=== PATIENT | female | born 1955 | race Caucasian/White ===

== ENCOUNTER 2021-06-21 19:21 | Inpatient (IN) | payer MEDICARE, OTHER ==
[~2021-06-21] VITALS: Ht 160 cm; Wt 75.5 kg
[2021-06-21] MEDS ORDERED: METHYL SALICYLATE/MENTHOL TOPICAL OINTMENT 57GM TUBE. TP PRN (23:30)
[2021-06-21] MEDS ORDERED: MAG HYDROX/AL HYDROX/SIMETH 30 ML ORAL.SUSP PO PRN (23:30)
[2021-06-21] MEDS ORDERED: ACETAMINOPHEN 325 MG TABLET PO PRN (23:30)
[2021-06-21 23:44] VITALS: BP 151/92
[2021-06-22 00:56] LABS: BACTERIA,URINE FEW /HPF (0-FEW); BILIRUBIN,URINE NEG (NEG); CLARITY,URINE CLEAR; COLOR,URINE YELLOW; GLUCOSE,URINE NEG (NEG); NITRITE,URINE NEG (NEG); RBC,URINE 0 /HPF (0-2); SQUAMOUS EPITHELIAL CELL,UR OCC /LPF
--- NOTE | 2021-06-22 01:06 | RAD ---
CT HEAD/BRAIN WO History: Fall. Comparison: None. Technique: Noncontrast CT imaging was performed of the head. Findings: No intracranial hemorrhage. No mass effect. No hydrocephalus. No evidence of acute territorial infar ction. Imaged orbits are unremarkable. Left maxillary sinus mucosal thickening with chronic changes of the b ones consistent chronic sinusitis. The scalp and calvarium are unremarkable. Impression: 1. No acute intracranial abnormality. 2. Chronic left maxillary sinusitis. ----- Exposure: One or more of the following individualized dose reduction techniques were utilized for thi s examination: 1. Automated exposure control 2. Adjustment of the mA and/or kV according to patient size 3. Use of iterative reconstruction technique. Electronically signed by: Fredy Tee MD (06/22/2021 1:03 AM) [facility]
[2021-06-22] MEDS ORDERED: LORA-254 PO (01:11)
[2021-06-22] MEDS ORDERED: WARF-31 PO (01:11)
[2021-06-22] MEDS ORDERED: OLAN5TAB67 PO (01:11)
[2021-06-22] MEDS ORDERED: BISA5TAB4 PO (01:11)
[2021-06-22] MEDS ORDERED: NITR0.4T22 SL (01:11)
[2021-06-22] MEDS ORDERED: POTA-112 PO (01:11)
[2021-06-22] MEDS ORDERED: BUDE180A IH (01:11)
[2021-06-22] MEDS ORDERED: ACET-1874 PO (01:11)
[2021-06-22] MEDS ORDERED: ROSUVASTATIN CA20 MG PO (01:11)
[2021-06-22] MEDS ORDERED: VENL150C6 PO (01:11)
[2021-06-22] MEDS ORDERED: FAMO-63 PO (01:11)
[2021-06-22] MEDS ORDERED: VENL75CA6 PO (01:11)
[2021-06-22] MEDS ORDERED: FLUT9.9S NS (01:11)
[2021-06-22] MEDS ORDERED: TRAZ-120 PO (01:11)
[2021-06-22] MEDS ORDERED: DIAZ5TAB PO (01:11)
[2021-06-22] MEDS ORDERED: METO-239 PO (01:11)
[2021-06-22] MEDS ORDERED: OXYB5TAB33 PO (01:11)
[2021-06-22] MEDS ORDERED: ALBU2.5V8 IH (01:11)
[2021-06-22] MEDS ORDERED: BISACODYL TAB 5 MG TABLET.DR. PO PRN (01:15)
[2021-06-22] MEDS ORDERED: traZODone 50 MG TABLET. PO PRN (01:15)
[2021-06-22] MEDS ORDERED: NITROGLYCERIN SUBLINGUAL 0.4 MG BOTTLE OF 25. SL PRN (01:15)
[2021-06-22] MEDS ORDERED: NON FORMULARY ITEM (Acetaminophen Er 650 MG) PO PRN (01:15)
[2021-06-22] MEDS ORDERED: ALBUTEROL SULFATE 2.5 MG/3 ML NEBU. NEB PRN (01:30)
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
[2021-06-22 04:13] LABS: BASO % 1 % (0-3); CALCIUM 8.7 mg/dL (8.5-10.1); CREATININE 0.8 mg/dL (0.6-1.0); EOS # 0.2 x10^3/uL (0.0-0.7); EOS % 5 % (0-3); GFR 71.8; HEMATOCRIT 35.1 % (36.0-47.0); HEMOGLOBIN 11.2 g/dL (12.0-15.5); LYMPH # 1.5 x10^3/uL (1.0-4.8); LYMPH % 39 % (24-48); MEAN CORPUSCULAR HEMOGLOBIN 31 pg (25-35); MEAN CORPUSCULAR HGB CONC 32 g/dL (31-37); MEAN CORPUSCULAR VOLUME 96 fL (79-100); MONO # 0.5 x10^3/uL (0.0-1.1); MONO % 13 % (0-9); NEUT # 1.6 x10^3uL (1.8-7.7); NEUT % 43 % (31-73); PLATELET COUNT 148 x10^3/uL (140-400); POTASSIUM 3.1 mmol/L (3.5-5.1); RED BLOOD COUNT 3.68 x10^6/uL (3.50-5.40); RED CELL DISTRIBUTION WIDTH 14.4 % (11.5-14.5); WHITE BLOOD COUNT 3.9 x10^3/uL (4.0-11.0)
[2021-06-22 04:19] LABS: ALBUMIN 3.1 g/dL (3.4-5.0); ALBUMIN/GLOBULIN RATIO 0.9 (1.0-1.7); MAGNESIUM 2.2 mg/dL (1.8-2.4); TOTAL BILIRUBIN 0.5 mg/dL (0.2-1.0); TOTAL PROTEIN 6.6 g/dL (6.4-8.2)
[2021-06-22 05:50] VITALS: BP 154/76
[2021-06-22] MEDS: BUDESONIDE 0.5 MG/2 ML NEBU NEB SCH ×2 (08:00→20:00)
[2021-06-22] MEDS: FAMOTIDINE 20 MG TABLET PO SCH ×2 (08:59→21:40)
[2021-06-22] MEDS: OXYBUTYNIN CHLORIDE 5 MG TABLET PO SCH (08:59)
[2021-06-22] MEDS: VENLAFAXINE 75 MG TABLET. PO SCH ×3 (08:59→21:40)
[2021-06-22] MEDS ORDERED: FLUTICASONE 50MCG/NASAL SPRAY 16GM BOTTLE. NS SCH (09:00)
[2021-06-22] MEDS ORDERED: FLU VACC QUAD 21-22 (6MOS+) PF 0.5 ML SYRINGE. VAX IM ONE (09:00)
[2021-06-22] MEDS ORDERED: NON FORMULARY ITEM (Venlafaxine Hcl (Venlafaxine Hcl Er) 75 MG) PO SCH (09:00)
[2021-06-22] MEDS ORDERED: METOPROLOL SUCC 24HR ER 25 MG TAB.ER.24H. PO SCH (09:00)
[2021-06-22] MEDS: POTASSIUM CHLORIDE 10 MEQ TABLET.ER. PO SCH ×3 (09:00→17:20)
[2021-06-22 10:10] LABS: THYROID STIM HORMONE (TSH) 0.409 uIU/mL (0.358-3.740)
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
[2021-06-22] MEDS ORDERED: FLUTICASONE 50MCG/NASAL SPRAY 16GM BOTTLE. NS PRN (11:45)
[2021-06-22] MEDS ORDERED: ALBUTEROL SULFATE 8GM INHALER. INH PRN (11:45)
[2021-06-22] MEDS ORDERED: NITR12SP TL (11:54)
[2021-06-22] MEDS ORDERED: BUDE0.25 IH (11:54)
--- NOTE | 2021-06-22 12:30 | NUR ---
Glenda has been increasingly agitated and restless. 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 She is making comments about having to olive picker her young sons from her uncle's house or having to get home to get dinner started for her family. PRN medication provided per eMAR, will continue to monitor and report to MD during rounds.
[2021-06-22] MEDS ORDERED: MAGNESIUM SULFATE 1GM 100 ML IV ONE (13:00)
[2021-06-22 15:40] VITALS: BP 138/84
[2021-06-22] MEDS: WARFARIN 5 MG TABLET. PO SCH (17:19)
--- NOTE | 2021-06-22 18:30 | NUR ---
Patient has been SpO2 spot checked throughout this shift and has maintained SpO2=96% on room air. Will continue to monitor and report to oncoming shift.
[2021-06-22] MEDS ORDERED: NON FORMULARY ITEM (Venlafaxine Hcl (Venlafaxine Hcl Er) 150 MG) PO SCH (21:00)
[2021-06-22] MEDS ORDERED: diazePAM 5 MG TABLET. PO PRN (21:00)
[2021-06-22] MEDS ORDERED: OLANZapine 5 MG TABLET PO SCH (21:00)
[2021-06-22] MEDS ORDERED: LORazepam 1 MG TABLET PO SCH (21:00)
[2021-06-22] MEDS ORDERED: diazePAM 5 MG TABLET. PO SCH (21:00)
[2021-06-22] MEDS ORDERED: traZODone 50 MG TABLET. PO SCH (21:15)
[2021-06-22] MEDS: ATORVASTATIN CALCIUM 20 MG TABLET PO SCH (21:45)
[2021-06-22] MEDS: NYSTATIN TOPICAL POWDER 15GM BOTTLE. TP SCH (21:45)
[2021-06-22] MEDS: risperiDONE 0.25 MG TABLET. PO SCH (21:48)
[2021-06-22] MEDS: diazePAM 5 MG TABLET. PO SCH (21:49)
[2021-06-22] MEDS: METOPROLOL SUCC 24HR ER 25 MG TAB.ER.24H. PO SCH (21:52)
--- NOTE | 2021-06-23 00:16 | NUR ---
Nursing Note The patient was located in the hallway and her room for her assessment and medication pass. The patient was alert to name only. The patient was very disorganized during interactions and her room had many magazines and blanket scattered around on the floor. The patient was compliant with her medications and took them whole. Currently sleeping in her room.
[2021-06-23 02:06] LABS: THYROXINE 7.7 ug/dL (4.5-12.0)
[2021-06-23 05:06] LABS: HEMOGLOBIN A1C 4.5 % (4.8-5.6)
[2021-06-23 06:16] VITALS: BP 119/75
[2021-06-23] MEDS: POTASSIUM CHLORIDE 10 MEQ TABLET.ER. PO SCH ×3 (08:36→17:10)
[2021-06-23] MEDS: OXYBUTYNIN CHLORIDE 5 MG TABLET PO SCH (08:36)
[2021-06-23] MEDS: VENLAFAXINE 75 MG TABLET. PO SCH ×2 (08:36→14:18)
[2021-06-23] MEDS: FAMOTIDINE 20 MG TABLET PO SCH ×2 (08:36→20:50)
[2021-06-23] MEDS: METOPROLOL SUCC 24HR ER 25 MG TAB.ER.24H. PO SCH ×2 (08:37→20:50)
[2021-06-23] MEDS: BUDESONIDE 0.5 MG/2 ML NEBU NEB SCH (08:42)
[2021-06-23] MEDS: NYSTATIN TOPICAL POWDER 15GM BOTTLE. TP SCH ×2 (09:00→20:51)
--- NOTE | 2021-06-23 11:05 | NUR ---
ACTIVITY THERAPY ASSESSMENT Completed based on observation, notes and interview. Pt was sitting in a chair in the hallway, calmly and quietly but was agreeable to speak with MACHINE SCALLOP CUTTER. She was soft spoken, confused and referred to herself as if she were a child, talking about her parents and siblings and enjoying baseball and basketball and how her mother wanted the kids to stay busy and not watch much TV. She was able to correctly recall her date of , but unable to give me her age. She was unaware where we were, thought she came here for a school dinner with her family. She had clean clothes/ face, reported being sleepy but declined going to her room to lay down, afraid there was no room and if she laid down she might fall asleep. When asked if she had any questions for MACHINE SCALLOP CUTTER, with a smile, she asked what MACHINE SCALLOP CUTTER did for a living. She was kind and actively listened. Reports indicate Pt. had a previous hospital admission for two weeks. Initial goal aimed to increase engagement: Pt. will participate in at least three Activity Therapy sessions per week.
[2021-06-23 15:39] VITALS: BP 148/75
[2021-06-23] MEDS: WARFARIN 5 MG TABLET. PO SCH (16:12)
--- NOTE | 2021-06-23 16:15 | NUR ---
Nursing note: Patient in [place] for morning medication and assessment. She is compliant with medications taken whole. She is delusional, restless, & intrusive with peers. She is A/O to self only. Patient denies pain/discomfort at this time. She ambulates with a walker that she frequently walks away from. She interacts with peers and staff. She is currently ambulating in the [place]. Will continue to monitor.
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
--- NOTE | 2021-06-23 20:31 | PDOC ---
Exam Note: Mode Note: Please also refer to the separate dictated note~for this date of service dictated separately.~Patient seen individually. Discussed the patient with Nursing staff reviewed the chart.~Reviewed interim history and current functioning. Reviewed vital signs,~Labs/ Radiology~and current medications noted below. Continue current treatment with the changes noted in the dictated addendum note Assessment: Vital Signs/I&O: Vital Signs Date Time Temp Pulse Resp B/P (MAP) Pulse Ox O2 Delivery O2 Flow Rate FiO2 06/23/21 15:39 98.5 73 18 148/75 (99) 95 06/21/21 23:44 Room Air I & O 06/22/21 06/22/21 06/23/21 15:00 23:00 07:00 Intake Total 384 ml 480 ml Balance 384 ml 480 ml Labs: Laboratory Tests Test 06/23/21 05:57 Prothrombin Time 22.3 SEC (9.4-11.4) H Prothrombin Time INR 2.2 (0.9-1.1) H Current Medications: Meds: Laboratory Tests Test 06/23/21 05:57 Prothrombin Time 22.3 SEC Prothromb Time International Ratio 2.2 Current Medications Medications (Trade) Dose Ordered Sig/Lucinda Route PRN Reason Start Time Stop Time Status Last Admin Dose Admin Acetaminophen (Tylenol) 650 mg PRN Q6HRS PRN PO MILD PAIN / TEMP > 100.3'F 06/21/21 23:30 Multi-Ingredient Ointment (Analgesic Albright) 1 christiano PRN QID PRN TP MUSCLE PAIN 06/21/21 23:30 Al Hydroxide/Mg Hydroxide (Mylanta Plus Xs) 15 ml PRN AFTMEALHC PRN PO DYSPEPSIA 06/21/21 23:30 Magnesium Hydroxide (Milk Of Magnesia) 2,400 mg PRN QHS PRN PO 1ST CHOICE CONSTIPATION 06/21/21 23:30 Influenza Virus Vaccine Quadrival (Flulaval Quad [id number] Syringe) 0.5 ml ONCE ONCE VAX IM 06/22/21 09:00 06/22/21 09:02 DC 06/22/21 09:07 Albuterol Sulfate (Ventolin) 2.5 mg PRN Q4HRS PRN NEB SHORTNESS OF BREATH 06/22/21 01:30 06/22/21 12:19 DC Bisacodyl (Dulcolax Tab) 5 mg PRN DAILY PRN PO 2ND CHOICE CONSTIPATION 06/22/21 01:15 Diazepam (Valium) 5 mg PRN QHS PRN PO ANXIETY 06/22/21 21:00 06/22/21 12:19 DC Famotidine (Pepcid) 20 mg BID PO 06/22/21 09:00 06/23/21 08:36 Lorazepam (Ativan) 1 mg HS PO 06/22/21 21:00 06/22/21 12:19 DC Metoprolol Succinate (Toprol Xl) 25 mg DAILY PO 06/22/21 09:00 06/22/21 12:19 DC 06/22/21 09:00 Nitroglycerin (Nitrostat) 0.4 mg PRN Q5MIN PRN SL CHEST PAIN 06/22/21 01:15 Olanzapine (ZyPREXA) 2.5 mg HS PO 06/22/21 21:00 06/22/21 12:19 DC Potassium Chloride (Klor-Con) 20 meq TIDWMEALS PO 06/22/21 08:00 06/23/21 17:10 Trazodone HCl (Desyrel) 25 mg PRN QHS PRN PO INSOMNIA 06/22/21 01:15 06/22/21 21:28 DC Warfarin Sodium (Coumadin) 5 mg DAILY@1600 PO 06/22/21 16:00 06/23/21 16:12 Non-Formulary Medication (Acetaminophen Er ) 650 mg PRN Q8HRS PRN PO FEVER/PAIN 06/22/21 01:15 UNV Budesonide (Pulmicort) 0.5 mg RTBID NEB 06/22/21 08:00 06/23/21 12:30 DC 06/23/21 08:42 Fluticasone Propionate (Flonase) 2 spray DAILY NS 06/22/21 09:00 06/22/21 12:19 DC Oxybutynin Chloride (Ditropan) 5 mg DAILY PO 06/22/21 09:00 06/23/21 08:36 Atorvastatin Calcium (Lipitor) 80 mg QHS PO 06/22/21 21:00 06/22/21 21:45 Non-Formulary Medication (Venlafaxine Hcl (Venlafaxine Hcl Er)) 75 mg DAILY PO 06/22/21 09:00 UNV Non-Formulary Medication (Venlafaxine Hcl (Venlafaxine Hcl Er)) 150 mg HS PO 06/22/21 21:00 UNV Warfarin Sodium (Coumadin Per Pharmacy) 1 each PRN DAILY PRN MC SEE COMMENTS 06/22/21 01:45 Venlafaxine HCl (Effexor) 75 mg TID PO 06/22/21 09:00 06/23/21 19:45 DC 06/23/21 14:18 Nystatin (Nystop) 1 christiano BID TP 06/22/21 21:00 06/23/21 09:00 Magnesium Sulfate 100 ml @ 100 mls/hr 1X ONCE IV 06/22/21 13:00 06/22/21 13:59 DC 06/22/21 13:49 Olanzapine (ZyPREXA ZYDIS) 2.5 mg PRN Q2HR PRN PO ANXIETY / AGITATION 06/22/21 11:45 06/23/21 15:11 Diazepam (Valium) 5 mg QHS PO 06/22/21 21:00 06/22/21 21:22 DC Fluticasone Propionate (Flonase) 2 spray PRN BID PRN NS allergies 06/22/21 11:45 Metoprolol Succinate (Toprol Xl) 25 mg BID PO 06/22/21 21:00 06/23/21 08:37 Albuterol Sulfate (Ventolin Hfa Inhaler) 2 puff PRN Q4HRS PRN INH SHORTNESS OF BREATH 06/22/21 11:45 Diazepam (Valium) 2.5 mg QHS PO 06/22/21 21:15 06/25/21 08:00 06/22/21 21:49 Risperidone (RisperDAL) 0.25 mg QHS PO 06/23/21 21:00 06/22/21 21:25 DC Trazodone HCl (Desyrel) 50 mg PRN QHS PO 06/22/21 21:15 Risperidone (RisperDAL) 0.25 mg QHS PO 06/22/21 21:30 06/22/21 21:48 Fluticasone Furoate (ARNUITY 100mcg ELLIPTA) 1 puff BID INH 06/23/21 21:00 Venlafaxine HCl (Effexor) 75 mg BID@0900,1700 PO 06/24/21 09:00 Current Medications Medications (Trade) Dose Ordered Sig/Lucinda Route PRN Reason Start Time Stop Time Status Last Admin Dose Admin Atorvastatin Calcium (Lipitor) 80 mg QHS PO 06/22/21 21:00 06/22/21 21:45 Nystatin (Nystop) 1 christiano BID TP 06/22/21 21:00 06/23/21 09:00 Metoprolol Succinate (Toprol Xl) 25 mg BID PO 06/22/21 21:00 06/23/21 08:37 Diazepam (Valium) 2.5 mg QHS PO 06/22/21 21:15 06/25/21 08:00 06/22/21 21:49 Risperidone (RisperDAL) 0.25 mg QHS PO 06/22/21 21:30 06/22/21 21:48 I have reviewed the current psychotropics carefully including drug interactions. Risk benefit ratio favors no change other than as noted in my dictated progress note. Diagnosis: Problems: (1) Dementia in Alzheimer's disease with delusions (2) Dementia in Alzheimer's disease with depression (3) Dementia, vascular, with delusions (4) Dementia, vascular, with depression (5) Anxiety disorder, unspecified (6) Impulse control disorder, unspecified (7) Major neurocognitive disorder due to Alzheimer's disease, without behavioral disturbance MYNOR JAMA MD Jun 23, 2021 20:31
--- NOTE | 2021-06-23 20:32 | PDOC ---
Exam Note: Mode Note: Late entry for 06/22/2021. Please also refer to the separate dictated note~for this date of service dictated separately.~Patient seen individually. Discussed the patient with Nursing staff reviewed the chart.~Reviewed interim history and current functioning. Reviewed vital signs,~Labs/ Radiology~and current medic ations noted below. Continue current treatment with the changes noted in the dictated addendum note Assessment: Vital Signs/I&O: Vital Signs Date Time Temp Pulse Resp B/P (MAP) Pulse Ox O2 Delivery O2 Flow Rate FiO2 06/23/21 15:39 98.5 73 18 148/75 (99) 95 06/21/21 23:44 Room Air I & O 06/22/21 06/22/21 06/23/21 15:00 23:00 07:00 Intake Total 384 ml 480 ml Balance 384 ml 480 ml Labs: Laboratory Tests Test 06/23/21 05:57 Prothrombin Time 22.3 SEC (9.4-11.4) H Prothrombin Time INR 2.2 (0.9-1.1) H Current Medications: Meds: Current Medications Medications (Trade) Dose Ordered Sig/Lucinda Route PRN Reason Start Time Stop Time Status Last Admin Dose Admin Atorvastatin Calcium (Lipitor) 80 mg QHS PO 06/22/21 21:00 06/22/21 21:45 Nystatin (Nystop) 1 christiano BID TP 06/22/21 21:00 06/23/21 09:00 Metoprolol Succinate (Toprol Xl) 25 mg BID PO 06/22/21 21:00 06/23/21 08:37 Diazepam (Valium) 2.5 mg QHS PO 06/22/21 21:15 06/25/21 08:00 06/22/21 21:49 Risperidone (RisperDAL) 0.25 mg QHS PO 06/22/21 21:30 06/22/21 21:48 I have reviewed the current psychotropics carefully including drug interactions. Risk benefit ratio favors no change other than as noted in my dictated progress note. Diagnosis: Problems: (1) Impulse control disorder, unspecified (2) Anxiety disorder, unspecified (3) Dementia, vascular, with depression (4) Dementia, vascular, with delusions (5) Dementia in Alzheimer's disease with depression (6) Dementia in Alzheimer's disease with delusions (7) Major neurocognitive disorder due to Alzheimer's disease, without behavioral disturbance MYNOR JAMA MD Jun 23, 2021 20:32
[2021-06-23] MEDS: risperiDONE 0.25 MG TABLET. PO SCH (20:50)
[2021-06-23] MEDS: ATORVASTATIN CALCIUM 20 MG TABLET PO SCH (20:51)
[2021-06-23] MEDS: diazePAM 5 MG TABLET. PO SCH (20:54)
[2021-06-23] MEDS ORDERED: risperiDONE 0.25 MG TABLET. PO SCH (21:00)
[2021-06-23] MEDS: FLUTICASONE FUROATE 100mcg/INH ELLIPTA INHALER. INH SCH (21:00)
--- NOTE | 2021-06-23 23:53 | NUR ---
Nursing Note The patient was located in her room for her assessment and medication pass. The patient was calm and appropriate while in the hallway prior to HS. The patient became more disorganized and restless after going to bed. The patient was compliant with her medications and took them whole. The patient became increasingly disorganized and restless later in the shift and was given PRN Zyprexa per PRN order. The PRN was effective and the patient is currently sleeping in her room. Alert to self only during assessment.
[2021-06-24 05:50] VITALS: BP 117/64
[2021-06-24] MEDS: METOPROLOL SUCC 24HR ER 25 MG TAB.ER.24H. PO SCH ×2 (08:37→20:01)
[2021-06-24] MEDS: OXYBUTYNIN CHLORIDE 5 MG TABLET PO SCH (08:38)
[2021-06-24] MEDS: POTASSIUM CHLORIDE 10 MEQ TABLET.ER. PO SCH ×3 (08:38→15:47)
[2021-06-24] MEDS: FAMOTIDINE 20 MG TABLET PO SCH ×2 (08:38→20:00)
[2021-06-24] MEDS: FLUTICASONE FUROATE 100mcg/INH ELLIPTA INHALER. INH SCH ×3 (08:40→19:58)
[2021-06-24] MEDS: NYSTATIN TOPICAL POWDER 15GM BOTTLE. TP SCH ×2 (08:41→19:59)
[2021-06-24] MEDS: VENLAFAXINE 75 MG TABLET. PO SCH ×2 (08:46→15:45)
[2021-06-24 11:01] LABS: CALCIUM 8.6 mg/dL (8.5-10.1); CREATININE 0.9 mg/dL (0.6-1.0); GFR 62.6; POTASSIUM 4.3 mmol/L (3.5-5.1)
--- NOTE | 2021-06-24 12:44 | NUR ---
NURSE NOTE Pt. was mainly in her room today resting. Pt. did come out to eat meals in the secured hallway. Pt. was calm and quiet today.
--- NOTE | 2021-06-24 13:30 | NUR ---
Pharmacy Warfarin Dosing Note S:Pharmacy consulted to assist with anticoagulation therapy started with target INR: 2 -3 O:SHONA MARAVILLA is a 66 year old F with Atrial Fibrillation LABS: Last INR: 2.6 Last HGB: 11.2 Last HCT: 35.1 Last PLT: 148 Last dose of 5 mg given on 06/23/21 at 1600 Previous Regimen: 5MG Vitamin K given: Drug Interaction Changes: Same Interacting Drug Ongoing Drug Interactions: A:INR Within desired Range. Target Range for this patient is: 2 -3 P: Warfarin dose: 4 mg Today at 1600 Bridge Therapy: Next INR due 06/25/21 @ 0600 Pharmacy anticoagulation service will continue to follow. JESSICA WRIGHT [facility], 06/24/21 [id number]
[2021-06-24 15:42] VITALS: BP 145/74
[2021-06-24] MEDS: WARFARIN 4 MG TABLET. PO SCH (15:53)
[2021-06-24] MEDS: ATORVASTATIN CALCIUM 20 MG TABLET PO SCH (19:58)
[2021-06-24] MEDS: risperiDONE 0.25 MG TABLET. PO SCH (19:58)
[2021-06-24] MEDS: diazePAM 5 MG TABLET. PO SCH (20:01)
--- NOTE | 2021-06-24 20:49 | PDOC ---
Exam Note: Mode Note: Please also refer to the separate dictated note~for this date of service dictated separately.~Patient seen individually. Discussed the patient with Nursing staff reviewed the chart.~Reviewed interim history and current functioning. Reviewed vital signs,~Labs/ Radiology~and current medications noted below. Continue current treatment with the changes noted in the dictated addendum note Assessment: Vital Signs/I&O: Vital Signs Date Time Temp Pulse Resp B/P (MAP) Pulse Ox O2 Delivery O2 Flow Rate FiO2 06/24/21 20:01 76 145/74 06/24/21 15:42 98.2 18 96 06/24/21 05:50 Nasal Cannula 3.0 I & O 0 06/23/21 06/23/21 06/24/21 15:00 23:00 07:00 Intake Total 600 ml 360 ml Balance 600 ml 360 ml Labs: Laboratory Tests Test 06/24/21 10:38 Prothrombin Time 26.5 SEC (9.4-11.4) H Prothrombin Time INR 2.6 (0.9-1.1) H Sodium Level 145 mmol/L (136-145) Potassium Level 4.3 mmol/L (3.5-5.1) Chloride Level 111 mmol/L (98-107) H Carbon Dioxide Level 28 mmol/L (21-32) Anion Gap 6 (6-14) Blood Urea Nitrogen 18 mg/dL (7-20) Creatinine 0.9 mg/dL (0.6-1.0) Estimated GFR (Cockcroft-Gault) 62.6 Glucose Level 98 mg/dL (70-99) Calcium Level 8.6 mg/dL (8.5-10.1) Current Medications: Meds: Laboratory Tests Test 06/24/21 10:38 Prothrombin Time 26.5 SEC Prothromb Time International Ratio 2.6 Sodium Level 145 mmol/L Potassium Level 4.3 mmol/L Chloride Level 111 mmol/L Carbon Dioxide Level 28 mmol/L Anion Gap 6 Blood Urea Nitrogen 18 mg/dL Creatinine 0.9 mg/dL Estimated GFR (Cockcroft-Gault) 62.6 Glucose Level 98 mg/dL Calcium Level 8.6 mg/dL Current Medications Medications (Trade) Dose Ordered Sig/Lucinda Route PRN Reason Start Time Stop Time Status Last Admin Dose Admin Acetaminophen (Tylenol) 650 mg PRN Q6HRS PRN PO MILD PAIN / TEMP > 100.3'F 06/21/21 23:30 Multi-Ingredient Ointment (Analgesic [place]) 1 christiano PRN QID PRN TP MUSCLE PAIN 06/21/21 23:30 Al Hydroxide/Mg Hydroxide (Mylanta Plus Xs) 15 ml PRN AFTMEALHC PRN PO DYSPEPSIA 06/21/21 23:30 Magnesium Hydroxide (Milk Of Magnesia) 2,400 mg PRN QHS PRN PO 1ST CHOICE CONSTIPATION 06/21/21 23:30 Influenza Virus Vaccine Quadrival (Flulaval Quad [id number] Syringe) 0.5 ml ONCE ONCE VAX IM 06/22/21 09:00 06/22/21 09:02 DC 06/22/21 09:07 Albuterol Sulfate (Ventolin) 2.5 mg PRN Q4HRS PRN NEB SHORTNESS OF BREATH 06/22/21 01:30 06/22/21 12:19 DC Bisacodyl (Dulcolax Tab) 5 mg PRN DAILY PRN PO 2ND CHOICE CONSTIPATION 06/22/21 01:15 Diazepam (Valium) 5 mg PRN QHS PRN PO ANXIETY 06/22/21 21:00 06/22/21 12:19 DC Famotidine (Pepcid) 20 mg BID PO 06/22/21 09:00 06/24/21 20:00 Lorazepam (Ativan) 1 mg HS PO 06/22/21 21:00 06/22/21 12:19 DC Metoprolol Succinate (Toprol Xl) 25 mg DAILY PO 06/22/21 09:00 06/22/21 12:19 DC 06/22/21 09:00 Nitroglycerin (Nitrostat) 0.4 mg PRN Q5MIN PRN SL CHEST PAIN 06/22/21 01:15 Olanzapine (ZyPREXA) 2.5 mg HS PO 06/22/21 21:00 06/22/21 12:19 DC Potassium Chloride (Klor-Con) 20 meq TIDWMEALS PO 06/22/21 08:00 06/24/21 15:47 Trazodone HCl (Desyrel) 25 mg PRN QHS PRN PO INSOMNIA 06/22/21 01:15 06/22/21 21:28 DC Warfarin Sodium (Coumadin) 5 mg DAILY@1600 PO 06/22/21 16:00 06/24/21 13:18 DC 06/23/21 16:12 Non-Formulary Medication (Acetaminophen Er ) 650 mg PRN Q8HRS PRN PO FEVER/PAIN 06/22/21 01:15 UNV Budesonide (Pulmicort) 0.5 mg RTBID NEB 06/22/21 08:00 06/23/21 12:30 DC 06/23/21 08:42 Fluticasone Propionate (Flonase) 2 spray DAILY NS 06/22/21 09:00 06/22/21 12:19 DC Oxybutynin Chloride (Ditropan) 5 mg DAILY PO 06/22/21 09:00 06/24/21 08:38 Atorvastatin Calcium (Lipitor) 80 mg QHS PO 06/22/21 21:00 06/24/21 19:58 Non-Formulary Medication (Venlafaxine Hcl (Venlafaxine Hcl Er)) 75 mg DAILY PO 06/22/21 09:00 UNV Non-Formulary Medication (Venlafaxine Hcl (Venlafaxine Hcl Er)) 150 mg HS PO 06/22/21 21:00 UNV Warfarin Sodium (Coumadin Per Pharmacy) 1 each PRN DAILY PRN MC SEE COMMENTS 06/22/21 01:45 06/24/21 13:29 Venlafaxine HCl (Effexor) 75 mg TID PO 06/22/21 09:00 06/23/21 19:45 DC 06/23/21 14:18 Nystatin (Nystop) 1 christiano BID TP 06/22/21 21:00 06/24/21 19:59 Magnesium Sulfate 100 ml @ 100 mls/hr 1X ONCE IV 06/22/21 13:00 06/22/21 13:59 DC 06/22/21 13:49 Olanzapine (ZyPREXA ZYDIS) 2.5 mg PRN Q2HR PRN PO ANXIETY / AGITATION 06/22/21 11:45 06/24/21 13:39 Diazepam (Valium) 5 mg QHS PO 06/22/21 21:00 06/22/21 21:22 DC Fluticasone Propionate (Flonase) 2 spray PRN BID PRN NS allergies 06/22/21 11:45 Metoprolol Succinate (Toprol Xl) 25 mg BID PO 06/22/21 21:00 06/24/21 20:01 Albuterol Sulfate (Ventolin Hfa Inhaler) 2 puff PRN Q4HRS PRN INH SHORTNESS OF BREATH 06/22/21 11:45 Diazepam (Valium) 2.5 mg QHS PO 06/22/21 21:15 06/25/21 08:00 06/24/21 20:01 Risperidone (RisperDAL) 0.25 mg QHS PO 06/23/21 21:00 06/22/21 21:25 DC Trazodone HCl (Desyrel) 50 mg PRN QHS PO 06/22/21 21:15 Risperidone (RisperDAL) 0.25 mg QHS PO 06/22/21 21:30 06/24/21 19:58 Fluticasone Furoate (ARNUITY 100mcg ELLIPTA) 1 puff BID INH 06/23/21 21:00 06/24/21 19:58 Venlafaxine HCl (Effexor) 75 mg BID@0900,1700 PO 06/24/21 09:00 06/24/21 15:45 Warfarin Sodium (Coumadin) 4 mg DAILY16 PO 06/24/21 16:00 06/24/21 15:53 Current Medications Medications (Trade) Dose Ordered Sig/Lucinda Route PRN Reason Start Time Stop Time Status Last Admin Dose Admin Fluticasone Furoate (ARNUITY 100mcg ELLIPTA) 1 puff BID INH 06/23/21 21:00 06/24/21 19:58 Venlafaxine HCl (Effexor) 75 mg BID@0900,1700 PO 06/24/21 09:00 06/24/21 15:45 Warfarin Sodium (Coumadin) 4 mg DAILY16 PO 06/24/21 16:00 06/24/21 15:53 I have reviewed the current psychotropics carefully including drug interactions. Risk benefit ratio favors no change other than as noted in my dictated progress note. Diagnosis: Problems: (1) Impulse control disorder, unspecified (2) Anxiety disorder, unspecified (3) Dementia, vascular, with depression (4) Dementia, vascular, with delusions (5) Dementia in Alzheimer's disease with depression (6) Dementia in Alzheimer's disease with delusions (7) Major neurocognitive disorder due to Alzheimer's disease, without behavioral disturbance EVITA,MAN M MD Jun 24, 2021 20:49
--- NOTE | 2021-06-24 22:43 | NUR ---
Pt located in hallway this evening interacting with male peer. Pt pleasantly confused. A/O to name and . Pt stated that she was in [place] and that it was 1974. Compliant with whole medications. No agitation or aggression. Pt currently sleeping.
[2021-06-25] MEDS: traZODone 50 MG TABLET. PO PRN ×3 (01:12→22:57)
--- NOTE | 2021-06-25 01:15 | NUR ---
Pt awake, anxious and delusional. Pt argumentative and refusing to put her oxygen back on. O2 saturation mid 80s. Pt refused PRN medication. PRN Trazodone and Zydis crushed and administered sublingually with staff x3. Pt resistive and combative, attempting to hit staff with her shoes. Pt making statements such as we "are all going to hell." Pt eventually calmed down and is currently sleeping with her oxygen on.
[2021-06-25 05:51] VITALS: BP 131/78
--- NOTE | 2021-06-25 07:44 | PDOC ---
Exam Note: Mode Note: This note is a late entry for 06/23/2021 covers elements not covered in my initial note. Subjective: The patient was seen individually in the evening of 06/23/2021 with Axel DE SANTIAGO, discussed and reviewed the chart. The patient slept 6-3/4 previous night. She remains confused, not aggressive. Reviewed information from the family. 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 She has been delusional, repeatedly pressing the button on the phone talking to someone who is not there. Patient has been more confused since she had Covid and seems to have encephalopathy consequent to that worsening her early onset of dementia. Review of Systems: No CV, , pulmonary, eye, ENT system symptoms on review. Gait unsteady with walker. She was walking up and down the hallway with walker. Reliability poor. Mental Status Exam: The patient is oriented to herself. Insight and judgment, recent and remote memory, attention and concentration, fund of knowledge is poor consistent with her diagnosis. Laboratory Data: Reviewed. Impression: Major neurocognitive disorder, Alzheimer, vascular with delusion, depression behavioral disturbance. Anxiety disorder unspecified. Impulse control disorder unspecified. Plan: Patient is currently on Effexor 75 mg t.i.d. We will reduce to 75 mg 9 a.m. and 5 p.m. maintain rest of the psychotropics unchanged including Risperdal 0.25 mg h.s. Adjust further as clinically indicated. Assessment: Vital Signs/I&O: Vital Signs Date Time Temp Pulse Resp B/P (MAP) Pulse Ox O2 Delivery O2 Flow Rate FiO2 06/25/21 05:51 96.8 63 18 131/78 (95) 100 Nasal Cannula 3.0 I & O 06/24/21 06/24/21 06/25/21 15:00 23:00 07:00 Intake Total 720 ml 480 ml Balance 720 ml 480 ml Labs: Laboratory Tests Test 06/24/21 10:38 06/25/21 06:55 Prothrombin Time 26.5 SEC (9.4-11.4) H 27.0 SEC (9.4-11.4) H Prothrombin Time INR 2.6 (0.9-1.1) H 2.6 (0.9-1.1) H Sodium Level 145 mmol/L (136-145) Potassium Level 4.3 mmol/L (3.5-5.1) Chloride Level 111 mmol/L (98-107) H Carbon Dioxide Level 28 mmol/L (21-32) Anion Gap 6 (6-14) Blood Urea Nitrogen 18 mg/dL (7-20) Creatinine 0.9 mg/dL (0.6-1.0) Estimated GFR (Cockcroft-Gault) 62.6 Glucose Level 98 mg/dL (70-99) Calcium Level 8.6 mg/dL (8.5-10.1) Current Medications: Meds: Laboratory Tests Test 06/24/21 10:38 06/25/21 06:55 Prothrombin Time 26.5 SEC 27.0 SEC Prothromb Time International Ratio 2.6 2.6 Sodium Level 145 mmol/L Potassium Level 4.3 mmol/L Chloride Level 111 mmol/L Carbon Dioxide Level 28 mmol/L Anion Gap 6 Blood Urea Nitrogen 18 mg/dL Creatinine 0.9 mg/dL Estimated GFR (Cockcroft-Gault) 62.6 Glucose Level 98 mg/dL Calcium Level 8.6 mg/dL Current Medications Medications (Trade) Dose Ordered Sig/Lucinda Route PRN Reason Start Time Stop Time Status Last Admin Dose Admin Acetaminophen (Tylenol) 650 mg PRN Q6HRS PRN PO MILD PAIN / TEMP > 100.3'F 06/21/21 23:30 Multi-Ingredient Ointment (Analgesic [place]) 1 christiano PRN QID PRN TP MUSCLE PAIN 06/21/21 23:30 Al Hydroxide/Mg Hydroxide (Mylanta Plus Xs) 15 ml PRN AFTMEALHC PRN PO DYSPEPSIA 06/21/21 23:30 Magnesium Hydroxide (Milk Of Magnesia) 2,400 mg PRN QHS PRN PO 1ST CHOICE CONSTIPATION 06/21/21 23:30 Influenza Virus Vaccine Quadrival (Flulaval Quad [id number] Syringe) 0.5 ml ONCE ONCE VAX IM 06/22/21 09:00 06/22/21 09:02 DC 06/22/21 09:07 Albuterol Sulfate (Ventolin) 2.5 mg PRN Q4HRS PRN NEB SHORTNESS OF BREATH 06/22/21 01:30 06/22/21 12:19 DC Bisacodyl (Dulcolax Tab) 5 mg PRN DAILY PRN PO 2ND CHOICE CONSTIPATION 06/22/21 01:15 Diazepam (Valium) 5 mg PRN QHS PRN PO ANXIETY 06/22/21 21:00 06/22/21 12:19 DC Famotidine (Pepcid) 20 mg BID PO 06/22/21 09:00 06/24/21 20:00 Lorazepam (Ativan) 1 mg HS PO 06/22/21 21:00 06/22/21 12:19 DC Metoprolol Succinate (Toprol Xl) 25 mg DAILY PO 06/22/21 09:00 06/22/21 12:19 DC 06/22/21 09:00 Nitroglycerin (Nitrostat) 0.4 mg PRN Q5MIN PRN SL CHEST PAIN 06/22/21 01:15 Olanzapine (ZyPREXA) 2.5 mg HS PO 06/22/21 21:00 06/22/21 12:19 DC Potassium Chloride (Klor-Con) 20 meq TIDWMEALS PO 06/22/21 08:00 06/24/21 15:47 Trazodone HCl (Desyrel) 25 mg PRN QHS PRN PO INSOMNIA 06/22/21 01:15 06/22/21 21:28 DC Warfarin Sodium (Coumadin) 5 mg DAILY@1600 PO 06/22/21 16:00 06/24/21 13:18 DC 06/23/21 16:12 Non-Formulary Medication (Acetaminophen Er ) 650 mg PRN Q8HRS PRN PO FEVER/PAIN 06/22/21 01:15 UNV Budesonide (Pulmicort) 0.5 mg RTBID NEB 06/22/21 08:00 06/23/21 12:30 DC 06/23/21 08:42 Fluticasone Propionate (Flonase) 2 spray DAILY NS 06/22/21 09:00 06/22/21 12:19 DC Oxybutynin Chloride (Ditropan) 5 mg DAILY PO 06/22/21 09:00 06/24/21 08:38 Atorvastatin Calcium (Lipitor) 80 mg QHS PO 06/22/21 21:00 06/24/21 19:58 Non-Formulary Medication (Venlafaxine Hcl (Venlafaxine Hcl Er)) 75 mg DAILY PO 06/22/21 09:00 UNV Non-Formulary Medication (Venlafaxine Hcl (Venlafaxine Hcl Er)) 150 mg HS PO 06/22/21 21:00 UNV Warfarin Sodium (Coumadin Per Pharmacy) 1 each PRN DAILY PRN MC SEE COMMENTS 06/22/21 01:45 06/24/21 13:29 Venlafaxine HCl (Effexor) 75 mg TID PO 06/22/21 09:00 06/23/21 19:45 DC 06/23/21 14:18 Nystatin (Nystop) 1 christiano BID TP 06/22/21 21:00 06/24/21 19:59 Magnesium Sulfate 100 ml @ 100 mls/hr 1X ONCE IV 06/22/21 13:00 06/22/21 13:59 DC 06/22/21 13:49 Olanzapine (ZyPREXA ZYDIS) 2.5 mg PRN Q2HR PRN PO ANXIETY / AGITATION 06/22/21 11:45 06/25/21 00:13 Diazepam (Valium) 5 mg QHS PO 06/22/21 21:00 06/22/21 21:22 DC Fluticasone Propionate (Flonase) 2 spray PRN BID PRN NS allergies 06/22/21 11:45 Metoprolol Succinate (Toprol Xl) 25 mg BID PO 06/22/21 21:00 06/24/21 20:01 Albuterol Sulfate (Ventolin Hfa Inhaler) 2 puff PRN Q4HRS PRN INH SHORTNESS OF BREATH 06/22/21 11:45 Diazepam (Valium) 2.5 mg QHS PO 06/22/21 21:15 06/25/21 08:00 06/24/21 20:01 Risperidone (RisperDAL) 0.25 mg QHS PO 06/23/21 21:00 06/22/21 21:25 DC Trazodone HCl (Desyrel) 50 mg PRN QHS PO 06/22/21 21:15 06/25/21 01:10 DC Risperidone (RisperDAL) 0.25 mg QHS PO 06/22/21 21:30 06/24/21 19:58 Fluticasone Furoate (ARNUITY 100mcg ELLIPTA) 1 puff BID INH 06/23/21 21:00 06/24/21 19:58 Venlafaxine HCl (Effexor) 75 mg BID@0900,1700 PO 06/24/21 09:00 06/24/21 15:45 Warfarin Sodium (Coumadin) 4 mg DAILY16 PO 06/24/21 16:00 06/24/21 15:53 Trazodone HCl (Desyrel) 50 mg PRN QHS PRN PO insomnia 06/25/21 01:15 06/25/21 01:12 Current Medications Medications (Trade) Dose Ordered Sig/Lucinda Route PRN Reason Start Time Stop Time Status Last Admin Dose Admin Venlafaxine HCl (Effexor) 75 mg BID@0900,1700 PO 06/24/21 09:00 06/24/21 15:45 Warfarin Sodium (Coumadin) 4 mg DAILY16 PO 06/24/21 16:00 06/24/21 15:53 Trazodone HCl (Desyrel) 50 mg PRN QHS PRN PO insomnia 06/25/21 01:15 06/25/21 01:12 I have reviewed the current psychotropics carefully including drug interactions. Risk benefit ratio favors no change other than as noted in my dictated progress note. Diagnosis: Problems: (1) Impulse control disorder, unspecified (2) Anxiety disorder, unspecified (3) Dementia, vascular, with depression (4) Dementia, vascular, with delusions (5) Dementia in Alzheimer's disease with depression (6) Dementia in Alzheimer's disease with delusions (7) Major neurocognitive disorder due to Alzheimer's disease, without behavioral disturbance MYNOR JAMA MD Jun 25, 2021 07:44
--- NOTE | 2021-06-25 08:09 | PDOC ---
Exam Note: Mode Note: This note is a late entry for 06/24/2021 covers elements not covered in my initial note. Subjective: The patient was seen individually in the evening of 06/24/2021 with Venkat DE SANTIAGO, discussed and reviewed the chart. The patient slept 6 previous night. She had a difficult day. She has been banging on the window outside the nursing station, trying to help another demented patient exit the unit. She is confused, disorganized, seems to have some expressive language delays as I met with her at length in the hallway outside her room. She was ambulating today without the walker. Review of Systems: No CV, , pulmonary, eye, ENT system symptoms on review. Mental Status Exam: The patient is oriented to herself. Insight and judgment, recent and remote memory, attention and concentration, fund of knowledge is poor consistent with her diagnosis. Laboratory Data: Reviewed. Impression: Major neurocognitive disorder, Alzheimer, vascular with delusion, depression behavioral disturbance. Anxiety disorder unspecified. Impulse control disorder unspecified. Plan: Continue psychotropics from initial note. We have reduced the Effexor down to 75 mg twice a day. Maintain Risperdal 0.25 mg h.s. but we may increase this depending on psychotic symptoms persistence. Adjust further as clinically indicated. Rest unchanged for now. Assessment: Vital Signs/I&O: Vital Signs Date Time Temp Pulse Resp B/P (MAP) Pulse Ox O2 Delivery O2 Flow Rate FiO2 06/25/21 05:51 96.8 63 18 131/78 (95) 100 Nasal Cannula 3.0 I & O 06/24/21 06/24/21 06/25/21 15:00 23:00 07:00 Intake Total 720 ml 480 ml Balance 720 ml 480 ml Labs: Laboratory Tests Test 06/24/21 10:38 06/25/21 06:55 Prothrombin Time 26.5 SEC (9.4-11.4) H 27.0 SEC (9.4-11.4) H Prothrombin Time INR 2.6 (0.9-1.1) H 2.6 (0.9-1.1) H Sodium Level 145 mmol/L (136-145) Potassium Level 4.3 mmol/L (3.5-5.1) Chloride Level 111 mmol/L (98-107) H Carbon Dioxide Level 28 mmol/L (21-32) Anion Gap 6 (6-14) Blood Urea Nitrogen 18 mg/dL (7-20) Creatinine 0.9 mg/dL (0.6-1.0) Estimated GFR (Cockcroft-Gault) 62.6 Glucose Level 98 mg/dL (70-99) Calcium Level 8.6 mg/dL (8.5-10.1) Current Medications: Meds: Laboratory Tests Test 06/24/21 10:38 06/25/21 06:55 Prothrombin Time 26.5 SEC 27.0 SEC Prothromb Time International Ratio 2.6 2.6 Sodium Level 145 mmol/L Potassium Level 4.3 mmol/L Chloride Level 111 mmol/L Carbon Dioxide Level 28 mmol/L Anion Gap 6 Blood Urea Nitrogen 18 mg/dL Creatinine 0.9 mg/dL Estimated GFR (Cockcroft-Gault) 62.6 Glucose Level 98 mg/dL Calcium Level 8.6 mg/dL Current Medications Medications (Trade) Dose Ordered Sig/Lucinda Route PRN Reason Start Time Stop Time Status Last Admin Dose Admin Acetaminophen (Tylenol) 650 mg PRN Q6HRS PRN PO MILD PAIN / TEMP > 100.3'F 06/21/21 23:30 Multi-Ingredient Ointment (Analgesic [place]) 1 christiano PRN QID PRN TP MUSCLE PAIN 06/21/21 23:30 Al Hydroxide/Mg Hydroxide (Mylanta Plus Xs) 15 ml PRN AFTMEALHC PRN PO DYSPEPSIA 06/21/21 23:30 Magnesium Hydroxide (Milk Of Magnesia) 2,400 mg PRN QHS PRN PO 1ST CHOICE CONSTIPATION 06/21/21 23:30 Influenza Virus Vaccine Quadrival (Flulaval Quad [id number] Syringe) 0.5 ml ONCE ONCE VAX IM 06/22/21 09:00 06/22/21 09:02 DC 06/22/21 09:07 Albuterol Sulfate (Ventolin) 2.5 mg PRN Q4HRS PRN NEB SHORTNESS OF BREATH 06/22/21 01:30 06/22/21 12:19 DC Bisacodyl (Dulcolax Tab) 5 mg PRN DAILY PRN PO 2ND CHOICE CONSTIPATION 06/22/21 01:15 Diazepam (Valium) 5 mg PRN QHS PRN PO ANXIETY 06/22/21 21:00 06/22/21 12:19 DC Famotidine (Pepcid) 20 mg BID PO 06/22/21 09:00 06/24/21 20:00 Lorazepam (Ativan) 1 mg HS PO 06/22/21 21:00 06/22/21 12:19 DC Metoprolol Succinate (Toprol Xl) 25 mg DAILY PO 06/22/21 09:00 06/22/21 12:19 DC 06/22/21 09:00 Nitroglycerin (Nitrostat) 0.4 mg PRN Q5MIN PRN SL CHEST PAIN 06/22/21 01:15 Olanzapine (ZyPREXA) 2.5 mg HS PO 06/22/21 21:00 06/22/21 12:19 DC Potassium Chloride (Klor-Con) 20 meq TIDWMEALS PO 06/22/21 08:00 06/24/21 15:47 Trazodone HCl (Desyrel) 25 mg PRN QHS PRN PO INSOMNIA 06/22/21 01:15 06/22/21 21:28 DC Warfarin Sodium (Coumadin) 5 mg DAILY@1600 PO 06/22/21 16:00 06/24/21 13:18 DC 06/23/21 16:12 Non-Formulary Medication (Acetaminophen Er ) 650 mg PRN Q8HRS PRN PO FEVER/PAIN 06/22/21 01:15 UNV Budesonide (Pulmicort) 0.5 mg RTBID NEB 06/22/21 08:00 06/23/21 12:30 DC 06/23/21 08:42 Fluticasone Propionate (Flonase) 2 spray DAILY NS 06/22/21 09:00 06/22/21 12:19 DC Oxybutynin Chloride (Ditropan) 5 mg DAILY PO 06/22/21 09:00 06/24/21 08:38 Atorvastatin Calcium (Lipitor) 80 mg QHS PO 06/22/21 21:00 06/24/21 19:58 Non-Formulary Medication (Venlafaxine Hcl (Venlafaxine Hcl Er)) 75 mg DAILY PO 06/22/21 09:00 UNV Non-Formulary Medication (Venlafaxine Hcl (Venlafaxine Hcl Er)) 150 mg HS PO 06/22/21 21:00 UNV Warfarin Sodium (Coumadin Per Pharmacy) 1 each PRN DAILY PRN MC SEE COMMENTS 06/22/21 01:45 06/24/21 13:29 Venlafaxine HCl (Effexor) 75 mg TID PO 06/22/21 09:00 06/23/21 19:45 DC 06/23/21 14:18 Nystatin (Nystop) 1 christiano BID TP 06/22/21 21:00 06/24/21 19:59 Magnesium Sulfate 100 ml @ 100 mls/hr 1X ONCE IV 06/22/21 13:00 06/22/21 13:59 DC 06/22/21 13:49 Olanzapine (ZyPREXA ZYDIS) 2.5 mg PRN Q2HR PRN PO ANXIETY / AGITATION 06/22/21 11:45 06/25/21 00:13 Diazepam (Valium) 5 mg QHS PO 06/22/21 21:00 06/22/21 21:22 DC Fluticasone Propionate (Flonase) 2 spray PRN BID PRN NS allergies 06/22/21 11:45 Metoprolol Succinate (Toprol Xl) 25 mg BID PO 06/22/21 21:00 06/24/21 20:01 Albuterol Sulfate (Ventolin Hfa Inhaler) 2 puff PRN Q4HRS PRN INH SHORTNESS OF BREATH 06/22/21 11:45 Diazepam (Valium) 2.5 mg QHS PO 06/22/21 21:15 06/25/21 08:00 DC 06/24/21 20:01 Risperidone (RisperDAL) 0.25 mg QHS PO 06/23/21 21:00 06/22/21 21:25 DC Trazodone HCl (Desyrel) 50 mg PRN QHS PO 06/22/21 21:15 06/25/21 01:10 DC Risperidone (RisperDAL) 0.25 mg QHS PO 06/22/21 21:30 06/24/21 19:58 Fluticasone Furoate (ARNUITY 100mcg ELLIPTA) 1 puff BID INH 06/23/21 21:00 06/24/21 19:58 Venlafaxine HCl (Effexor) 75 mg BID@0900,1700 PO 06/24/21 09:00 06/24/21 15:45 Warfarin Sodium (Coumadin) 4 mg DAILY16 PO 06/24/21 16:00 06/24/21 15:53 Trazodone HCl (Desyrel) 50 mg PRN QHS PRN PO insomnia 06/25/21 01:15 06/25/21 01:12 Current Medications Medications (Trade) Dose Ordered Sig/Lucinda Route PRN Reason Start Time Stop Time Status Last Admin Dose Admin Venlafaxine HCl (Effexor) 75 mg BID@0900,1700 PO 06/24/21 09:00 06/24/21 15:45 Warfarin Sodium (Coumadin) 4 mg DAILY16 PO 06/24/21 16:00 06/24/21 15:53 Trazodone HCl (Desyrel) 50 mg PRN QHS PRN PO insomnia 06/25/21 01:15 06/25/21 01:12 I have reviewed the current psychotropics carefully including drug interactions. Risk benefit ratio favors no change other than as noted in my dictated progress note. Diagnosis: Problems: (1) Impulse control disorder, unspecified (2) Anxiety disorder, unspecified (3) Dementia, vascular, with depression (4) Dementia, vascular, with delusions (5) Dementia in Alzheimer's disease with depression (6) Dementia in Alzheimer's disease with delusions (7) Major neurocognitive disorder due to Alzheimer's disease, without behavioral disturbance MYNOR JAMA MD Jun 25, 2021 08:09
[2021-06-25] MEDS: FAMOTIDINE 20 MG TABLET PO SCH ×2 (08:13→19:57)
[2021-06-25] MEDS: OXYBUTYNIN CHLORIDE 5 MG TABLET PO SCH (08:13)
[2021-06-25] MEDS: POTASSIUM CHLORIDE 10 MEQ TABLET.ER. PO SCH ×3 (08:14→17:21)
[2021-06-25] MEDS: VENLAFAXINE 75 MG TABLET. PO SCH ×2 (08:14→17:21)
[2021-06-25] MEDS: METOPROLOL SUCC 24HR ER 25 MG TAB.ER.24H. PO SCH ×2 (08:14→19:57)
[2021-06-25] MEDS: MAGNESIUM HYDROXIDE 2,400 MG/30 ML ORAL.SUSP. PO PRN (08:15)
[2021-06-25] MEDS: FLUTICASONE FUROATE 100mcg/INH ELLIPTA INHALER. INH SCH ×2 (08:16→19:58)
[2021-06-25] MEDS: NYSTATIN TOPICAL POWDER 15GM BOTTLE. TP SCH ×2 (10:02→19:58)
--- NOTE | 2021-06-25 10:30 | NUR ---
Patient agitated, restless, and delusional. SHe is repeatedly stating that she needs to get off this ship and is door checking and exit seeking. Patient also tried to push through the plastic barriers. PRN medication provided per eMAR, will continue to monitor and report to MD during rounds.
[2021-06-25 15:37] VITALS: BP 130/80
[2021-06-25] MEDS: WARFARIN 4 MG TABLET. PO SCH (17:21)
[2021-06-25] MEDS: ATORVASTATIN CALCIUM 20 MG TABLET PO SCH (19:58)
[2021-06-25] MEDS: risperiDONE 0.5 MG TABLET. PO SCH (20:00)
--- NOTE | 2021-06-25 20:26 | PDOC ---
Exam Note: Mode Note: Please also refer to the separate dictated note~for this date of service dictated separately.~Patient seen individually. Discussed the patient with Nursing staff reviewed the chart.~Reviewed interim history and current functioning. Reviewed vital signs,~Labs/ Radiology~and current medications noted below. Continue current treatment with the changes noted in the dictated addendum note Assessment: Vital Signs/I&O: Vital Signs Date Time Temp Pulse Resp B/P (MAP) Pulse Ox O2 Delivery O2 Flow Rate FiO2 06/25/21 19:57 81 130/80 06/25/21 15:37 98.4 16 96 06/25/21 05:51 Nasal Cannula 3.0 I & O 0 06/24/21 06/24/21 06/25/21 15:00 23:00 07:00 Intake Total 720 ml 480 ml Balance 720 ml 480 ml Labs: Laboratory Tests Test 06/25/21 06:55 Prothrombin Time 27.0 SEC (9.4-11.4) H Prothrombin Time INR 2.6 (0.9-1.1) H Current Medications: Meds: Laboratory Tests Test 06/25/21 06:55 Prothrombin Time 27.0 SEC Prothromb Time International Ratio 2.6 Current Medications Medications (Trade) Dose Ordered Sig/Lucinda Route PRN Reason Start Time Stop Time Status Last Admin Dose Admin Acetaminophen (Tylenol) 650 mg PRN Q6HRS PRN PO MILD PAIN / TEMP > 100.3'F 06/21/21 23:30 Multi-Ingredient Ointment (Analgesic [place]) 1 christiano PRN QID PRN TP MUSCLE PAIN 06/21/21 23:30 Al Hydroxide/Mg Hydroxide (Mylanta Plus Xs) 15 ml PRN AFTMEALHC PRN PO DYSPEPSIA 06/21/21 23:30 Magnesium Hydroxide (Milk Of Magnesia) 2,400 mg PRN QHS PRN PO 1ST CHOICE CONSTIPATION 06/21/21 23:30 06/25/21 08:15 Influenza Virus Vaccine Quadrival (Flulaval Quad [id number] Syringe) 0.5 ml ONCE ONCE VAX IM 06/22/21 09:00 06/22/21 09:02 DC 06/22/21 09:07 Albuterol Sulfate (Ventolin) 2.5 mg PRN Q4HRS PRN NEB SHORTNESS OF BREATH 06/22/21 01:30 06/22/21 12:19 DC Bisacodyl (Dulcolax Tab) 5 mg PRN DAILY PRN PO 2ND CHOICE CONSTIPATION 06/22/21 01:15 Diazepam (Valium) 5 mg PRN QHS PRN PO ANXIETY 06/22/21 21:00 06/22/21 12:19 DC Famotidine (Pepcid) 20 mg BID PO 06/22/21 09:00 06/25/21 19:57 Lorazepam (Ativan) 1 mg HS PO 06/22/21 21:00 06/22/21 12:19 DC Metoprolol Succinate (Toprol Xl) 25 mg DAILY PO 06/22/21 09:00 06/22/21 12:19 DC 06/22/21 09:00 Nitroglycerin (Nitrostat) 0.4 mg PRN Q5MIN PRN SL CHEST PAIN 06/22/21 01:15 Olanzapine (ZyPREXA) 2.5 mg HS PO 06/22/21 21:00 06/22/21 12:19 DC Potassium Chloride (Klor-Con) 20 meq TIDWMEALS PO 06/22/21 08:00 06/25/21 17:21 Trazodone HCl (Desyrel) 25 mg PRN QHS PRN PO INSOMNIA 06/22/21 01:15 06/22/21 21:28 DC Warfarin Sodium (Coumadin) 5 mg DAILY@1600 PO 06/22/21 16:00 06/24/21 13:18 DC 06/23/21 16:12 Non-Formulary Medication (Acetaminophen Er ) 650 mg PRN Q8HRS PRN PO FEVER/PAIN 06/22/21 01:15 UNV Budesonide (Pulmicort) 0.5 mg RTBID NEB 06/22/21 08:00 06/23/21 12:30 DC 06/23/21 08:42 Fluticasone Propionate (Flonase) 2 spray DAILY NS 06/22/21 09:00 06/22/21 12:19 DC Oxybutynin Chloride (Ditropan) 5 mg DAILY PO 06/22/21 09:00 06/25/21 08:13 Atorvastatin Calcium (Lipitor) 80 mg QHS PO 06/22/21 21:00 06/25/21 19:58 Non-Formulary Medication (Venlafaxine Hcl (Venlafaxine Hcl Er)) 75 mg DAILY PO 06/22/21 09:00 UNV Non-Formulary Medication (Venlafaxine Hcl (Venlafaxine Hcl Er)) 150 mg HS PO 06/22/21 21:00 UNV Warfarin Sodium (Coumadin Per Pharmacy) 1 each PRN DAILY PRN MC SEE COMMENTS 06/22/21 01:45 06/24/21 13:29 Venlafaxine HCl (Effexor) 75 mg TID PO 06/22/21 09:00 06/23/21 19:45 DC 06/23/21 14:18 Nystatin (Nystop) 1 christiano BID TP 06/22/21 21:00 06/25/21 19:58 Magnesium Sulfate 100 ml @ 100 mls/hr 1X ONCE IV 06/22/21 13:00 06/22/21 13:59 DC 06/22/21 13:49 Olanzapine (ZyPREXA ZYDIS) 2.5 mg PRN Q2HR PRN PO ANXIETY / AGITATION 06/22/21 11:45 06/25/21 14:50 Diazepam (Valium) 5 mg QHS PO 06/22/21 21:00 06/22/21 21:22 DC Fluticasone Propionate (Flonase) 2 spray PRN BID PRN NS allergies 06/22/21 11:45 Metoprolol Succinate (Toprol Xl) 25 mg BID PO 06/22/21 21:00 06/25/21 19:57 Albuterol Sulfate (Ventolin Hfa Inhaler) 2 puff PRN Q4HRS PRN INH SHORTNESS OF BREATH 06/22/21 11:45 Diazepam (Valium) 2.5 mg QHS PO 06/22/21 21:15 06/25/21 08:00 DC 06/24/21 20:01 Risperidone (RisperDAL) 0.25 mg QHS PO 06/23/21 21:00 06/22/21 21:25 DC Trazodone HCl (Desyrel) 50 mg PRN QHS PO 06/22/21 21:15 06/25/21 01:10 DC Risperidone (RisperDAL) 0.25 mg QHS PO 06/22/21 21:30 06/25/21 18:31 DC 06/24/21 19:58 Fluticasone Furoate (ARNUITY 100mcg ELLIPTA) 1 puff BID INH 06/23/21 21:00 06/25/21 19:58 Venlafaxine HCl (Effexor) 75 mg BID@0900,1700 PO 06/24/21 09:00 06/25/21 17:21 Warfarin Sodium (Coumadin) 4 mg DAILY16 PO 06/24/21 16:00 06/25/21 17:21 Trazodone HCl (Desyrel) 50 mg PRN QHS PRN PO insomnia 06/25/21 01:15 06/25/21 20:00 Risperidone (RisperDAL) 0.5 mg QHS PO 06/25/21 21:00 06/25/21 20:00 Current Medications Medications (Trade) Dose Ordered Sig/Lucinda Route PRN Reason Start Time Stop Time Status Last Admin Dose Admin Trazodone HCl (Desyrel) 50 mg PRN QHS PRN PO insomnia 06/25/21 01:15 06/25/21 20:00 Risperidone (RisperDAL) 0.5 mg QHS PO 06/25/21 21:00 06/25/21 20:00 I have reviewed the current psychotropics carefully including drug interactions. Risk benefit ratio favors no change other than as noted in my dictated progress note. Diagnosis: Problems: (1) Impulse control disorder, unspecified (2) Anxiety disorder, unspecified (3) Dementia, vascular, with depression (4) Dementia, vascular, with delusions (5) Dementia in Alzheimer's disease with depression (6) Dementia in Alzheimer's disease with delusions (7) Major neurocognitive disorder due to Alzheimer's disease, without behavioral disturbance MYNOR JAMA MD Jun 25, 2021 20:26
--- NOTE | 2021-06-25 22:45 | NUR ---
Pt disorganized and delusional this evening. Pt intrusive and found in another pt's room attempting to help pt stand up. 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 A/O to self only. Compliant with whole medications. Pt currently awake in bed.
[2021-06-26 06:12] VITALS: BP 154/80
--- NOTE | 2021-06-26 07:03 | PDOC ---
Exam Note: Mode Note: This note is a late entry for 06/25/2021 covers elements not covered in my initial note. Subjective: The patient was seen individually in the evening of 06/25/2021 with Teo DE SANTIAGO, discussed and reviewed the chart. The patient slept 6-1/2 previous night. She has been delusional, anxious, labile. Previous night she was focussed on christian, would not keep her oxygen on. Received trazodone and Zyprexa post midnight and was delusional all day per nursing report. This morning she was quite restless. Received Zyprexa at 10 am and then at 1450 hours. She believes one of the other patient is her family member. As I met with her she was trying to give me some newspaper advertisements, oblivious of what there were. Review of Systems: No CV, , pulmonary, eye, ENT system symptoms on review. Gait unsteady. Mental Status Exam: The patient is oriented to herself. Speech coherent, rapid at times. Insight and judgment, recent and remote memory, attention and concentration, fund of knowledge is poor consistent with her diagnosis. Laboratory Data: Reviewed. Impression: Major neurocognitive disorder, Alzheimer, vascular with delusion, depression behavioral disturbance. Anxiety disorder unspecified. Impulse control disorder unspecified. Plan: Continue psychotropics from initial note. Assessment: Vital Signs/I&O: Vital Signs Date Time Temp Pulse Resp B/P (MAP) Pulse Ox O2 Delivery O2 Flow Rate FiO2 06/26/21 06:12 97.3 82 18 154/80 (104) 94 06/25/21 05:51 Nasal Cannula 3.0 I & O 06/25/21 06/25/21 06/26/21 15:00 23:00 07:00 Intake Total 840 ml 480 ml Balance 840 ml 480 ml Current Medications: Meds: Current Medications Medications (Trade) Dose Ordered Sig/Lucinda Route PRN Reason Start Time Stop Time Status Last Admin Dose Admin Acetaminophen (Tylenol) 650 mg PRN Q6HRS PRN PO MILD PAIN / TEMP > 100.3'F 06/21/21 23:30 Multi-Ingredient Ointment (Analgesic [place]) 1 christiano PRN QID PRN TP MUSCLE PAIN 06/21/21 23:30 Al Hydroxide/Mg Hydroxide (Mylanta Plus Xs) 15 ml PRN AFTMEALHC PRN PO DYSPEPSIA 06/21/21 23:30 Magnesium Hydroxide (Milk Of Magnesia) 2,400 mg PRN QHS PRN PO 1ST CHOICE CONSTIPATION 06/21/21 23:30 06/25/21 08:15 Influenza Virus Vaccine Quadrival (Flulaval Quad 3030-1517 Syringe) 0.5 ml ONCE ONCE VAX IM 06/22/21 09:00 06/22/21 09:02 DC 06/22/21 09:07 Albuterol Sulfate (Ventolin) 2.5 mg PRN Q4HRS PRN NEB SHORTNESS OF BREATH 06/22/21 01:30 06/22/21 12:19 DC Bisacodyl (Dulcolax Tab) 5 mg PRN DAILY PRN PO 2ND CHOICE CONSTIPATION 06/22/21 01:15 Diazepam (Valium) 5 mg PRN QHS PRN PO ANXIETY 06/22/21 21:00 06/22/21 12:19 DC Famotidine (Pepcid) 20 mg BID PO 06/22/21 09:00 06/25/21 19:57 Lorazepam (Ativan) 1 mg HS PO 06/22/21 21:00 06/22/21 12:19 DC Metoprolol Succinate (Toprol Xl) 25 mg DAILY PO 06/22/21 09:00 06/22/21 12:19 DC 06/22/21 09:00 Nitroglycerin (Nitrostat) 0.4 mg PRN Q5MIN PRN SL CHEST PAIN 06/22/21 01:15 Olanzapine (ZyPREXA) 2.5 mg HS PO 06/22/21 21:00 06/22/21 12:19 DC Potassium Chloride (Klor-Con) 20 meq TIDWMEALS PO 06/22/21 08:00 06/25/21 17:21 Trazodone HCl (Desyrel) 25 mg PRN QHS PRN PO INSOMNIA 06/22/21 01:15 06/22/21 21:28 DC Warfarin Sodium (Coumadin) 5 mg DAILY@1600 PO 06/22/21 16:00 06/24/21 13:18 DC 06/23/21 16:12 Non-Formulary Medication (Acetaminophen Er ) 650 mg PRN Q8HRS PRN PO FEVER/PAIN 06/22/21 01:15 UNV Budesonide (Pulmicort) 0.5 mg RTBID NEB 06/22/21 08:00 06/23/21 12:30 DC 06/23/21 08:42 Fluticasone Propionate (Flonase) 2 spray DAILY NS 06/22/21 09:00 06/22/21 12:19 DC Oxybutynin Chloride (Ditropan) 5 mg DAILY PO 06/22/21 09:00 06/25/21 08:13 Atorvastatin Calcium (Lipitor) 80 mg QHS PO 06/22/21 21:00 06/25/21 19:58 Non-Formulary Medication (Venlafaxine Hcl (Venlafaxine Hcl Er)) 75 mg DAILY PO 06/22/21 09:00 UNV Non-Formulary Medication (Venlafaxine Hcl (Venlafaxine Hcl Er)) 150 mg HS PO 06/22/21 21:00 UNV Warfarin Sodium (Coumadin Per Pharmacy) 1 each PRN DAILY PRN MC SEE COMMENTS 06/22/21 01:45 06/24/21 13:29 Venlafaxine HCl (Effexor) 75 mg TID PO 06/22/21 09:00 06/23/21 19:45 DC 06/23/21 14:18 Nystatin (Nystop) 1 christiano BID TP 06/22/21 21:00 06/25/21 19:58 Magnesium Sulfate 100 ml @ 100 mls/hr 1X ONCE IV 06/22/21 13:00 06/22/21 13:59 DC 06/22/21 13:49 Olanzapine (ZyPREXA ZYDIS) 2.5 mg PRN Q2HR PRN PO ANXIETY / AGITATION 06/22/21 11:45 06/25/21 22:57 Diazepam (Valium) 5 mg QHS PO 06/22/21 21:00 06/22/21 21:22 DC Fluticasone Propionate (Flonase) 2 spray PRN BID PRN NS allergies 06/22/21 11:45 Metoprolol Succinate (Toprol Xl) 25 mg BID PO 06/22/21 21:00 06/25/21 19:57 Albuterol Sulfate (Ventolin Hfa Inhaler) 2 puff PRN Q4HRS PRN INH SHORTNESS OF BREATH 06/22/21 11:45 Diazepam (Valium) 2.5 mg QHS PO 06/22/21 21:15 06/25/21 08:00 DC 06/24/21 20:01 Risperidone (RisperDAL) 0.25 mg QHS PO 06/23/21 21:00 06/22/21 21:25 DC Trazodone HCl (Desyrel) 50 mg PRN QHS PO 06/22/21 21:15 06/25/21 01:10 DC Risperidone (RisperDAL) 0.25 mg QHS PO 06/22/21 21:30 06/25/21 18:31 DC 06/24/21 19:58 Fluticasone Furoate (ARNUITY 100mcg ELLIPTA) 1 puff BID INH 06/23/21 21:00 06/25/21 19:58 Venlafaxine HCl (Effexor) 75 mg BID@0900,1700 PO 06/24/21 09:00 06/25/21 17:21 Warfarin Sodium (Coumadin) 4 mg DAILY16 PO 06/24/21 16:00 06/25/21 17:21 Trazodone HCl (Desyrel) 50 mg PRN QHS PRN PO insomnia 06/25/21 01:15 06/25/21 22:57 Risperidone (RisperDAL) 0.5 mg QHS PO 06/25/21 21:00 06/25/21 20:00 Current Medications Medications (Trade) Dose Ordered Sig/Lucinda Route PRN Reason Start Time Stop Time Status Last Admin Dose Admin Risperidone (RisperDAL) 0.5 mg QHS PO 06/25/21 21:00 06/25/21 20:00 I have reviewed the current psychotropics carefully including drug interactions. Risk benefit ratio favors no change other than as noted in my dictated progress note. Diagnosis: Problems: (1) Impulse control disorder, unspecified (2) Anxiety disorder, unspecified (3) Dementia, vascular, with depression (4) Dementia, vascular, with delusions (5) Dementia in Alzheimer's disease with depression (6) Dementia in Alzheimer's disease with delusions (7) Major neurocognitive disorder due to Alzheimer's disease, without behavioral disturbance MYNOR JAMA MD Jun 26, 2021 07:03
[2021-06-26] MEDS: METOPROLOL SUCC 24HR ER 25 MG TAB.ER.24H. PO SCH ×2 (08:54→20:01)
[2021-06-26] MEDS: FAMOTIDINE 20 MG TABLET PO SCH ×2 (08:54→20:01)
[2021-06-26] MEDS: VENLAFAXINE 75 MG TABLET. PO SCH ×2 (08:54→16:39)
[2021-06-26] MEDS: FLUTICASONE FUROATE 100mcg/INH ELLIPTA INHALER. INH SCH ×2 (08:55→20:01)
[2021-06-26] MEDS: POTASSIUM CHLORIDE 10 MEQ TABLET.ER. PO SCH ×3 (08:55→16:39)
[2021-06-26] MEDS: OXYBUTYNIN CHLORIDE 5 MG TABLET PO SCH (08:55)
[2021-06-26] MEDS: MAGNESIUM HYDROXIDE 2,400 MG/30 ML ORAL.SUSP. PO PRN (08:56)
[2021-06-26] MEDS: NYSTATIN TOPICAL POWDER 15GM BOTTLE. TP SCH ×2 (09:00→20:01)
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
--- NOTE | 2021-06-26 14:45 | NUR ---
Patient has been increasingly restless and exit seeking. She is delusional and believes she is at work, her shift has just ended, and she needs to get home to fix dinner for her family. She is not responding to verbal redirection or distraction with a Kaylie; prn medication provided per eMAR, will continue to monitor and report to MD during rounds.
[2021-06-26 15:34] VITALS: BP 120/76
[2021-06-26] MEDS: WARFARIN 4 MG TABLET. PO SCH (16:40)
--- NOTE | 2021-06-26 18:23 | NUR ---
Treatment team update: Pt is eating 75% of meals and sleeping on average 6.5 hours; last night pt slept roughly 6 but was noted to be up and down all night. Pt continues to be delusional in thinking that she is on a ship, needs to go home and feed her kids and then noted she had to get up or she was going to be late for high school. Pt does have to be redirected for being intrusive with her peers but overall pleasantly confused. Pt is medication compliant and does need cuing to swallow the pills in her hand and to take a drink of water. SW will complete PSA with her and will make sure to clarify when pt confusion was noted. ELOS for the end of next week.
[2021-06-26] MEDS: risperiDONE 0.5 MG TABLET. PO SCH (20:01)
[2021-06-26] MEDS: ATORVASTATIN CALCIUM 20 MG TABLET PO SCH (20:01)
[2021-06-26] MEDS: traZODone 50 MG TABLET. PO PRN (20:03)
--- NOTE | 2021-06-26 21:14 | PDOC ---
Exam Note: Mode Note: Please also refer to the separate dictated note~for this date of service dictated separately.~Patient seen individually. Discussed the patient with Nursing staff reviewed the chart.~Reviewed interim history and current functioning. Reviewed vital signs,~Labs/ Radiology~and current medications noted below. Continue current treatment with the changes noted in the dictated addendum note Assessment: Vital Signs/I&O: Vital Signs Date Time Temp Pulse Resp B/P (MAP) Pulse Ox O2 Delivery O2 Flow Rate FiO2 06/26/21 20:01 71 120/76 06/26/21 15:34 98.9 18 96 06/25/21 05:51 Nasal Cannula 3.0 I & O 0 06/25/21 06/25/21 06/26/21 15:00 23:00 07:00 Intake Total 840 ml 480 ml Balance 840 ml 480 ml Current Medications: Meds: Current Medications Medications (Trade) Dose Ordered Sig/Lucinda Route PRN Reason Start Time Stop Time Status Last Admin Dose Admin Acetaminophen (Tylenol) 650 mg PRN Q6HRS PRN PO MILD PAIN / TEMP > 100.3'F 06/21/21 23:30 Multi-Ingredient Ointment (Analgesic [place]) 1 christiano PRN QID PRN TP MUSCLE PAIN 06/21/21 23:30 Al Hydroxide/Mg Hydroxide (Mylanta Plus Xs) 15 ml PRN AFTMEALHC PRN PO DYSPEPSIA 06/21/21 23:30 Magnesium Hydroxide (Milk Of Magnesia) 2,400 mg PRN QHS PRN PO 1ST CHOICE CONSTIPATION 06/21/21 23:30 06/26/21 08:56 Influenza Virus Vaccine Quadrival (Flulaval Quad 3169-2500 Syringe) 0.5 ml ONCE ONCE VAX IM 06/22/21 09:00 06/22/21 09:02 DC 06/22/21 09:07 Albuterol Sulfate (Ventolin) 2.5 mg PRN Q4HRS PRN NEB SHORTNESS OF BREATH 06/22/21 01:30 06/22/21 12:19 DC Bisacodyl (Dulcolax Tab) 5 mg PRN DAILY PRN PO 2ND CHOICE CONSTIPATION 06/22/21 01:15 Diazepam (Valium) 5 mg PRN QHS PRN PO ANXIETY 06/22/21 21:00 06/22/21 12:19 DC Famotidine (Pepcid) 20 mg BID PO 06/22/21 09:00 06/26/21 20:01 Lorazepam (Ativan) 1 mg HS PO 06/22/21 21:00 06/22/21 12:19 DC Metoprolol Succinate (Toprol Xl) 25 mg DAILY PO 06/22/21 09:00 06/22/21 12:19 DC 06/22/21 09:00 Nitroglycerin (Nitrostat) 0.4 mg PRN Q5MIN PRN SL CHEST PAIN 06/22/21 01:15 Olanzapine (ZyPREXA) 2.5 mg HS PO 06/22/21 21:00 06/22/21 12:19 DC Potassium Chloride (Klor-Con) 20 meq TIDWMEALS PO 06/22/21 08:00 06/26/21 16:39 Trazodone HCl (Desyrel) 25 mg PRN QHS PRN PO INSOMNIA 06/22/21 01:15 06/22/21 21:28 DC Warfarin Sodium (Coumadin) 5 mg DAILY@1600 PO 06/22/21 16:00 06/24/21 13:18 DC 06/23/21 16:12 Non-Formulary Medication (Acetaminophen Er ) 650 mg PRN Q8HRS PRN PO FEVER/PAIN 06/22/21 01:15 UNV Budesonide (Pulmicort) 0.5 mg RTBID NEB 06/22/21 08:00 06/23/21 12:30 DC 06/23/21 08:42 Fluticasone Propionate (Flonase) 2 spray DAILY NS 06/22/21 09:00 06/22/21 12:19 DC Oxybutynin Chloride (Ditropan) 5 mg DAILY PO 06/22/21 09:00 06/26/21 08:55 Atorvastatin Calcium (Lipitor) 80 mg QHS PO 06/22/21 21:00 06/26/21 20:01 Non-Formulary Medication (Venlafaxine Hcl (Venlafaxine Hcl Er)) 75 mg DAILY PO 06/22/21 09:00 UNV Non-Formulary Medication (Venlafaxine Hcl (Venlafaxine Hcl Er)) 150 mg HS PO 06/22/21 21:00 UNV Warfarin Sodium (Coumadin Per Pharmacy) 1 each PRN DAILY PRN MC SEE COMMENTS 06/22/21 01:45 06/24/21 13:29 Venlafaxine HCl (Effexor) 75 mg TID PO 06/22/21 09:00 06/23/21 19:45 DC 06/23/21 14:18 Nystatin (Nystop) 1 christiano BID TP 06/22/21 21:00 06/26/21 20:01 Magnesium Sulfate 100 ml @ 100 mls/hr 1X ONCE IV 06/22/21 13:00 06/22/21 13:59 DC 06/22/21 13:49 Olanzapine (ZyPREXA ZYDIS) 2.5 mg PRN Q2HR PRN PO ANXIETY / AGITATION 06/22/21 11:45 06/26/21 20:03 Diazepam (Valium) 5 mg QHS PO 06/22/21 21:00 06/22/21 21:22 DC Fluticasone Propionate (Flonase) 2 spray PRN BID PRN NS allergies 06/22/21 11:45 Metoprolol Succinate (Toprol Xl) 25 mg BID PO 06/22/21 21:00 06/26/21 20:01 Albuterol Sulfate (Ventolin Hfa Inhaler) 2 puff PRN Q4HRS PRN INH SHORTNESS OF BREATH 06/22/21 11:45 Diazepam (Valium) 2.5 mg QHS PO 06/22/21 21:15 06/25/21 08:00 DC 06/24/21 20:01 Risperidone (RisperDAL) 0.25 mg QHS PO 06/23/21 21:00 06/22/21 21:25 DC Trazodone HCl (Desyrel) 50 mg PRN QHS PO 06/22/21 21:15 06/25/21 01:10 DC Risperidone (RisperDAL) 0.25 mg QHS PO 06/22/21 21:30 06/25/21 18:31 DC 06/24/21 19:58 Fluticasone Furoate (ARNUITY 100mcg ELLIPTA) 1 puff BID INH 06/23/21 21:00 06/26/21 20:01 Venlafaxine HCl (Effexor) 75 mg BID@0900,1700 PO 06/24/21 09:00 06/26/21 16:39 Warfarin Sodium (Coumadin) 4 mg DAILY16 PO 06/24/21 16:00 06/26/21 16:40 Trazodone HCl (Desyrel) 50 mg PRN QHS PRN PO insomnia 06/25/21 01:15 06/26/21 20:03 Risperidone (RisperDAL) 0.5 mg QHS PO 06/25/21 21:00 06/26/21 20:01 I have reviewed the current psychotropics carefully including drug interactions. Risk benefit ratio favors no change other than as noted in my dictated progress note. Diagnosis: Problems: (1) Impulse control disorder, unspecified (2) Anxiety disorder, unspecified (3) Dementia, vascular, with depression (4) Dementia, vascular, with delusions (5) Dementia in Alzheimer's disease with depression (6) Dementia in Alzheimer's disease with delusions (7) Major neurocognitive disorder due to Alzheimer's disease, without behavioral disturbance MYNOR JAMA MD Jun 26, 2021 21:14
--- NOTE | 2021-06-26 22:15 | NUR ---
Pt located in the [facility] this evening. Pt highly disorganized and delusional. Rambling and tangental. Pt states that she is in [place] and the year is 1968. Compliant with whole medications. Later in the evening, pt stated that she was at work and needs to leave. Pt currently sleeping in bed.
[2021-06-27 06:31] VITALS: BP 143/81
[2021-06-27 06:40] LABS: HEMATOCRIT 35.4 % (36.0-47.0); HEMOGLOBIN 11.6 g/dL (12.0-15.5)
[2021-06-27] MEDS: VENLAFAXINE 75 MG TABLET. PO SCH ×2 (10:52→16:33)
[2021-06-27] MEDS: OXYBUTYNIN CHLORIDE 5 MG TABLET PO SCH (10:52)
[2021-06-27] MEDS: POTASSIUM CHLORIDE 10 MEQ TABLET.ER. PO SCH ×3 (10:52→16:33)
[2021-06-27] MEDS: FAMOTIDINE 20 MG TABLET PO SCH ×2 (10:52→19:58)
[2021-06-27] MEDS: FLUTICASONE FUROATE 100mcg/INH ELLIPTA INHALER. INH SCH ×2 (10:53→19:59)
[2021-06-27] MEDS: NYSTATIN TOPICAL POWDER 15GM BOTTLE. TP SCH ×2 (10:53→19:59)
[2021-06-27] MEDS: METOPROLOL SUCC 24HR ER 25 MG TAB.ER.24H. PO SCH ×2 (10:53→19:58)
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
--- NOTE | 2021-06-27 13:44 | NUR ---
Pharmacy Warfarin Dosing Note S:Pharmacy consulted to assist with anticoagulation therapy started with target INR: 2 -3 O:SHONA MARAVILLA is a 66 year old F with Atrial Fibrillation LABS: Last INR: 1.9 Last HGB: 11.6 Last HCT: 35.4 Last PLT: 148 Last dose of 4 mg given on 06/26/21 at 1600 Previous Regimen: 5MG Vitamin K given: Drug Interaction Changes: Same Interacting Drug Ongoing Drug Interactions: A:INR slightly below desired range at 1.9, will return to home dose of 5mg daily. P: Warfarin dose: 5 mg Today at 1600 Bridge Therapy: Next INR due 06/28 Pharmacy anticoagulation service will continue to follow. NORBERTO KARIMI, 06/27/21 1548
--- NOTE | 2021-06-27 15:15 | NUR ---
Nursing note: Pt was allowed to sleep in this AM and was given her meds upon awakening. She is pleasant, compliant with meds whole and cooperative with assessment. She denies having any pain/concerns at time of assessment. Pt remains very confused, but was able to state her birthday. No hallucinations noted thus far. She is currently sitting in the hallway. Will continue to monitor.
[2021-06-27 16:03] VITALS: BP 131/62
[2021-06-27] MEDS: WARFARIN 5 MG TABLET. PO SCH (16:33)
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
[2021-06-27] MEDS: ATORVASTATIN CALCIUM 20 MG TABLET PO SCH (19:58)
[2021-06-27] MEDS: risperiDONE 0.5 MG TABLET. PO SCH (19:58)
[2021-06-27] MEDS: traZODone 50 MG TABLET. PO PRN (19:59)
--- NOTE | 2021-06-27 20:39 | PDOC ---
Exam Note: Mode Note: Please also refer to the separate dictated note~for this date of service dictated separately.~Patient seen individually. Discussed the patient with Nursing staff reviewed the chart.~Reviewed interim history and current functioning. Reviewed vital signs,~Labs/ Radiology~and current medications noted below. Continue current treatment with the changes noted in the dictated addendum note Assessment: Vital Signs/I&O: Vital Signs Date Time Temp Pulse Resp B/P (MAP) Pulse Ox O2 Delivery O2 Flow Rate FiO2 06/27/21 19:58 67 131/62 06/27/21 16:03 98.4 18 95 06/25/21 05:51 Nasal Cannula 3.0 I & O 0 06/26/21 06/26/21 06/27/21 15:00 23:00 07:00 Intake Total 720 ml 410 ml Balance 720 ml 410 ml Labs: Laboratory Tests Test 06/27/21 06:30 Hemoglobin 11.6 g/dL (12.0-15.5) L Hematocrit 35.4 % (36.0-47.0) L Prothrombin Time 19.9 SEC (9.4-11.4) H Prothrombin Time INR 1.9 (0.9-1.1) H Current Medications: Meds: Laboratory Tests Test 06/27/21 06:30 Hemoglobin 11.6 g/dL Hematocrit 35.4 % Prothrombin Time 19.9 SEC Prothromb Time International Ratio 1.9 Current Medications Medications (Trade) Dose Ordered Sig/Lucinda Route PRN Reason Start Time Stop Time Status Last Admin Dose Admin Acetaminophen (Tylenol) 650 mg PRN Q6HRS PRN PO MILD PAIN / TEMP > 100.3'F 06/21/21 23:30 Multi-Ingredient Ointment (Analgesic [place]) 1 christiano PRN QID PRN TP MUSCLE PAIN 06/21/21 23:30 Al Hydroxide/Mg Hydroxide (Mylanta Plus Xs) 15 ml PRN AFTMEALHC PRN PO DYSPEPSIA 06/21/21 23:30 Magnesium Hydroxide (Milk Of Magnesia) 2,400 mg PRN QHS PRN PO 1ST CHOICE CONSTIPATION 06/21/21 23:30 06/26/21 08:56 Influenza Virus Vaccine Quadrival (Flulaval Quad Syringe) 0.5 ml ONCE ONCE VAX IM 06/22/21 09:00 06/22/21 09:02 DC 06/22/21 09:07 Albuterol Sulfate (Ventolin) 2.5 mg PRN Q4HRS PRN NEB SHORTNESS OF BREATH 06/22/21 01:30 06/22/21 12:19 DC Bisacodyl (Dulcolax Tab) 5 mg PRN DAILY PRN PO 2ND CHOICE CONSTIPATION 06/22/21 01:15 Diazepam (Valium) 5 mg PRN QHS PRN PO ANXIETY 06/22/21 21:00 06/22/21 12:19 DC Famotidine (Pepcid) 20 mg BID PO 06/22/21 09:00 06/27/21 19:58 Lorazepam (Ativan) 1 mg HS PO 06/22/21 21:00 06/22/21 12:19 DC Metoprolol Succinate (Toprol Xl) 25 mg DAILY PO 06/22/21 09:00 06/22/21 12:19 DC 06/22/21 09:00 Nitroglycerin (Nitrostat) 0.4 mg PRN Q5MIN PRN SL CHEST PAIN 06/22/21 01:15 Olanzapine (ZyPREXA) 2.5 mg HS PO 06/22/21 21:00 06/22/21 12:19 DC Potassium Chloride (Klor-Con) 20 meq TIDWMEALS PO 06/22/21 08:00 06/27/21 16:33 Trazodone HCl (Desyrel) 25 mg PRN QHS PRN PO INSOMNIA 06/22/21 01:15 06/22/21 21:28 DC Warfarin Sodium (Coumadin) 5 mg DAILY@1600 PO 06/22/21 16:00 06/24/21 13:18 DC 06/23/21 16:12 Non-Formulary Medication (Acetaminophen Er ) 650 mg PRN Q8HRS PRN PO FEVER/PAIN 06/22/21 01:15 UNV Budesonide (Pulmicort) 0.5 mg RTBID NEB 06/22/21 08:00 06/23/21 12:30 DC 06/23/21 08:42 Fluticasone Propionate (Flonase) 2 spray DAILY NS 06/22/21 09:00 06/22/21 12:19 DC Oxybutynin Chloride (Ditropan) 5 mg DAILY PO 06/22/21 09:00 06/27/21 10:52 Atorvastatin Calcium (Lipitor) 80 mg QHS PO 06/22/21 21:00 06/27/21 19:58 Non-Formulary Medication (Venlafaxine Hcl (Venlafaxine Hcl Er)) 75 mg DAILY PO 06/22/21 09:00 UNV Non-Formulary Medication (Venlafaxine Hcl (Venlafaxine Hcl Er)) 150 mg HS PO 06/22/21 21:00 UNV Warfarin Sodium (Coumadin Per Pharmacy) 1 each PRN DAILY PRN MC SEE COMMENTS 06/22/21 01:45 06/27/21 13:43 Venlafaxine HCl (Effexor) 75 mg TID PO 06/22/21 09:00 06/23/21 19:45 DC 06/23/21 14:18 Nystatin (Nystop) 1 christiano BID TP 06/22/21 21:00 06/27/21 19:59 Magnesium Sulfate 100 ml @ 100 mls/hr 1X ONCE IV 06/22/21 13:00 06/22/21 13:59 DC 06/22/21 13:49 Olanzapine (ZyPREXA ZYDIS) 2.5 mg PRN Q2HR PRN PO ANXIETY / AGITATION 06/22/21 11:45 06/27/21 20:00 Diazepam (Valium) 5 mg QHS PO 06/22/21 21:00 06/22/21 21:22 DC Fluticasone Propionate (Flonase) 2 spray PRN BID PRN NS allergies 06/22/21 11:45 Metoprolol Succinate (Toprol Xl) 25 mg BID PO 06/22/21 21:00 06/27/21 19:58 Albuterol Sulfate (Ventolin Hfa Inhaler) 2 puff PRN Q4HRS PRN INH SHORTNESS OF BREATH 06/22/21 11:45 Diazepam (Valium) 2.5 mg QHS PO 06/22/21 21:15 06/25/21 08:00 DC 06/24/21 20:01 Risperidone (RisperDAL) 0.25 mg QHS PO 06/23/21 21:00 06/22/21 21:25 DC Trazodone HCl (Desyrel) 50 mg PRN QHS PO 06/22/21 21:15 06/25/21 01:10 DC Risperidone (RisperDAL) 0.25 mg QHS PO 06/22/21 21:30 06/25/21 18:31 DC 06/24/21 19:58 Fluticasone Furoate (ARNUITY 100mcg ELLIPTA) 1 puff BID INH 06/23/21 21:00 06/27/21 19:59 Venlafaxine HCl (Effexor) 75 mg BID@0900,1700 PO 06/24/21 09:00 06/27/21 16:33 Warfarin Sodium (Coumadin) 4 mg DAILY16 PO 06/24/21 16:00 06/27/21 08:24 DC 06/26/21 16:40 Trazodone HCl (Desyrel) 50 mg PRN QHS PRN PO insomnia 06/25/21 01:15 06/27/21 19:59 Risperidone (RisperDAL) 0.5 mg QHS PO 06/25/21 21:00 06/27/21 19:58 Warfarin Sodium (Coumadin) 5 mg 1600 PO 06/27/21 16:00 06/27/21 16:33 Current Medications Medications (Trade) Dose Ordered Sig/Lucinda Route PRN Reason Start Time Stop Time Status Last Admin Dose Admin Warfarin Sodium (Coumadin) 5 mg 1600 PO 06/27/21 16:00 06/27/21 16:33 I have reviewed the current psychotropics carefully including drug interactions. Risk benefit ratio favors no change other than as noted in my dictated progress note. Diagnosis: Problems: (1) Impulse control disorder, unspecified (2) Anxiety disorder, unspecified (3) Dementia, vascular, with depression (4) Dementia, vascular, with delusions (5) Dementia in Alzheimer's disease with depression (6) Dementia in Alzheimer's disease with delusions (7) Major neurocognitive disorder due to Alzheimer's disease, without behavioral disturbance MYNOR JAMA MD Jun 27, 2021 20:39
--- NOTE | 2021-06-27 23:37 | NUR ---
Pt restless and wandering in the hallway this evening. Pt disorganized and delusional, stating that she is at work. Compliant with whole medications. A/O to self. Pt currently sleeping.
[2021-06-28 05:49] VITALS: BP 137/73
--- NOTE | 2021-06-28 06:30 | PDOC ---
Exam Note: Mode Note: This note is a late entry for 06/26/2021 covers elements not covered in my initial note. Subjective: The patient was reviewed at treatment team meeting individually in the morning on 06/26/2021 with Karlene Cornejo, Blanca Bedoya, and Joan Shannon (social welfare administrator), Aiyana, activity therapy, Simi Berger, Binder Layer, and Teo DE SANTIAGO, discussed and reviewed the chart. The patient slept 6 previous night. Average sleep 6-1/2 hours. [id number] She received trazodone at 8 p.m., trazodone and Zyprexa at 2300 hours. She is wandering and trying to exit the doors. Reviewed information and she has significant worsening of her cognition since her Covid in April 2021. Prior to that she had some mild short-term memory deficits. Review of Systems: No CV, , pulmonary, eye, ENT system symptoms on review. Reliability poor. Mental Status Exam: The patient is oriented to herself. Insight and judgment, recent and remote memory, attention and concentration, fund of knowledge is poor consistent with her diagnosis. Laboratory Data: Reviewed. Impression: Major neurocognitive disorder, Alzheimer, vascular with delusion, depression behavioral disturbance. Anxiety disorder unspecified. Impulse control disorder unspecified. Plan: Continue psychotropics from initial note. We will make further adjustments in her psychotropics as clinically indicated. Assessment: Vital Signs/I&O: Vital Signs Date Time Temp Pulse Resp B/P (MAP) Pulse Ox O2 Delivery O2 Flow Rate FiO2 06/28/21 05:49 97.8 63 18 137/73 (94) 93 06/25/21 05:51 Nasal Cannula 3.0 I & O 06/27/21 06/27/21 06/28/21 14:59 22:59 06:59 Intake Total 240 ml 360 ml Balance 240 ml 360 ml Labs: Laboratory Tests Test 06/27/21 06:30 Hemoglobin 11.6 g/dL (12.0-15.5) L Hematocrit 35.4 % (36.0-47.0) L Prothrombin Time 19.9 SEC (9.4-11.4) H Prothrombin Time INR 1.9 (0.9-1.1) H Current Medications: Meds: Current Medications Medications (Trade) Dose Ordered Sig/Lucinda Route PRN Reason Start Time Stop Time Status Last Admin Dose Admin Acetaminophen (Tylenol) 650 mg PRN Q6HRS PRN PO MILD PAIN / TEMP > 100.3'F 06/21/21 23:30 Multi-Ingredient Ointment (Analgesic [place]) 1 christiano PRN QID PRN TP MUSCLE PAIN 06/21/21 23:30 Al Hydroxide/Mg Hydroxide (Mylanta Plus Xs) 15 ml PRN AFTMEALHC PRN PO DYSPEPSIA 06/21/21 23:30 Magnesium Hydroxide (Milk Of Magnesia) 2,400 mg PRN QHS PRN PO 1ST CHOICE CONSTIPATION 06/21/21 23:30 06/26/21 08:56 Influenza Virus Vaccine Quadrival (Flulaval Quad [id number] Syringe) 0.5 ml ONCE ONCE VAX IM 06/22/21 09:00 06/22/21 09:02 DC 06/22/21 09:07 Albuterol Sulfate (Ventolin) 2.5 mg PRN Q4HRS PRN NEB SHORTNESS OF BREATH 06/22/21 01:30 06/22/21 12:19 DC Bisacodyl (Dulcolax Tab) 5 mg PRN DAILY PRN PO 2ND CHOICE CONSTIPATION 06/22/21 01:15 Diazepam (Valium) 5 mg PRN QHS PRN PO ANXIETY 06/22/21 21:00 06/22/21 12:19 DC Famotidine (Pepcid) 20 mg BID PO 06/22/21 09:00 06/27/21 19:58 Lorazepam (Ativan) 1 mg HS PO 06/22/21 21:00 06/22/21 12:19 DC Metoprolol Succinate (Toprol Xl) 25 mg DAILY PO 06/22/21 09:00 06/22/21 12:19 DC 06/22/21 09:00 Nitroglycerin (Nitrostat) 0.4 mg PRN Q5MIN PRN SL CHEST PAIN 06/22/21 01:15 Olanzapine (ZyPREXA) 2.5 mg HS PO 06/22/21 21:00 06/22/21 12:19 DC Potassium Chloride (Klor-Con) 20 meq TIDWMEALS PO 06/22/21 08:00 06/27/21 16:33 Trazodone HCl (Desyrel) 25 mg PRN QHS PRN PO INSOMNIA 06/22/21 01:15 06/22/21 21:28 DC Warfarin Sodium (Coumadin) 5 mg DAILY@1600 PO 06/22/21 16:00 06/24/21 13:18 DC 06/23/21 16:12 Non-Formulary Medication (Acetaminophen Er ) 650 mg PRN Q8HRS PRN PO FEVER/PAIN 06/22/21 01:15 UNV Budesonide (Pulmicort) 0.5 mg RTBID NEB 06/22/21 08:00 06/23/21 12:30 DC 06/23/21 08:42 Fluticasone Propionate (Flonase) 2 spray DAILY NS 06/22/21 09:00 06/22/21 12:19 DC Oxybutynin Chloride (Ditropan) 5 mg DAILY PO 06/22/21 09:00 06/27/21 10:52 Atorvastatin Calcium (Lipitor) 80 mg QHS PO 06/22/21 21:00 06/27/21 19:58 Non-Formulary Medication (Venlafaxine Hcl (Venlafaxine Hcl Er)) 75 mg DAILY PO 06/22/21 09:00 UNV Non-Formulary Medication (Venlafaxine Hcl (Venlafaxine Hcl Er)) 150 mg HS PO 06/22/21 21:00 UNV Warfarin Sodium (Coumadin Per Pharmacy) 1 each PRN DAILY PRN MC SEE COMMENTS 06/22/21 01:45 06/27/21 13:43 Venlafaxine HCl (Effexor) 75 mg TID PO 06/22/21 09:00 06/23/21 19:45 DC 06/23/21 14:18 Nystatin (Nystop) 1 christiano BID TP 06/22/21 21:00 06/27/21 19:59 Magnesium Sulfate 100 ml @ 100 mls/hr 1X ONCE IV 06/22/21 13:00 06/22/21 13:59 DC 06/22/21 13:49 Olanzapine (ZyPREXA ZYDIS) 2.5 mg PRN Q2HR PRN PO ANXIETY / AGITATION 06/22/21 11:45 06/27/21 20:00 Diazepam (Valium) 5 mg QHS PO 06/22/21 21:00 06/22/21 21:22 DC Fluticasone Propionate (Flonase) 2 spray PRN BID PRN NS allergies 06/22/21 11:45 Metoprolol Succinate (Toprol Xl) 25 mg BID PO 06/22/21 21:00 06/27/21 19:58 Albuterol Sulfate (Ventolin Hfa Inhaler) 2 puff PRN Q4HRS PRN INH SHORTNESS OF BREATH 06/22/21 11:45 Diazepam (Valium) 2.5 mg QHS PO 06/22/21 21:15 06/25/21 08:00 DC 06/24/21 20:01 Risperidone (RisperDAL) 0.25 mg QHS PO 06/23/21 21:00 06/22/21 21:25 DC Trazodone HCl (Desyrel) 50 mg PRN QHS PO 06/22/21 21:15 06/25/21 01:10 DC Risperidone (RisperDAL) 0.25 mg QHS PO 06/22/21 21:30 06/25/21 18:31 DC 06/24/21 19:58 Fluticasone Furoate (ARNUITY 100mcg ELLIPTA) 1 puff BID INH 06/23/21 21:00 06/27/21 19:59 Venlafaxine HCl (Effexor) 75 mg BID@0900,1700 PO 06/24/21 09:00 06/27/21 16:33 Warfarin Sodium (Coumadin) 4 mg DAILY16 PO 06/24/21 16:00 06/27/21 08:24 DC 06/26/21 16:40 Trazodone HCl (Desyrel) 50 mg PRN QHS PRN PO insomnia 06/25/21 01:15 06/27/21 19:59 Risperidone (RisperDAL) 0.5 mg QHS PO 06/25/21 21:00 06/27/21 19:58 Warfarin Sodium (Coumadin) 5 mg 1600 PO 06/27/21 16:00 06/27/21 16:33 Current Medications Medications (Trade) Dose Ordered Sig/Lucinda Route PRN Reason Start Time Stop Time Status Last Admin Dose Admin Warfarin Sodium (Coumadin) 5 mg 1600 PO 06/27/21 16:00 06/27/21 16:33 I have reviewed the current psychotropics carefully including drug interactions. Risk benefit ratio favors no change other than as noted in my dictated progress note. Diagnosis: Problems: (1) Impulse control disorder, unspecified (2) Anxiety disorder, unspecified (3) Dementia, vascular, with depression (4) Dementia, vascular, with delusions (5) Dementia in Alzheimer's disease with depression (6) Dementia in Alzheimer's disease with delusions (7) Major neurocognitive disorder due to Alzheimer's disease, without behavioral disturbance MYNOR JAMA MD Jun 28, 2021 06:30
--- NOTE | 2021-06-28 06:42 | PDOC ---
Exam Note: Mode Note: This note is a late entry for 06/27/2021 covers elements not covered in my initial note. Subjective: The patient was seen individually in the evening of 06/27/2021 with Beth DE SANTIAGO, discussed and reviewed the chart. The patient slept 6-1/2 previous night. She remains disorganized, took her a.m. medications, resistive to the noon medication. She refused meds in the evening. She threw water cup at the nursing staff. I received a message from Karlene that family feels she only had some mild short-term memory deficits since she had Covid couple of months back and since then she has been extremely confused, disorganized, psychotic as above. Family was concerned about the diagnosis of dementia. We had discussed with nursing staff that the patient has significant cognitive deficits and certainly if the timeline indicates Covid worsen these then perhaps her dementia is contributed by the Covid infection with resultant in encephalopathy. Review of Systems: No CV, , pulmonary, eye, ENT system symptoms on review. Reliability poor. Mental Status Exam: The patient is oriented to herself. Insight and judgment, recent and remote memory, attention and concentration, fund of knowledge is poor consistent with her diagnosis. Laboratory Data: Reviewed. Impression: Major neurocognitive disorder, Alzheimer, vascular with delusion, depression behavioral disturbance. Anxiety disorder unspecified. Impulse control disorder unspecified. Plan: Continue psychotropics from initial note. Adjust as clinically indicated. Assessment: Vital Signs/I&O: Vital Signs Date Time Temp Pulse Resp B/P (MAP) Pulse Ox O2 Delivery O2 Flow Rate FiO2 06/28/21 05:49 97.8 63 18 137/73 (94) 93 06/25/21 05:51 Nasal Cannula 3.0 I & O 06/27/21 06/27/21 06/28/21 15:00 23:00 07:00 Intake Total 240 ml 360 ml Balance 240 ml 360 ml Current Medications: Meds: Current Medications Medications (Trade) Dose Ordered Sig/Lucinda Route PRN Reason Start Time Stop Time Status Last Admin Dose Admin Acetaminophen (Tylenol) 650 mg PRN Q6HRS PRN PO MILD PAIN / TEMP > 100.3'F 06/21/21 23:30 Multi-Ingredient Ointment (Analgesic [place]) 1 christiano PRN QID PRN TP MUSCLE PAIN 06/21/21 23:30 Al Hydroxide/Mg Hydroxide (Mylanta Plus Xs) 15 ml PRN AFTMEALHC PRN PO DYSPEPSIA 06/21/21 23:30 Magnesium Hydroxide (Milk Of Magnesia) 2,400 mg PRN QHS PRN PO 1ST CHOICE CONSTIPATION 06/21/21 23:30 06/26/21 08:56 Influenza Virus Vaccine Quadrival (Flulaval Quad [id number] Syringe) 0.5 ml ONCE ONCE VAX IM 06/22/21 09:00 06/22/21 09:02 DC 06/22/21 09:07 Albuterol Sulfate (Ventolin) 2.5 mg PRN Q4HRS PRN NEB SHORTNESS OF BREATH 06/22/21 01:30 06/22/21 12:19 DC Bisacodyl (Dulcolax Tab) 5 mg PRN DAILY PRN PO 2ND CHOICE CONSTIPATION 06/22/21 01:15 Diazepam (Valium) 5 mg PRN QHS PRN PO ANXIETY 06/22/21 21:00 06/22/21 12:19 DC Famotidine (Pepcid) 20 mg BID PO 06/22/21 09:00 06/27/21 19:58 Lorazepam (Ativan) 1 mg HS PO 06/22/21 21:00 06/22/21 12:19 DC Metoprolol Succinate (Toprol Xl) 25 mg DAILY PO 06/22/21 09:00 06/22/21 12:19 DC 06/22/21 09:00 Nitroglycerin (Nitrostat) 0.4 mg PRN Q5MIN PRN SL CHEST PAIN 06/22/21 01:15 Olanzapine (ZyPREXA) 2.5 mg HS PO 06/22/21 21:00 06/22/21 12:19 DC Potassium Chloride (Klor-Con) 20 meq TIDWMEALS PO 06/22/21 08:00 06/27/21 16:33 Trazodone HCl (Desyrel) 25 mg PRN QHS PRN PO INSOMNIA 06/22/21 01:15 06/22/21 21:28 DC Warfarin Sodium (Coumadin) 5 mg DAILY@1600 PO 06/22/21 16:00 06/24/21 13:18 DC 06/23/21 16:12 Non-Formulary Medication (Acetaminophen Er ) 650 mg PRN Q8HRS PRN PO FEVER/PAIN 06/22/21 01:15 UNV Budesonide (Pulmicort) 0.5 mg RTBID NEB 06/22/21 08:00 06/23/21 12:30 DC 06/23/21 08:42 Fluticasone Propionate (Flonase) 2 spray DAILY NS 06/22/21 09:00 06/22/21 12:19 DC Oxybutynin Chloride (Ditropan) 5 mg DAILY PO 06/22/21 09:00 06/27/21 10:52 Atorvastatin Calcium (Lipitor) 80 mg QHS PO 06/22/21 21:00 06/27/21 19:58 Non-Formulary Medication (Venlafaxine Hcl (Venlafaxine Hcl Er)) 75 mg DAILY PO 06/22/21 09:00 UNV Non-Formulary Medication (Venlafaxine Hcl (Venlafaxine Hcl Er)) 150 mg HS PO 06/22/21 21:00 UNV Warfarin Sodium (Coumadin Per Pharmacy) 1 each PRN DAILY PRN MC SEE COMMENTS 06/22/21 01:45 06/27/21 13:43 Venlafaxine HCl (Effexor) 75 mg TID PO 06/22/21 09:00 06/23/21 19:45 DC 06/23/21 14:18 Nystatin (Nystop) 1 christiano BID TP 06/22/21 21:00 06/27/21 19:59 Magnesium Sulfate 100 ml @ 100 mls/hr 1X ONCE IV 06/22/21 13:00 06/22/21 13:59 DC 06/22/21 13:49 Olanzapine (ZyPREXA ZYDIS) 2.5 mg PRN Q2HR PRN PO ANXIETY / AGITATION 06/22/21 11:45 06/27/21 20:00 Diazepam (Valium) 5 mg QHS PO 06/22/21 21:00 06/22/21 21:22 DC Fluticasone Propionate (Flonase) 2 spray PRN BID PRN NS allergies 06/22/21 11:45 Metoprolol Succinate (Toprol Xl) 25 mg BID PO 06/22/21 21:00 06/27/21 19:58 Albuterol Sulfate (Ventolin Hfa Inhaler) 2 puff PRN Q4HRS PRN INH SHORTNESS OF BREATH 11/25/21 11:45 Diazepam (Valium) 2.5 mg QHS PO 06/22/21 21:15 06/25/21 08:00 DC 06/24/21 20:01 Risperidone (RisperDAL) 0.25 mg QHS PO 06/23/21 21:00 06/22/21 21:25 DC Trazodone HCl (Desyrel) 50 mg PRN QHS PO 06/22/21 21:15 06/25/21 01:10 DC Risperidone (RisperDAL) 0.25 mg QHS PO 06/22/21 21:30 06/25/21 18:31 DC 06/24/21 19:58 Fluticasone Furoate (ARNUITY 100mcg ELLIPTA) 1 puff BID INH 06/23/21 21:00 06/27/21 19:59 Venlafaxine HCl (Effexor) 75 mg BID@0900,1700 PO 06/24/21 09:00 06/27/21 16:33 Warfarin Sodium (Coumadin) 4 mg DAILY16 PO 06/24/21 16:00 06/27/21 08:24 DC 06/26/21 16:40 Trazodone HCl (Desyrel) 50 mg PRN QHS PRN PO insomnia 06/25/21 01:15 06/27/21 19:59 Risperidone (RisperDAL) 0.5 mg QHS PO 06/25/21 21:00 06/27/21 19:58 Warfarin Sodium (Coumadin) 5 mg 1600 PO 06/27/21 16:00 06/27/21 16:33 Current Medications Medications (Trade) Dose Ordered Sig/Lucinda Route PRN Reason Start Time Stop Time Status Last Admin Dose Admin Warfarin Sodium (Coumadin) 5 mg 1600 PO 06/27/21 16:00 06/27/21 16:33 I have reviewed the current psychotropics carefully including drug interactions. Risk benefit ratio favors no change other than as noted in my dictated progress note. Diagnosis: Problems: (1) Impulse control disorder, unspecified (2) Anxiety disorder, unspecified (3) Dementia, vascular, with depression (4) Dementia, vascular, with delusions (5) Dementia in Alzheimer's disease with depression (6) Dementia in Alzheimer's disease with delusions (7) Major neurocognitive disorder due to Alzheimer's disease, without behavioral disturbance MYNOR JAMA MD Jun 28, 2021 06:42
[2021-06-28] MEDS: POTASSIUM CHLORIDE 10 MEQ TABLET.ER. PO SCH ×4 (08:00→17:10)
[2021-06-28] MEDS: FAMOTIDINE 20 MG TABLET PO SCH ×3 (09:00→20:14)
[2021-06-28] MEDS: METOPROLOL SUCC 24HR ER 25 MG TAB.ER.24H. PO SCH ×2 (09:25→20:15)
[2021-06-28] MEDS: OXYBUTYNIN CHLORIDE 5 MG TABLET PO SCH ×2 (09:25→12:05)
[2021-06-28] MEDS: VENLAFAXINE 75 MG TABLET. PO SCH ×2 (09:25→17:10)
[2021-06-28] MEDS: FLUTICASONE FUROATE 100mcg/INH ELLIPTA INHALER. INH SCH ×2 (09:26→20:16)
[2021-06-28] MEDS: NYSTATIN TOPICAL POWDER 15GM BOTTLE. TP SCH ×2 (09:26→20:15)
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
[2021-06-28 15:34] VITALS: BP 105/68
[2021-06-28] MEDS: WARFARIN 5 MG TABLET. PO SCH (17:10)
--- NOTE | 2021-06-28 17:42 | NUR ---
Patient has been disorganized, restless, pleasantly confused, and delusional throughout this shift. She has been wandering and exit seeking at times. Patient was resistive to morning medications, stating 'I've already taken these ones' and putting four pills back in the pill cup. Approached patient with those pills at lunch and she was cooperative with all medications. Will continue to monitor and report to oncoming shift.
[2021-06-28] MEDS: risperiDONE 0.5 MG TABLET. PO SCH (20:14)
[2021-06-28] MEDS: ATORVASTATIN CALCIUM 20 MG TABLET PO SCH (20:15)
--- NOTE | 2021-06-28 20:46 | PDOC ---
Exam Note: Mode Note: Please also refer to the separate dictated note~for this date of service dictated separately.~Patient seen individually. Discussed the patient with Nursing staff reviewed the chart.~Reviewed interim history and current functioning. Reviewed vital signs,~Labs/ Radiology~and current medications noted below. Continue current treatment with the changes noted in the dictated addendum note Assessment: Vital Signs/I&O: Vital Signs Date Time Temp Pulse Resp B/P (MAP) Pulse Ox O2 Delivery O2 Flow Rate FiO2 06/28/21 20:15 65 105/68 06/28/21 15:34 98.1 18 94 Room Air 06/25/21 05:51 3.0 I & O 06/27/21 06/27/21 06/28/21 15:00 23:00 07:00 Intake Total 240 ml 360 ml Balance 240 ml 360 ml Current Medications: Meds: Current Medications Medications (Trade) Dose Ordered Sig/Lucinda Route PRN Reason Start Time Stop Time Status Last Admin Dose Admin Acetaminophen (Tylenol) 650 mg PRN Q6HRS PRN PO MILD PAIN / TEMP > 100.3'F 06/21/21 23:30 Multi-Ingredient Ointment (Analgesic [place]) 1 christiano PRN QID PRN TP MUSCLE PAIN 06/21/21 23:30 Al Hydroxide/Mg Hydroxide (Mylanta Plus Xs) 15 ml PRN AFTMEALHC PRN PO DYSPEPSIA 06/21/21 23:30 Magnesium Hydroxide (Milk Of Magnesia) 2,400 mg PRN QHS PRN PO 1ST CHOICE CONSTIPATION 06/21/21 23:30 06/26/21 08:56 Influenza Virus Vaccine Quadrival (Flulaval Quad [id number] Syringe) 0.5 ml ONCE ONCE VAX IM 06/22/21 09:00 06/22/21 09:02 DC 06/22/21 09:07 Albuterol Sulfate (Ventolin) 2.5 mg PRN Q4HRS PRN NEB SHORTNESS OF BREATH 06/22/21 01:30 06/22/21 12:19 DC Bisacodyl (Dulcolax Tab) 5 mg PRN DAILY PRN PO 2ND CHOICE CONSTIPATION 06/22/21 01:15 Diazepam (Valium) 5 mg PRN QHS PRN PO ANXIETY 06/22/21 21:00 06/22/21 12:19 DC Famotidine (Pepcid) 20 mg BID PO 06/22/21 09:00 06/28/21 20:14 Lorazepam (Ativan) 1 mg HS PO 06/22/21 21:00 06/22/21 12:19 DC Metoprolol Succinate (Toprol Xl) 25 mg DAILY PO 06/22/21 09:00 06/22/21 12:19 DC 06/22/21 09:00 Nitroglycerin (Nitrostat) 0.4 mg PRN Q5MIN PRN SL CHEST PAIN 06/22/21 01:15 Olanzapine (ZyPREXA) 2.5 mg HS PO 06/22/21 21:00 06/22/21 12:19 DC Potassium Chloride (Klor-Con) 20 meq TIDWMEALS PO 06/22/21 08:00 06/28/21 17:10 Trazodone HCl (Desyrel) 25 mg PRN QHS PRN PO INSOMNIA 06/22/21 01:15 06/22/21 21:28 DC Warfarin Sodium (Coumadin) 5 mg DAILY@1600 PO 06/22/21 16:00 06/24/21 13:18 DC 06/23/21 16:12 Non-Formulary Medication (Acetaminophen Er ) 650 mg PRN Q8HRS PRN PO FEVER/PAIN 06/22/21 01:15 UNV Budesonide (Pulmicort) 0.5 mg RTBID NEB 06/22/21 08:00 06/23/21 12:30 DC 06/23/21 08:42 Fluticasone Propionate (Flonase) 2 spray DAILY NS 06/22/21 09:00 06/22/21 12:19 DC Oxybutynin Chloride (Ditropan) 5 mg DAILY PO 06/22/21 09:00 06/28/21 12:05 Atorvastatin Calcium (Lipitor) 80 mg QHS PO 06/22/21 21:00 06/28/21 20:15 Non-Formulary Medication (Venlafaxine Hcl (Venlafaxine Hcl Er)) 75 mg DAILY PO 06/22/21 09:00 UNV Non-Formulary Medication (Venlafaxine Hcl (Venlafaxine Hcl Er)) 150 mg HS PO 06/22/21 21:00 UNV Warfarin Sodium (Coumadin Per Pharmacy) 1 each PRN DAILY PRN MC SEE COMMENTS 06/22/21 01:45 06/27/21 13:43 Venlafaxine HCl (Effexor) 75 mg TID PO 06/22/21 09:00 06/23/21 19:45 DC 06/23/21 14:18 Nystatin (Nystop) 1 christiano BID TP 06/22/21 21:00 06/28/21 20:15 Magnesium Sulfate 100 ml @ 100 mls/hr 1X ONCE IV 06/22/21 13:00 06/22/21 13:59 DC 06/22/21 13:49 Olanzapine (ZyPREXA ZYDIS) 2.5 mg PRN Q2HR PRN PO ANXIETY / AGITATION 06/22/21 11:45 06/27/21 20:00 Diazepam (Valium) 5 mg QHS PO 06/22/21 21:00 06/22/21 21:22 DC Fluticasone Propionate (Flonase) 2 spray PRN BID PRN NS allergies 06/22/21 11:45 Metoprolol Succinate (Toprol Xl) 25 mg BID PO 06/22/21 21:00 06/28/21 09:25 Albuterol Sulfate (Ventolin Hfa Inhaler) 2 puff PRN Q4HRS PRN INH SHORTNESS OF BREATH 06/22/21 11:45 Diazepam (Valium) 2.5 mg QHS PO 06/22/21 21:15 06/25/21 08:00 DC 06/24/21 20:01 Risperidone (RisperDAL) 0.25 mg QHS PO 06/23/21 21:00 06/22/21 21:25 DC Trazodone HCl (Desyrel) 50 mg PRN QHS PO 06/22/21 21:15 06/25/21 01:10 DC Risperidone (RisperDAL) 0.25 mg QHS PO 06/22/21 21:30 06/25/21 18:31 DC 06/24/21 19:58 Fluticasone Furoate (ARNUITY 100mcg ELLIPTA) 1 puff BID INH 06/23/21 21:00 06/28/21 20:16 Venlafaxine HCl (Effexor) 75 mg BID@0900,1700 PO 06/24/21 09:00 06/28/21 17:10 Warfarin Sodium (Coumadin) 4 mg DAILY16 PO 06/24/21 16:00 06/27/21 08:24 DC 06/26/21 16:40 Trazodone HCl (Desyrel) 50 mg PRN QHS PRN PO insomnia 06/25/21 01:15 06/27/21 19:59 Risperidone (RisperDAL) 0.5 mg QHS PO 06/25/21 21:00 06/28/21 20:14 Warfarin Sodium (Coumadin) 5 mg 1600 PO 06/27/21 16:00 06/28/21 17:10 I have reviewed the current psychotropics carefully including drug interactions. Risk benefit ratio favors no change other than as noted in my dictated progress note. Diagnosis: Problems: (1) Impulse control disorder, unspecified (2) Anxiety disorder, unspecified (3) Dementia, vascular, with depression (4) Dementia, vascular, with delusions (5) Dementia in Alzheimer's disease with depression (6) Dementia in Alzheimer's disease with delusions (7) Major neurocognitive disorder due to Alzheimer's disease, without behavioral disturbance MYNOR JAMA MD Jun 28, 2021 20:46
--- NOTE | 2021-06-28 22:36 | NUR ---
Nursing Note Pt in [facility] delusional thinks she is at work, wants me to help her clock out and call her to get her because she is tired and has worked overtime. She states "Sorry Im such a wuss, but I cannot work this hard all day." Pt rambles and makes very little sense after that. Med compliant and cooperative.
[2021-06-29 06:07] VITALS: BP 119/73
--- NOTE | 2021-06-29 07:10 | PDOC ---
Exam Note: Mode Note: This note is a late entry for 06/28/2021 covers elements not covered in my initial note. Subjective: The patient was seen individually in the evening of 06/28/2021 with Carisa DE SANTIAGO, discussed and reviewed the chart. The patient slept 7 previous night. She remains confused, not agitated or aggressive. Review of Systems: No CV, , pulmonary, eye, ENT system symptoms on review. Reliability poor. Mental Status Exam: The patient is oriented to herself. Insight and judgment, recent and remote memory, attention and concentration, fund of knowledge is poor consistent with her diagnosis. Thought processes are loose. Speech is coherent. Laboratory Data: Reviewed. Impression: Major neurocognitive disorder, Alzheimer, vascular with delusion, depression behavioral disturbance. Anxiety disorder unspecified. Impulse control disorder unspecified. Plan: Continue psychotropics from initial note. Adjust as clinically indicated. Assessment: Vital Signs/I&O: Vital Signs Date Time Temp Pulse Resp B/P (MAP) Pulse Ox O2 Delivery O2 Flow Rate FiO2 06/29/21 06:07 97.5 61 18 119/73 (88) 91 06/28/21 15:34 Room Air 06/25/21 05:51 3.0 I & O 06/28/21 06/28/21 06/29/21 15:00 23:00 07:00 Intake Total 600 ml 480 ml Balance 600 ml 480 ml Current Medications: Meds: Current Medications Medications (Trade) Dose Ordered Sig/Lucinda Route PRN Reason Start Time Stop Time Status Last Admin Dose Admin Acetaminophen (Tylenol) 650 mg PRN Q6HRS PRN PO MILD PAIN / TEMP > 100.3'F 06/21/21 23:30 Multi-Ingredient Ointment (Analgesic [place]) 1 christiano PRN QID PRN TP MUSCLE PAIN 06/21/21 23:30 Al Hydroxide/Mg Hydroxide (Mylanta Plus Xs) 15 ml PRN AFTMEALHC PRN PO DYSPEPSIA 06/21/21 23:30 Magnesium Hydroxide (Milk Of Magnesia) 2,400 mg PRN QHS PRN PO 1ST CHOICE CONSTIPATION 06/21/21 23:30 06/26/21 08:56 Influenza Virus Vaccine Quadrival (Flulaval Quad Syringe) 0.5 ml ONCE ONCE VAX IM 06/22/21 09:00 06/22/21 09:02 DC 06/22/21 09:07 Albuterol Sulfate (Ventolin) 2.5 mg PRN Q4HRS PRN NEB SHORTNESS OF BREATH 06/22/21 01:30 06/22/21 12:19 DC Bisacodyl (Dulcolax Tab) 5 mg PRN DAILY PRN PO 2ND CHOICE CONSTIPATION 06/22/21 01:15 Diazepam (Valium) 5 mg PRN QHS PRN PO ANXIETY 06/22/21 21:00 06/22/21 12:19 DC Famotidine (Pepcid) 20 mg BID PO 06/22/21 09:00 06/28/21 20:14 Lorazepam (Ativan) 1 mg HS PO 06/22/21 21:00 06/22/21 12:19 DC Metoprolol Succinate (Toprol Xl) 25 mg DAILY PO 06/22/21 09:00 06/22/21 12:19 DC 06/22/21 09:00 Nitroglycerin (Nitrostat) 0.4 mg PRN Q5MIN PRN SL CHEST PAIN 06/22/21 01:15 Olanzapine (ZyPREXA) 2.5 mg HS PO 06/22/21 21:00 06/22/21 12:19 DC Potassium Chloride (Klor-Con) 20 meq TIDWMEALS PO 06/22/21 08:00 06/28/21 17:10 Trazodone HCl (Desyrel) 25 mg PRN QHS PRN PO INSOMNIA 06/22/21 01:15 06/22/21 21:28 DC Warfarin Sodium (Coumadin) 5 mg DAILY@1600 PO 06/22/21 16:00 06/24/21 13:18 DC 06/23/21 16:12 Non-Formulary Medication (Acetaminophen Er ) 650 mg PRN Q8HRS PRN PO FEVER/PAIN 06/22/21 01:15 UNV Budesonide (Pulmicort) 0.5 mg RTBID NEB 06/22/21 08:00 06/23/21 12:30 DC 06/23/21 08:42 Fluticasone Propionate (Flonase) 2 spray DAILY NS 06/22/21 09:00 06/22/21 12:19 DC Oxybutynin Chloride (Ditropan) 5 mg DAILY PO 06/22/21 09:00 06/28/21 12:05 Atorvastatin Calcium (Lipitor) 80 mg QHS PO 06/22/21 21:00 06/28/21 20:15 Non-Formulary Medication (Venlafaxine Hcl (Venlafaxine Hcl Er)) 75 mg DAILY PO 06/22/21 09:00 UNV Non-Formulary Medication (Venlafaxine Hcl (Venlafaxine Hcl Er)) 150 mg HS PO 06/22/21 21:00 UNV Warfarin Sodium (Coumadin Per Pharmacy) 1 each PRN DAILY PRN MC SEE COMMENTS 06/22/21 01:45 06/27/21 13:43 Venlafaxine HCl (Effexor) 75 mg TID PO 06/22/21 09:00 06/23/21 19:45 DC 06/23/21 14:18 Nystatin (Nystop) 1 christiano BID TP 06/22/21 21:00 06/28/21 20:15 Magnesium Sulfate 100 ml @ 100 mls/hr 1X ONCE IV 06/22/21 13:00 06/22/21 13:59 DC 06/22/21 13:49 Olanzapine (ZyPREXA ZYDIS) 2.5 mg PRN Q2HR PRN PO ANXIETY / AGITATION 06/22/21 11:45 06/27/21 20:00 Diazepam (Valium) 5 mg QHS PO 06/22/21 21:00 06/22/21 21:22 DC Fluticasone Propionate (Flonase) 2 spray PRN BID PRN NS allergies 06/22/21 11:45 Metoprolol Succinate (Toprol Xl) 25 mg BID PO 06/22/21 21:00 06/28/21 09:25 Albuterol Sulfate (Ventolin Hfa Inhaler) 2 puff PRN Q4HRS PRN INH SHORTNESS OF BREATH 06/22/21 11:45 Diazepam (Valium) 2.5 mg QHS PO 06/22/21 21:15 06/25/21 08:00 DC 06/24/21 20:01 Risperidone (RisperDAL) 0.25 mg QHS PO 06/23/21 21:00 06/22/21 21:25 DC Trazodone HCl (Desyrel) 50 mg PRN QHS PO 06/22/21 21:15 06/25/21 01:10 DC Risperidone (RisperDAL) 0.25 mg QHS PO 06/22/21 21:30 06/25/21 18:31 DC 06/24/21 19:58 Fluticasone Furoate (ARNUITY 100mcg ELLIPTA) 1 puff BID INH 06/23/21 21:00 06/28/21 20:16 Venlafaxine HCl (Effexor) 75 mg BID@0900,1700 PO 06/24/21 09:00 06/28/21 17:10 Warfarin Sodium (Coumadin) 4 mg DAILY16 PO 06/24/21 16:00 06/27/21 08:24 DC 06/26/21 16:40 Trazodone HCl (Desyrel) 50 mg PRN QHS PRN PO insomnia 06/25/21 01:15 06/27/21 19:59 Risperidone (RisperDAL) 0.5 mg QHS PO 06/25/21 21:00 06/28/21 20:14 Warfarin Sodium (Coumadin) 5 mg 1600 PO 06/27/21 16:00 06/28/21 17:10 I have reviewed the current psychotropics carefully including drug interactions. Risk benefit ratio favors no change other than as noted in my dictated progress note. Diagnosis: Problems: (1) Impulse control disorder, unspecified (2) Anxiety disorder, unspecified (3) Dementia, vascular, with depression (4) Dementia, vascular, with delusions (5) Dementia in Alzheimer's disease with depression (6) Dementia in Alzheimer's disease with delusions (7) Major neurocognitive disorder due to Alzheimer's disease, without behavioral disturbance MYNOR JAMA MD Jun 29, 2021 07:10
[2021-06-29] MEDS: NYSTATIN TOPICAL POWDER 15GM BOTTLE. TP SCH ×2 (09:00→19:44)
[2021-06-29 09:35] LABS: BASO # 0.1 x10^3/uL (0.0-0.2); BASO % 1 % (0-3); EOS # 0.1 x10^3/uL (0.0-0.7); EOS % 2 % (0-3); HEMATOCRIT 36.1 % (36.0-47.0); HEMOGLOBIN 11.8 g/dL (12.0-15.5); LYMPH # 1.2 x10^3/uL (1.0-4.8); LYMPH % 23 % (24-48); MEAN CORPUSCULAR HEMOGLOBIN 31 pg (25-35); MEAN CORPUSCULAR HGB CONC 33 g/dL (31-37); MEAN CORPUSCULAR VOLUME 94 fL (79-100); MONO # 0.7 x10^3/uL (0.0-1.1); MONO % 13 % (0-9); NEUT # 3.2 x10^3uL (1.8-7.7); NEUT % 61 % (31-73); PLATELET COUNT 200 x10^3/uL (140-400); RED BLOOD COUNT 3.84 x10^6/uL (3.50-5.40); RED CELL DISTRIBUTION WIDTH 13.9 % (11.5-14.5); WHITE BLOOD COUNT 5.2 x10^3/uL (4.0-11.0)
[2021-06-29 09:44] LABS: ALBUMIN 3.5 g/dL (3.4-5.0); ALBUMIN/GLOBULIN RATIO 0.9 (1.0-1.7); CALCIUM 8.6 mg/dL (8.5-10.1); GFR 55.5; POTASSIUM 4.1 mmol/L (3.5-5.1); TOTAL BILIRUBIN 0.5 mg/dL (0.2-1.0); TOTAL PROTEIN 7.3 g/dL (6.4-8.2)
[2021-06-29] MEDS: OXYBUTYNIN CHLORIDE 5 MG TABLET PO SCH (09:48)
[2021-06-29] MEDS: METOPROLOL SUCC 24HR ER 25 MG TAB.ER.24H. PO SCH ×2 (09:48→19:44)
[2021-06-29] MEDS: POTASSIUM CHLORIDE 10 MEQ TABLET.ER. PO SCH ×3 (09:48→17:25)
[2021-06-29] MEDS: FAMOTIDINE 20 MG TABLET PO SCH ×2 (09:48→19:42)
[2021-06-29] MEDS: VENLAFAXINE 75 MG TABLET. PO SCH ×2 (09:48→17:25)
[2021-06-29] MEDS: FLUTICASONE FUROATE 100mcg/INH ELLIPTA INHALER. INH SCH ×2 (09:49→19:42)
--- NOTE | 2021-06-29 13:31 | NUR ---
Nursing note: Pt in day room at time of AM med pass and assessment. She is pleasant, med compliant and cooperative. Pt denies having any pain/concerns. She continues to believe that she is at work, but does not appear to be bothered by this delusion. She is currently in the day room for group. Will continue to monitor.
[2021-06-29 15:27] VITALS: BP 112/75
--- NOTE | 2021-06-29 15:36 | NUR ---
Pharmacy Warfarin Dosing Note S:Pharmacy consulted to assist with anticoagulation therapy started with target INR: 2 -3 O:SHONA MARAVILLA is a 66 year old F with Atrial Fibrillation LABS: Last INR: 2.3 Last HGB: 11.8 Last HCT: 36.1 Last PLT: 200 Last dose of 5 mg given on 06/28/21 at 1600 Previous Regimen: 5MG Vitamin K given: Drug Interaction Changes: Same Interacting Drug Ongoing Drug Interactions: A:INR Within desired Range. Target Range for this patient is: 2 -3 P: Warfarin dose: 4.5MG Today at 1600 Bridge Therapy: None Next INR due 06/30/21 @ 0600 Pharmacy anticoagulation service will continue to follow. [facility], 06/29/21 2112
[2021-06-29] MEDS: WARFARIN 2 MG TABLET. PO SCH (16:00)
[2021-06-29] MEDS: WARFARIN 2.5 MG TABLET. PO SCH (17:24)
[2021-06-29] MEDS: traZODone 50 MG TABLET. PO PRN (19:42)
[2021-06-29] MEDS: ATORVASTATIN CALCIUM 20 MG TABLET PO SCH (19:43)
[2021-06-29] MEDS: risperiDONE 0.5 MG TABLET. PO SCH (19:43)
--- NOTE | 2021-06-29 20:44 | PDOC ---
Exam Note: Mode Note: Please also refer to the separate dictated note~for this date of service dictated separately.~Patient seen individually. Discussed the patient with Nursing staff reviewed the chart.~Reviewed interim history and current functioning. Reviewed vital signs,~Labs/ Radiology~and current medications noted below. Continue current treatment with the changes noted in the dictated addendum note Assessment: Vital Signs/I&O: Vital Signs Date Time Temp Pulse Resp B/P (MAP) Pulse Ox O2 Delivery O2 Flow Rate FiO2 06/29/21 19:44 70 112/75 06/29/21 15:27 98.1 16 96 Room Air 06/25/21 05:51 3.0 I & O 06/28/21 06/28/21 06/29/21 15:00 23:00 07:00 Intake Total 600 ml 480 ml Balance 600 ml 480 ml Labs: Laboratory Tests Test 06/29/21 08:57 White Blood Count 5.2 x10^3/uL (4.0-11.0) Red Blood Count 3.84 x10^6/uL (3.50-5.40) Hemoglobin 11.8 g/dL (12.0-15.5) L Hematocrit 36.1 % (36.0-47.0) Mean Corpuscular Volume 94 fL (79-100) Mean Corpuscular Hemoglobin 31 pg (25-35) Mean Corpuscular Hemoglobin Concent 33 g/dL (31-37) Red Cell Distribution Width 13.9 % (11.5-14.5) Platelet Count 200 x10^3/uL (140-400) Neutrophils (%) (Auto) 61 % (31-73) Lymphocytes (%) (Auto) 23 % (24-48) L Monocytes (%) (Auto) 13 % (0-9) H Eosinophils (%) (Auto) 2 % (0-3) Basophils (%) (Auto) 1 % (0-3) Neutrophils # (Auto) 3.2 x10^3uL (1.8-7.7) Lymphocytes # (Auto) 1.2 x10^3/uL (1.0-4.8) Monocytes # (Auto) 0.7 x10^3/uL (0.0-1.1) Eosinophils # (Auto) 0.1 x10^3/uL (0.0-0.7) Basophils # (Auto) 0.1 x10^3/uL (0.0-0.2) Prothrombin Time 23.6 SEC (9.4-11.4) H Prothrombin Time INR 2.3 (0.9-1.1) H Sodium Level 142 mmol/L (136-145) Potassium Level 4.1 mmol/L (3.5-5.1) Chloride Level 107 mmol/L (98-107) Carbon Dioxide Level 28 mmol/L (21-32) Anion Gap 7 (6-14) Blood Urea Nitrogen 18 mg/dL (7-20) Creatinine 1.0 mg/dL (0.6-1.0) Estimated GFR (Cockcroft-Gault) 55.5 BUN/Creatinine Ratio 18 (6-20) Glucose Level 83 mg/dL (70-99) Calcium Level 8.6 mg/dL (8.5-10.1) Total Bilirubin 0.5 mg/dL (0.2-1.0) Aspartate Amino Transferase (AST) 38 U/L (15-37) H Alanine Aminotransferase (ALT) 34 U/L (14-59) Alkaline Phosphatase 139 U/L (46-116) H Total Protein 7.3 g/dL (6.4-8.2) Albumin 3.5 g/dL (3.4-5.0) Albumin/Globulin Ratio 0.9 (1.0-1.7) L Current Medications: Meds: Laboratory Tests Test 06/29/21 08:57 White Blood Count 5.2 x10^3/uL Red Blood Count 3.84 x10^6/uL Hemoglobin 11.8 g/dL Hematocrit 36.1 % Mean Corpuscular Volume 94 fL Mean Corpuscular Hemoglobin 31 pg Mean Corpuscular Hemoglobin Concent 33 g/dL Red Cell Distribution Width 13.9 % Platelet Count 200 x10^3/uL Neutrophils (%) (Auto) 61 % Lymphocytes (%) (Auto) 23 % Monocytes (%) (Auto) 13 % Eosinophils (%) (Auto) 2 % Basophils (%) (Auto) 1 % Neutrophils # (Auto) 3.2 x10^3uL Lymphocytes # (Auto) 1.2 x10^3/uL Monocytes # (Auto) 0.7 x10^3/uL Eosinophils # (Auto) 0.1 x10^3/uL Basophils # (Auto) 0.1 x10^3/uL Prothrombin Time 23.6 SEC Prothromb Time International Ratio 2.3 Sodium Level 142 mmol/L Potassium Level 4.1 mmol/L Chloride Level 107 mmol/L Carbon Dioxide Level 28 mmol/L Anion Gap 7 Blood Urea Nitrogen 18 mg/dL Creatinine 1.0 mg/dL Estimated GFR (Cockcroft-Gault) 55.5 BUN/Creatinine Ratio 18 Glucose Level 83 mg/dL Calcium Level 8.6 mg/dL Total Bilirubin 0.5 mg/dL Aspartate Amino Transf (AST/SGOT) 38 U/L Alanine Aminotransferase (ALT/SGPT) 34 U/L Alkaline Phosphatase 139 U/L Total Protein 7.3 g/dL Albumin 3.5 g/dL Albumin/Globulin Ratio 0.9 Current Medications Medications (Trade) Dose Ordered Sig/Lucinda Route PRN Reason Start Time Stop Time Status Last Admin Dose Admin Acetaminophen (Tylenol) 650 mg PRN Q6HRS PRN PO MILD PAIN / TEMP > 100.3'F 06/21/21 23:30 Multi-Ingredient Ointment (Analgesic [place]) 1 christiano PRN QID PRN TP MUSCLE PAIN 06/21/21 23:30 Al Hydroxide/Mg Hydroxide (Mylanta Plus Xs) 15 ml PRN AFTMEALHC PRN PO DYSPEPSIA 06/21/21 23:30 Magnesium Hydroxide (Milk Of Magnesia) 2,400 mg PRN QHS PRN PO 1ST CHOICE CONSTIPATION 06/21/21 23:30 06/26/21 08:56 Influenza Virus Vaccine Quadrival (Flulaval Quad [id number] Syringe) 0.5 ml ONCE ONCE VAX IM 06/22/21 09:00 06/22/21 09:02 DC 06/22/21 09:07 Albuterol Sulfate (Ventolin) 2.5 mg PRN Q4HRS PRN NEB SHORTNESS OF BREATH 06/22/21 01:30 06/22/21 12:19 DC Bisacodyl (Dulcolax Tab) 5 mg PRN DAILY PRN PO 2ND CHOICE CONSTIPATION 06/22/21 01:15 Diazepam (Valium) 5 mg PRN QHS PRN PO ANXIETY 06/22/21 21:00 06/22/21 12:19 DC Famotidine (Pepcid) 20 mg BID PO 06/22/21 09:00 06/29/21 19:42 Lorazepam (Ativan) 1 mg HS PO 06/22/21 21:00 06/22/21 12:19 DC Metoprolol Succinate (Toprol Xl) 25 mg DAILY PO 06/22/21 09:00 06/22/21 12:19 DC 06/22/21 09:00 Nitroglycerin (Nitrostat) 0.4 mg PRN Q5MIN PRN SL CHEST PAIN 06/22/21 01:15 Olanzapine (ZyPREXA) 2.5 mg HS PO 06/22/21 21:00 06/22/21 12:19 DC Potassium Chloride (Klor-Con) 20 meq TIDWMEALS PO 06/22/21 08:00 06/29/21 17:25 Trazodone HCl (Desyrel) 25 mg PRN QHS PRN PO INSOMNIA 06/22/21 01:15 06/22/21 21:28 DC Warfarin Sodium (Coumadin) 5 mg DAILY@1600 PO 06/22/21 16:00 06/24/21 13:18 DC 06/23/21 16:12 Non-Formulary Medication (Acetaminophen Er ) 650 mg PRN Q8HRS PRN PO FEVER/PAIN 06/22/21 01:15 UNV Budesonide (Pulmicort) 0.5 mg RTBID NEB 06/22/21 08:00 06/23/21 12:30 DC 06/23/21 08:42 Fluticasone Propionate (Flonase) 2 spray DAILY NS 06/22/21 09:00 06/22/21 12:19 DC Oxybutynin Chloride (Ditropan) 5 mg DAILY PO 06/22/21 09:00 06/29/21 09:48 Atorvastatin Calcium (Lipitor) 80 mg QHS PO 06/22/21 21:00 06/29/21 19:43 Non-Formulary Medication (Venlafaxine Hcl (Venlafaxine Hcl Er)) 75 mg DAILY PO 06/22/21 09:00 UNV Non-Formulary Medication (Venlafaxine Hcl (Venlafaxine Hcl Er)) 150 mg HS PO 06/22/21 21:00 UNV Warfarin Sodium (Coumadin Per Pharmacy) 1 each PRN DAILY PRN MC SEE COMMENTS 06/22/21 01:45 06/29/21 15:34 Venlafaxine HCl (Effexor) 75 mg TID PO 06/22/21 09:00 06/23/21 19:45 DC 06/23/21 14:18 Nystatin (Nystop) 1 christiano BID TP 06/22/21 21:00 06/29/21 09:00 Magnesium Sulfate 100 ml @ 100 mls/hr 1X ONCE IV 06/22/21 13:00 06/22/21 13:59 DC 06/22/21 13:49 Olanzapine (ZyPREXA ZYDIS) 2.5 mg PRN Q2HR PRN PO ANXIETY / AGITATION 06/22/21 11:45 06/27/21 20:00 Diazepam (Valium) 5 mg QHS PO 06/22/21 21:00 06/22/21 21:22 DC Fluticasone Propionate (Flonase) 2 spray PRN BID PRN NS allergies 06/22/21 11:45 Metoprolol Succinate (Toprol Xl) 25 mg BID PO 06/22/21 21:00 06/29/21 09:48 Albuterol Sulfate (Ventolin Hfa Inhaler) 2 puff PRN Q4HRS PRN INH SHORTNESS OF BREATH 06/22/21 11:45 Diazepam (Valium) 2.5 mg QHS PO 06/22/21 21:15 06/25/21 08:00 DC 06/24/21 20:01 Risperidone (RisperDAL) 0.25 mg QHS PO 06/23/21 21:00 06/22/21 21:25 DC Trazodone HCl (Desyrel) 50 mg PRN QHS PO 06/22/21 21:15 06/25/21 01:10 DC Risperidone (RisperDAL) 0.25 mg QHS PO 06/22/21 21:30 06/25/21 18:31 DC 06/24/21 19:58 Fluticasone Furoate (ARNUITY 100mcg ELLIPTA) 1 puff BID INH 06/23/21 21:00 06/29/21 19:42 Venlafaxine HCl (Effexor) 75 mg BID@0900,1700 PO 06/24/21 09:00 06/29/21 17:25 Warfarin Sodium (Coumadin) 4 mg DAILY16 PO 06/24/21 16:00 06/27/21 08:24 DC 06/26/21 16:40 Trazodone HCl (Desyrel) 50 mg PRN QHS PRN PO insomnia 06/25/21 01:15 06/29/21 19:42 Risperidone (RisperDAL) 0.5 mg QHS PO 06/25/21 21:00 06/29/21 19:43 Warfarin Sodium (Coumadin) 5 mg 1600 PO 06/27/21 16:00 06/29/21 13:56 DC 06/28/21 17:10 Warfarin Sodium (Coumadin) 2.5 mg DAILY16 PO 06/29/21 16:00 06/29/21 17:24 Warfarin Sodium (Coumadin) 2 mg DAILY16 PO 06/29/21 16:00 06/29/21 16:00 Current Medications Medications (Trade) Dose Ordered Sig/Lucinda Route PRN Reason Start Time Stop Time Status Last Admin Dose Admin Warfarin Sodium (Coumadin) 2.5 mg DAILY16 PO 06/29/21 16:00 06/29/21 17:24 Warfarin Sodium (Coumadin) 2 mg DAILY16 PO 06/29/21 16:00 06/29/21 16:00 I have reviewed the current psychotropics carefully including drug interactions. Risk benefit ratio favors no change other than as noted in my dictated progress note. Diagnosis: Problems: (1) Impulse control disorder, unspecified (2) Anxiety disorder, unspecified (3) Dementia, vascular, with depression (4) Dementia, vascular, with delusions (5) Dementia in Alzheimer's disease with depression (6) Dementia in Alzheimer's disease with delusions (7) Major neurocognitive disorder due to Alzheimer's disease, without behavioral disturbance MYNOR JAMA MD Jun 29, 2021 20:44
[2021-06-30] MEDS: traZODone 50 MG TABLET. PO PRN (00:10)
--- NOTE | 2021-06-30 00:19 | NUR ---
Nursing Note Pt complains of pain later in the shift, tylenol and trazodone given. Pt confused rambling speech. No agitation. Was intrusive earlier in the shift going into peers rooms. Resting well now.
[2021-06-30 06:22] VITALS: BP 158/85
--- NOTE | 2021-06-30 06:45 | PDOC ---
Exam Note: Mode Note: This note is a late entry for 06/29/2021 covers elements not covered in my initial note. Subjective: The patient was seen individually in the evening of 06/29/2021 with Carisa DE SANTIAGO, discussed and reviewed the chart. The patient slept 5-1/2 previous night. Patient has done reasonably during the day but very confused. In the evening she felt she was at work and nursing staff distracted her and she was able to accept redirection. She had a telephone call with her , was verbally quite abrasive, abusive with him, wanting him to come here and get her. Per nursing report she stated get your ass here and pick me up. I met with her in her room. Review of Systems: No CV, , pulmonary, eye, ENT system symptoms on review. Reliability poor. Mental Status Exam: The patient is oriented to herself. Insight and judgment, recent and remote memory, attention and concentration, fund of knowledge is poor consistent with her diagnosis. Thought processes are loose. Speech is coherent. Laboratory Data: Reviewed. Impression: Major neurocognitive disorder, Alzheimer, vascular with delusion, depression behavioral disturbance. Anxiety disorder unspecified. Impulse control disorder unspecified. Plan: Continue psychotropics from initial note including Effexor, trazodone, Risperdal, the latter added for psychotic symptoms. Adjust further as clinically indicated. Assessment: Vital Signs/I&O: Vital Signs Date Time Temp Pulse Resp B/P (MAP) Pulse Ox O2 Delivery O2 Flow Rate FiO2 06/30/21 06:22 97.1 75 16 158/85 (109) 91 06/29/21 15:27 Room Air 06/25/21 05:51 3.0 I & O 06/29/21 06/29/21 06/30/21 15:00 23:00 07:00 Intake Total 240 ml 360 ml Balance 240 ml 360 ml Labs: Laboratory Tests Test 06/29/21 08:57 06/30/21 06:00 White Blood Count 5.2 x10^3/uL (4.0-11.0) Red Blood Count 3.84 x10^6/uL (3.50-5.40) Hemoglobin 11.8 g/dL (12.0-15.5) L Hematocrit 36.1 % (36.0-47.0) Mean Corpuscular Volume 94 fL (79-100) Mean Corpuscular Hemoglobin 31 pg (25-35) Mean Corpuscular Hemoglobin Concent 33 g/dL (31-37) Red Cell Distribution Width 13.9 % (11.5-14.5) Platelet Count 200 x10^3/uL (140-400) Neutrophils (%) (Auto) 61 % (31-73) Lymphocytes (%) (Auto) 23 % (24-48) L Monocytes (%) (Auto) 13 % (0-9) H Eosinophils (%) (Auto) 2 % (0-3) Basophils (%) (Auto) 1 % (0-3) Neutrophils # (Auto) 3.2 x10^3uL (1.8-7.7) Lymphocytes # (Auto) 1.2 x10^3/uL (1.0-4.8) Monocytes # (Auto) 0.7 x10^3/uL (0.0-1.1) Eosinophils # (Auto) 0.1 x10^3/uL (0.0-0.7) Basophils # (Auto) 0.1 x10^3/uL (0.0-0.2) Prothrombin Time 23.6 SEC (9.4-11.4) H 23.9 SEC (9.4-11.4) H Prothrombin Time INR 2.3 (0.9-1.1) H 2.3 (0.9-1.1) H Sodium Level 142 mmol/L (136-145) Potassium Level 4.1 mmol/L (3.5-5.1) Chloride Level 107 mmol/L (98-107) Carbon Dioxide Level 28 mmol/L (21-32) Anion Gap 7 (6-14) Blood Urea Nitrogen 18 mg/dL (7-20) Creatinine 1.0 mg/dL (0.6-1.0) Estimated GFR (Cockcroft-Gault) 55.5 BUN/Creatinine Ratio 18 (6-20) Glucose Level 83 mg/dL (70-99) Calcium Level 8.6 mg/dL (8.5-10.1) Total Bilirubin 0.5 mg/dL (0.2-1.0) Aspartate Amino Transferase (AST) 38 U/L (15-37) H Alanine Aminotransferase (ALT) 34 U/L (14-59) Alkaline Phosphatase 139 U/L (46-116) H Total Protein 7.3 g/dL (6.4-8.2) Albumin 3.5 g/dL (3.4-5.0) Albumin/Globulin Ratio 0.9 (1.0-1.7) L Current Medications: Meds: Laboratory Tests Test 06/29/21 08:57 06/30/21 06:00 White Blood Count 5.2 x10^3/uL Red Blood Count 3.84 x10^6/uL Hemoglobin 11.8 g/dL Hematocrit 36.1 % Mean Corpuscular Volume 94 fL Mean Corpuscular Hemoglobin 31 pg Mean Corpuscular Hemoglobin Concent 33 g/dL Red Cell Distribution Width 13.9 % Platelet Count 200 x10^3/uL Neutrophils (%) (Auto) 61 % Lymphocytes (%) (Auto) 23 % Monocytes (%) (Auto) 13 % Eosinophils (%) (Auto) 2 % Basophils (%) (Auto) 1 % Neutrophils # (Auto) 3.2 x10^3uL Lymphocytes # (Auto) 1.2 x10^3/uL Monocytes # (Auto) 0.7 x10^3/uL Eosinophils # (Auto) 0.1 x10^3/uL Basophils # (Auto) 0.1 x10^3/uL Prothrombin Time 23.6 SEC 23.9 SEC Prothromb Time International Ratio 2.3 2.3 Sodium Level 142 mmol/L Potassium Level 4.1 mmol/L Chloride Level 107 mmol/L Carbon Dioxide Level 28 mmol/L Anion Gap 7 Blood Urea Nitrogen 18 mg/dL Creatinine 1.0 mg/dL Estimated GFR (Cockcroft-Gault) 55.5 BUN/Creatinine Ratio 18 Glucose Level 83 mg/dL Calcium Level 8.6 mg/dL Total Bilirubin 0.5 mg/dL Aspartate Amino Transf (AST/SGOT) 38 U/L Alanine Aminotransferase (ALT/SGPT) 34 U/L Alkaline Phosphatase 139 U/L Total Protein 7.3 g/dL Albumin 3.5 g/dL Albumin/Globulin Ratio 0.9 Current Medications Medications (Trade) Dose Ordered Sig/Lucinda Route PRN Reason Start Time Stop Time Status Last Admin Dose Admin Acetaminophen (Tylenol) 650 mg PRN Q6HRS PRN PO MILD PAIN / TEMP > 100.3'F 06/21/21 23:30 06/30/21 00:10 Multi-Ingredient Ointment (Analgesic [place]) 1 christiano PRN QID PRN TP MUSCLE PAIN 06/21/21 23:30 Al Hydroxide/Mg Hydroxide (Mylanta Plus Xs) 15 ml PRN AFTMEALHC PRN PO DYSPEPSIA 06/21/21 23:30 Magnesium Hydroxide (Milk Of Magnesia) 2,400 mg PRN QHS PRN PO 1ST CHOICE CONSTIPATION 06/21/21 23:30 06/26/21 08:56 Influenza Virus Vaccine Quadrival (Flulaval Quad Syringe) 0.5 ml ONCE ONCE VAX IM 06/22/21 09:00 06/22/21 09:02 DC 06/22/21 09:07 Albuterol Sulfate (Ventolin) 2.5 mg PRN Q4HRS PRN NEB SHORTNESS OF BREATH 06/22/21 01:30 06/22/21 12:19 DC Bisacodyl (Dulcolax Tab) 5 mg PRN DAILY PRN PO 2ND CHOICE CONSTIPATION 06/22/21 01:15 Diazepam (Valium) 5 mg PRN QHS PRN PO ANXIETY 06/22/21 21:00 06/22/21 12:19 DC Famotidine (Pepcid) 20 mg BID PO 06/22/21 09:00 06/29/21 19:42 Lorazepam (Ativan) 1 mg HS PO 06/22/21 21:00 06/22/21 12:19 DC Metoprolol Succinate (Toprol Xl) 25 mg DAILY PO 06/22/21 09:00 06/22/21 12:19 DC 06/22/21 09:00 Nitroglycerin (Nitrostat) 0.4 mg PRN Q5MIN PRN SL CHEST PAIN 06/22/21 01:15 Olanzapine (ZyPREXA) 2.5 mg HS PO 06/22/21 21:00 06/22/21 12:19 DC Potassium Chloride (Klor-Con) 20 meq TIDWMEALS PO 06/22/21 08:00 06/29/21 17:25 Trazodone HCl (Desyrel) 25 mg PRN QHS PRN PO INSOMNIA 06/22/21 01:15 06/22/21 21:28 DC Warfarin Sodium (Coumadin) 5 mg DAILY@1600 PO 06/22/21 16:00 06/24/21 13:18 DC 06/23/21 16:12 Non-Formulary Medication (Acetaminophen Er ) 650 mg PRN Q8HRS PRN PO FEVER/PAIN 06/22/21 01:15 UNV Budesonide (Pulmicort) 0.5 mg RTBID NEB 06/22/21 08:00 06/23/21 12:30 DC 06/23/21 08:42 Fluticasone Propionate (Flonase) 2 spray DAILY NS 06/22/21 09:00 06/22/21 12:19 DC Oxybutynin Chloride (Ditropan) 5 mg DAILY PO 06/22/21 09:00 06/29/21 09:48 Atorvastatin Calcium (Lipitor) 80 mg QHS PO 06/22/21 21:00 06/29/21 19:43 Non-Formulary Medication (Venlafaxine Hcl (Venlafaxine Hcl Er)) 75 mg DAILY PO 06/22/21 09:00 UNV Non-Formulary Medication (Venlafaxine Hcl (Venlafaxine Hcl Er)) 150 mg HS PO 06/22/21 21:00 UNV Warfarin Sodium (Coumadin Per Pharmacy) 1 each PRN DAILY PRN MC SEE COMMENTS 06/22/21 01:45 06/29/21 15:34 Venlafaxine HCl (Effexor) 75 mg TID PO 06/22/21 09:00 06/23/21 19:45 DC 06/23/21 14:18 Nystatin (Nystop) 1 christiano BID TP 06/22/21 21:00 06/29/21 09:00 Magnesium Sulfate 100 ml @ 100 mls/hr 1X ONCE IV 06/22/21 13:00 06/22/21 13:59 DC 06/22/21 13:49 Olanzapine (ZyPREXA ZYDIS) 2.5 mg PRN Q2HR PRN PO ANXIETY / AGITATION 06/22/21 11:45 06/27/21 20:00 Diazepam (Valium) 5 mg QHS PO 06/22/21 21:00 06/22/21 21:22 DC Fluticasone Propionate (Flonase) 2 spray PRN BID PRN NS allergies 06/22/21 11:45 Metoprolol Succinate (Toprol Xl) 25 mg BID PO 06/22/21 21:00 06/29/21 09:48 Albuterol Sulfate (Ventolin Hfa Inhaler) 2 puff PRN Q4HRS PRN INH SHORTNESS OF BREATH 06/22/21 11:45 Diazepam (Valium) 2.5 mg QHS PO 06/22/21 21:15 06/25/21 08:00 DC 06/24/21 20:01 Risperidone (RisperDAL) 0.25 mg QHS PO 06/23/21 21:00 06/22/21 21:25 DC Trazodone HCl (Desyrel) 50 mg PRN QHS PO 06/22/21 21:15 06/25/21 01:10 DC Risperidone (RisperDAL) 0.25 mg QHS PO 06/22/21 21:30 06/25/21 18:31 DC 06/24/21 19:58 Fluticasone Furoate (ARNUITY 100mcg ELLIPTA) 1 puff BID INH 06/23/21 21:00 06/29/21 19:42 Venlafaxine HCl (Effexor) 75 mg BID@0900,1700 PO 06/24/21 09:00 06/29/21 17:25 Warfarin Sodium (Coumadin) 4 mg DAILY16 PO 06/24/21 16:00 06/27/21 08:24 DC 06/26/21 16:40 Trazodone HCl (Desyrel) 50 mg PRN QHS PRN PO insomnia 06/25/21 01:15 06/30/21 00:10 Risperidone (RisperDAL) 0.5 mg QHS PO 06/25/21 21:00 06/29/21 19:43 Warfarin Sodium (Coumadin) 5 mg 1600 PO 06/27/21 16:00 06/29/21 13:56 DC 06/28/21 17:10 Warfarin Sodium (Coumadin) 2.5 mg DAILY16 PO 06/29/21 16:00 06/29/21 17:24 Warfarin Sodium (Coumadin) 2 mg DAILY16 PO 06/29/21 16:00 06/29/21 16:00 Current Medications Medications (Trade) Dose Ordered Sig/Lucinda Route PRN Reason Start Time Stop Time Status Last Admin Dose Admin Warfarin Sodium (Coumadin) 2.5 mg DAILY16 PO 06/29/21 16:00 06/29/21 17:24 Warfarin Sodium (Coumadin) 2 mg DAILY16 PO 06/29/21 16:00 06/29/21 16:00 I have reviewed the current psychotropics carefully including drug interactions. Risk benefit ratio favors no change other than as noted in my dictated progress note. Diagnosis: Problems: (1) Impulse control disorder, unspecified (2) Anxiety disorder, unspecified (3) Dementia, vascular, with depression (4) Dementia, vascular, with delusions (5) Dementia in Alzheimer's disease with depression (6) Dementia in Alzheimer's disease with delusions (7) Major neurocognitive disorder due to Alzheimer's disease, without behavioral disturbance MYNOR JAMA MD Jun 30, 2021 06:45
--- NOTE | 2021-06-30 07:20 | EKG ---
[address] [address] Test Date: 2021-06-23 Test Time: 15:32:46 Pat Name: SHONA MARAVILLA Department: Room: [address] [place] [address] Gender: F [employer] Edger: : 1955 Requested By: MYNOR JAMA Order Number: [id number] Reading MD: Carson Godinez MD Measurements Intervals Guys Rate: P: CA: QRS: QRSD: T: QT: QTc: Interpretive Statements SR 1ST DEGREE AVB CONSIDER PRIOR INFERIOR INFARCT NON-SPECIFIC ST/T CHANGES Electronically Signed On 07-03-2021 12:01:17 NUTRITION THERAPIST by Carson Godinez MD
[2021-06-30] MEDS: FAMOTIDINE 20 MG TABLET PO SCH ×2 (10:49→20:13)
[2021-06-30] MEDS: VENLAFAXINE 75 MG TABLET. PO SCH ×2 (10:49→17:28)
[2021-06-30] MEDS: POTASSIUM CHLORIDE 10 MEQ TABLET.ER. PO SCH ×3 (10:49→17:28)
[2021-06-30] MEDS: METOPROLOL SUCC 24HR ER 25 MG TAB.ER.24H. PO SCH ×2 (10:49→20:13)
[2021-06-30] MEDS: FLUTICASONE FUROATE 100mcg/INH ELLIPTA INHALER. INH SCH ×2 (10:50→20:12)
[2021-06-30] MEDS: NYSTATIN TOPICAL POWDER 15GM BOTTLE. TP SCH ×2 (10:50→20:14)
[2021-06-30] MEDS: OXYBUTYNIN CHLORIDE 5 MG TABLET PO SCH (10:50)
--- NOTE | 2021-06-30 14:20 | NUR ---
Nursing note: Pt in her room at time of AM med pass and assessment. She is pleasant, med compliant and cooperative. Pt denies having any pain/concerns. She continues to believe that she is at work, but does not appear to be bothered by this delusion. She asks to see the pulse ox to check oxygen on staff and other pt's and wants to take care of her new roommate. She is currently in the day room socializing with peers. Will continue to monitor.
[2021-06-30 15:30] VITALS: BP 124/72
[2021-06-30] MEDS: WARFARIN 2 MG TABLET. PO SCH (16:00)
[2021-06-30] MEDS: WARFARIN 2.5 MG TABLET. PO SCH (17:28)
[2021-06-30] MEDS: risperiDONE 0.5 MG TABLET. PO SCH (20:13)
[2021-06-30] MEDS: ATORVASTATIN CALCIUM 20 MG TABLET PO SCH (20:14)
--- NOTE | 2021-06-30 21:07 | PDOC ---
Exam Note: Mode Note: Please also refer to the separate dictated note~for this date of service dictated separately.~Patient seen individually. Discussed the patient with Nursing staff reviewed the chart.~Reviewed interim history and current functioning. Reviewed vital signs,~Labs/ Radiology~and current medications noted below. Continue current treatment with the changes noted in the dictated addendum note Assessment: Vital Signs/I&O: Vital Signs Date Time Temp Pulse Resp B/P (MAP) Pulse Ox O2 Delivery O2 Flow Rate FiO2 06/30/21 20:13 64 124/72 06/30/21 15:30 97.0 17 97 06/29/21 15:27 Room Air 06/25/21 05:51 3.0 I & O 06/29/21 06/29/21 06/30/21 15:00 23:00 07:00 Intake Total 240 ml 360 ml Balance 240 ml 360 ml Labs: Laboratory Tests Test 06/30/21 06:00 Prothrombin Time 23.9 SEC (9.4-11.4) H Prothrombin Time INR 2.3 (0.9-1.1) H Current Medications: Meds: Laboratory Tests Test 06/30/21 06:00 Prothrombin Time 23.9 SEC Prothromb Time International Ratio 2.3 Current Medications Medications (Trade) Dose Ordered Sig/Lucinda Route PRN Reason Start Time Stop Time Status Last Admin Dose Admin Acetaminophen (Tylenol) 650 mg PRN Q6HRS PRN PO MILD PAIN / TEMP > 100.3'F 06/21/21 23:30 06/30/21 00:10 Multi-Ingredient Ointment (Analgesic [place]) 1 christiano PRN QID PRN TP MUSCLE PAIN 06/21/21 23:30 Al Hydroxide/Mg Hydroxide (Mylanta Plus Xs) 15 ml PRN AFTMEALHC PRN PO DYSPEPSIA 06/21/21 23:30 Magnesium Hydroxide (Milk Of Magnesia) 2,400 mg PRN QHS PRN PO 1ST CHOICE CONSTIPATION 06/21/21 23:30 06/26/21 08:56 Influenza Virus Vaccine Quadrival (Flulaval Quad [id number] Syringe) 0.5 ml ONCE ONCE VAX IM 06/22/21 09:00 06/22/21 09:02 DC 06/22/21 09:07 Albuterol Sulfate (Ventolin) 2.5 mg PRN Q4HRS PRN NEB SHORTNESS OF BREATH 06/22/21 01:30 06/22/21 12:19 DC Bisacodyl (Dulcolax Tab) 5 mg PRN DAILY PRN PO 2ND CHOICE CONSTIPATION 06/22/21 01:15 Diazepam (Valium) 5 mg PRN QHS PRN PO ANXIETY 06/22/21 21:00 06/22/21 12:19 DC Famotidine (Pepcid) 20 mg BID PO 06/22/21 09:00 06/30/21 20:13 Lorazepam (Ativan) 1 mg HS PO 06/22/21 21:00 06/22/21 12:19 DC Metoprolol Succinate (Toprol Xl) 25 mg DAILY PO 06/22/21 09:00 06/22/21 12:19 DC 06/22/21 09:00 Nitroglycerin (Nitrostat) 0.4 mg PRN Q5MIN PRN SL CHEST PAIN 06/22/21 01:15 Olanzapine (ZyPREXA) 2.5 mg HS PO 06/22/21 21:00 06/22/21 12:19 DC Potassium Chloride (Klor-Con) 20 meq TIDWMEALS PO 06/22/21 08:00 06/30/21 17:28 Trazodone HCl (Desyrel) 25 mg PRN QHS PRN PO INSOMNIA 06/22/21 01:15 06/22/21 21:28 DC Warfarin Sodium (Coumadin) 5 mg DAILY@1600 PO 06/22/21 16:00 06/24/21 13:18 DC 06/23/21 16:12 Non-Formulary Medication (Acetaminophen Er ) 650 mg PRN Q8HRS PRN PO FEVER/PAIN 06/22/21 01:15 UNV Budesonide (Pulmicort) 0.5 mg RTBID NEB 06/22/21 08:00 06/23/21 12:30 DC 06/23/21 08:42 Fluticasone Propionate (Flonase) 2 spray DAILY NS 06/22/21 09:00 06/22/21 12:19 DC Oxybutynin Chloride (Ditropan) 5 mg DAILY PO 06/22/21 09:00 06/30/21 10:50 Atorvastatin Calcium (Lipitor) 80 mg QHS PO 06/22/21 21:00 06/30/21 20:14 Non-Formulary Medication (Venlafaxine Hcl (Venlafaxine Hcl Er)) 75 mg DAILY PO 06/22/21 09:00 UNV Non-Formulary Medication (Venlafaxine Hcl (Venlafaxine Hcl Er)) 150 mg HS PO 06/22/21 21:00 UNV Warfarin Sodium (Coumadin Per Pharmacy) 1 each PRN DAILY PRN MC SEE COMMENTS 06/22/21 01:45 06/29/21 15:34 Venlafaxine HCl (Effexor) 75 mg TID PO 06/22/21 09:00 06/23/21 19:45 DC 06/23/21 14:18 Nystatin (Nystop) 1 christiano BID TP 06/22/21 21:00 06/30/21 20:14 Magnesium Sulfate 100 ml @ 100 mls/hr 1X ONCE IV 06/22/21 13:00 06/22/21 13:59 DC 06/22/21 13:49 Olanzapine (ZyPREXA ZYDIS) 2.5 mg PRN Q2HR PRN PO ANXIETY / AGITATION 06/22/21 11:45 06/27/21 20:00 Diazepam (Valium) 5 mg QHS PO 06/22/21 21:00 06/22/21 21:22 DC Fluticasone Propionate (Flonase) 2 spray PRN BID PRN NS allergies 06/22/21 11:45 Metoprolol Succinate (Toprol Xl) 25 mg BID PO 06/22/21 21:00 06/30/21 20:13 Albuterol Sulfate (Ventolin Hfa Inhaler) 2 puff PRN Q4HRS PRN INH SHORTNESS OF BREATH 06/22/21 11:45 Diazepam (Valium) 2.5 mg QHS PO 06/22/21 21:15 06/25/21 08:00 DC 06/24/21 20:01 Risperidone (RisperDAL) 0.25 mg QHS PO 06/23/21 21:00 06/22/21 21:25 DC Trazodone HCl (Desyrel) 50 mg PRN QHS PO 06/22/21 21:15 06/25/21 01:10 DC Risperidone (RisperDAL) 0.25 mg QHS PO 06/22/21 21:30 06/25/21 18:31 DC 06/24/21 19:58 Fluticasone Furoate (ARNUITY 100mcg ELLIPTA) 1 puff BID INH 06/23/21 21:00 06/30/21 20:12 Venlafaxine HCl (Effexor) 75 mg BID@0900,1700 PO 06/24/21 09:00 06/30/21 17:28 Warfarin Sodium (Coumadin) 4 mg DAILY16 PO 06/24/21 16:00 06/27/21 08:24 DC 06/26/21 16:40 Trazodone HCl (Desyrel) 50 mg PRN QHS PRN PO insomnia 06/25/21 01:15 06/30/21 00:10 Risperidone (RisperDAL) 0.5 mg QHS PO 06/25/21 21:00 06/30/21 20:13 Warfarin Sodium (Coumadin) 5 mg 1600 PO 06/27/21 16:00 06/29/21 13:56 DC 06/28/21 17:10 Warfarin Sodium (Coumadin) 2.5 mg DAILY16 PO 06/29/21 16:00 06/30/21 17:28 Warfarin Sodium (Coumadin) 2 mg DAILY16 PO 06/29/21 16:00 06/30/21 16:00 I have reviewed the current psychotropics carefully including drug interactions. Risk benefit ratio favors no change other than as noted in my dictated progress note. Diagnosis: Problems: (1) Impulse control disorder, unspecified (2) Anxiety disorder, unspecified (3) Dementia, vascular, with depression (4) Dementia, vascular, with delusions (5) Dementia in Alzheimer's disease with depression (6) Dementia in Alzheimer's disease with delusions (7) Major neurocognitive disorder due to Alzheimer's disease, without behavioral disturbance MYNOR JAMA MD Jun 30, 2021 21:07
--- NOTE | 2021-06-30 23:03 | NUR ---
Patient is in ambulating in the hallway on assumption of care, looking for her room. She keeps trying to enter the room of a peer who shares her first name, but is redirectable. She continues to believe she is at work, but doesn't seem bothered by this delusion. She is enjoying having a roommate and helping "take care of her." Compliant with assessments and medications whole. She denies any pain or discomfort. Patient appears to be sleeping comfortably at present time. Will continue to monitor.
[2021-07-01 05:51] VITALS: BP 125/73
--- NOTE | 2021-07-01 06:48 | PDOC ---
Exam Note: Mode Note: This note is a late entry for 06/30/2021 covers elements not covered in my initial note. Subjective: The patient was seen individually in the evening of 06/30/2021 with Najma DE SANTIAGO, discussed and reviewed the chart. The patient slept 5 previous night. Patient remains confused. She is redirectable, garbled. Speech with loose associations. I met with her in the dayroom. Review of Systems: No CV, , pulmonary, eye, ENT system symptoms on review. Reliability poor. Mental Status Exam: The patient is oriented to herself. Insight and judgment, recent and remote memory, attention and concentration, fund of knowledge is poor consistent with her diagnosis. Laboratory Data: Reviewed. Impression: Major neurocognitive disorder, Alzheimer, vascular with delusion, depression behavioral disturbance. Anxiety disorder unspecified. Impulse control disorder unspecified. Plan: Continue psychotropics from initial note. Assessment: Vital Signs/I&O: Vital Signs Date Time Temp Pulse Resp B/P (MAP) Pulse Ox O2 Delivery O2 Flow Rate FiO2 07/01/21 05:51 97.5 66 18 125/73 (90) 96 06/29/21 15:27 Room Air I & O0 06/30/21 06/30/21 07/01/21 15:00 23:00 07:00 Intake Total 240 ml 600 ml Balance 240 ml 600 ml Current Medications: Meds: Current Medications Medications (Trade) Dose Ordered Sig/Lucinda Route PRN Reason Start Time Stop Time Status Last Admin Dose Admin Acetaminophen (Tylenol) 650 mg PRN Q6HRS PRN PO MILD PAIN / TEMP > 100.3'F 06/21/21 23:30 06/30/21 00:10 Multi-Ingredient Ointment (Analgesic [place]) 1 christiano PRN QID PRN TP MUSCLE PAIN 06/21/21 23:30 Al Hydroxide/Mg Hydroxide (Mylanta Plus Xs) 15 ml PRN AFTMEALHC PRN PO DYSPEPSIA 06/21/21 23:30 Magnesium Hydroxide (Milk Of Magnesia) 2,400 mg PRN QHS PRN PO 1ST CHOICE CONSTIPATION 06/21/21 23:30 06/26/21 08:56 Influenza Virus Vaccine Quadrival (Flulaval Quad Syringe) 0.5 ml ONCE ONCE VAX IM 06/22/21 09:00 06/22/21 09:02 DC 06/22/21 09:07 Albuterol Sulfate (Ventolin) 2.5 mg PRN Q4HRS PRN NEB SHORTNESS OF BREATH 06/22/21 01:30 06/22/21 12:19 DC Bisacodyl (Dulcolax Tab) 5 mg PRN DAILY PRN PO 2ND CHOICE CONSTIPATION 06/22/21 01:15 Diazepam (Valium) 5 mg PRN QHS PRN PO ANXIETY 06/22/21 21:00 06/22/21 12:19 DC Famotidine (Pepcid) 20 mg BID PO 06/22/21 09:00 06/30/21 20:13 Lorazepam (Ativan) 1 mg HS PO 06/22/21 21:00 06/22/21 12:19 DC Metoprolol Succinate (Toprol Xl) 25 mg DAILY PO 06/22/21 09:00 06/22/21 12:19 DC 06/22/21 09:00 Nitroglycerin (Nitrostat) 0.4 mg PRN Q5MIN PRN SL CHEST PAIN 06/22/21 01:15 Olanzapine (ZyPREXA) 2.5 mg HS PO 06/22/21 21:00 06/22/21 12:19 DC Potassium Chloride (Klor-Con) 20 meq TIDWMEALS PO 06/22/21 08:00 06/30/21 17:28 Trazodone HCl (Desyrel) 25 mg PRN QHS PRN PO INSOMNIA 06/22/21 01:15 06/22/21 21:28 DC Warfarin Sodium (Coumadin) 5 mg DAILY@1600 PO 06/22/21 16:00 06/24/21 13:18 DC 06/23/21 16:12 Non-Formulary Medication (Acetaminophen Er ) 650 mg PRN Q8HRS PRN PO FEVER/PAIN 06/22/21 01:15 UNV Budesonide (Pulmicort) 0.5 mg RTBID NEB 06/22/21 08:00 06/23/21 12:30 DC 06/23/21 08:42 Fluticasone Propionate (Flonase) 2 spray DAILY NS 06/22/21 09:00 06/22/21 12:19 DC Oxybutynin Chloride (Ditropan) 5 mg DAILY PO 06/22/21 09:00 06/30/21 10:50 Atorvastatin Calcium (Lipitor) 80 mg QHS PO 06/22/21 21:00 06/30/21 20:14 Non-Formulary Medication (Venlafaxine Hcl (Venlafaxine Hcl Er)) 75 mg DAILY PO 06/22/21 09:00 UNV Non-Formulary Medication (Venlafaxine Hcl (Venlafaxine Hcl Er)) 150 mg HS PO 06/22/21 21:00 UNV Warfarin Sodium (Coumadin Per Pharmacy) 1 each PRN DAILY PRN MC SEE COMMENTS 06/22/21 01:45 06/29/21 15:34 Venlafaxine HCl (Effexor) 75 mg TID PO 06/22/21 09:00 06/23/21 19:45 DC 06/23/21 14:18 Nystatin (Nystop) 1 christiano BID TP 06/22/21 21:00 06/30/21 20:14 Magnesium Sulfate 100 ml @ 100 mls/hr 1X ONCE IV 06/22/21 13:00 06/22/21 13:59 DC 06/22/21 13:49 Olanzapine (ZyPREXA ZYDIS) 2.5 mg PRN Q2HR PRN PO ANXIETY / AGITATION 06/22/21 11:45 06/27/21 20:00 Diazepam (Valium) 5 mg QHS PO 06/22/21 21:00 06/22/21 21:22 DC Fluticasone Propionate (Flonase) 2 spray PRN BID PRN NS allergies 06/22/21 11:45 Metoprolol Succinate (Toprol Xl) 25 mg BID PO 06/22/21 21:00 06/30/21 20:13 Albuterol Sulfate (Ventolin Hfa Inhaler) 2 puff PRN Q4HRS PRN INH SHORTNESS OF BREATH 06/22/21 11:45 Diazepam (Valium) 2.5 mg QHS PO 06/22/21 21:15 06/25/21 08:00 DC 06/24/21 20:01 Risperidone (RisperDAL) 0.25 mg QHS PO 06/23/21 21:00 06/22/21 21:25 DC Trazodone HCl (Desyrel) 50 mg PRN QHS PO 06/22/21 21:15 06/25/21 01:10 DC Risperidone (RisperDAL) 0.25 mg QHS PO 06/22/21 21:30 06/25/21 18:31 DC 06/24/21 19:58 Fluticasone Furoate (ARNUITY 100mcg ELLIPTA) 1 puff BID INH 06/23/21 21:00 06/30/21 20:12 Venlafaxine HCl (Effexor) 75 mg BID@0900,1700 PO 06/24/21 09:00 06/30/21 17:28 Warfarin Sodium (Coumadin) 4 mg DAILY16 PO 06/24/21 16:00 06/27/21 08:24 DC 06/26/21 16:40 Trazodone HCl (Desyrel) 50 mg PRN QHS PRN PO insomnia 06/25/21 01:15 06/30/21 00:10 Risperidone (RisperDAL) 0.5 mg QHS PO 06/25/21 21:00 06/30/21 20:13 Warfarin Sodium (Coumadin) 5 mg 1600 PO 06/27/21 16:00 06/29/21 13:56 DC 06/28/21 17:10 Warfarin Sodium (Coumadin) 2.5 mg DAILY16 PO 06/29/21 16:00 06/30/21 17:28 Warfarin Sodium (Coumadin) 2 mg DAILY16 PO 06/29/21 16:00 06/30/21 16:00 I have reviewed the current psychotropics carefully including drug interactions. Risk benefit ratio favors no change other than as noted in my dictated progress note. Diagnosis: Problems: (1) Impulse control disorder, unspecified (2) Anxiety disorder, unspecified (3) Dementia, vascular, with depression (4) Dementia, vascular, with delusions (5) Dementia in Alzheimer's disease with depression (6) Dementia in Alzheimer's disease with delusions (7) Major neurocognitive disorder due to Alzheimer's disease, without behavioral disturbance MYNOR JAMA MD Jul 01, 2021 06:48
[2021-07-01] MEDS: FAMOTIDINE 20 MG TABLET PO SCH ×2 (08:17→19:33)
[2021-07-01] MEDS: VENLAFAXINE 75 MG TABLET. PO SCH ×2 (08:17→17:00)
[2021-07-01] MEDS: POTASSIUM CHLORIDE 10 MEQ TABLET.ER. PO SCH ×3 (08:18→17:00)
[2021-07-01] MEDS: OXYBUTYNIN CHLORIDE 5 MG TABLET PO SCH (08:18)
[2021-07-01] MEDS: METOPROLOL SUCC 24HR ER 25 MG TAB.ER.24H. PO SCH ×2 (08:18→19:33)
[2021-07-01] MEDS: NYSTATIN TOPICAL POWDER 15GM BOTTLE. TP SCH ×2 (08:19→19:33)
[2021-07-01] MEDS: FLUTICASONE FUROATE 100mcg/INH ELLIPTA INHALER. INH SCH ×2 (08:19→19:32)
[2021-07-01 15:06] VITALS: BP 151/90
[2021-07-01] MEDS: WARFARIN 2 MG TABLET. PO SCH (16:00)
[2021-07-01] MEDS: WARFARIN 2.5 MG TABLET. PO SCH (16:00)
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
[2021-07-01] MEDS: risperiDONE 0.5 MG TABLET. PO SCH (19:33)
[2021-07-01] MEDS: ATORVASTATIN CALCIUM 20 MG TABLET PO SCH (19:33)
--- NOTE | 2021-07-01 20:59 | PDOC ---
Exam Note: Mode Note: Please also refer to the separate dictated note~for this date of service dictated separately.~Patient seen individually. Discussed the patient with Nursing staff reviewed the chart.~Reviewed interim history and current functioning. Reviewed vital signs,~Labs/ Radiology~and current medications noted below. Continue current treatment with the changes noted in the dictated addendum note Assessment: Vital Signs/I&O: Vital Signs Date Time Temp Pulse Resp B/P (MAP) Pulse Ox O2 Delivery O2 Flow Rate FiO2 07/01/21 19:33 75 151/90 07/01/21 15:06 98.9 20 96 Room Air I & O 06/30/21 06/30/21 07/01/21 15:00 23:00 07:00 Intake Total 240 ml 600 ml Balance 240 ml 600 ml Current Medications: Meds: Current Medications Medications (Trade) Dose Ordered Sig/Lucinda Route PRN Reason Start Time Stop Time Status Last Admin Dose Admin Acetaminophen (Tylenol) 650 mg PRN Q6HRS PRN PO MILD PAIN / TEMP > 100.3'F 06/21/21 23:30 06/30/21 00:10 Multi-Ingredient Ointment (Analgesic [place]) 1 christiano PRN QID PRN TP MUSCLE PAIN 06/21/21 23:30 Al Hydroxide/Mg Hydroxide (Mylanta Plus Xs) 15 ml PRN AFTMEALHC PRN PO DYSPEPSIA 06/21/21 23:30 Magnesium Hydroxide (Milk Of Magnesia) 2,400 mg PRN QHS PRN PO 1ST CHOICE CONSTIPATION 06/21/21 23:30 06/26/21 08:56 Influenza Virus Vaccine Quadrival (Flulaval Quad [id number] Syringe) 0.5 ml ONCE ONCE VAX IM 06/22/21 09:00 06/22/21 09:02 DC 06/22/21 09:07 Albuterol Sulfate (Ventolin) 2.5 mg PRN Q4HRS PRN NEB SHORTNESS OF BREATH 06/22/21 01:30 06/22/21 12:19 DC Bisacodyl (Dulcolax Tab) 5 mg PRN DAILY PRN PO 2ND CHOICE CONSTIPATION 06/22/21 01:15 Diazepam (Valium) 5 mg PRN QHS PRN PO ANXIETY 06/22/21 21:00 06/22/21 12:19 DC Famotidine (Pepcid) 20 mg BID PO 06/22/21 09:00 07/01/21 19:33 Lorazepam (Ativan) 1 mg HS PO 06/22/21 21:00 06/22/21 12:19 DC Metoprolol Succinate (Toprol Xl) 25 mg DAILY PO 06/22/21 09:00 06/22/21 12:19 DC 06/22/21 09:00 Nitroglycerin (Nitrostat) 0.4 mg PRN Q5MIN PRN SL CHEST PAIN 06/22/21 01:15 Olanzapine (ZyPREXA) 2.5 mg HS PO 06/22/21 21:00 06/22/21 12:19 DC Potassium Chloride (Klor-Con) 20 meq TIDWMEALS PO 06/22/21 08:00 07/01/21 17:00 Trazodone HCl (Desyrel) 25 mg PRN QHS PRN PO INSOMNIA 06/22/21 01:15 06/22/21 21:28 DC Warfarin Sodium (Coumadin) 5 mg DAILY@1600 PO 06/22/21 16:00 06/24/21 13:18 DC 06/23/21 16:12 Non-Formulary Medication (Acetaminophen Er ) 650 mg PRN Q8HRS PRN PO FEVER/PAIN 06/22/21 01:15 UNV Budesonide (Pulmicort) 0.5 mg RTBID NEB 06/22/21 08:00 06/23/21 12:30 DC 06/23/21 08:42 Fluticasone Propionate (Flonase) 2 spray DAILY NS 06/22/21 09:00 06/22/21 12:19 DC Oxybutynin Chloride (Ditropan) 5 mg DAILY PO 06/22/21 09:00 07/01/21 08:18 Atorvastatin Calcium (Lipitor) 80 mg QHS PO 06/22/21 21:00 07/01/21 19:33 Non-Formulary Medication (Venlafaxine Hcl (Venlafaxine Hcl Er)) 75 mg DAILY PO 06/22/21 09:00 UNV Non-Formulary Medication (Venlafaxine Hcl (Venlafaxine Hcl Er)) 150 mg HS PO 06/22/21 21:00 UNV Warfarin Sodium (Coumadin Per Pharmacy) 1 each PRN DAILY PRN MC SEE COMMENTS 06/22/21 01:45 06/29/21 15:34 Venlafaxine HCl (Effexor) 75 mg TID PO 06/22/21 09:00 06/23/21 19:45 DC 06/23/21 14:18 Nystatin (Nystop) 1 christiano BID TP 06/22/21 21:00 07/01/21 19:33 Magnesium Sulfate 100 ml @ 100 mls/hr 1X ONCE IV 06/22/21 13:00 06/22/21 13:59 DC 06/22/21 13:49 Olanzapine (ZyPREXA ZYDIS) 2.5 mg PRN Q2HR PRN PO ANXIETY / AGITATION 06/22/21 11:45 06/27/21 20:00 Diazepam (Valium) 5 mg QHS PO 06/22/21 21:00 06/22/21 21:22 DC Fluticasone Propionate (Flonase) 2 spray PRN BID PRN NS allergies 06/22/21 11:45 Metoprolol Succinate (Toprol Xl) 25 mg BID PO 06/22/21 21:00 07/01/21 19:33 Albuterol Sulfate (Ventolin Hfa Inhaler) 2 puff PRN Q4HRS PRN INH SHORTNESS OF BREATH 06/22/21 11:45 Diazepam (Valium) 2.5 mg QHS PO 06/22/21 21:15 06/25/21 08:00 DC 06/24/21 20:01 Risperidone (RisperDAL) 0.25 mg QHS PO 06/23/21 21:00 06/22/21 21:25 DC Trazodone HCl (Desyrel) 50 mg PRN QHS PO 06/22/21 21:15 06/25/21 01:10 DC Risperidone (RisperDAL) 0.25 mg QHS PO 06/22/21 21:30 06/25/21 18:31 DC 06/24/21 19:58 Fluticasone Furoate (ARNUITY 100mcg ELLIPTA) 1 puff BID INH 06/23/21 21:00 07/01/21 19:32 Venlafaxine HCl (Effexor) 75 mg BID@0900,1700 PO 06/24/21 09:00 07/01/21 17:00 Warfarin Sodium (Coumadin) 4 mg DAILY16 PO 06/24/21 16:00 06/27/21 08:24 DC 06/26/21 16:40 Trazodone HCl (Desyrel) 50 mg PRN QHS PRN PO insomnia 06/25/21 01:15 06/30/21 00:10 Risperidone (RisperDAL) 0.5 mg QHS PO 06/25/21 21:00 07/01/21 19:33 Warfarin Sodium (Coumadin) 5 mg 1600 PO 06/27/21 16:00 06/29/21 13:56 DC 06/28/21 17:10 Warfarin Sodium (Coumadin) 2.5 mg DAILY16 PO 06/29/21 16:00 07/01/21 16:00 Warfarin Sodium (Coumadin) 2 mg DAILY16 PO 06/29/21 16:00 07/01/21 16:00 I have reviewed the current psychotropics carefully including drug interactions. Risk benefit ratio favors no change other than as noted in my dictated progress note. Diagnosis: Problems: (1) Impulse control disorder, unspecified (2) Anxiety disorder, unspecified (3) Dementia, vascular, with depression (4) Dementia, vascular, with delusions (5) Dementia in Alzheimer's disease with depression (6) Dementia in Alzheimer's disease with delusions (7) Major neurocognitive disorder (8) Dementia in Alzheimer's disease with early onset with behavioral disturbance MYNOR JAMA MD Jul 01, 2021 20:59
--- NOTE | 2021-07-01 23:47 | NUR ---
Patient is located in the day room on assumption of care. She continues to believe she is at work, but doesn't seem bothered by this delusion. 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 She had a brief episode of tearfulness, where she expressed sadness that her had not come to pick her up from her shift yet. 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 She asked to be shown to her room so she could get ready for bed. She denies any pain or discomfort. Patient appears to be sleeping comfortably at present time. Will continue to monitor.
[2021-07-02 05:42] VITALS: BP 138/84
[2021-07-02] MEDS: FAMOTIDINE 20 MG TABLET PO SCH ×2 (08:48→19:35)
[2021-07-02] MEDS: METOPROLOL SUCC 24HR ER 25 MG TAB.ER.24H. PO SCH ×2 (08:48→19:35)
[2021-07-02] MEDS: OXYBUTYNIN CHLORIDE 5 MG TABLET PO SCH (08:49)
[2021-07-02] MEDS: FLUTICASONE FUROATE 100mcg/INH ELLIPTA INHALER. INH SCH ×2 (08:49→19:39)
[2021-07-02] MEDS: VENLAFAXINE 75 MG TABLET. PO SCH ×2 (08:49→16:28)
[2021-07-02] MEDS: POTASSIUM CHLORIDE 10 MEQ TABLET.ER. PO SCH ×3 (08:49→17:00)
[2021-07-02] MEDS: NYSTATIN TOPICAL POWDER 15GM BOTTLE. TP SCH ×2 (08:50→19:39)
--- NOTE | 2021-07-02 11:17 | NUR ---
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 Pt is social and interactive with peers and staff. Pt is approachable. Pt is confused and disorganized with thoughts. Pt placed her hand on staff shoulder in a kind and caring manner and said, "Can I ask you a question? When is the best time to get ahold of your mom?" Pt is noted to spend time in the hallway, in her room and in the day room. Pt is medication compliant. Pt ate 100% of her breakfast this morning. Pt slept 7.75 hours last night. Pts Vitals are WNL. Will continue to monitor.
[2021-07-02 15:50] VITALS: BP 119/74
[2021-07-02] MEDS: WARFARIN 2 MG TABLET. PO SCH (16:00)
[2021-07-02] MEDS: WARFARIN 2.5 MG TABLET. PO SCH (16:29)
[2021-07-02] MEDS: risperiDONE 0.5 MG TABLET. PO SCH (19:35)
[2021-07-02] MEDS: ATORVASTATIN CALCIUM 20 MG TABLET PO SCH (19:35)
--- NOTE | 2021-07-02 20:57 | PDOC ---
Exam Note: Mode Note: Please also refer to the separate dictated note~for this date of service dictated separately.~Patient seen individually. Discussed the patient with Nursing staff reviewed the chart.~Reviewed interim history and current functioning. Reviewed vital signs,~Labs/ Radiology~and current medications noted below. Continue current treatment with the changes noted in the dictated addendum note Assessment: Vital Signs/I&O: Vital Signs Date Time Temp Pulse Resp B/P (MAP) Pulse Ox O2 Delivery O2 Flow Rate FiO2 07/02/21 19:35 63 119/74 07/02/21 15:50 97.5 16 97 07/02/21 05:42 2.0 07/01/21 15:06 Room Air I & O 07/01/21 07/01/21 07/02/21 15:00 23:00 07:00 Intake Total 240 ml 480 ml Balance 240 ml 480 ml Current Medications: Meds: Current Medications Medications (Trade) Dose Ordered Sig/Lucinda Route PRN Reason Start Time Stop Time Status Last Admin Dose Admin Acetaminophen (Tylenol) 650 mg PRN Q6HRS PRN PO MILD PAIN / TEMP > 100.3'F 06/21/21 23:30 06/30/21 00:10 Multi-Ingredient Ointment (Analgesic [place]) 1 christiano PRN QID PRN TP MUSCLE PAIN 06/21/21 23:30 Al Hydroxide/Mg Hydroxide (Mylanta Plus Xs) 15 ml PRN AFTMEALHC PRN PO DYSPEPSIA 06/21/21 23:30 Magnesium Hydroxide (Milk Of Magnesia) 2,400 mg PRN QHS PRN PO 1ST CHOICE CONSTIPATION 06/21/21 23:30 06/26/21 08:56 Influenza Virus Vaccine Quadrival (Flulaval Quad [id number] Syringe) 0.5 ml ONCE ONCE VAX IM 06/22/21 09:00 06/22/21 09:02 DC 06/22/21 09:07 Albuterol Sulfate (Ventolin) 2.5 mg PRN Q4HRS PRN NEB SHORTNESS OF BREATH 06/22/21 01:30 06/22/21 12:19 DC Bisacodyl (Dulcolax Tab) 5 mg PRN DAILY PRN PO 2ND CHOICE CONSTIPATION 06/22/21 01:15 Diazepam (Valium) 5 mg PRN QHS PRN PO ANXIETY 06/22/21 21:00 06/22/21 12:19 DC Famotidine (Pepcid) 20 mg BID PO 06/22/21 09:00 07/02/21 19:35 Lorazepam (Ativan) 1 mg HS PO 06/22/21 21:00 06/22/21 12:19 DC Metoprolol Succinate (Toprol Xl) 25 mg DAILY PO 06/22/21 09:00 06/22/21 12:19 DC 06/22/21 09:00 Nitroglycerin (Nitrostat) 0.4 mg PRN Q5MIN PRN SL CHEST PAIN 06/22/21 01:15 Olanzapine (ZyPREXA) 2.5 mg HS PO 06/22/21 21:00 06/22/21 12:19 DC Potassium Chloride (Klor-Con) 20 meq TIDWMEALS PO 06/22/21 08:00 07/02/21 17:00 Trazodone HCl (Desyrel) 25 mg PRN QHS PRN PO INSOMNIA 06/22/21 01:15 06/22/21 21:28 DC Warfarin Sodium (Coumadin) 5 mg DAILY@1600 PO 06/22/21 16:00 06/24/21 13:18 DC 06/23/21 16:12 Non-Formulary Medication (Acetaminophen Er ) 650 mg PRN Q8HRS PRN PO FEVER/PAIN 06/22/21 01:15 UNV Budesonide (Pulmicort) 0.5 mg RTBID NEB 06/22/21 08:00 06/23/21 12:30 DC 06/23/21 08:42 Fluticasone Propionate (Flonase) 2 spray DAILY NS 06/22/21 09:00 06/22/21 12:19 DC Oxybutynin Chloride (Ditropan) 5 mg DAILY PO 06/22/21 09:00 07/02/21 08:49 Atorvastatin Calcium (Lipitor) 80 mg QHS PO 06/22/21 21:00 07/02/21 19:35 Non-Formulary Medication (Venlafaxine Hcl (Venlafaxine Hcl Er)) 75 mg DAILY PO 06/22/21 09:00 UNV Non-Formulary Medication (Venlafaxine Hcl (Venlafaxine Hcl Er)) 150 mg HS PO 06/22/21 21:00 UNV Warfarin Sodium (Coumadin Per Pharmacy) 1 each PRN DAILY PRN MC SEE COMMENTS 06/22/21 01:45 06/29/21 15:34 Venlafaxine HCl (Effexor) 75 mg TID PO 06/22/21 09:00 06/23/21 19:45 DC 06/23/21 14:18 Nystatin (Nystop) 1 christiano BID TP 06/22/21 21:00 07/02/21 19:39 Magnesium Sulfate 100 ml @ 100 mls/hr 1X ONCE IV 06/22/21 13:00 06/22/21 13:59 DC 06/22/21 13:49 Olanzapine (ZyPREXA ZYDIS) 2.5 mg PRN Q2HR PRN PO ANXIETY / AGITATION 06/22/21 11:45 06/27/21 20:00 Diazepam (Valium) 5 mg QHS PO 06/22/21 21:00 06/22/21 21:22 DC Fluticasone Propionate (Flonase) 2 spray PRN BID PRN NS allergies 06/22/21 11:45 Metoprolol Succinate (Toprol Xl) 25 mg BID PO 06/22/21 21:00 07/02/21 19:35 Albuterol Sulfate (Ventolin Hfa Inhaler) 2 puff PRN Q4HRS PRN INH SHORTNESS OF BREATH 06/22/21 11:45 Diazepam (Valium) 2.5 mg QHS PO 06/22/21 21:15 06/25/21 08:00 DC 06/24/21 20:01 Risperidone (RisperDAL) 0.25 mg QHS PO 06/23/21 21:00 06/22/21 21:25 DC Trazodone HCl (Desyrel) 50 mg PRN QHS PO 06/22/21 21:15 06/25/21 01:10 DC Risperidone (RisperDAL) 0.25 mg QHS PO 06/22/21 21:30 06/25/21 18:31 DC 06/24/21 19:58 Fluticasone Furoate (ARNUITY 100mcg ELLIPTA) 1 puff BID INH 06/23/21 21:00 07/02/21 19:39 Venlafaxine HCl (Effexor) 75 mg BID@0900,1700 PO 06/24/21 09:00 07/02/21 16:28 Warfarin Sodium (Coumadin) 4 mg DAILY16 PO 06/24/21 16:00 06/27/21 08:24 DC 06/26/21 16:40 Trazodone HCl (Desyrel) 50 mg PRN QHS PRN PO insomnia 06/25/21 01:15 06/30/21 00:10 Risperidone (RisperDAL) 0.5 mg QHS PO 06/25/21 21:00 07/02/21 19:35 Warfarin Sodium (Coumadin) 5 mg 1600 PO 06/27/21 16:00 06/29/21 13:56 DC 06/28/21 17:10 Warfarin Sodium (Coumadin) 2.5 mg DAILY16 PO 06/29/21 16:00 07/02/21 16:29 Warfarin Sodium (Coumadin) 2 mg DAILY16 PO 06/29/21 16:00 07/02/21 16:00 I have reviewed the current psychotropics carefully including drug interactions. Risk benefit ratio favors no change other than as noted in my dictated progress note. Diagnosis: Problems: (1) Impulse control disorder, unspecified (2) Anxiety disorder, unspecified (3) Dementia, vascular, with depression (4) Dementia, vascular, with delusions (5) Dementia in Alzheimer's disease with depression (6) Dementia in Alzheimer's disease with delusions (7) Major neurocognitive disorder (8) Dementia in Alzheimer's disease with early onset with behavioral disturbance MYNOR JAMA MD Jul 02, 2021 20:57
--- NOTE | 2021-07-02 21:24 | NUR ---
Patient was calmly watching football on the TV in the day room with peers. She was wearing a purple hospital gown over her shoulders, like a cape. Patient resistive with medications and would only take 1 atorvastatin and tried to put the other three in her pocket stating "My doctor said I only take one of these white ones". Patient began to become irritable when nurse asked for the medication back, she eventually handed it back. 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
[2021-07-03] MEDS: ATORVASTATIN CALCIUM 20 MG TABLET PO SCH ×2 (01:37→20:00)
[2021-07-03 06:04] VITALS: BP 129/77
--- NOTE | 2021-07-03 07:19 | PDOC ---
Exam Note: Mode Note: This note is a late entry for 07/01/2021 covers elements not covered in my initial note. Subjective: The patient was seen individually in the evening of 07/01/2021 with Najma DE SANTIAGO, discussed and reviewed the chart. The patient slept 6-1/4 previous night. Patient was seen individually in the dayroom. Overall she remains confused, irritable at supper time but did redirect. She is constantly thinking that she is at work. Review of Systems: No CV, , pulmonary, eye, ENT system symptoms on review. Reliability poor. Mental Status Exam: The patient is oriented to herself. Insight and judgment, recent and remote memory, attention and concentration, fund of knowledge is poor consistent with her diagnosis. Laboratory Data: Reviewed. Impression: Major neurocognitive disorder, Alzheimer, vascular with delusion, depression behavioral disturbance. Anxiety disorder unspecified. Impulse control disorder unspecified. Plan: Continue psychotropics from initial note. Adjust further as clinically indicated. Assessment: Vital Signs/I&O: Vital Signs Date Time Temp Pulse Resp B/P (MAP) Pulse Ox O2 Delivery O2 Flow Rate FiO2 07/03/21 06:04 97.4 62 16 129/77 (94) 100 2.0 07/01/21 15:06 Room Air I & O 07/02/21 07/02/21 07/03/21 14:59 22:59 06:59 Intake Total 560 ml 600 ml Balance 560 ml 600 ml Current Medications: Meds: Current Medications Medications (Trade) Dose Ordered Sig/Lucinda Route PRN Reason Start Time Stop Time Status Last Admin Dose Admin Acetaminophen (Tylenol) 650 mg PRN Q6HRS PRN PO MILD PAIN / TEMP > 100.3'F 06/21/21 23:30 06/30/21 00:10 Multi-Ingredient Ointment (Analgesic [place]) 1 christiano PRN QID PRN TP MUSCLE PAIN 06/21/21 23:30 Al Hydroxide/Mg Hydroxide (Mylanta Plus Xs) 15 ml PRN AFTMEALHC PRN PO DYSPEPSIA 06/21/21 23:30 Magnesium Hydroxide (Milk Of Magnesia) 2,400 mg PRN QHS PRN PO 1ST CHOICE CONSTIPATION 06/21/21 23:30 06/26/21 08:56 Influenza Virus Vaccine Quadrival (Flulaval Quad Syringe) 0.5 ml ONCE ONCE VAX IM 06/22/21 09:00 06/22/21 09:02 DC 06/22/21 09:07 Albuterol Sulfate (Ventolin) 2.5 mg PRN Q4HRS PRN NEB SHORTNESS OF BREATH 06/22/21 01:30 06/22/21 12:19 DC Bisacodyl (Dulcolax Tab) 5 mg PRN DAILY PRN PO 2ND CHOICE CONSTIPATION 06/22/21 01:15 Diazepam (Valium) 5 mg PRN QHS PRN PO ANXIETY 06/22/21 21:00 06/22/21 12:19 DC Famotidine (Pepcid) 20 mg BID PO 06/22/21 09:00 07/02/21 19:35 Lorazepam (Ativan) 1 mg HS PO 06/22/21 21:00 06/22/21 12:19 DC Metoprolol Succinate (Toprol Xl) 25 mg DAILY PO 06/22/21 09:00 06/22/21 12:19 DC 06/22/21 09:00 Nitroglycerin (Nitrostat) 0.4 mg PRN Q5MIN PRN SL CHEST PAIN 06/22/21 01:15 Olanzapine (ZyPREXA) 2.5 mg HS PO 06/22/21 21:00 06/22/21 12:19 DC Potassium Chloride (Klor-Con) 20 meq TIDWMEALS PO 06/22/21 08:00 07/02/21 17:00 Trazodone HCl (Desyrel) 25 mg PRN QHS PRN PO INSOMNIA 06/22/21 01:15 06/22/21 21:28 DC Warfarin Sodium (Coumadin) 5 mg DAILY@1600 PO 06/22/21 16:00 06/24/21 13:18 DC 06/23/21 16:12 Non-Formulary Medication (Acetaminophen Er ) 650 mg PRN Q8HRS PRN PO FEVER/PAIN 06/22/21 01:15 UNV Budesonide (Pulmicort) 0.5 mg RTBID NEB 06/22/21 08:00 06/23/21 12:30 DC 06/23/21 08:42 Fluticasone Propionate (Flonase) 2 spray DAILY NS 06/22/21 09:00 06/22/21 12:19 DC Oxybutynin Chloride (Ditropan) 5 mg DAILY PO 06/22/21 09:00 07/02/21 08:49 Atorvastatin Calcium (Lipitor) 80 mg QHS PO 06/22/21 21:00 07/01/21 19:33 Non-Formulary Medication (Venlafaxine Hcl (Venlafaxine Hcl Er)) 75 mg DAILY PO 06/22/21 09:00 UNV Non-Formulary Medication (Venlafaxine Hcl (Venlafaxine Hcl Er)) 150 mg HS PO 06/22/21 21:00 UNV Warfarin Sodium (Coumadin Per Pharmacy) 1 each PRN DAILY PRN MC SEE COMMENTS 06/22/21 01:45 06/29/21 15:34 Venlafaxine HCl (Effexor) 75 mg TID PO 06/22/21 09:00 06/23/21 19:45 DC 06/23/21 14:18 Nystatin (Nystop) 1 christiano BID TP 06/22/21 21:00 07/02/21 19:39 Magnesium Sulfate 100 ml @ 100 mls/hr 1X ONCE IV 06/22/21 13:00 06/22/21 13:59 DC 06/22/21 13:49 Olanzapine (ZyPREXA ZYDIS) 2.5 mg PRN Q2HR PRN PO ANXIETY / AGITATION 06/22/21 11:45 06/27/21 20:00 Diazepam (Valium) 5 mg QHS PO 06/22/21 21:00 06/22/21 21:22 DC Fluticasone Propionate (Flonase) 2 spray PRN BID PRN NS allergies 06/22/21 11:45 Metoprolol Succinate (Toprol Xl) 25 mg BID PO 06/22/21 21:00 07/02/21 19:35 Albuterol Sulfate (Ventolin Hfa Inhaler) 2 puff PRN Q4HRS PRN INH SHORTNESS OF BREATH 06/22/21 11:45 Diazepam (Valium) 2.5 mg QHS PO 06/22/21 21:15 06/25/21 08:00 DC 06/24/21 20:01 Risperidone (RisperDAL) 0.25 mg QHS PO 06/23/21 21:00 06/22/21 21:25 DC Trazodone HCl (Desyrel) 50 mg PRN QHS PO 06/22/21 21:15 06/25/21 01:10 DC Risperidone (RisperDAL) 0.25 mg QHS PO 06/22/21 21:30 06/25/21 18:31 DC 06/24/21 19:58 Fluticasone Furoate (ARNUITY 100mcg ELLIPTA) 1 puff BID INH 06/23/21 21:00 07/02/21 19:39 Venlafaxine HCl (Effexor) 75 mg BID@0900,1700 PO 06/24/21 09:00 07/02/21 16:28 Warfarin Sodium (Coumadin) 4 mg DAILY16 PO 06/24/21 16:00 06/27/21 08:24 DC 06/26/21 16:40 Trazodone HCl (Desyrel) 50 mg PRN QHS PRN PO insomnia 06/25/21 01:15 06/30/21 00:10 Risperidone (RisperDAL) 0.5 mg QHS PO 06/25/21 21:00 07/02/21 19:35 Warfarin Sodium (Coumadin) 5 mg 1600 PO 06/27/21 16:00 06/29/21 13:56 DC 06/28/21 17:10 Warfarin Sodium (Coumadin) 2.5 mg DAILY16 PO 06/29/21 16:00 07/02/21 16:29 Warfarin Sodium (Coumadin) 2 mg DAILY16 PO 06/29/21 16:00 07/02/21 16:00 I have reviewed the current psychotropics carefully including drug interactions. Risk benefit ratio favors no change other than as noted in my dictated progress note. Diagnosis: Problems: (1) Impulse control disorder, unspecified (2) Anxiety disorder, unspecified (3) Dementia, vascular, with depression (4) Dementia, vascular, with delusions (5) Dementia in Alzheimer's disease with depression (6) Dementia in Alzheimer's disease with delusions (7) Major neurocognitive disorder (8) Dementia in Alzheimer's disease with early onset with behavioral disturbance MYNOR JAMA MD Jul 03, 2021 07:19
--- NOTE | 2021-07-03 07:32 | PDOC ---
Exam Note: Mode Note: This note is a late entry for 07/02/2021 covers elements not covered in my initial note. Subjective: The patient was seen individually in the evening of 07/02/2021 with Alison DE SANTIAGO, discussed and reviewed the chart. The patient slept 7-3/4 previous night. I met with her in the dayroom. She has been confused, somewhat intrusive, still fixated that she works here. She is compliant with medications. 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 Review of Systems: No CV, , pulmonary, eye, ENT system symptoms on review. Reliability poor. Mental Status Exam: The patient is oriented to herself. Insight and judgment, recent and remote memory, attention and concentration, fund of knowledge is poor consistent with her diagnosis. Laboratory Data: Reviewed. Impression: Major neurocognitive disorder, Alzheimer, vascular with delusion, depression behavioral disturbance. Anxiety disorder unspecified. Impulse control disorder unspecified. Plan: Continue psychotropics from initial note. Assessment: Vital Signs/I&O: Vital Signs Date Time Temp Pulse Resp B/P (MAP) Pulse Ox O2 Delivery O2 Flow Rate FiO2 07/03/21 06:04 97.4 62 16 129/77 (94) 100 2.0 07/01/21 15:06 Room Air I & O 07/02/21 07/02/21 07/03/21 15:00 23:00 07:00 Intake Total 560 ml 600 ml Balance 560 ml 600 ml Current Medications: Meds: Current Medications Medications (Trade) Dose Ordered Sig/Lucinda Route PRN Reason Start Time Stop Time Status Last Admin Dose Admin Acetaminophen (Tylenol) 650 mg PRN Q6HRS PRN PO MILD PAIN / TEMP > 100.3'F 06/21/21 23:30 06/30/21 00:10 Multi-Ingredient Ointment (Analgesic [place]) 1 christiano PRN QID PRN TP MUSCLE PAIN 06/21/21 23:30 Al Hydroxide/Mg Hydroxide (Mylanta Plus Xs) 15 ml PRN AFTMEALHC PRN PO DYSPEPSIA 06/21/21 23:30 Magnesium Hydroxide (Milk Of Magnesia) 2,400 mg PRN QHS PRN PO 1ST CHOICE CONSTIPATION 06/21/21 23:30 06/26/21 08:56 Influenza Virus Vaccine Quadrival (Flulaval Quad Syringe) 0.5 ml ONCE ONCE VAX IM 06/22/21 09:00 06/22/21 09:02 DC 06/22/21 09:07 Albuterol Sulfate (Ventolin) 2.5 mg PRN Q4HRS PRN NEB SHORTNESS OF BREATH 06/22/21 01:30 06/22/21 12:19 DC Bisacodyl (Dulcolax Tab) 5 mg PRN DAILY PRN PO 2ND CHOICE CONSTIPATION 06/22/21 01:15 Diazepam (Valium) 5 mg PRN QHS PRN PO ANXIETY 06/22/21 21:00 06/22/21 12:19 DC Famotidine (Pepcid) 20 mg BID PO 06/22/21 09:00 07/02/21 19:35 Lorazepam (Ativan) 1 mg HS PO 06/22/21 21:00 06/22/21 12:19 DC Metoprolol Succinate (Toprol Xl) 25 mg DAILY PO 06/22/21 09:00 06/22/21 12:19 DC 06/22/21 09:00 Nitroglycerin (Nitrostat) 0.4 mg PRN Q5MIN PRN SL CHEST PAIN 06/22/21 01:15 Olanzapine (ZyPREXA) 2.5 mg HS PO 06/22/21 21:00 06/22/21 12:19 DC Potassium Chloride (Klor-Con) 20 meq TIDWMEALS PO 06/22/21 08:00 07/02/21 17:00 Trazodone HCl (Desyrel) 25 mg PRN QHS PRN PO INSOMNIA 06/22/21 01:15 06/22/21 21:28 DC Warfarin Sodium (Coumadin) 5 mg DAILY@1600 PO 06/22/21 16:00 06/24/21 13:18 DC 06/23/21 16:12 Non-Formulary Medication (Acetaminophen Er ) 650 mg PRN Q8HRS PRN PO FEVER/PAIN 06/22/21 01:15 UNV Budesonide (Pulmicort) 0.5 mg RTBID NEB 06/22/21 08:00 06/23/21 12:30 DC 06/23/21 08:42 Fluticasone Propionate (Flonase) 2 spray DAILY NS 06/22/21 09:00 06/22/21 12:19 DC Oxybutynin Chloride (Ditropan) 5 mg DAILY PO 06/22/21 09:00 07/02/21 08:49 Atorvastatin Calcium (Lipitor) 80 mg QHS PO 06/22/21 21:00 07/01/21 19:33 Non-Formulary Medication (Venlafaxine Hcl (Venlafaxine Hcl Er)) 75 mg DAILY PO 06/22/21 09:00 UNV Non-Formulary Medication (Venlafaxine Hcl (Venlafaxine Hcl Er)) 150 mg HS PO 06/22/21 21:00 UNV Warfarin Sodium (Coumadin Per Pharmacy) 1 each PRN DAILY PRN MC SEE COMMENTS 06/22/21 01:45 06/29/21 15:34 Venlafaxine HCl (Effexor) 75 mg TID PO 06/22/21 09:00 06/23/21 19:45 DC 06/23/21 14:18 Nystatin (Nystop) 1 christiano BID TP 06/22/21 21:00 07/02/21 19:39 Magnesium Sulfate 100 ml @ 100 mls/hr 1X ONCE IV 06/22/21 13:00 06/22/21 13:59 DC 06/22/21 13:49 Olanzapine (ZyPREXA ZYDIS) 2.5 mg PRN Q2HR PRN PO ANXIETY / AGITATION 06/22/21 11:45 06/27/21 20:00 Diazepam (Valium) 5 mg QHS PO 06/22/21 21:00 06/22/21 21:22 DC Fluticasone Propionate (Flonase) 2 spray PRN BID PRN NS allergies 06/22/21 11:45 Metoprolol Succinate (Toprol Xl) 25 mg BID PO 06/22/21 21:00 07/02/21 19:35 Albuterol Sulfate (Ventolin Hfa Inhaler) 2 puff PRN Q4HRS PRN INH SHORTNESS OF BREATH 06/22/21 11:45 Diazepam (Valium) 2.5 mg QHS PO 06/22/21 21:15 06/25/21 08:00 DC 06/24/21 20:01 Risperidone (RisperDAL) 0.25 mg QHS PO 06/23/21 21:00 06/22/21 21:25 DC Trazodone HCl (Desyrel) 50 mg PRN QHS PO 06/22/21 21:15 06/25/21 01:10 DC Risperidone (RisperDAL) 0.25 mg QHS PO 06/22/21 21:30 06/25/21 18:31 DC 06/24/21 19:58 Fluticasone Furoate (ARNUITY 100mcg ELLIPTA) 1 puff BID INH 06/23/21 21:00 07/02/21 19:39 Venlafaxine HCl (Effexor) 75 mg BID@0900,1700 PO 06/24/21 09:00 07/02/21 16:28 Warfarin Sodium (Coumadin) 4 mg DAILY16 PO 06/24/21 16:00 06/27/21 08:24 DC 06/26/21 16:40 Trazodone HCl (Desyrel) 50 mg PRN QHS PRN PO insomnia 06/25/21 01:15 06/30/21 00:10 Risperidone (RisperDAL) 0.5 mg QHS PO 06/25/21 21:00 07/02/21 19:35 Warfarin Sodium (Coumadin) 5 mg 1600 PO 06/27/21 16:00 06/29/21 13:56 DC 06/28/21 17:10 Warfarin Sodium (Coumadin) 2.5 mg DAILY16 PO 06/29/21 16:00 07/02/21 16:29 Warfarin Sodium (Coumadin) 2 mg DAILY16 PO 06/29/21 16:00 07/02/21 16:00 I have reviewed the current psychotropics carefully including drug interactions. Risk benefit ratio favors no change other than as noted in my dictated progress note. Diagnosis: Problems: (1) Impulse control disorder, unspecified (2) Anxiety disorder, unspecified (3) Dementia, vascular, with depression (4) Dementia, vascular, with delusions (5) Dementia in Alzheimer's disease with depression (6) Dementia in Alzheimer's disease with delusions (7) Major neurocognitive disorder (8) Dementia in Alzheimer's disease with early onset with behavioral disturbance MYNOR JAMA MD Jul 03, 2021 07:32
[2021-07-03] MEDS: POTASSIUM CHLORIDE 10 MEQ TABLET.ER. PO SCH ×3 (08:04→16:10)
[2021-07-03] MEDS: FLUTICASONE FUROATE 100mcg/INH ELLIPTA INHALER. INH SCH ×2 (08:04→19:59)
[2021-07-03] MEDS: VENLAFAXINE 75 MG TABLET. PO SCH ×2 (08:04→16:12)
[2021-07-03] MEDS: OXYBUTYNIN CHLORIDE 5 MG TABLET PO SCH (08:04)
[2021-07-03] MEDS: FAMOTIDINE 20 MG TABLET PO SCH ×2 (08:04→20:00)
[2021-07-03] MEDS: METOPROLOL SUCC 24HR ER 25 MG TAB.ER.24H. PO SCH ×2 (08:04→20:00)
[2021-07-03] MEDS: NYSTATIN TOPICAL POWDER 15GM BOTTLE. TP SCH ×2 (08:05→20:00)
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
--- NOTE | 2021-07-03 15:00 | NUR ---
Nurse Day Shift Note: Pt presents with a pleasant mood/affect. Pt is pleasant and social with her peers. Pt is engageable when approached by staff. Pt is noted to spend her time tending to other pts in an appropriate manner. Pt is able to make needs known to staff. Pt follows routines/rules on the unit. Pt got teary eyed and felt sad today and was given a PRN around 1430. Staff sat with and talked to pt as well today. Pt was asked earlier in the day how she was doing and replied, "Well, I'm 55 and in a shelter, it sucks" Pt continued, "[place] wants to make sure I've exercised. 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 Pt slept 6 hours last night. Pts vitals are WNL. Pt continues to have a good appetite. Will continue to monitor.
--- NOTE | 2021-07-03 15:14 | NUR ---
Treatment team update: Pt continues to do well on days. She is pleasant, appropriate and cooperative; and tends to help others. Pt does get more disoriented to place at night. It is noted that she was resistive with Atorvastatin in which there are four and pt only wanted to take one. It is also noted that pt wears a gown over her clothes like it's a cape. Pt participated in four groups last week with minimal to moderate participation; it was noted that she believes that she is still working but very interactive. Pt would still like to have pt home and will look at [facility] tentatively for the beginning of next week.
[2021-07-03 15:16] VITALS: BP 175/97
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
--- NOTE | 2021-07-03 15:34 | NUR ---
DUARTE received call from pt , Jimy, re: an update on pt. Jimy reports that he just spoke with pt and she told him that she was in [place] and just finished watching the parade; but is upset because someone took her car and she cannot find it. Jimy assured pt that her car was safe and reoriented her to the fact that she is in the hospital getting her medications settled. DUARTE went over thing discussed in treatment team and noted that pt could look at discharge on Saturday of next week. DUARTE apologized for not having Jimy involved as SW was also not in treatment team today but would have him involved Saturday for discharge purposes.
[2021-07-03] MEDS: WARFARIN 2 MG TABLET. PO SCH (16:11)
[2021-07-03] MEDS: WARFARIN 2.5 MG TABLET. PO SCH (16:11)
[2021-07-03 18:13] VITALS: BP 129/79
[2021-07-03] MEDS: risperiDONE 0.5 MG TABLET. PO SCH (20:00)
--- NOTE | 2021-07-03 20:29 | PDOC ---
Exam Note: Mode Note: Please also refer to the separate dictated note~for this date of service dictated separately.~Patient seen individually. Discussed the patient with Nursing staff reviewed the chart.~Reviewed interim history and current functioning. Reviewed vital signs,~Labs/ Radiology~and current medications noted below. Continue current treatment with the changes noted in the dictated addendum note Assessment: Vital Signs/I&O: Vital Signs Date Time Temp Pulse Resp B/P (MAP) Pulse Ox O2 Delivery O2 Flow Rate FiO2 07/03/21 20:00 90 129/79 07/03/21 15:16 98.3 20 96 07/03/21 06:04 2.0 07/01/21 15:06 Room Air I & O 07/02/21 07/02/21 07/03/21 14:59 22:59 06:59 Intake Total 560 ml 600 ml Balance 560 ml 600 ml Current Medications: Meds: Current Medications Medications (Trade) Dose Ordered Sig/Lucinda Route PRN Reason Start Time Stop Time Status Last Admin Dose Admin Acetaminophen (Tylenol) 650 mg PRN Q6HRS PRN PO MILD PAIN / TEMP > 100.3'F 06/21/21 23:30 06/30/21 00:10 Multi-Ingredient Ointment (Analgesic [place]) 1 christiano PRN QID PRN TP MUSCLE PAIN 06/21/21 23:30 Al Hydroxide/Mg Hydroxide (Mylanta Plus Xs) 15 ml PRN AFTMEALHC PRN PO DYSPEPSIA 06/21/21 23:30 Magnesium Hydroxide (Milk Of Magnesia) 2,400 mg PRN QHS PRN PO 1ST CHOICE CONSTIPATION 06/21/21 23:30 06/26/21 08:56 Influenza Virus Vaccine Quadrival (Flulaval Quad [id number] Syringe) 0.5 ml ONCE ONCE VAX IM 06/22/21 09:00 06/22/21 09:02 DC 06/22/21 09:07 Albuterol Sulfate (Ventolin) 2.5 mg PRN Q4HRS PRN NEB SHORTNESS OF BREATH 06/22/21 01:30 06/22/21 12:19 DC Bisacodyl (Dulcolax Tab) 5 mg PRN DAILY PRN PO 2ND CHOICE CONSTIPATION 06/22/21 01:15 Diazepam (Valium) 5 mg PRN QHS PRN PO ANXIETY 06/22/21 21:00 06/22/21 12:19 DC Famotidine (Pepcid) 20 mg BID PO 06/22/21 09:00 07/03/21 20:00 Lorazepam (Ativan) 1 mg HS PO 06/22/21 21:00 06/22/21 12:19 DC Metoprolol Succinate (Toprol Xl) 25 mg DAILY PO 06/22/21 09:00 06/22/21 12:19 DC 06/22/21 09:00 Nitroglycerin (Nitrostat) 0.4 mg PRN Q5MIN PRN SL CHEST PAIN 06/22/21 01:15 Olanzapine (ZyPREXA) 2.5 mg HS PO 06/22/21 21:00 06/22/21 12:19 DC Potassium Chloride (Klor-Con) 20 meq TIDWMEALS PO 06/22/21 08:00 07/03/21 16:10 Trazodone HCl (Desyrel) 25 mg PRN QHS PRN PO INSOMNIA 06/22/21 01:15 06/22/21 21:28 DC Warfarin Sodium (Coumadin) 5 mg DAILY@1600 PO 06/22/21 16:00 06/24/21 13:18 DC 06/23/21 16:12 Non-Formulary Medication (Acetaminophen Er ) 650 mg PRN Q8HRS PRN PO FEVER/PAIN 06/22/21 01:15 UNV Budesonide (Pulmicort) 0.5 mg RTBID NEB 06/22/21 08:00 06/23/21 12:30 DC 06/23/21 08:42 Fluticasone Propionate (Flonase) 2 spray DAILY NS 06/22/21 09:00 06/22/21 12:19 DC Oxybutynin Chloride (Ditropan) 5 mg DAILY PO 06/22/21 09:00 07/03/21 08:04 Atorvastatin Calcium (Lipitor) 80 mg QHS PO 06/22/21 21:00 07/03/21 20:00 Non-Formulary Medication (Venlafaxine Hcl (Venlafaxine Hcl Er)) 75 mg DAILY PO 06/22/21 09:00 UNV Non-Formulary Medication (Venlafaxine Hcl (Venlafaxine Hcl Er)) 150 mg HS PO 06/22/21 21:00 UNV Warfarin Sodium (Coumadin Per Pharmacy) 1 each PRN DAILY PRN MC SEE COMMENTS 06/22/21 01:45 06/29/21 15:34 Venlafaxine HCl (Effexor) 75 mg TID PO 06/22/21 09:00 06/23/21 19:45 DC 06/23/21 14:18 Nystatin (Nystop) 1 christiano BID TP 06/22/21 21:00 07/03/21 20:00 Magnesium Sulfate 100 ml @ 100 mls/hr 1X ONCE IV 06/22/21 13:00 06/22/21 13:59 DC 06/22/21 13:49 Olanzapine (ZyPREXA ZYDIS) 2.5 mg PRN Q2HR PRN PO ANXIETY / AGITATION 06/22/21 11:45 07/03/21 16:49 Diazepam (Valium) 5 mg QHS PO 06/22/21 21:00 06/22/21 21:22 DC Fluticasone Propionate (Flonase) 2 spray PRN BID PRN NS allergies 06/22/21 11:45 Metoprolol Succinate (Toprol Xl) 25 mg BID PO 06/22/21 21:00 07/03/21 20:00 Albuterol Sulfate (Ventolin Hfa Inhaler) 2 puff PRN Q4HRS PRN INH SHORTNESS OF BREATH 06/22/21 11:45 Diazepam (Valium) 2.5 mg QHS PO 06/22/21 21:15 06/25/21 08:00 DC 06/24/21 20:01 Risperidone (RisperDAL) 0.25 mg QHS PO 06/23/21 21:00 06/22/21 21:25 DC Trazodone HCl (Desyrel) 50 mg PRN QHS PO 06/22/21 21:15 06/25/21 01:10 DC Risperidone (RisperDAL) 0.25 mg QHS PO 06/22/21 21:30 06/25/21 18:31 DC 06/24/21 19:58 Fluticasone Furoate (ARNUITY 100mcg ELLIPTA) 1 puff BID INH 06/23/21 21:00 07/03/21 19:59 Venlafaxine HCl (Effexor) 75 mg BID@0900,1700 PO 06/24/21 09:00 07/03/21 16:12 Warfarin Sodium (Coumadin) 4 mg DAILY16 PO 06/24/21 16:00 06/27/21 08:24 DC 06/26/21 16:40 Trazodone HCl (Desyrel) 50 mg PRN QHS PRN PO insomnia 06/25/21 01:15 06/30/21 00:10 Risperidone (RisperDAL) 0.5 mg QHS PO 06/25/21 21:00 07/03/21 20:00 Warfarin Sodium (Coumadin) 5 mg 1600 PO 06/27/21 16:00 06/29/21 13:56 DC 06/28/21 17:10 Warfarin Sodium (Coumadin) 2.5 mg DAILY16 PO 06/29/21 16:00 07/03/21 16:11 Warfarin Sodium (Coumadin) 2 mg DAILY16 PO 06/29/21 16:00 07/03/21 16:11 I have reviewed the current psychotropics carefully including drug interactions. Risk benefit ratio favors no change other than as noted in my dictated progress note. Diagnosis: Problems: (1) Impulse control disorder, unspecified (2) Anxiety disorder, unspecified (3) Dementia, vascular, with depression (4) Dementia, vascular, with delusions (5) Dementia in Alzheimer's disease with depression (6) Dementia in Alzheimer's disease with delusions (7) Major neurocognitive disorder (8) Dementia in Alzheimer's disease with early onset with behavioral disturbance MYNOR JAMA MD Jul 03, 2021 20:29
--- NOTE | 2021-07-03 22:12 | NUR ---
Patient was sitting near the [facility] nurses station with peers when this nurse came on duty. She was cooperative and compliant with medications. Patient talked about having grown up in [place], [place] and how she came to live in [place] (after her dad , they moved here to be near family). About 15 minutes after medications were given and nurse returned to nurses station, patient came to nurses station to tell this nurse that "the other nurse already gave me my meds". Patient has been calm and is not agitated or aggressive at this time. Patient cooperative in shower, calm and went to bed easily.
[2021-07-04 05:43] VITALS: BP 138/83
[2021-07-04] MEDS: OXYBUTYNIN CHLORIDE 5 MG TABLET PO SCH (08:00)
[2021-07-04] MEDS: VENLAFAXINE 75 MG TABLET. PO SCH ×2 (08:01→16:46)
[2021-07-04] MEDS: METOPROLOL SUCC 24HR ER 25 MG TAB.ER.24H. PO SCH ×2 (08:01→20:26)
[2021-07-04] MEDS: FAMOTIDINE 20 MG TABLET PO SCH ×2 (08:01→20:26)
[2021-07-04] MEDS: FLUTICASONE FUROATE 100mcg/INH ELLIPTA INHALER. INH SCH ×2 (08:02→20:27)
[2021-07-04] MEDS: NYSTATIN TOPICAL POWDER 15GM BOTTLE. TP SCH ×2 (08:02→20:26)
[2021-07-04] MEDS: POTASSIUM CHLORIDE 10 MEQ TABLET.ER. PO SCH ×3 (08:02→16:47)
[2021-07-04] MEDS: MAGNESIUM HYDROXIDE 2,400 MG/30 ML ORAL.SUSP. PO PRN (14:44)
[2021-07-04 15:18] VITALS: BP 136/83
[2021-07-04] MEDS: WARFARIN 2 MG TABLET. PO SCH (16:46)
[2021-07-04] MEDS: WARFARIN 2.5 MG TABLET. PO SCH (16:46)
--- NOTE | 2021-07-04 17:42 | NUR ---
Patient has been disorganized, restless, pleasantly confused, and delusional throughout this shift. Patient is very social with peers and staff. 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 She became very tearful after talking to her in the afternoon, stating she did not know if he would pick her up from work tonight. PRN medication provided per eMAR. Will continue to monitor and report to oncoming shift.
[2021-07-04] MEDS: risperiDONE 0.5 MG TABLET. PO SCH (20:26)
[2021-07-04] MEDS: ATORVASTATIN CALCIUM 20 MG TABLET PO SCH (20:26)
--- NOTE | 2021-07-04 20:50 | PDOC ---
Exam Note: Mode Note: Please also refer to the separate dictated note~for this date of service dictated separately.~Patient seen individually. Discussed the patient with Nursing staff reviewed the chart.~Reviewed interim history and current functioning. Reviewed vital signs,~Labs/ Radiology~and current medications noted below. Continue current treatment with the changes noted in the dictated addendum note Assessment: Vital Signs/I&O: Vital Signs Date Time Temp Pulse Resp B/P (MAP) Pulse Ox O2 Delivery O2 Flow Rate FiO2 07/04/21 20:26 64 136/83 07/04/21 15:18 99.0 18 97 07/03/21 06:04 2.0 07/01/21 15:06 Room Air I & O 07/03/21 07/03/21 07/04/21 15:00 23:00 07:00 Intake Total 600 ml 480 ml Balance 600 ml 480 ml Labs: Laboratory Tests Test 07/04/21 11:10 Prothrombin Time 27.1 SEC (9.4-11.4) H Prothrombin Time INR 2.6 (0.9-1.1) H Current Medications: Meds: Laboratory Tests Test 07/04/21 11:10 Prothrombin Time 27.1 SEC Prothromb Time International Ratio 2.6 Current Medications Medications (Trade) Dose Ordered Sig/Lucinda Route PRN Reason Start Time Stop Time Status Last Admin Dose Admin Acetaminophen (Tylenol) 650 mg PRN Q6HRS PRN PO MILD PAIN / TEMP > 100.3'F 06/21/21 23:30 06/30/21 00:10 Multi-Ingredient Ointment (Analgesic [place]) 1 christiano PRN QID PRN TP MUSCLE PAIN 06/21/21 23:30 Al Hydroxide/Mg Hydroxide (Mylanta Plus Xs) 15 ml PRN AFTMEALHC PRN PO DYSPEPSIA 06/21/21 23:30 Magnesium Hydroxide (Milk Of Magnesia) 2,400 mg PRN QHS PRN PO 1ST CHOICE CONSTIPATION 06/21/21 23:30 07/04/21 14:44 Influenza Virus Vaccine Quadrival (Flulaval Quad [id number] Syringe) 0.5 ml ONCE ONCE VAX IM 06/22/21 09:00 06/22/21 09:02 DC 06/22/21 09:07 Albuterol Sulfate (Ventolin) 2.5 mg PRN Q4HRS PRN NEB SHORTNESS OF BREATH 06/22/21 01:30 06/22/21 12:19 DC Bisacodyl (Dulcolax Tab) 5 mg PRN DAILY PRN PO 2ND CHOICE CONSTIPATION 06/22/21 01:15 Diazepam (Valium) 5 mg PRN QHS PRN PO ANXIETY 06/22/21 21:00 06/22/21 12:19 DC Famotidine (Pepcid) 20 mg BID PO 06/22/21 09:00 07/04/21 20:26 Lorazepam (Ativan) 1 mg HS PO 06/22/21 21:00 06/22/21 12:19 DC Metoprolol Succinate (Toprol Xl) 25 mg DAILY PO 06/22/21 09:00 06/22/21 12:19 DC 06/22/21 09:00 Nitroglycerin (Nitrostat) 0.4 mg PRN Q5MIN PRN SL CHEST PAIN 06/22/21 01:15 Olanzapine (ZyPREXA) 2.5 mg HS PO 06/22/21 21:00 06/22/21 12:19 DC Potassium Chloride (Klor-Con) 20 meq TIDWMEALS PO 06/22/21 08:00 07/04/21 16:47 Trazodone HCl (Desyrel) 25 mg PRN QHS PRN PO INSOMNIA 06/22/21 01:15 06/22/21 21:28 DC Warfarin Sodium (Coumadin) 5 mg DAILY@1600 PO 06/22/21 16:00 06/24/21 13:18 DC 06/23/21 16:12 Non-Formulary Medication (Acetaminophen Er ) 650 mg PRN Q8HRS PRN PO FEVER/PAIN 06/22/21 01:15 UNV Budesonide (Pulmicort) 0.5 mg RTBID NEB 06/22/21 08:00 06/23/21 12:30 DC 06/23/21 08:42 Fluticasone Propionate (Flonase) 2 spray DAILY NS 06/22/21 09:00 06/22/21 12:19 DC Oxybutynin Chloride (Ditropan) 5 mg DAILY PO 06/22/21 09:00 07/04/21 08:00 Atorvastatin Calcium (Lipitor) 80 mg QHS PO 06/22/21 21:00 07/04/21 20:26 Non-Formulary Medication (Venlafaxine Hcl (Venlafaxine Hcl Er)) 75 mg DAILY PO 06/22/21 09:00 UNV Non-Formulary Medication (Venlafaxine Hcl (Venlafaxine Hcl Er)) 150 mg HS PO 06/22/21 21:00 UNV Warfarin Sodium (Coumadin Per Pharmacy) 1 each PRN DAILY PRN MC SEE COMMENTS 06/22/21 01:45 06/29/21 15:34 Venlafaxine HCl (Effexor) 75 mg TID PO 06/22/21 09:00 06/23/21 19:45 DC 06/23/21 14:18 Nystatin (Nystop) 1 christiano BID TP 06/22/21 21:00 07/04/21 20:26 Magnesium Sulfate 100 ml @ 100 mls/hr 1X ONCE IV 06/22/21 13:00 06/22/21 13:59 DC 06/22/21 13:49 Olanzapine (ZyPREXA ZYDIS) 2.5 mg PRN Q2HR PRN PO ANXIETY / AGITATION 06/22/21 11:45 07/04/21 20:27 Diazepam (Valium) 5 mg QHS PO 06/22/21 21:00 06/22/21 21:22 DC Fluticasone Propionate (Flonase) 2 spray PRN BID PRN NS allergies 06/22/21 11:45 Metoprolol Succinate (Toprol Xl) 25 mg BID PO 06/22/21 21:00 07/04/21 20:26 Albuterol Sulfate (Ventolin Hfa Inhaler) 2 puff PRN Q4HRS PRN INH SHORTNESS OF BREATH 06/22/21 11:45 Diazepam (Valium) 2.5 mg QHS PO 06/22/21 21:15 06/25/21 08:00 DC 06/24/21 20:01 Risperidone (RisperDAL) 0.25 mg QHS PO 06/23/21 21:00 06/22/21 21:25 DC Trazodone HCl (Desyrel) 50 mg PRN QHS PO 06/22/21 21:15 06/25/21 01:10 DC Risperidone (RisperDAL) 0.25 mg QHS PO 06/22/21 21:30 06/25/21 18:31 DC 06/24/21 19:58 Fluticasone Furoate (ARNUITY 100mcg ELLIPTA) 1 puff BID INH 06/23/21 21:00 07/04/21 20:27 Venlafaxine HCl (Effexor) 75 mg BID@0900,1700 PO 06/24/21 09:00 07/04/21 16:46 Warfarin Sodium (Coumadin) 4 mg DAILY16 PO 06/24/21 16:00 06/27/21 08:24 DC 06/26/21 16:40 Trazodone HCl (Desyrel) 50 mg PRN QHS PRN PO insomnia 06/25/21 01:15 06/30/21 00:10 Risperidone (RisperDAL) 0.5 mg QHS PO 06/25/21 21:00 07/04/21 23:59 07/04/21 20:26 Warfarin Sodium (Coumadin) 5 mg 1600 PO 06/27/21 16:00 06/29/21 13:56 DC 06/28/21 17:10 Warfarin Sodium (Coumadin) 2.5 mg DAILY16 PO 06/29/21 16:00 07/04/21 16:46 Warfarin Sodium (Coumadin) 2 mg DAILY16 PO 06/29/21 16:00 07/04/21 16:46 Risperidone (RisperDAL) 0.25 mg 1300,1700 PO 07/05/21 13:00 I have reviewed the current psychotropics carefully including drug interactions. Risk benefit ratio favors no change other than as noted in my dictated progress note. Diagnosis: Problems: (1) Impulse control disorder, unspecified (2) Anxiety disorder, unspecified (3) Dementia, vascular, with depression (4) Dementia, vascular, with delusions (5) Dementia in Alzheimer's disease with depression (6) Dementia in Alzheimer's disease with delusions (7) Major neurocognitive disorder (8) Dementia in Alzheimer's disease with early onset with behavioral disturbance MYNOR JAMA MD Jul 04, 2021 20:50
--- NOTE | 2021-07-04 22:42 | NUR ---
Patient came to the nurses station tearful and asked if she could "speak in private" to nurse. During our conversation patient expressed concern that her cannot come get her, she wants to go home. Patient stated she realizes she is "not herself" and is unable to work due to her "confused periods". Nurse discussed "acute confusion" diagnosis, dementia and her recent covid19 infection that family believes contributed to the onset of increased confusion. Nurse provided education to patient that patients only job is to rest, take her medications, drink plenty of water and eat healthy to make the best recovery that she can. She was somewhat tearful, sad and anxious throughout the night. PRN zyprexa given with HS medications for tearfulness. Patient compliant with medications taken whole with water and cooperative with staff. Tonight on rounds Dr Rock changed patients HS risperdal from 0.50 mg HS to Risperdal 0.25 mg at 1300 and 1700 starting tomorrow to help with patients afternoon agitation/tearful episodes. Will continue to monitor.
[2021-07-05 06:04] VITALS: BP 159/81
[2021-07-05] MEDS: OXYBUTYNIN CHLORIDE 5 MG TABLET PO SCH (08:11)
[2021-07-05] MEDS: FAMOTIDINE 20 MG TABLET PO SCH ×2 (08:11→20:09)
[2021-07-05] MEDS: POTASSIUM CHLORIDE 10 MEQ TABLET.ER. PO SCH ×3 (08:11→16:30)
[2021-07-05] MEDS: VENLAFAXINE 75 MG TABLET. PO SCH ×2 (08:11→16:32)
[2021-07-05] MEDS: METOPROLOL SUCC 24HR ER 25 MG TAB.ER.24H. PO SCH ×2 (08:12→20:09)
[2021-07-05] MEDS: FLUTICASONE FUROATE 100mcg/INH ELLIPTA INHALER. INH SCH ×2 (08:12→20:08)
[2021-07-05] MEDS: NYSTATIN TOPICAL POWDER 15GM BOTTLE. TP SCH ×2 (09:00→20:09)
--- NOTE | 2021-07-05 09:46 | PDOC ---
Exam Note: Mode Note: This note is a late entry for 07/03/2021 covers elements not covered in my initial note. Subjective: The patient was reviewed at treatment team meeting individually in the morning on 07/03/2021 with Blanca Bedoya, and Joan Shannon (social media coordinator), Aiyana, activity therapy, and Jaylan DE SANTIAGO, discussed and reviewed the chart. Appetite is 75%. The patient slept 6 previous night. We discussed the patients progress, diagnoses, and psychotropic medications She has been somewhat emotional, gets very tearful around 2 p.m. to 5 p.m. Received Zyprexa x2. When she was upset and quite emotional, blood pressure appeared to be elevated. She attended 4 groups. She is pleasant. She has been interacting in activity therapy, able to appropriately answer prize is right questions. Review of Systems: Ambulation varies. No CV, , pulmonary, eye, ENT system symptoms on review. Reliability poor. Mental Status Exam: The patient is oriented to herself. Insight and judgment, recent and remote memory, attention and concentration, fund of knowledge is poor consistent with her diagnosis. Association is somewhat loose. Laboratory Data: Reviewed. Impression: Major neurocognitive disorder, Alzheimer, vascular with delusion, depression behavioral disturbance. Anxiety disorder unspecified. Impulse control disorder unspecified. Plan: Continue psychotropics from initial note. Assessment: Vital Signs/I&O: Vital Signs Date Time Temp Pulse Resp B/P (MAP) Pulse Ox O2 Delivery O2 Flow Rate FiO2 07/05/21 08:12 75 159/81 07/05/21 06:04 98.1 18 91 07/03/21 06:04 2.0 07/01/21 15:06 Room Air I & O 07/04/21 07/04/21 07/05/21 15:00 23:00 07:00 Intake Total 620 ml 600 ml Balance 620 ml 600 ml Labs: Laboratory Tests Test 07/04/21 11:10 Prothrombin Time 27.1 SEC (9.4-11.4) H Prothrombin Time INR 2.6 (0.9-1.1) H Current Medications: Meds: Laboratory Tests Test 07/04/21 11:10 Prothrombin Time 27.1 SEC Prothromb Time International Ratio 2.6 Current Medications Medications (Trade) Dose Ordered Sig/Lucinda Route PRN Reason Start Time Stop Time Status Last Admin Dose Admin Acetaminophen (Tylenol) 650 mg PRN Q6HRS PRN PO MILD PAIN / TEMP > 100.3'F 06/21/21 23:30 06/30/21 00:10 Multi-Ingredient Ointment (Analgesic [place]) 1 christiano PRN QID PRN TP MUSCLE PAIN 06/21/21 23:30 Al Hydroxide/Mg Hydroxide (Mylanta Plus Xs) 15 ml PRN AFTMEALHC PRN PO DYSPEPSIA 06/21/21 23:30 Magnesium Hydroxide (Milk Of Magnesia) 2,400 mg PRN QHS PRN PO 1ST CHOICE CONSTIPATION 06/21/21 23:30 07/04/21 14:44 Influenza Virus Vaccine Quadrival (Flulaval Quad [id number] Syringe) 0.5 ml ONCE ONCE VAX IM 06/22/21 09:00 06/22/21 09:02 DC 06/22/21 09:07 Albuterol Sulfate (Ventolin) 2.5 mg PRN Q4HRS PRN NEB SHORTNESS OF BREATH 06/22/21 01:30 06/22/21 12:19 DC Bisacodyl (Dulcolax Tab) 5 mg PRN DAILY PRN PO 2ND CHOICE CONSTIPATION 06/22/21 01:15 Diazepam (Valium) 5 mg PRN QHS PRN PO ANXIETY 06/22/21 21:00 06/22/21 12:19 DC Famotidine (Pepcid) 20 mg BID PO 06/22/21 09:00 07/05/21 08:11 Lorazepam (Ativan) 1 mg HS PO 06/22/21 21:00 06/22/21 12:19 DC Metoprolol Succinate (Toprol Xl) 25 mg DAILY PO 06/22/21 09:00 06/22/21 12:19 DC 06/22/21 09:00 Nitroglycerin (Nitrostat) 0.4 mg PRN Q5MIN PRN SL CHEST PAIN 06/22/21 01:15 Olanzapine (ZyPREXA) 2.5 mg HS PO 06/22/21 21:00 06/22/21 12:19 DC Potassium Chloride (Klor-Con) 20 meq TIDWMEALS PO 06/22/21 08:00 07/05/21 08:11 Trazodone HCl (Desyrel) 25 mg PRN QHS PRN PO INSOMNIA 06/22/21 01:15 06/22/21 21:28 DC Warfarin Sodium (Coumadin) 5 mg DAILY@1600 PO 06/22/21 16:00 06/24/21 13:18 DC 06/23/21 16:12 Non-Formulary Medication (Acetaminophen Er ) 650 mg PRN Q8HRS PRN PO FEVER/PAIN 06/22/21 01:15 UNV Budesonide (Pulmicort) 0.5 mg RTBID NEB 06/22/21 08:00 06/23/21 12:30 DC 06/23/21 08:42 Fluticasone Propionate (Flonase) 2 spray DAILY NS 06/22/21 09:00 06/22/21 12:19 DC Oxybutynin Chloride (Ditropan) 5 mg DAILY PO 06/22/21 09:00 07/05/21 08:11 Atorvastatin Calcium (Lipitor) 80 mg QHS PO 06/22/21 21:00 07/04/21 20:26 Non-Formulary Medication (Venlafaxine Hcl (Venlafaxine Hcl Er)) 75 mg DAILY PO 06/22/21 09:00 UNV Non-Formulary Medication (Venlafaxine Hcl (Venlafaxine Hcl Er)) 150 mg HS PO 06/22/21 21:00 UNV Warfarin Sodium (Coumadin Per Pharmacy) 1 each PRN DAILY PRN MC SEE COMMENTS 06/22/21 01:45 06/29/21 15:34 Venlafaxine HCl (Effexor) 75 mg TID PO 06/22/21 09:00 06/23/21 19:45 DC 06/23/21 14:18 Nystatin (Nystop) 1 christiano BID TP 06/22/21 21:00 07/05/21 09:00 Magnesium Sulfate 100 ml @ 100 mls/hr 1X ONCE IV 06/22/21 13:00 06/22/21 13:59 DC 06/22/21 13:49 Olanzapine (ZyPREXA ZYDIS) 2.5 mg PRN Q2HR PRN PO ANXIETY / AGITATION 06/22/21 11:45 07/04/21 20:27 Diazepam (Valium) 5 mg QHS PO 06/22/21 21:00 06/22/21 21:22 DC Fluticasone Propionate (Flonase) 2 spray PRN BID PRN NS allergies 06/22/21 11:45 Metoprolol Succinate (Toprol Xl) 25 mg BID PO 06/22/21 21:00 07/05/21 08:12 Albuterol Sulfate (Ventolin Hfa Inhaler) 2 puff PRN Q4HRS PRN INH SHORTNESS OF BREATH 06/22/21 11:45 Diazepam (Valium) 2.5 mg QHS PO 06/22/21 21:15 06/25/21 08:00 DC 06/24/21 20:01 Risperidone (RisperDAL) 0.25 mg QHS PO 06/23/21 21:00 06/22/21 21:25 DC Trazodone HCl (Desyrel) 50 mg PRN QHS PO 06/22/21 21:15 06/25/21 01:10 DC Risperidone (RisperDAL) 0.25 mg QHS PO 06/22/21 21:30 06/25/21 18:31 DC 06/24/21 19:58 Fluticasone Furoate (ARNUITY 100mcg ELLIPTA) 1 puff BID INH 06/23/21 21:00 07/05/21 08:12 Venlafaxine HCl (Effexor) 75 mg BID@0900,1700 PO 06/24/21 09:00 07/05/21 08:11 Warfarin Sodium (Coumadin) 4 mg DAILY16 PO 06/24/21 16:00 06/27/21 08:24 DC 06/26/21 16:40 Trazodone HCl (Desyrel) 50 mg PRN QHS PRN PO insomnia 06/25/21 01:15 06/30/21 00:10 Risperidone (RisperDAL) 0.5 mg QHS PO 06/25/21 21:00 07/04/21 23:59 DC 07/04/21 20:26 Warfarin Sodium (Coumadin) 5 mg 1600 PO 06/27/21 16:00 06/29/21 13:56 DC 06/28/21 17:10 Warfarin Sodium (Coumadin) 2.5 mg DAILY16 PO 06/29/21 16:00 07/04/21 16:46 Warfarin Sodium (Coumadin) 2 mg DAILY16 PO 06/29/21 16:00 07/04/21 16:46 Risperidone (RisperDAL) 0.25 mg 1300,1700 PO 07/05/21 13:00 I have reviewed the current psychotropics carefully including drug interactions. Risk benefit ratio favors no change other than as noted in my dictated progress note. Diagnosis: Problems: (1) Impulse control disorder, unspecified (2) Anxiety disorder, unspecified (3) Dementia, vascular, with depression (4) Dementia, vascular, with delusions (5) Dementia in Alzheimer's disease with depression (6) Dementia in Alzheimer's disease with delusions (7) Major neurocognitive disorder due to Alzheimer's disease, without behavioral disturbance (8) Major neurocognitive disorder (9) Dementia in Alzheimer's disease with early onset with behavioral disturbance MYNOR JAMA MD Jul 05, 2021 09:45
--- NOTE | 2021-07-05 10:02 | PDOC ---
Exam Note: Mode Note: This note is a late entry for 07/04/2021 covers elements not covered in my initial note. Subjective: The patient was seen individually in the evening of 07/04/2021 with Alison DE SANTIAGO, discussed and reviewed the chart. The patient slept 5 previous night. Today again around 2 p.m., the patient was tearful, crying, very emotional, constantly calling out and wanting help. She did receive Zyprexa p.r.n. which seemed to help. She gets even more confused in the evening. I met with her in the hallway. Review of Systems: No CV, , pulmonary, eye, ENT system symptoms on review. Reliability poor. Mental Status Exam: The patient is oriented to herself. Insight and judgment, recent and remote memory, attention and concentration, fund of knowledge is poor consistent with her diagnosis. The patient was trying to explain it to me that she felt some of the staff members had been abrasive to her but she seemed not to be able to express this clearly, little paranoid. Laboratory Data: Reviewed. Impression: Major neurocognitive disorder, Alzheimer, vascular with delusion, depression behavioral disturbance. Anxiety disorder unspecified. Impulse control disorder unspecified. Plan: Given the fact that she gets a little worse around 2 p.m., we will change the Risperdal from 0.5 mg at night to 0.25 mg 1 p.m. and 5 p.m. Maintain rest of the psychotropics unchanged. Reviewed drug interactions, risk-benefit ratio. Assessment: Vital Signs/I&O: Vital Signs Date Time Temp Pulse Resp B/P (MAP) Pulse Ox O2 Delivery O2 Flow Rate FiO2 07/05/21 08:12 75 159/81 07/05/21 06:04 98.1 18 91 07/03/21 06:04 2.0 07/01/21 15:06 Room Air I & O 07/04/21 07/04/21 07/05/21 15:00 23:00 07:00 Intake Total 620 ml 600 ml Balance 620 ml 600 ml Labs: Laboratory Tests Test 07/04/21 11:10 Prothrombin Time 27.1 SEC (9.4-11.4) H Prothrombin Time INR 2.6 (0.9-1.1) H Current Medications: Meds: Laboratory Tests Test 07/04/21 11:10 Prothrombin Time 27.1 SEC Prothromb Time International Ratio 2.6 Current Medications Medications (Trade) Dose Ordered Sig/Lucinda Route PRN Reason Start Time Stop Time Status Last Admin Dose Admin Acetaminophen (Tylenol) 650 mg PRN Q6HRS PRN PO MILD PAIN / TEMP > 100.3'F 06/21/21 23:30 06/30/21 00:10 Multi-Ingredient Ointment (Analgesic [place]) 1 christiano PRN QID PRN TP MUSCLE PAIN 06/21/21 23:30 Al Hydroxide/Mg Hydroxide (Mylanta Plus Xs) 15 ml PRN AFTMEALHC PRN PO DYSPEPSIA 06/21/21 23:30 Magnesium Hydroxide (Milk Of Magnesia) 2,400 mg PRN QHS PRN PO 1ST CHOICE CONSTIPATION 06/21/21 23:30 07/04/21 14:44 Influenza Virus Vaccine Quadrival (Flulaval Quad [id number] Syringe) 0.5 ml ONCE ONCE VAX IM 06/22/21 09:00 06/22/21 09:02 DC 06/22/21 09:07 Albuterol Sulfate (Ventolin) 2.5 mg PRN Q4HRS PRN NEB SHORTNESS OF BREATH 06/22/21 01:30 06/22/21 12:19 DC Bisacodyl (Dulcolax Tab) 5 mg PRN DAILY PRN PO 2ND CHOICE CONSTIPATION 06/22/21 01:15 Diazepam (Valium) 5 mg PRN QHS PRN PO ANXIETY 06/22/21 21:00 06/22/21 12:19 DC Famotidine (Pepcid) 20 mg BID PO 06/22/21 09:00 07/05/21 08:11 Lorazepam (Ativan) 1 mg HS PO 06/22/21 21:00 06/22/21 12:19 DC Metoprolol Succinate (Toprol Xl) 25 mg DAILY PO 06/22/21 09:00 06/22/21 12:19 DC 06/22/21 09:00 Nitroglycerin (Nitrostat) 0.4 mg PRN Q5MIN PRN SL CHEST PAIN 06/22/21 01:15 Olanzapine (ZyPREXA) 2.5 mg HS PO 06/22/21 21:00 06/22/21 12:19 DC Potassium Chloride (Klor-Con) 20 meq TIDWMEALS PO 06/22/21 08:00 07/05/21 08:11 Trazodone HCl (Desyrel) 25 mg PRN QHS PRN PO INSOMNIA 06/22/21 01:15 06/22/21 21:28 DC Warfarin Sodium (Coumadin) 5 mg DAILY@1600 PO 06/22/21 16:00 06/24/21 13:18 DC 06/23/21 16:12 Non-Formulary Medication (Acetaminophen Er ) 650 mg PRN Q8HRS PRN PO FEVER/PAIN 06/22/21 01:15 UNV Budesonide (Pulmicort) 0.5 mg RTBID NEB 06/22/21 08:00 06/23/21 12:30 DC 06/23/21 08:42 Fluticasone Propionate (Flonase) 2 spray DAILY NS 06/22/21 09:00 06/22/21 12:19 DC Oxybutynin Chloride (Ditropan) 5 mg DAILY PO 06/22/21 09:00 07/05/21 08:11 Atorvastatin Calcium (Lipitor) 80 mg QHS PO 06/22/21 21:00 07/04/21 20:26 Non-Formulary Medication (Venlafaxine Hcl (Venlafaxine Hcl Er)) 75 mg DAILY PO 06/22/21 09:00 UNV Non-Formulary Medication (Venlafaxine Hcl (Venlafaxine Hcl Er)) 150 mg HS PO 06/22/21 21:00 UNV Warfarin Sodium (Coumadin Per Pharmacy) 1 each PRN DAILY PRN MC SEE COMMENTS 06/22/21 01:45 06/29/21 15:34 Venlafaxine HCl (Effexor) 75 mg TID PO 06/22/21 09:00 06/23/21 19:45 DC 06/23/21 14:18 Nystatin (Nystop) 1 christiano BID TP 06/22/21 21:00 07/05/21 09:00 Magnesium Sulfate 100 ml @ 100 mls/hr 1X ONCE IV 06/22/21 13:00 06/22/21 13:59 DC 06/22/21 13:49 Olanzapine (ZyPREXA ZYDIS) 2.5 mg PRN Q2HR PRN PO ANXIETY / AGITATION 06/22/21 11:45 07/04/21 20:27 Diazepam (Valium) 5 mg QHS PO 06/22/21 21:00 06/22/21 21:22 DC Fluticasone Propionate (Flonase) 2 spray PRN BID PRN NS allergies 06/22/21 11:45 Metoprolol Succinate (Toprol Xl) 25 mg BID PO 06/22/21 21:00 07/05/21 08:12 Albuterol Sulfate (Ventolin Hfa Inhaler) 2 puff PRN Q4HRS PRN INH SHORTNESS OF BREATH 06/22/21 11:45 Diazepam (Valium) 2.5 mg QHS PO 06/22/21 21:15 06/25/21 08:00 DC 06/24/21 20:01 Risperidone (RisperDAL) 0.25 mg QHS PO 06/23/21 21:00 06/22/21 21:25 DC Trazodone HCl (Desyrel) 50 mg PRN QHS PO 06/22/21 21:15 06/25/21 01:10 DC Risperidone (RisperDAL) 0.25 mg QHS PO 06/22/21 21:30 06/25/21 18:31 DC 06/24/21 19:58 Fluticasone Furoate (ARNUITY 100mcg ELLIPTA) 1 puff BID INH 06/23/21 21:00 07/05/21 08:12 Venlafaxine HCl (Effexor) 75 mg BID@0900,1700 PO 06/24/21 09:00 07/05/21 08:11 Warfarin Sodium (Coumadin) 4 mg DAILY16 PO 06/24/21 16:00 06/27/21 08:24 DC 06/26/21 16:40 Trazodone HCl (Desyrel) 50 mg PRN QHS PRN PO insomnia 06/25/21 01:15 06/30/21 00:10 Risperidone (RisperDAL) 0.5 mg QHS PO 06/25/21 21:00 07/04/21 23:59 DC 07/04/21 20:26 Warfarin Sodium (Coumadin) 5 mg 1600 PO 06/27/21 16:00 06/29/21 13:56 DC 06/28/21 17:10 Warfarin Sodium (Coumadin) 2.5 mg DAILY16 PO 06/29/21 16:00 07/04/21 16:46 Warfarin Sodium (Coumadin) 2 mg DAILY16 PO 06/29/21 16:00 07/04/21 16:46 Risperidone (RisperDAL) 0.25 mg 1300,1700 PO 07/05/21 13:00 I have reviewed the current psychotropics carefully including drug interactions. Risk benefit ratio favors no change other than as noted in my dictated progress note. Diagnosis: Problems: (1) Impulse control disorder, unspecified (2) Anxiety disorder, unspecified (3) Dementia, vascular, with depression (4) Dementia, vascular, with delusions (5) Dementia in Alzheimer's disease with depression (6) Dementia in Alzheimer's disease with delusions (7) Major neurocognitive disorder (8) Dementia in Alzheimer's disease with early onset with behavioral disturbance MYNOR JAMA MD Jul 05, 2021 10:02
[2021-07-05] MEDS: risperiDONE 0.25 MG TABLET. PO SCH ×2 (11:48→16:30)
--- NOTE | 2021-07-05 13:45 | NUR ---
Patient is becoming increasingly agitated and tearful. She states she cannot stay here, her shift is over, and that she needs to get home to go meet her new grandchild. She states that if her is not going to pick her up, then she will walk home, that it's only 11 miles. Patient is not responding to verbal redirection and re-orientation. PRN medicine provided per eMAR, will continue to monitor.
[2021-07-05 15:10] VITALS: BP 106/70
[2021-07-05] MEDS: WARFARIN 2.5 MG TABLET. PO SCH (16:30)
[2021-07-05] MEDS: WARFARIN 2 MG TABLET. PO SCH (16:31)
[2021-07-05] MEDS: ATORVASTATIN CALCIUM 20 MG TABLET PO SCH (20:09)
--- NOTE | 2021-07-05 20:17 | PDOC ---
Exam Note: Mode Note: Please also refer to the separate dictated note~for this date of service dictated separately.~Patient seen individually. Discussed the patient with Nursing staff reviewed the chart.~Reviewed interim history and current functioning. Reviewed vital signs,~Labs/ Radiology~and current medications noted below. Continue current treatment with the changes noted in the dictated addendum note Assessment: Vital Signs/I&O: Vital Signs Date Time Temp Pulse Resp B/P (MAP) Pulse Ox O2 Delivery O2 Flow Rate FiO2 07/05/21 20:09 96 106/70 07/05/21 15:10 98.6 18 96 07/03/21 06:04 2.0 07/01/21 15:06 Room Air I & O 07/04/21 07/04/21 07/05/21 14:59 22:59 06:59 Intake Total 620 ml 600 ml Balance 620 ml 600 ml Current Medications: Meds: Current Medications Medications (Trade) Dose Ordered Sig/Lucinda Route PRN Reason Start Time Stop Time Status Last Admin Dose Admin Acetaminophen (Tylenol) 650 mg PRN Q6HRS PRN PO MILD PAIN / TEMP > 100.3'F 06/21/21 23:30 06/30/21 00:10 Multi-Ingredient Ointment (Analgesic [place]) 1 christiano PRN QID PRN TP MUSCLE PAIN 06/21/21 23:30 Al Hydroxide/Mg Hydroxide (Mylanta Plus Xs) 15 ml PRN AFTMEALHC PRN PO DYSPEPSIA 06/21/21 23:30 Magnesium Hydroxide (Milk Of Magnesia) 2,400 mg PRN QHS PRN PO 1ST CHOICE CONSTIPATION 06/21/21 23:30 07/04/21 14:44 Influenza Virus Vaccine Quadrival (Flulaval Quad [id number] Syringe) 0.5 ml ONCE ONCE VAX IM 06/22/21 09:00 06/22/21 09:02 DC 06/22/21 09:07 Albuterol Sulfate (Ventolin) 2.5 mg PRN Q4HRS PRN NEB SHORTNESS OF BREATH 06/22/21 01:30 06/22/21 12:19 DC Bisacodyl (Dulcolax Tab) 5 mg PRN DAILY PRN PO 2ND CHOICE CONSTIPATION 06/22/21 01:15 Diazepam (Valium) 5 mg PRN QHS PRN PO ANXIETY 06/22/21 21:00 06/22/21 12:19 DC Famotidine (Pepcid) 20 mg BID PO 06/22/21 09:00 07/05/21 20:09 Lorazepam (Ativan) 1 mg HS PO 06/22/21 21:00 06/22/21 12:19 DC Metoprolol Succinate (Toprol Xl) 25 mg DAILY PO 06/22/21 09:00 06/22/21 12:19 DC 06/22/21 09:00 Nitroglycerin (Nitrostat) 0.4 mg PRN Q5MIN PRN SL CHEST PAIN 06/22/21 01:15 Olanzapine (ZyPREXA) 2.5 mg HS PO 06/22/21 21:00 06/22/21 12:19 DC Potassium Chloride (Klor-Con) 20 meq TIDWMEALS PO 06/22/21 08:00 07/05/21 16:30 Trazodone HCl (Desyrel) 25 mg PRN QHS PRN PO INSOMNIA 06/22/21 01:15 06/22/21 21:28 DC Warfarin Sodium (Coumadin) 5 mg DAILY@1600 PO 06/22/21 16:00 06/24/21 13:18 DC 06/23/21 16:12 Non-Formulary Medication (Acetaminophen Er ) 650 mg PRN Q8HRS PRN PO FEVER/PAIN 06/22/21 01:15 UNV Budesonide (Pulmicort) 0.5 mg RTBID NEB 06/22/21 08:00 06/23/21 12:30 DC 06/23/21 08:42 Fluticasone Propionate (Flonase) 2 spray DAILY NS 06/22/21 09:00 06/22/21 12:19 DC Oxybutynin Chloride (Ditropan) 5 mg DAILY PO 06/22/21 09:00 07/05/21 08:11 Atorvastatin Calcium (Lipitor) 80 mg QHS PO 06/22/21 21:00 07/05/21 20:09 Non-Formulary Medication (Venlafaxine Hcl (Venlafaxine Hcl Er)) 75 mg DAILY PO 06/22/21 09:00 UNV Non-Formulary Medication (Venlafaxine Hcl (Venlafaxine Hcl Er)) 150 mg HS PO 06/22/21 21:00 UNV Warfarin Sodium (Coumadin Per Pharmacy) 1 each PRN DAILY PRN MC SEE COMMENTS 06/22/21 01:45 06/29/21 15:34 Venlafaxine HCl (Effexor) 75 mg TID PO 06/22/21 09:00 06/23/21 19:45 DC 06/23/21 14:18 Nystatin (Nystop) 1 christiano BID TP 06/22/21 21:00 07/05/21 20:09 Magnesium Sulfate 100 ml @ 100 mls/hr 1X ONCE IV 06/22/21 13:00 06/22/21 13:59 DC 06/22/21 13:49 Olanzapine (ZyPREXA ZYDIS) 2.5 mg PRN Q2HR PRN PO ANXIETY / AGITATION 06/22/21 11:45 07/05/21 13:46 Diazepam (Valium) 5 mg QHS PO 06/22/21 21:00 06/22/21 21:22 DC Fluticasone Propionate (Flonase) 2 spray PRN BID PRN NS allergies 06/22/21 11:45 Metoprolol Succinate (Toprol Xl) 25 mg BID PO 06/22/21 21:00 07/05/21 20:09 Albuterol Sulfate (Ventolin Hfa Inhaler) 2 puff PRN Q4HRS PRN INH SHORTNESS OF BREATH 06/22/21 11:45 Diazepam (Valium) 2.5 mg QHS PO 06/22/21 21:15 06/25/21 08:00 DC 06/24/21 20:01 Risperidone (RisperDAL) 0.25 mg QHS PO 06/23/21 21:00 06/22/21 21:25 DC Trazodone HCl (Desyrel) 50 mg PRN QHS PO 06/22/21 21:15 06/25/21 01:10 DC Risperidone (RisperDAL) 0.25 mg QHS PO 06/22/21 21:30 06/25/21 18:31 DC 06/24/21 19:58 Fluticasone Furoate (ARNUITY 100mcg ELLIPTA) 1 puff BID INH 06/23/21 21:00 07/05/21 20:08 Venlafaxine HCl (Effexor) 75 mg BID@0900,1700 PO 06/24/21 09:00 07/05/21 16:32 Warfarin Sodium (Coumadin) 4 mg DAILY16 PO 06/24/21 16:00 06/27/21 08:24 DC 06/26/21 16:40 Trazodone HCl (Desyrel) 50 mg PRN QHS PRN PO insomnia 06/25/21 01:15 06/30/21 00:10 Risperidone (RisperDAL) 0.5 mg QHS PO 06/25/21 21:00 07/04/21 23:59 DC 07/04/21 20:26 Warfarin Sodium (Coumadin) 5 mg 1600 PO 06/27/21 16:00 06/29/21 13:56 DC 06/28/21 17:10 Warfarin Sodium (Coumadin) 2.5 mg DAILY16 PO 06/29/21 16:00 07/05/21 16:30 Warfarin Sodium (Coumadin) 2 mg DAILY16 PO 06/29/21 16:00 07/05/21 16:31 Risperidone (RisperDAL) 0.25 mg 1300,1700 PO 07/05/21 13:00 07/05/21 16:30 Current Medications Medications (Trade) Dose Ordered Sig/Lucinda Route PRN Reason Start Time Stop Time Status Last Admin Dose Admin Risperidone (RisperDAL) 0.25 mg 1300,1700 PO 07/05/21 13:00 07/05/21 16:30 I have reviewed the current psychotropics carefully including drug interactions. Risk benefit ratio favors no change other than as noted in my dictated progress note. Diagnosis: Problems: (1) Impulse control disorder, unspecified (2) Anxiety disorder, unspecified (3) Dementia, vascular, with depression (4) Dementia, vascular, with delusions (5) Dementia in Alzheimer's disease with depression (6) Dementia in Alzheimer's disease with delusions (7) Major neurocognitive disorder (8) Dementia in Alzheimer's disease with early onset with behavioral disturbance MYNOR JAMA MD Jul 05, 2021 20:17
--- NOTE | 2021-07-05 23:03 | NUR ---
Nursing Note Pt wanders the hallways confused looking for her co workers this pm. Redirects easily. No agitation. Med compliant.
[2021-07-06 06:10] VITALS: BP 153/77
[2021-07-06 06:26] LABS: BASO # 0.1 x10^3/uL (0.0-0.2); BASO % 1 % (0-3); EOS # 0.2 x10^3/uL (0.0-0.7); EOS % 3 % (0-3); HEMOGLOBIN 11.5 g/dL (12.0-15.5); LYMPH # 1.2 x10^3/uL (1.0-4.8); LYMPH % 21 % (24-48); MEAN CORPUSCULAR HEMOGLOBIN 31 pg (25-35); MEAN CORPUSCULAR HGB CONC 33 g/dL (31-37); MEAN CORPUSCULAR VOLUME 93 fL (79-100); MONO # 0.6 x10^3/uL (0.0-1.1); MONO % 12 % (0-9); NEUT # 3.4 x10^3uL (1.8-7.7); NEUT % 63 % (31-73); PLATELET COUNT 171 x10^3/uL (140-400); RED BLOOD COUNT 3.76 x10^6/uL (3.50-5.40); RED CELL DISTRIBUTION WIDTH 13.7 % (11.5-14.5); WHITE BLOOD COUNT 5.4 x10^3/uL (4.0-11.0)
[2021-07-06 06:29] LABS: ALBUMIN 3.1 g/dL (3.4-5.0); ALBUMIN/GLOBULIN RATIO 0.9 (1.0-1.7); CALCIUM 8.5 mg/dL (8.5-10.1); CREATININE 0.8 mg/dL (0.6-1.0); GFR 71.8; POTASSIUM 4.4 mmol/L (3.5-5.1); TOTAL BILIRUBIN 0.3 mg/dL (0.2-1.0); TOTAL PROTEIN 6.6 g/dL (6.4-8.2)
--- NOTE | 2021-07-06 07:03 | PDOC ---
Exam Note: Mode Note: This note is a late entry for 07/05/2021 covers elements not covered in my initial note. Subjective: The patient was seen individually in the evening of 07/05/2021 with Teo DE SANTIAGO, discussed and reviewed the chart. The patient slept 6-3/4 previous night. She has been confused anxious, rapid speech, trying to take care of the other patients. At 1.45 p.m.she seemed to be having some increased agitation and was delusional, talking about getting home and that Jimy her was looking for her. She received Zyprexa at 1.45 p.m. and then did better. In fact her Risperdal was being changed from 0.5 mg h.s. to 0.25 mg 1 p.m. and 5 p.m. which should help with this as well. Review of Systems: No CV, , pulmonary, eye, ENT system symptoms on review. Reliability poor. Mental Status Exam: The patient is oriented to herself. Insight and judgment, recent and remote memory, attention and concentration, fund of knowledge is poor consistent with her diagnosis. Laboratory Data: Reviewed. Impression: Major neurocognitive disorder, Alzheimer, vascular with delusion, depression behavioral disturbance. Anxiety disorder unspecified. Impulse control disorder unspecified. Plan: Maintain rest of the psychotropics unchanged. Reviewed drug interactions, risk-benefit ratio. Assessment: Vital Signs/I&O: Vital Signs Date Time Temp Pulse Resp B/P (MAP) Pulse Ox O2 Delivery O2 Flow Rate FiO2 07/06/21 06:10 97.3 74 18 153/77 (102) 100 07/03/21 06:04 2.0 07/01/21 15:06 Room Air I & O 07/05/21 07/05/21 07/06/21 15:00 23:00 07:00 Intake Total 840 ml 360 ml Balance 840 ml 360 ml Labs: Laboratory Tests Test 07/06/21 06:00 White Blood Count 5.4 x10^3/uL (4.0-11.0) Red Blood Count 3.76 x10^6/uL (3.50-5.40) Hemoglobin 11.5 g/dL (12.0-15.5) L Hematocrit 35.0 % (36.0-47.0) L Mean Corpuscular Volume 93 fL (79-100) Mean Corpuscular Hemoglobin 31 pg (25-35) Mean Corpuscular Hemoglobin Concent 33 g/dL (31-37) Red Cell Distribution Width 13.7 % (11.5-14.5) Platelet Count 171 x10^3/uL (140-400) Neutrophils (%) (Auto) 63 % (31-73) Lymphocytes (%) (Auto) 21 % (24-48) L Monocytes (%) (Auto) 12 % (0-9) H Eosinophils (%) (Auto) 3 % (0-3) Basophils (%) (Auto) 1 % (0-3) Neutrophils # (Auto) 3.4 x10^3uL (1.8-7.7) Lymphocytes # (Auto) 1.2 x10^3/uL (1.0-4.8) Monocytes # (Auto) 0.6 x10^3/uL (0.0-1.1) Eosinophils # (Auto) 0.2 x10^3/uL (0.0-0.7) Basophils # (Auto) 0.1 x10^3/uL (0.0-0.2) Sodium Level 142 mmol/L (136-145) Potassium Level 4.4 mmol/L (3.5-5.1) Chloride Level 107 mmol/L (98-107) Carbon Dioxide Level 29 mmol/L (21-32) Anion Gap 6 (6-14) Blood Urea Nitrogen 17 mg/dL (7-20) Creatinine 0.8 mg/dL (0.6-1.0) Estimated GFR (Cockcroft-Gault) 71.8 BUN/Creatinine Ratio 21 (6-20) H Glucose Level 89 mg/dL (70-99) Calcium Level 8.5 mg/dL (8.5-10.1) Total Bilirubin 0.3 mg/dL (0.2-1.0) Aspartate Amino Transferase (AST) 32 U/L (15-37) Alanine Aminotransferase (ALT) 24 U/L (14-59) Alkaline Phosphatase 112 U/L (46-116) Total Protein 6.6 g/dL (6.4-8.2) Albumin 3.1 g/dL (3.4-5.0) L Albumin/Globulin Ratio 0.9 (1.0-1.7) L Current Medications: Meds: Laboratory Tests Test 07/06/21 06:00 White Blood Count 5.4 x10^3/uL Red Blood Count 3.76 x10^6/uL Hemoglobin 11.5 g/dL Hematocrit 35.0 % Mean Corpuscular Volume 93 fL Mean Corpuscular Hemoglobin 31 pg Mean Corpuscular Hemoglobin Concent 33 g/dL Red Cell Distribution Width 13.7 % Platelet Count 171 x10^3/uL Neutrophils (%) (Auto) 63 % Lymphocytes (%) (Auto) 21 % Monocytes (%) (Auto) 12 % Eosinophils (%) (Auto) 3 % Basophils (%) (Auto) 1 % Neutrophils # (Auto) 3.4 x10^3uL Lymphocytes # (Auto) 1.2 x10^3/uL Monocytes # (Auto) 0.6 x10^3/uL Eosinophils # (Auto) 0.2 x10^3/uL Basophils # (Auto) 0.1 x10^3/uL Sodium Level 142 mmol/L Potassium Level 4.4 mmol/L Chloride Level 107 mmol/L Carbon Dioxide Level 29 mmol/L Anion Gap 6 Blood Urea Nitrogen 17 mg/dL Creatinine 0.8 mg/dL Estimated GFR (Cockcroft-Gault) 71.8 BUN/Creatinine Ratio 21 Glucose Level 89 mg/dL Calcium Level 8.5 mg/dL Total Bilirubin 0.3 mg/dL Aspartate Amino Transf (AST/SGOT) 32 U/L Alanine Aminotransferase (ALT/SGPT) 24 U/L Alkaline Phosphatase 112 U/L Total Protein 6.6 g/dL Albumin 3.1 g/dL Albumin/Globulin Ratio 0.9 Current Medications Medications (Trade) Dose Ordered Sig/Lucinda Route PRN Reason Start Time Stop Time Status Last Admin Dose Admin Acetaminophen (Tylenol) 650 mg PRN Q6HRS PRN PO MILD PAIN / TEMP > 100.3'F 06/21/21 23:30 06/30/21 00:10 Multi-Ingredient Ointment (Analgesic [place]) 1 christiano PRN QID PRN TP MUSCLE PAIN 06/21/21 23:30 Al Hydroxide/Mg Hydroxide (Mylanta Plus Xs) 15 ml PRN AFTMEALHC PRN PO DYSPEPSIA 06/21/21 23:30 Magnesium Hydroxide (Milk Of Magnesia) 2,400 mg PRN QHS PRN PO 1ST CHOICE CONSTIPATION 06/21/21 23:30 07/04/21 14:44 Influenza Virus Vaccine Quadrival (Flulaval Quad [id number] Syringe) 0.5 ml ONCE ONCE VAX IM 06/22/21 09:00 06/22/21 09:02 DC 06/22/21 09:07 Albuterol Sulfate (Ventolin) 2.5 mg PRN Q4HRS PRN NEB SHORTNESS OF BREATH 06/22/21 01:30 06/22/21 12:19 DC Bisacodyl (Dulcolax Tab) 5 mg PRN DAILY PRN PO 2ND CHOICE CONSTIPATION 06/22/21 01:15 Diazepam (Valium) 5 mg PRN QHS PRN PO ANXIETY 06/22/21 21:00 06/22/21 12:19 DC Famotidine (Pepcid) 20 mg BID PO 06/22/21 09:00 07/05/21 20:09 Lorazepam (Ativan) 1 mg HS PO 06/22/21 21:00 06/22/21 12:19 DC Metoprolol Succinate (Toprol Xl) 25 mg DAILY PO 06/22/21 09:00 06/22/21 12:19 DC 06/22/21 09:00 Nitroglycerin (Nitrostat) 0.4 mg PRN Q5MIN PRN SL CHEST PAIN 06/22/21 01:15 Olanzapine (ZyPREXA) 2.5 mg HS PO 06/22/21 21:00 06/22/21 12:19 DC Potassium Chloride (Klor-Con) 20 meq TIDWMEALS PO 06/22/21 08:00 07/05/21 16:30 Trazodone HCl (Desyrel) 25 mg PRN QHS PRN PO INSOMNIA 06/22/21 01:15 06/22/21 21:28 DC Warfarin Sodium (Coumadin) 5 mg DAILY@1600 PO 06/22/21 16:00 06/24/21 13:18 DC 06/23/21 16:12 Non-Formulary Medication (Acetaminophen Er ) 650 mg PRN Q8HRS PRN PO FEVER/PAIN 06/22/21 01:15 UNV Budesonide (Pulmicort) 0.5 mg RTBID NEB 06/22/21 08:00 06/23/21 12:30 DC 06/23/21 08:42 Fluticasone Propionate (Flonase) 2 spray DAILY NS 06/22/21 09:00 06/22/21 12:19 DC Oxybutynin Chloride (Ditropan) 5 mg DAILY PO 06/22/21 09:00 07/05/21 08:11 Atorvastatin Calcium (Lipitor) 80 mg QHS PO 06/22/21 21:00 07/05/21 20:09 Non-Formulary Medication (Venlafaxine Hcl (Venlafaxine Hcl Er)) 75 mg DAILY PO 06/22/21 09:00 UNV Non-Formulary Medication (Venlafaxine Hcl (Venlafaxine Hcl Er)) 150 mg HS PO 06/22/21 21:00 UNV Warfarin Sodium (Coumadin Per Pharmacy) 1 each PRN DAILY PRN MC SEE COMMENTS 06/22/21 01:45 06/29/21 15:34 Venlafaxine HCl (Effexor) 75 mg TID PO 06/22/21 09:00 06/23/21 19:45 DC 06/23/21 14:18 Nystatin (Nystop) 1 christiano BID TP 06/22/21 21:00 07/05/21 20:09 Magnesium Sulfate 100 ml @ 100 mls/hr 1X ONCE IV 06/22/21 13:00 06/22/21 13:59 DC 06/22/21 13:49 Olanzapine (ZyPREXA ZYDIS) 2.5 mg PRN Q2HR PRN PO ANXIETY / AGITATION 06/22/21 11:45 07/05/21 13:46 Diazepam (Valium) 5 mg QHS PO 06/22/21 21:00 06/22/21 21:22 DC Fluticasone Propionate (Flonase) 2 spray PRN BID PRN NS allergies 06/22/21 11:45 Metoprolol Succinate (Toprol Xl) 25 mg BID PO 06/22/21 21:00 07/05/21 20:09 Albuterol Sulfate (Ventolin Hfa Inhaler) 2 puff PRN Q4HRS PRN INH SHORTNESS OF BREATH 06/22/21 11:45 Diazepam (Valium) 2.5 mg QHS PO 06/22/21 21:15 06/25/21 08:00 DC 06/24/21 20:01 Risperidone (RisperDAL) 0.25 mg QHS PO 06/23/21 21:00 06/22/21 21:25 DC Trazodone HCl (Desyrel) 50 mg PRN QHS PO 06/22/21 21:15 06/25/21 01:10 DC Risperidone (RisperDAL) 0.25 mg QHS PO 06/22/21 21:30 06/25/21 18:31 DC 06/24/21 19:58 Fluticasone Furoate (ARNUITY 100mcg ELLIPTA) 1 puff BID INH 06/23/21 21:00 07/05/21 20:08 Venlafaxine HCl (Effexor) 75 mg BID@0900,1700 PO 06/24/21 09:00 07/05/21 16:32 Warfarin Sodium (Coumadin) 4 mg DAILY16 PO 06/24/21 16:00 06/27/21 08:24 DC 06/26/21 16:40 Trazodone HCl (Desyrel) 50 mg PRN QHS PRN PO insomnia 06/25/21 01:15 06/30/21 00:10 Risperidone (RisperDAL) 0.5 mg QHS PO 06/25/21 21:00 07/04/21 23:59 DC 07/04/21 20:26 Warfarin Sodium (Coumadin) 5 mg 1600 PO 06/27/21 16:00 06/29/21 13:56 DC 06/28/21 17:10 Warfarin Sodium (Coumadin) 2.5 mg DAILY16 PO 06/29/21 16:00 07/05/21 16:30 Warfarin Sodium (Coumadin) 2 mg DAILY16 PO 06/29/21 16:00 07/05/21 16:31 Risperidone (RisperDAL) 0.25 mg 1300,1700 PO 07/05/21 13:00 07/05/21 16:30 Current Medications Medications (Trade) Dose Ordered Sig/Lucinda Route PRN Reason Start Time Stop Time Status Last Admin Dose Admin Risperidone (RisperDAL) 0.25 mg 1300,1700 PO 07/05/21 13:00 07/05/21 16:30 I have reviewed the current psychotropics carefully including drug interactions. Risk benefit ratio favors no change other than as noted in my dictated progress note. Diagnosis: Problems: (1) Impulse control disorder, unspecified (2) Anxiety disorder, unspecified (3) Dementia, vascular, with depression (4) Dementia, vascular, with delusions (5) Dementia in Alzheimer's disease with depression (6) Dementia in Alzheimer's disease with delusions (7) Major neurocognitive disorder (8) Dementia in Alzheimer's disease with early onset with behavioral disturbance MYNOR JAMA MD Jul 06, 2021 07:03
[2021-07-06] MEDS: FAMOTIDINE 20 MG TABLET PO SCH ×2 (08:37→19:52)
[2021-07-06] MEDS: NYSTATIN TOPICAL POWDER 15GM BOTTLE. TP SCH ×2 (08:38→19:53)
[2021-07-06] MEDS: OXYBUTYNIN CHLORIDE 5 MG TABLET PO SCH (08:38)
[2021-07-06] MEDS: POTASSIUM CHLORIDE 10 MEQ TABLET.ER. PO SCH ×3 (08:38→16:27)
[2021-07-06] MEDS: METOPROLOL SUCC 24HR ER 25 MG TAB.ER.24H. PO SCH ×2 (08:38→19:53)
[2021-07-06] MEDS: FLUTICASONE FUROATE 100mcg/INH ELLIPTA INHALER. INH SCH ×2 (08:38→19:53)
[2021-07-06] MEDS: VENLAFAXINE 75 MG TABLET. PO SCH ×2 (08:38→16:25)
--- NOTE | 2021-07-06 11:20 | NUR ---
SW spoke with pt who wanted to know how much notice he would receive re: discharge. SW informed Jimy as noted in previous conversation, we would look at Saturday since he wanted to have pt home first and see if they could maintain her there. Jimy does still want pt home but noted that if we thought she needed placement, it may be a bit as the correction near them is full. SW questioned Jimy if he had supports that would allow for him to take breaks as needed or allow him time to run errands and he noted his two granddaughters plan to help as well as his daughter in law. SW noted that appointments would need to be set up and SW can help in finding psychiatric resources in their area.
[2021-07-06] MEDS: risperiDONE 0.25 MG TABLET. PO SCH ×2 (12:16→16:27)
[2021-07-06 15:33] VITALS: BP 126/85
[2021-07-06] MEDS: WARFARIN 2.5 MG TABLET. PO SCH (16:26)
[2021-07-06] MEDS: WARFARIN 2 MG TABLET. PO SCH (16:26)
--- NOTE | 2021-07-06 16:30 | NUR ---
Patient is agitated after talking with her on the phone, she is upset that he will not come pick her up, stating that she does not want to stay at work, she wants to go home. PRN medication provided per eMAR, will continue to monitor and report to MD during rounds.
[2021-07-06] MEDS: ATORVASTATIN CALCIUM 20 MG TABLET PO SCH (19:52)
--- NOTE | 2021-07-06 21:14 | PDOC ---
Exam Note: Mode Note: Please also refer to the separate dictated note~for this date of service dictated separately.~Patient seen individually. Discussed the patient with Nursing staff reviewed the chart.~Reviewed interim history and current functioning. Reviewed vital signs,~Labs/ Radiology~and current medications noted below. Continue current treatment with the changes noted in the dictated addendum note Assessment: Vital Signs/I&O: Vital Signs Date Time Temp Pulse Resp B/P (MAP) Pulse Ox O2 Delivery O2 Flow Rate FiO2 07/06/21 19:53 74 126/85 07/06/21 15:33 98.2 20 99 07/03/21 06:04 2.0 07/01/21 15:06 Room Air I & O 07/05/21 07/05/21 07/06/21 15:00 23:00 07:00 Intake Total 840 ml 360 ml Balance 840 ml 360 ml Labs: Laboratory Tests Test 07/06/21 06:00 White Blood Count 5.4 x10^3/uL (4.0-11.0) Red Blood Count 3.76 x10^6/uL (3.50-5.40) Hemoglobin 11.5 g/dL (12.0-15.5) L Hematocrit 35.0 % (36.0-47.0) L Mean Corpuscular Volume 93 fL (79-100) Mean Corpuscular Hemoglobin 31 pg (25-35) Mean Corpuscular Hemoglobin Concent 33 g/dL (31-37) Red Cell Distribution Width 13.7 % (11.5-14.5) Platelet Count 171 x10^3/uL (140-400) Neutrophils (%) (Auto) 63 % (31-73) Lymphocytes (%) (Auto) 21 % (24-48) L Monocytes (%) (Auto) 12 % (0-9) H Eosinophils (%) (Auto) 3 % (0-3) Basophils (%) (Auto) 1 % (0-3) Neutrophils # (Auto) 3.4 x10^3uL (1.8-7.7) Lymphocytes # (Auto) 1.2 x10^3/uL (1.0-4.8) Monocytes # (Auto) 0.6 x10^3/uL (0.0-1.1) Eosinophils # (Auto) 0.2 x10^3/uL (0.0-0.7) Basophils # (Auto) 0.1 x10^3/uL (0.0-0.2) Sodium Level 142 mmol/L (136-145) Potassium Level 4.4 mmol/L (3.5-5.1) Chloride Level 107 mmol/L (98-107) Carbon Dioxide Level 29 mmol/L (21-32) Anion Gap 6 (6-14) Blood Urea Nitrogen 17 mg/dL (7-20) Creatinine 0.8 mg/dL (0.6-1.0) Estimated GFR (Cockcroft-Gault) 71.8 BUN/Creatinine Ratio 21 (6-20) H Glucose Level 89 mg/dL (70-99) Calcium Level 8.5 mg/dL (8.5-10.1) Total Bilirubin 0.3 mg/dL (0.2-1.0) Aspartate Amino Transferase (AST) 32 U/L (15-37) Alanine Aminotransferase (ALT) 24 U/L (14-59) Alkaline Phosphatase 112 U/L (46-116) Total Protein 6.6 g/dL (6.4-8.2) Albumin 3.1 g/dL (3.4-5.0) L Albumin/Globulin Ratio 0.9 (1.0-1.7) L Current Medications: Meds: Laboratory Tests Test 07/06/21 06:00 White Blood Count 5.4 x10^3/uL Red Blood Count 3.76 x10^6/uL Hemoglobin 11.5 g/dL Hematocrit 35.0 % Mean Corpuscular Volume 93 fL Mean Corpuscular Hemoglobin 31 pg Mean Corpuscular Hemoglobin Concent 33 g/dL Red Cell Distribution Width 13.7 % Platelet Count 171 x10^3/uL Neutrophils (%) (Auto) 63 % Lymphocytes (%) (Auto) 21 % Monocytes (%) (Auto) 12 % Eosinophils (%) (Auto) 3 % Basophils (%) (Auto) 1 % Neutrophils # (Auto) 3.4 x10^3uL Lymphocytes # (Auto) 1.2 x10^3/uL Monocytes # (Auto) 0.6 x10^3/uL Eosinophils # (Auto) 0.2 x10^3/uL Basophils # (Auto) 0.1 x10^3/uL Sodium Level 142 mmol/L Potassium Level 4.4 mmol/L Chloride Level 107 mmol/L Carbon Dioxide Level 29 mmol/L Anion Gap 6 Blood Urea Nitrogen 17 mg/dL Creatinine 0.8 mg/dL Estimated GFR (Cockcroft-Gault) 71.8 BUN/Creatinine Ratio 21 Glucose Level 89 mg/dL Calcium Level 8.5 mg/dL Total Bilirubin 0.3 mg/dL Aspartate Amino Transf (AST/SGOT) 32 U/L Alanine Aminotransferase (ALT/SGPT) 24 U/L Alkaline Phosphatase 112 U/L Total Protein 6.6 g/dL Albumin 3.1 g/dL Albumin/Globulin Ratio 0.9 Current Medications Medications (Trade) Dose Ordered Sig/Lucinda Route PRN Reason Start Time Stop Time Status Last Admin Dose Admin Acetaminophen (Tylenol) 650 mg PRN Q6HRS PRN PO MILD PAIN / TEMP > 100.3'F 06/21/21 23:30 06/30/21 00:10 Multi-Ingredient Ointment (Analgesic [place]) 1 christiano PRN QID PRN TP MUSCLE PAIN 06/21/21 23:30 Al Hydroxide/Mg Hydroxide (Mylanta Plus Xs) 15 ml PRN AFTMEALHC PRN PO DYSPEPSIA 06/21/21 23:30 Magnesium Hydroxide (Milk Of Magnesia) 2,400 mg PRN QHS PRN PO 1ST CHOICE CONSTIPATION 06/21/21 23:30 07/04/21 14:44 Influenza Virus Vaccine Quadrival (Flulaval Quad [id number] Syringe) 0.5 ml ONCE ONCE VAX IM 06/22/21 09:00 06/22/21 09:02 DC 06/22/21 09:07 Albuterol Sulfate (Ventolin) 2.5 mg PRN Q4HRS PRN NEB SHORTNESS OF BREATH 06/22/21 01:30 06/22/21 12:19 DC Bisacodyl (Dulcolax Tab) 5 mg PRN DAILY PRN PO 2ND CHOICE CONSTIPATION 06/22/21 01:15 Diazepam (Valium) 5 mg PRN QHS PRN PO ANXIETY 06/22/21 21:00 06/22/21 12:19 DC Famotidine (Pepcid) 20 mg BID PO 06/22/21 09:00 07/06/21 19:52 Lorazepam (Ativan) 1 mg HS PO 06/22/21 21:00 06/22/21 12:19 DC Metoprolol Succinate (Toprol Xl) 25 mg DAILY PO 06/22/21 09:00 06/22/21 12:19 DC 06/22/21 09:00 Nitroglycerin (Nitrostat) 0.4 mg PRN Q5MIN PRN SL CHEST PAIN 06/22/21 01:15 Olanzapine (ZyPREXA) 2.5 mg HS PO 06/22/21 21:00 06/22/21 12:19 DC Potassium Chloride (Klor-Con) 20 meq TIDWMEALS PO 06/22/21 08:00 07/06/21 16:27 Trazodone HCl (Desyrel) 25 mg PRN QHS PRN PO INSOMNIA 06/22/21 01:15 06/22/21 21:28 DC Warfarin Sodium (Coumadin) 5 mg DAILY@1600 PO 06/22/21 16:00 06/24/21 13:18 DC 06/23/21 16:12 Non-Formulary Medication (Acetaminophen Er ) 650 mg PRN Q8HRS PRN PO FEVER/PAIN 06/22/21 01:15 UNV Budesonide (Pulmicort) 0.5 mg RTBID NEB 06/22/21 08:00 06/23/21 12:30 DC 06/23/21 08:42 Fluticasone Propionate (Flonase) 2 spray DAILY NS 06/22/21 09:00 06/22/21 12:19 DC Oxybutynin Chloride (Ditropan) 5 mg DAILY PO 06/22/21 09:00 07/06/21 08:38 Atorvastatin Calcium (Lipitor) 80 mg QHS PO 06/22/21 21:00 07/06/21 19:52 Non-Formulary Medication (Venlafaxine Hcl (Venlafaxine Hcl Er)) 75 mg DAILY PO 06/22/21 09:00 UNV Non-Formulary Medication (Venlafaxine Hcl (Venlafaxine Hcl Er)) 150 mg HS PO 06/22/21 21:00 UNV Warfarin Sodium (Coumadin Per Pharmacy) 1 each PRN DAILY PRN MC SEE COMMENTS 06/22/21 01:45 06/29/21 15:34 Venlafaxine HCl (Effexor) 75 mg TID PO 06/22/21 09:00 06/23/21 19:45 DC 06/23/21 14:18 Nystatin (Nystop) 1 christiano BID TP 06/22/21 21:00 07/06/21 19:53 Magnesium Sulfate 100 ml @ 100 mls/hr 1X ONCE IV 06/22/21 13:00 06/22/21 13:59 DC 06/22/21 13:49 Olanzapine (ZyPREXA ZYDIS) 2.5 mg PRN Q2HR PRN PO ANXIETY / AGITATION 06/22/21 11:45 07/06/21 16:26 Diazepam (Valium) 5 mg QHS PO 06/22/21 21:00 06/22/21 21:22 DC Fluticasone Propionate (Flonase) 2 spray PRN BID PRN NS allergies 06/22/21 11:45 Metoprolol Succinate (Toprol Xl) 25 mg BID PO 06/22/21 21:00 07/06/21 19:53 Albuterol Sulfate (Ventolin Hfa Inhaler) 2 puff PRN Q4HRS PRN INH SHORTNESS OF BREATH 06/22/21 11:45 Diazepam (Valium) 2.5 mg QHS PO 06/22/21 21:15 06/25/21 08:00 DC 06/24/21 20:01 Risperidone (RisperDAL) 0.25 mg QHS PO 06/23/21 21:00 06/22/21 21:25 DC Trazodone HCl (Desyrel) 50 mg PRN QHS PO 06/22/21 21:15 06/25/21 01:10 DC Risperidone (RisperDAL) 0.25 mg QHS PO 06/22/21 21:30 06/25/21 18:31 DC 06/24/21 19:58 Fluticasone Furoate (ARNUITY 100mcg ELLIPTA) 1 puff BID INH 06/23/21 21:00 07/06/21 19:53 Venlafaxine HCl (Effexor) 75 mg BID@0900,1700 PO 06/24/21 09:00 07/06/21 16:25 Warfarin Sodium (Coumadin) 4 mg DAILY16 PO 06/24/21 16:00 06/27/21 08:24 DC 06/26/21 16:40 Trazodone HCl (Desyrel) 50 mg PRN QHS PRN PO insomnia 06/25/21 01:15 06/30/21 00:10 Risperidone (RisperDAL) 0.5 mg QHS PO 06/25/21 21:00 07/04/21 23:59 DC 07/04/21 20:26 Warfarin Sodium (Coumadin) 5 mg 1600 PO 06/27/21 16:00 06/29/21 13:56 DC 06/28/21 17:10 Warfarin Sodium (Coumadin) 2.5 mg DAILY16 PO 06/29/21 16:00 07/06/21 16:26 Warfarin Sodium (Coumadin) 2 mg DAILY16 PO 06/29/21 16:00 07/06/21 16:26 Risperidone (RisperDAL) 0.25 mg 1300,1700 PO 07/05/21 13:00 07/06/21 16:27 I have reviewed the current psychotropics carefully including drug interactions. Risk benefit ratio favors no change other than as noted in my dictated progress note. Diagnosis: Problems: (1) Impulse control disorder, unspecified (2) Anxiety disorder, unspecified (3) Dementia, vascular, with depression (4) Dementia, vascular, with delusions (5) Dementia in Alzheimer's disease with depression (6) Dementia in Alzheimer's disease with delusions (7) Major neurocognitive disorder (8) Dementia in Alzheimer's disease with early onset with behavioral disturbance MYNOR JAMA MD Jul 06, 2021 21:14
--- NOTE | 2021-07-07 00:24 | NUR ---
Nursing Note Pt wanders the hallways confused looking for her co workers this pm. 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 Difficult to redirect, I told her she is clocked out for the shift and I'm in charge and she seemed to listen to that. Resting well now.
[2021-07-07 06:09] VITALS: BP 150/80
[2021-07-07] MEDS: METOPROLOL SUCC 24HR ER 25 MG TAB.ER.24H. PO SCH ×2 (08:54→19:38)
[2021-07-07] MEDS: OXYBUTYNIN CHLORIDE 5 MG TABLET PO SCH (08:54)
[2021-07-07] MEDS: POTASSIUM CHLORIDE 10 MEQ TABLET.ER. PO SCH ×3 (08:54→16:15)
[2021-07-07] MEDS: NYSTATIN TOPICAL POWDER 15GM BOTTLE. TP SCH ×2 (08:54→19:48)
[2021-07-07] MEDS: FLUTICASONE FUROATE 100mcg/INH ELLIPTA INHALER. INH SCH ×2 (08:54→19:37)
[2021-07-07] MEDS: VENLAFAXINE 75 MG TABLET. PO SCH ×2 (08:54→16:15)
[2021-07-07] MEDS: FAMOTIDINE 20 MG TABLET PO SCH ×2 (08:54→19:38)
[2021-07-07] MEDS: risperiDONE 0.25 MG TABLET. PO SCH ×2 (12:12→16:15)
--- NOTE | 2021-07-07 14:27 | NUR ---
Nurse Day Shift Note: Pt presents with a pleasant mood/affect. Pt is cooperative. Pt is noted to spend time in the hallway visiting with friends. Pt continues to be confused about if she is working here or a pt. Pt is medication compliant. Pt slept 5 hours last night. Pt continues to have a good appetite. Pt is approachable and engages with peers and staff. Will continue to monitor.
[2021-07-07 15:13] VITALS: BP 129/81
[2021-07-07] MEDS: WARFARIN 2 MG TABLET. PO SCH (16:15)
[2021-07-07] MEDS: WARFARIN 2.5 MG TABLET. PO SCH (16:15)
[2021-07-07] MEDS: traZODone 50 MG TABLET. PO PRN (19:48)
[2021-07-07] MEDS: ATORVASTATIN CALCIUM 20 MG TABLET PO SCH (19:48)
--- NOTE | 2021-07-07 20:22 | PDOC ---
Exam Note: Mode Note: Please also refer to the separate dictated note~for this date of service dictated separately.~Patient seen individually. Discussed the patient with Nursing staff reviewed the chart.~Reviewed interim history and current functioning. Reviewed vital signs,~Labs/ Radiology~and current medications noted below. Continue current treatment with the changes noted in the dictated addendum note Assessment: Vital Signs/I&O: Vital Signs Date Time Temp Pulse Resp B/P (MAP) Pulse Ox O2 Delivery O2 Flow Rate FiO2 07/07/21 19:38 67 129/81 07/07/21 15:13 98.1 20 93.0 07/07/21 06:09 92 07/01/21 15:06 Room Air I & O 07/06/21 07/06/21 07/07/21 15:00 23:00 07:00 Intake Total 840 ml 500 ml Balance 840 ml 500 ml Current Medications: Meds: Current Medications Medications (Trade) Dose Ordered Sig/Lucinda Route PRN Reason Start Time Stop Time Status Last Admin Dose Admin Acetaminophen (Tylenol) 650 mg PRN Q6HRS PRN PO MILD PAIN / TEMP > 100.3'F 06/21/21 23:30 06/30/21 00:10 Multi-Ingredient Ointment (Analgesic [place]) 1 christiano PRN QID PRN TP MUSCLE PAIN 06/21/21 23:30 Al Hydroxide/Mg Hydroxide (Mylanta Plus Xs) 15 ml PRN AFTMEALHC PRN PO DYSPEPSIA 06/21/21 23:30 Magnesium Hydroxide (Milk Of Magnesia) 2,400 mg PRN QHS PRN PO 1ST CHOICE CONSTIPATION 06/21/21 23:30 07/04/21 14:44 Influenza Virus Vaccine Quadrival (Flulaval Quad [id number] Syringe) 0.5 ml ONCE ONCE VAX IM 06/22/21 09:00 06/22/21 09:02 DC 06/22/21 09:07 Albuterol Sulfate (Ventolin) 2.5 mg PRN Q4HRS PRN NEB SHORTNESS OF BREATH 06/22/21 01:30 06/22/21 12:19 DC Bisacodyl (Dulcolax Tab) 5 mg PRN DAILY PRN PO 2ND CHOICE CONSTIPATION 06/22/21 01:15 Diazepam (Valium) 5 mg PRN QHS PRN PO ANXIETY 06/22/21 21:00 06/22/21 12:19 DC Famotidine (Pepcid) 20 mg BID PO 06/22/21 09:00 07/07/21 19:38 Lorazepam (Ativan) 1 mg HS PO 06/22/21 21:00 06/22/21 12:19 DC Metoprolol Succinate (Toprol Xl) 25 mg DAILY PO 06/22/21 09:00 06/22/21 12:19 DC 06/22/21 09:00 Nitroglycerin (Nitrostat) 0.4 mg PRN Q5MIN PRN SL CHEST PAIN 06/22/21 01:15 Olanzapine (ZyPREXA) 2.5 mg HS PO 06/22/21 21:00 06/22/21 12:19 DC Potassium Chloride (Klor-Con) 20 meq TIDWMEALS PO 06/22/21 08:00 07/07/21 16:15 Trazodone HCl (Desyrel) 25 mg PRN QHS PRN PO INSOMNIA 06/22/21 01:15 06/22/21 21:28 DC Warfarin Sodium (Coumadin) 5 mg DAILY@1600 PO 06/22/21 16:00 06/24/21 13:18 DC 06/23/21 16:12 Non-Formulary Medication (Acetaminophen Er ) 650 mg PRN Q8HRS PRN PO FEVER/PAIN 06/22/21 01:15 UNV Budesonide (Pulmicort) 0.5 mg RTBID NEB 06/22/21 08:00 06/23/21 12:30 DC 06/23/21 08:42 Fluticasone Propionate (Flonase) 2 spray DAILY NS 06/22/21 09:00 06/22/21 12:19 DC Oxybutynin Chloride (Ditropan) 5 mg DAILY PO 06/22/21 09:00 07/07/21 08:54 Atorvastatin Calcium (Lipitor) 80 mg QHS PO 06/22/21 21:00 07/07/21 19:48 Non-Formulary Medication (Venlafaxine Hcl (Venlafaxine Hcl Er)) 75 mg DAILY PO 06/22/21 09:00 UNV Non-Formulary Medication (Venlafaxine Hcl (Venlafaxine Hcl Er)) 150 mg HS PO 06/22/21 21:00 UNV Warfarin Sodium (Coumadin Per Pharmacy) 1 each PRN DAILY PRN MC SEE COMMENTS 06/22/21 01:45 06/29/21 15:34 Venlafaxine HCl (Effexor) 75 mg TID PO 06/22/21 09:00 06/23/21 19:45 DC 06/23/21 14:18 Nystatin (Nystop) 1 christiano BID TP 06/22/21 21:00 07/07/21 19:48 Magnesium Sulfate 100 ml @ 100 mls/hr 1X ONCE IV 06/22/21 13:00 06/22/21 13:59 DC 06/22/21 13:49 Olanzapine (ZyPREXA ZYDIS) 2.5 mg PRN Q2HR PRN PO ANXIETY / AGITATION 06/22/21 11:45 07/07/21 19:48 Diazepam (Valium) 5 mg QHS PO 06/22/21 21:00 06/22/21 21:22 DC Fluticasone Propionate (Flonase) 2 spray PRN BID PRN NS allergies 06/22/21 11:45 Metoprolol Succinate (Toprol Xl) 25 mg BID PO 06/22/21 21:00 07/07/21 19:38 Albuterol Sulfate (Ventolin Hfa Inhaler) 2 puff PRN Q4HRS PRN INH SHORTNESS OF BREATH 06/22/21 11:45 Diazepam (Valium) 2.5 mg QHS PO 06/22/21 21:15 06/25/21 08:00 DC 06/24/21 20:01 Risperidone (RisperDAL) 0.25 mg QHS PO 06/23/21 21:00 06/22/21 21:25 DC Trazodone HCl (Desyrel) 50 mg PRN QHS PO 06/22/21 21:15 06/25/21 01:10 DC Risperidone (RisperDAL) 0.25 mg QHS PO 06/22/21 21:30 06/25/21 18:31 DC 06/24/21 19:58 Fluticasone Furoate (ARNUITY 100mcg ELLIPTA) 1 puff BID INH 06/23/21 21:00 07/07/21 19:37 Venlafaxine HCl (Effexor) 75 mg BID@0900,1700 PO 06/24/21 09:00 07/07/21 16:15 Warfarin Sodium (Coumadin) 4 mg DAILY16 PO 06/24/21 16:00 06/27/21 08:24 DC 06/26/21 16:40 Trazodone HCl (Desyrel) 50 mg PRN QHS PRN PO insomnia 06/25/21 01:15 07/07/21 19:48 Risperidone (RisperDAL) 0.5 mg QHS PO 06/25/21 21:00 07/04/21 23:59 DC 07/04/21 20:26 Warfarin Sodium (Coumadin) 5 mg 1600 PO 06/27/21 16:00 06/29/21 13:56 DC 06/28/21 17:10 Warfarin Sodium (Coumadin) 2.5 mg DAILY16 PO 06/29/21 16:00 07/07/21 16:15 Warfarin Sodium (Coumadin) 2 mg DAILY16 PO 06/29/21 16:00 07/07/21 16:15 Risperidone (RisperDAL) 0.25 mg 1300,1700 PO 07/05/21 13:00 07/07/21 16:15 I have reviewed the current psychotropics carefully including drug interactions. Risk benefit ratio favors no change other than as noted in my dictated progress note. Diagnosis: Problems: (1) Impulse control disorder, unspecified (2) Anxiety disorder, unspecified (3) Dementia, vascular, with depression (4) Dementia, vascular, with delusions (5) Dementia in Alzheimer's disease with depression (6) Dementia in Alzheimer's disease with delusions (7) Major neurocognitive disorder (8) Dementia in Alzheimer's disease with early onset with behavioral disturbance MYNOR JAMA MD Jul 07, 2021 20:22
[2021-07-08 06:24] VITALS: BP 153/79
--- NOTE | 2021-07-08 07:01 | PDOC ---
Exam Note: Mode Note: This note is a late entry for 07/06/2021 covers elements not covered in my initial note. Subjective: The patient was seen individually in the evening of 07/06/2021 with Carisa DE SANTIAGO, discussed and reviewed the chart. The patient slept 8 previous night. She has been intrusive, anxious, confused, agitated. Reportedly her Jimy did call and talked to her. Review of Systems: No CV, , pulmonary, eye, ENT system symptoms on review. Reliability poor. Mental Status Exam: The patient is oriented to herself. Insight and judgment, recent and remote memory, attention and concentration, fund of knowledge is poor consistent with her diagnosis. Laboratory Data: Reviewed. Impression: Major neurocognitive disorder, Alzheimer, vascular with delusion, depression behavioral disturbance. Anxiety disorder unspecified. Impulse control disorder unspecified. Plan: Maintain rest of the psychotropics unchanged. Reviewed drug interactions, risk-benefit ratio. Assessment: Vital Signs/I&O: Vital Signs Date Time Temp Pulse Resp B/P (MAP) Pulse Ox O2 Delivery O2 Flow Rate FiO2 07/08/21 06:24 97.2 73 18 153/79 (103) 96 07/07/21 15:13 93.0 I & O 07/07/21 07/07/21 07/08/21 15:00 23:00 07:00 Intake Total 720 ml 580 ml Balance 720 ml 580 ml Current Medications: Meds: Current Medications Medications (Trade) Dose Ordered Sig/Lucinda Route PRN Reason Start Time Stop Time Status Last Admin Dose Admin Acetaminophen (Tylenol) 650 mg PRN Q6HRS PRN PO MILD PAIN / TEMP > 100.3'F 06/21/21 23:30 06/30/21 00:10 Multi-Ingredient Ointment (Analgesic [place]) 1 christiano PRN QID PRN TP MUSCLE PAIN 06/21/21 23:30 Al Hydroxide/Mg Hydroxide (Mylanta Plus Xs) 15 ml PRN AFTMEALHC PRN PO DYSPEPSIA 06/21/21 23:30 Magnesium Hydroxide (Milk Of Magnesia) 2,400 mg PRN QHS PRN PO 1ST CHOICE CONSTIPATION 06/21/21 23:30 07/04/21 14:44 Influenza Virus Vaccine Quadrival (Flulaval Quad Syringe) 0.5 ml ONCE ONCE VAX IM 06/22/21 09:00 06/22/21 09:02 DC 06/22/21 09:07 Albuterol Sulfate (Ventolin) 2.5 mg PRN Q4HRS PRN NEB SHORTNESS OF BREATH 06/22/21 01:30 06/22/21 12:19 DC Bisacodyl (Dulcolax Tab) 5 mg PRN DAILY PRN PO 2ND CHOICE CONSTIPATION 06/22/21 01:15 Diazepam (Valium) 5 mg PRN QHS PRN PO ANXIETY 06/22/21 21:00 06/22/21 12:19 DC Famotidine (Pepcid) 20 mg BID PO 06/22/21 09:00 07/07/21 19:38 Lorazepam (Ativan) 1 mg HS PO 06/22/21 21:00 06/22/21 12:19 DC Metoprolol Succinate (Toprol Xl) 25 mg DAILY PO 06/22/21 09:00 06/22/21 12:19 DC 06/22/21 09:00 Nitroglycerin (Nitrostat) 0.4 mg PRN Q5MIN PRN SL CHEST PAIN 06/22/21 01:15 Olanzapine (ZyPREXA) 2.5 mg HS PO 06/22/21 21:00 06/22/21 12:19 DC Potassium Chloride (Klor-Con) 20 meq TIDWMEALS PO 06/22/21 08:00 07/07/21 16:15 Trazodone HCl (Desyrel) 25 mg PRN QHS PRN PO INSOMNIA 06/22/21 01:15 06/22/21 21:28 DC Warfarin Sodium (Coumadin) 5 mg DAILY@1600 PO 06/22/21 16:00 06/24/21 13:18 DC 06/23/21 16:12 Non-Formulary Medication (Acetaminophen Er ) 650 mg PRN Q8HRS PRN PO FEVER/PAIN 06/22/21 01:15 UNV Budesonide (Pulmicort) 0.5 mg RTBID NEB 06/22/21 08:00 06/23/21 12:30 DC 06/23/21 08:42 Fluticasone Propionate (Flonase) 2 spray DAILY NS 06/22/21 09:00 06/22/21 12:19 DC Oxybutynin Chloride (Ditropan) 5 mg DAILY PO 06/22/21 09:00 07/07/21 08:54 Atorvastatin Calcium (Lipitor) 80 mg QHS PO 06/22/21 21:00 07/07/21 19:48 Non-Formulary Medication (Venlafaxine Hcl (Venlafaxine Hcl Er)) 75 mg DAILY PO 06/22/21 09:00 UNV Non-Formulary Medication (Venlafaxine Hcl (Venlafaxine Hcl Er)) 150 mg HS PO 06/22/21 21:00 UNV Warfarin Sodium (Coumadin Per Pharmacy) 1 each PRN DAILY PRN MC SEE COMMENTS 06/22/21 01:45 06/29/21 15:34 Venlafaxine HCl (Effexor) 75 mg TID PO 06/22/21 09:00 06/23/21 19:45 DC 06/23/21 14:18 Nystatin (Nystop) 1 christiano BID TP 06/22/21 21:00 07/07/21 19:48 Magnesium Sulfate 100 ml @ 100 mls/hr 1X ONCE IV 06/22/21 13:00 06/22/21 13:59 DC 06/22/21 13:49 Olanzapine (ZyPREXA ZYDIS) 2.5 mg PRN Q2HR PRN PO ANXIETY / AGITATION 06/22/21 11:45 07/07/21 19:48 Diazepam (Valium) 5 mg QHS PO 06/22/21 21:00 06/22/21 21:22 DC Fluticasone Propionate (Flonase) 2 spray PRN BID PRN NS allergies 06/22/21 11:45 Metoprolol Succinate (Toprol Xl) 25 mg BID PO 06/22/21 21:00 07/07/21 19:38 Albuterol Sulfate (Ventolin Hfa Inhaler) 2 puff PRN Q4HRS PRN INH SHORTNESS OF BREATH 06/22/21 11:45 Diazepam (Valium) 2.5 mg QHS PO 06/22/21 21:15 06/25/21 08:00 DC 06/24/21 20:01 Risperidone (RisperDAL) 0.25 mg QHS PO 06/23/21 21:00 06/22/21 21:25 DC Trazodone HCl (Desyrel) 50 mg PRN QHS PO 06/22/21 21:15 06/25/21 01:10 DC Risperidone (RisperDAL) 0.25 mg QHS PO 06/22/21 21:30 06/25/21 18:31 DC 06/24/21 19:58 Fluticasone Furoate (ARNUITY 100mcg ELLIPTA) 1 puff BID INH 06/23/21 21:00 07/07/21 19:37 Venlafaxine HCl (Effexor) 75 mg BID@0900,1700 PO 06/24/21 09:00 07/07/21 16:15 Warfarin Sodium (Coumadin) 4 mg DAILY16 PO 06/24/21 16:00 06/27/21 08:24 DC 06/26/21 16:40 Trazodone HCl (Desyrel) 50 mg PRN QHS PRN PO insomnia 06/25/21 01:15 07/07/21 19:48 Risperidone (RisperDAL) 0.5 mg QHS PO 06/25/21 21:00 07/04/21 23:59 DC 07/04/21 20:26 Warfarin Sodium (Coumadin) 5 mg 1600 PO 06/27/21 16:00 06/29/21 13:56 DC 06/28/21 17:10 Warfarin Sodium (Coumadin) 2.5 mg DAILY16 PO 06/29/21 16:00 07/07/21 16:15 Warfarin Sodium (Coumadin) 2 mg DAILY16 PO 06/29/21 16:00 07/07/21 16:15 Risperidone (RisperDAL) 0.25 mg 1300,1700 PO 07/05/21 13:00 07/07/21 16:15 I have reviewed the current psychotropics carefully including drug interactions. Risk benefit ratio favors no change other than as noted in my dictated progress note. Diagnosis: Problems: (1) Impulse control disorder, unspecified (2) Anxiety disorder, unspecified (3) Dementia, vascular, with depression (4) Dementia, vascular, with delusions (5) Dementia in Alzheimer's disease with depression (6) Dementia in Alzheimer's disease with delusions (7) Major neurocognitive disorder (8) Dementia in Alzheimer's disease with early onset with behavioral disturbance MYNOR JAMA MD Jul 08, 2021 07:01
--- NOTE | 2021-07-08 07:13 | PDOC ---
Exam Note: Mode Note: This note is a late entry for 07/07/2021 covers elements not covered in my initial note. Subjective: The patient was seen individually in the evening of 07/07/2021 with Carisa DE SANTIAGO, discussed and reviewed the chart. The patient slept 5 previous night. She has been more anxious, restless, hyperverbal, confused. I met with her just outside her room. Review of Systems: No CV, , pulmonary, eye, ENT system symptoms on review. Reliability poor. Mental Status Exam: The patient is oriented to herself. Insight and judgment, recent and remote memory, attention and concentration, fund of knowledge is poor consistent with her diagnosis. Laboratory Data: Reviewed. Impression: Major neurocognitive disorder, Alzheimer, vascular with delusion, depression behavioral disturbance. Anxiety disorder unspecified. Impulse control disorder unspecified. Plan: Maintain rest of the psychotropics unchanged. Reviewed drug interactions, risk-benefit ratio. Assessment: Vital Signs/I&O: Vital Signs Date Time Temp Pulse Resp B/P (MAP) Pulse Ox O2 Delivery O2 Flow Rate FiO2 07/08/21 06:24 97.2 73 18 153/79 (103) 96 07/07/21 15:13 93.0 I & O 07/07/21 07/07/21 07/08/21 15:00 23:00 07:00 Intake Total 720 ml 580 ml Balance 720 ml 580 ml Current Medications: Meds: Current Medications Medications (Trade) Dose Ordered Sig/Lucinda Route PRN Reason Start Time Stop Time Status Last Admin Dose Admin Acetaminophen (Tylenol) 650 mg PRN Q6HRS PRN PO MILD PAIN / TEMP > 100.3'F 06/21/21 23:30 06/30/21 00:10 Multi-Ingredient Ointment (Analgesic [place]) 1 christiano PRN QID PRN TP MUSCLE PAIN 06/21/21 23:30 Al Hydroxide/Mg Hydroxide (Mylanta Plus Xs) 15 ml PRN AFTMEALHC PRN PO DYSPEPSIA 06/21/21 23:30 Magnesium Hydroxide (Milk Of Magnesia) 2,400 mg PRN QHS PRN PO 1ST CHOICE CONSTIPATION 06/21/21 23:30 07/04/21 14:44 Influenza Virus Vaccine Quadrival (Flulaval Quad Syringe) 0.5 ml ONCE ONCE VAX IM 06/22/21 09:00 06/22/21 09:02 DC 06/22/21 09:07 Albuterol Sulfate (Ventolin) 2.5 mg PRN Q4HRS PRN NEB SHORTNESS OF BREATH 06/22/21 01:30 06/22/21 12:19 DC Bisacodyl (Dulcolax Tab) 5 mg PRN DAILY PRN PO 2ND CHOICE CONSTIPATION 06/22/21 01:15 Diazepam (Valium) 5 mg PRN QHS PRN PO ANXIETY 06/22/21 21:00 06/22/21 12:19 DC Famotidine (Pepcid) 20 mg BID PO 06/22/21 09:00 07/07/21 19:38 Lorazepam (Ativan) 1 mg HS PO 06/22/21 21:00 06/22/21 12:19 DC Metoprolol Succinate (Toprol Xl) 25 mg DAILY PO 06/22/21 09:00 06/22/21 12:19 DC 06/22/21 09:00 Nitroglycerin (Nitrostat) 0.4 mg PRN Q5MIN PRN SL CHEST PAIN 06/22/21 01:15 Olanzapine (ZyPREXA) 2.5 mg HS PO 06/22/21 21:00 06/22/21 12:19 DC Potassium Chloride (Klor-Con) 20 meq TIDWMEALS PO 06/22/21 08:00 07/07/21 16:15 Trazodone HCl (Desyrel) 25 mg PRN QHS PRN PO INSOMNIA 06/22/21 01:15 06/22/21 21:28 DC Warfarin Sodium (Coumadin) 5 mg DAILY@1600 PO 06/22/21 16:00 06/24/21 13:18 DC 06/23/21 16:12 Non-Formulary Medication (Acetaminophen Er ) 650 mg PRN Q8HRS PRN PO FEVER/PAIN 06/22/21 01:15 UNV Budesonide (Pulmicort) 0.5 mg RTBID NEB 06/22/21 08:00 06/23/21 12:30 DC 06/23/21 08:42 Fluticasone Propionate (Flonase) 2 spray DAILY NS 06/22/21 09:00 06/22/21 12:19 DC Oxybutynin Chloride (Ditropan) 5 mg DAILY PO 06/22/21 09:00 07/07/21 08:54 Atorvastatin Calcium (Lipitor) 80 mg QHS PO 06/22/21 21:00 07/07/21 19:48 Non-Formulary Medication (Venlafaxine Hcl (Venlafaxine Hcl Er)) 75 mg DAILY PO 06/22/21 09:00 UNV Non-Formulary Medication (Venlafaxine Hcl (Venlafaxine Hcl Er)) 150 mg HS PO 06/22/21 21:00 UNV Warfarin Sodium (Coumadin Per Pharmacy) 1 each PRN DAILY PRN MC SEE COMMENTS 06/22/21 01:45 06/29/21 15:34 Venlafaxine HCl (Effexor) 75 mg TID PO 06/22/21 09:00 06/23/21 19:45 DC 06/23/21 14:18 Nystatin (Nystop) 1 christiano BID TP 06/22/21 21:00 07/07/21 19:48 Magnesium Sulfate 100 ml @ 100 mls/hr 1X ONCE IV 06/22/21 13:00 06/22/21 13:59 DC 06/22/21 13:49 Olanzapine (ZyPREXA ZYDIS) 2.5 mg PRN Q2HR PRN PO ANXIETY / AGITATION 06/22/21 11:45 07/07/21 19:48 Diazepam (Valium) 5 mg QHS PO 06/22/21 21:00 06/22/21 21:22 DC Fluticasone Propionate (Flonase) 2 spray PRN BID PRN NS allergies 06/22/21 11:45 Metoprolol Succinate (Toprol Xl) 25 mg BID PO 06/22/21 21:00 07/07/21 19:38 Albuterol Sulfate (Ventolin Hfa Inhaler) 2 puff PRN Q4HRS PRN INH SHORTNESS OF BREATH 06/22/21 11:45 Diazepam (Valium) 2.5 mg QHS PO 06/22/21 21:15 06/25/21 08:00 DC 06/24/21 20:01 Risperidone (RisperDAL) 0.25 mg QHS PO 06/23/21 21:00 06/22/21 21:25 DC Trazodone HCl (Desyrel) 50 mg PRN QHS PO 06/22/21 21:15 06/25/21 01:10 DC Risperidone (RisperDAL) 0.25 mg QHS PO 06/22/21 21:30 06/25/21 18:31 DC 06/24/21 19:58 Fluticasone Furoate (ARNUITY 100mcg ELLIPTA) 1 puff BID INH 06/23/21 21:00 07/07/21 19:37 Venlafaxine HCl (Effexor) 75 mg BID@0900,1700 PO 06/24/21 09:00 07/07/21 16:15 Warfarin Sodium (Coumadin) 4 mg DAILY16 PO 06/24/21 16:00 06/27/21 08:24 DC 06/26/21 16:40 Trazodone HCl (Desyrel) 50 mg PRN QHS PRN PO insomnia 06/25/21 01:15 07/07/21 19:48 Risperidone (RisperDAL) 0.5 mg QHS PO 06/25/21 21:00 07/04/21 23:59 DC 07/04/21 20:26 Warfarin Sodium (Coumadin) 5 mg 1600 PO 06/27/21 16:00 06/29/21 13:56 DC 06/28/21 17:10 Warfarin Sodium (Coumadin) 2.5 mg DAILY16 PO 06/29/21 16:00 07/07/21 16:15 Warfarin Sodium (Coumadin) 2 mg DAILY16 PO 06/29/21 16:00 07/07/21 16:15 Risperidone (RisperDAL) 0.25 mg 1300,1700 PO 07/05/21 13:00 07/07/21 16:15 I have reviewed the current psychotropics carefully including drug interactions. Risk benefit ratio favors no change other than as noted in my dictated progress note. Diagnosis: Problems: (1) Impulse control disorder, unspecified (2) Anxiety disorder, unspecified (3) Dementia, vascular, with depression (4) Dementia, vascular, with delusions (5) Dementia in Alzheimer's disease with depression (6) Dementia in Alzheimer's disease with delusions (7) Major neurocognitive disorder (8) Dementia in Alzheimer's disease with early onset with behavioral disturbance MYNOR JAMA MD Jul 08, 2021 07:13
[2021-07-08] MEDS: FAMOTIDINE 20 MG TABLET PO SCH ×2 (08:21→19:49)
[2021-07-08] MEDS: POTASSIUM CHLORIDE 10 MEQ TABLET.ER. PO SCH ×3 (08:22→16:05)
[2021-07-08] MEDS: VENLAFAXINE 75 MG TABLET. PO SCH ×2 (08:22→16:08)
[2021-07-08] MEDS: METOPROLOL SUCC 24HR ER 25 MG TAB.ER.24H. PO SCH ×2 (08:22→19:49)
[2021-07-08] MEDS: FLUTICASONE FUROATE 100mcg/INH ELLIPTA INHALER. INH SCH ×2 (08:22→19:49)
[2021-07-08] MEDS: OXYBUTYNIN CHLORIDE 5 MG TABLET PO SCH (08:23)
[2021-07-08] MEDS: NYSTATIN TOPICAL POWDER 15GM BOTTLE. TP SCH ×2 (08:23→19:49)
--- NOTE | 2021-07-08 11:32 | NUR ---
Nurse Day Shift Note: Pt presents with pleasant mood/affect. Pt is medication compliant. Pt continues to attempt to help with other patients and be confused about whether she works here or not. Pt is cooperative. Pt is noted to spend time socializing in the hallway with peers. Pt slept 7 hours last night and continues to have a good appetite. Will continue to monitor.
[2021-07-08] MEDS: risperiDONE 0.25 MG TABLET. PO SCH ×2 (12:09→16:07)
[2021-07-08 14:56] VITALS: BP 128/72
[2021-07-08] MEDS: WARFARIN 2 MG TABLET. PO SCH (16:08)
[2021-07-08] MEDS: WARFARIN 2.5 MG TABLET. PO SCH (16:09)
[2021-07-08] MEDS: ATORVASTATIN CALCIUM 20 MG TABLET PO SCH (19:49)
--- NOTE | 2021-07-08 20:48 | PDOC ---
Exam Note: Mode Note: Please also refer to the separate dictated note~for this date of service dictated separately.~Patient seen individually. Discussed the patient with Nursing staff reviewed the chart.~Reviewed interim history and current functioning. Reviewed vital signs,~Labs/ Radiology~and current medications noted below. Continue current treatment with the changes noted in the dictated addendum note Assessment: Vital Signs/I&O: Vital Signs Date Time Temp Pulse Resp B/P (MAP) Pulse Ox O2 Delivery O2 Flow Rate FiO2 07/08/21 19:49 71 128/72 07/08/21 14:56 98.0 20 100 07/07/21 15:13 93.0 I & O 07/07/21 07/07/21 07/08/21 15:00 23:00 07:00 Intake Total 720 ml 580 ml Balance 720 ml 580 ml Current Medications: Meds: Current Medications Medications (Trade) Dose Ordered Sig/Lucinda Route PRN Reason Start Time Stop Time Status Last Admin Dose Admin Acetaminophen (Tylenol) 650 mg PRN Q6HRS PRN PO MILD PAIN / TEMP > 100.3'F 06/21/21 23:30 06/30/21 00:10 Multi-Ingredient Ointment (Analgesic [place]) 1 christiano PRN QID PRN TP MUSCLE PAIN 06/21/21 23:30 Al Hydroxide/Mg Hydroxide (Mylanta Plus Xs) 15 ml PRN AFTMEALHC PRN PO DYSPEPSIA 06/21/21 23:30 07/08/21 14:20 Magnesium Hydroxide (Milk Of Magnesia) 2,400 mg PRN QHS PRN PO 1ST CHOICE CONSTIPATION 06/21/21 23:30 07/04/21 14:44 Influenza Virus Vaccine Quadrival (Flulaval Quad [id number] Syringe) 0.5 ml ONCE ONCE VAX IM 06/22/21 09:00 06/22/21 09:02 DC 06/22/21 09:07 Albuterol Sulfate (Ventolin) 2.5 mg PRN Q4HRS PRN NEB SHORTNESS OF BREATH 06/22/21 01:30 06/22/21 12:19 DC Bisacodyl (Dulcolax Tab) 5 mg PRN DAILY PRN PO 2ND CHOICE CONSTIPATION 06/22/21 01:15 Diazepam (Valium) 5 mg PRN QHS PRN PO ANXIETY 06/22/21 21:00 06/22/21 12:19 DC Famotidine (Pepcid) 20 mg BID PO 06/22/21 09:00 07/08/21 19:49 Lorazepam (Ativan) 1 mg HS PO 06/22/21 21:00 06/22/21 12:19 DC Metoprolol Succinate (Toprol Xl) 25 mg DAILY PO 06/22/21 09:00 06/22/21 12:19 DC 06/22/21 09:00 Nitroglycerin (Nitrostat) 0.4 mg PRN Q5MIN PRN SL CHEST PAIN 06/22/21 01:15 Olanzapine (ZyPREXA) 2.5 mg HS PO 06/22/21 21:00 06/22/21 12:19 DC Potassium Chloride (Klor-Con) 20 meq TIDWMEALS PO 06/22/21 08:00 07/08/21 16:05 Trazodone HCl (Desyrel) 25 mg PRN QHS PRN PO INSOMNIA 06/22/21 01:15 06/22/21 21:28 DC Warfarin Sodium (Coumadin) 5 mg DAILY@1600 PO 06/22/21 16:00 06/24/21 13:18 DC 06/23/21 16:12 Non-Formulary Medication (Acetaminophen Er ) 650 mg PRN Q8HRS PRN PO FEVER/PAIN 06/22/21 01:15 UNV Budesonide (Pulmicort) 0.5 mg RTBID NEB 06/22/21 08:00 06/23/21 12:30 DC 06/23/21 08:42 Fluticasone Propionate (Flonase) 2 spray DAILY NS 06/22/21 09:00 06/22/21 12:19 DC Oxybutynin Chloride (Ditropan) 5 mg DAILY PO 06/22/21 09:00 07/08/21 08:23 Atorvastatin Calcium (Lipitor) 80 mg QHS PO 06/22/21 21:00 07/08/21 19:49 Non-Formulary Medication (Venlafaxine Hcl (Venlafaxine Hcl Er)) 75 mg DAILY PO 06/22/21 09:00 UNV Non-Formulary Medication (Venlafaxine Hcl (Venlafaxine Hcl Er)) 150 mg HS PO 06/22/21 21:00 UNV Warfarin Sodium (Coumadin Per Pharmacy) 1 each PRN DAILY PRN MC SEE COMMENTS 06/22/21 01:45 06/29/21 15:34 Venlafaxine HCl (Effexor) 75 mg TID PO 06/22/21 09:00 06/23/21 19:45 DC 06/23/21 14:18 Nystatin (Nystop) 1 christiano BID TP 06/22/21 21:00 07/08/21 19:49 Magnesium Sulfate 100 ml @ 100 mls/hr 1X ONCE IV 06/22/21 13:00 06/22/21 13:59 DC 06/22/21 13:49 Olanzapine (ZyPREXA ZYDIS) 2.5 mg PRN Q2HR PRN PO ANXIETY / AGITATION 06/22/21 11:45 07/07/21 19:48 Diazepam (Valium) 5 mg QHS PO 06/22/21 21:00 06/22/21 21:22 DC Fluticasone Propionate (Flonase) 2 spray PRN BID PRN NS allergies 06/22/21 11:45 Metoprolol Succinate (Toprol Xl) 25 mg BID PO 06/22/21 21:00 07/08/21 19:49 Albuterol Sulfate (Ventolin Hfa Inhaler) 2 puff PRN Q4HRS PRN INH SHORTNESS OF BREATH 06/22/21 11:45 Diazepam (Valium) 2.5 mg QHS PO 06/22/21 21:15 06/25/21 08:00 DC 06/24/21 20:01 Risperidone (RisperDAL) 0.25 mg QHS PO 06/23/21 21:00 06/22/21 21:25 DC Trazodone HCl (Desyrel) 50 mg PRN QHS PO 06/22/21 21:15 06/25/21 01:10 DC Risperidone (RisperDAL) 0.25 mg QHS PO 06/22/21 21:30 06/25/21 18:31 DC 06/24/21 19:58 Fluticasone Furoate (ARNUITY 100mcg ELLIPTA) 1 puff BID INH 06/23/21 21:00 07/08/21 19:49 Venlafaxine HCl (Effexor) 75 mg BID@0900,1700 PO 06/24/21 09:00 07/08/21 16:08 Warfarin Sodium (Coumadin) 4 mg DAILY16 PO 06/24/21 16:00 06/27/21 08:24 DC 06/26/21 16:40 Trazodone HCl (Desyrel) 50 mg PRN QHS PRN PO insomnia 06/25/21 01:15 07/07/21 19:48 Risperidone (RisperDAL) 0.5 mg QHS PO 06/25/21 21:00 07/04/21 23:59 DC 07/04/21 20:26 Warfarin Sodium (Coumadin) 5 mg 1600 PO 06/27/21 16:00 06/29/21 13:56 DC 06/28/21 17:10 Warfarin Sodium (Coumadin) 2.5 mg DAILY16 PO 06/29/21 16:00 07/08/21 16:09 Warfarin Sodium (Coumadin) 2 mg DAILY16 PO 06/29/21 16:00 07/08/21 16:08 Risperidone (RisperDAL) 0.25 mg 1300,1700 PO 07/05/21 13:00 07/08/21 16:07 I have reviewed the current psychotropics carefully including drug interactions. Risk benefit ratio favors no change other than as noted in my dictated progress note. Diagnosis: Problems: (1) Impulse control disorder, unspecified (2) Anxiety disorder, unspecified (3) Dementia, vascular, with depression (4) Dementia, vascular, with delusions (5) Dementia in Alzheimer's disease with depression (6) Dementia in Alzheimer's disease with delusions (7) Major neurocognitive disorder (8) Dementia in Alzheimer's disease with early onset with behavioral disturbance MYNOR JAMA MD Jul 08, 2021 20:48
--- NOTE | 2021-07-08 23:09 | NUR ---
Pt continues to be delusional, thinking that she is at work and needs to help her peers. Compliant with redirection and whole medications. A/O x2. Pt currently sleeping.
[2021-07-09 05:38] VITALS: BP 154/89
[2021-07-09] MEDS: POTASSIUM CHLORIDE 10 MEQ TABLET.ER. PO SCH ×3 (08:38→16:15)
[2021-07-09] MEDS: FAMOTIDINE 20 MG TABLET PO SCH ×2 (08:39→20:07)
[2021-07-09] MEDS: OXYBUTYNIN CHLORIDE 5 MG TABLET PO SCH (08:39)
[2021-07-09] MEDS: VENLAFAXINE 75 MG TABLET. PO SCH ×2 (08:39→16:15)
[2021-07-09] MEDS: METOPROLOL SUCC 24HR ER 25 MG TAB.ER.24H. PO SCH ×2 (08:39→20:07)
[2021-07-09] MEDS: FLUTICASONE FUROATE 100mcg/INH ELLIPTA INHALER. INH SCH ×2 (08:42→20:07)
[2021-07-09] MEDS: NYSTATIN TOPICAL POWDER 15GM BOTTLE. TP SCH ×2 (08:45→20:07)
[2021-07-09] MEDS: risperiDONE 0.25 MG TABLET. PO SCH ×2 (12:18→16:16)
[2021-07-09] MEDS: MAGNESIUM HYDROXIDE 2,400 MG/30 ML ORAL.SUSP. PO PRN (12:21)
--- NOTE | 2021-07-09 14:04 | NUR ---
Nurse Day Shift Note: Pt presents with pleasant mood/affect. Pt is noted to spend time in the day room and in the hallway visiting with and socializing with peers and staff. Pt stated to staff, "I can't walk and chew gum at the same time sometimes." Pt is able to make needs known, but continues to be in and out of confusion whether she is working here or a pt here. Pt is medication compliant. Pt is cooperative. Pt slept 6.75 hours last night. Pt continues to have a good appetite. Will continue to monitor.
[2021-07-09 15:37] VITALS: BP 122/72
[2021-07-09] MEDS: WARFARIN 2.5 MG TABLET. PO SCH (16:14)
[2021-07-09] MEDS: WARFARIN 2 MG TABLET. PO SCH (16:14)
[2021-07-09] MEDS: ATORVASTATIN CALCIUM 20 MG TABLET PO SCH (20:07)
--- NOTE | 2021-07-09 20:35 | PDOC ---
Exam Note: Mode Note: Please also refer to the separate dictated note~for this date of service dictated separately.~Patient seen individually. Discussed the patient with Nursing staff reviewed the chart.~Reviewed interim history and current functioning. Reviewed vital signs,~Labs/ Radiology~and current medications noted below. Continue current treatment with the changes noted in the dictated addendum note Assessment: Vital Signs/I&O: Vital Signs Date Time Temp Pulse Resp B/P (MAP) Pulse Ox O2 Delivery O2 Flow Rate FiO2 07/09/21 20:07 70 122/72 07/09/21 15:37 98.6 16 100 07/07/21 15:13 93.0 I & O 07/08/21 07/08/21 07/09/21 15:00 23:00 07:00 Intake Total 840 ml 360 ml Balance 840 ml 360 ml Current Medications: Meds: Current Medications Medications (Trade) Dose Ordered Sig/Lucinda Route PRN Reason Start Time Stop Time Status Last Admin Dose Admin Acetaminophen (Tylenol) 650 mg PRN Q6HRS PRN PO MILD PAIN / TEMP > 100.3'F 06/21/21 23:30 06/30/21 00:10 Multi-Ingredient Ointment (Analgesic [place]) 1 christiano PRN QID PRN TP MUSCLE PAIN 06/21/21 23:30 Al Hydroxide/Mg Hydroxide (Mylanta Plus Xs) 15 ml PRN AFTMEALHC PRN PO DYSPEPSIA 06/21/21 23:30 07/08/21 14:20 Magnesium Hydroxide (Milk Of Magnesia) 2,400 mg PRN QHS PRN PO 1ST CHOICE CONSTIPATION 06/21/21 23:30 07/09/21 12:21 Influenza Virus Vaccine Quadrival (Flulaval Quad [id number] Syringe) 0.5 ml ONCE ONCE VAX IM 06/22/21 09:00 06/22/21 09:02 DC 06/22/21 09:07 Albuterol Sulfate (Ventolin) 2.5 mg PRN Q4HRS PRN NEB SHORTNESS OF BREATH 06/22/21 01:30 06/22/21 12:19 DC Bisacodyl (Dulcolax Tab) 5 mg PRN DAILY PRN PO 2ND CHOICE CONSTIPATION 06/22/21 01:15 Diazepam (Valium) 5 mg PRN QHS PRN PO ANXIETY 06/22/21 21:00 06/22/21 12:19 DC Famotidine (Pepcid) 20 mg BID PO 06/22/21 09:00 07/09/21 20:07 Lorazepam (Ativan) 1 mg HS PO 06/22/21 21:00 06/22/21 12:19 DC Metoprolol Succinate (Toprol Xl) 25 mg DAILY PO 06/22/21 09:00 06/22/21 12:19 DC 06/22/21 09:00 Nitroglycerin (Nitrostat) 0.4 mg PRN Q5MIN PRN SL CHEST PAIN 06/22/21 01:15 Olanzapine (ZyPREXA) 2.5 mg HS PO 06/22/21 21:00 06/22/21 12:19 DC Potassium Chloride (Klor-Con) 20 meq TIDWMEALS PO 06/22/21 08:00 07/09/21 16:15 Trazodone HCl (Desyrel) 25 mg PRN QHS PRN PO INSOMNIA 06/22/21 01:15 06/22/21 21:28 DC Warfarin Sodium (Coumadin) 5 mg DAILY@1600 PO 06/22/21 16:00 06/24/21 13:18 DC 06/23/21 16:12 Non-Formulary Medication (Acetaminophen Er ) 650 mg PRN Q8HRS PRN PO FEVER/PAIN 06/22/21 01:15 UNV Budesonide (Pulmicort) 0.5 mg RTBID NEB 06/22/21 08:00 06/23/21 12:30 DC 06/23/21 08:42 Fluticasone Propionate (Flonase) 2 spray DAILY NS 06/22/21 09:00 06/22/21 12:19 DC Oxybutynin Chloride (Ditropan) 5 mg DAILY PO 06/22/21 09:00 07/09/21 08:39 Atorvastatin Calcium (Lipitor) 80 mg QHS PO 06/22/21 21:00 07/09/21 20:07 Non-Formulary Medication (Venlafaxine Hcl (Venlafaxine Hcl Er)) 75 mg DAILY PO 06/22/21 09:00 UNV Non-Formulary Medication (Venlafaxine Hcl (Venlafaxine Hcl Er)) 150 mg HS PO 06/22/21 21:00 UNV Warfarin Sodium (Coumadin Per Pharmacy) 1 each PRN DAILY PRN MC SEE COMMENTS 06/22/21 01:45 06/29/21 15:34 Venlafaxine HCl (Effexor) 75 mg TID PO 06/22/21 09:00 06/23/21 19:45 DC 06/23/21 14:18 Nystatin (Nystop) 1 christiano BID TP 06/22/21 21:00 07/09/21 20:07 Magnesium Sulfate 100 ml @ 100 mls/hr 1X ONCE IV 06/22/21 13:00 06/22/21 13:59 DC 06/22/21 13:49 Olanzapine (ZyPREXA ZYDIS) 2.5 mg PRN Q2HR PRN PO ANXIETY / AGITATION 06/22/21 11:45 07/07/21 19:48 Diazepam (Valium) 5 mg QHS PO 06/22/21 21:00 06/22/21 21:22 DC Fluticasone Propionate (Flonase) 2 spray PRN BID PRN NS allergies 06/22/21 11:45 Metoprolol Succinate (Toprol Xl) 25 mg BID PO 06/22/21 21:00 07/09/21 20:07 Albuterol Sulfate (Ventolin Hfa Inhaler) 2 puff PRN Q4HRS PRN INH SHORTNESS OF BREATH 06/22/21 11:45 Diazepam (Valium) 2.5 mg QHS PO 06/22/21 21:15 06/25/21 08:00 DC 06/24/21 20:01 Risperidone (RisperDAL) 0.25 mg QHS PO 06/23/21 21:00 06/22/21 21:25 DC Trazodone HCl (Desyrel) 50 mg PRN QHS PO 06/22/21 21:15 06/25/21 01:10 DC Risperidone (RisperDAL) 0.25 mg QHS PO 06/22/21 21:30 06/25/21 18:31 DC 06/24/21 19:58 Fluticasone Furoate (ARNUITY 100mcg ELLIPTA) 1 puff BID INH 06/23/21 21:00 07/09/21 20:07 Venlafaxine HCl (Effexor) 75 mg BID@0900,1700 PO 06/24/21 09:00 07/09/21 16:15 Warfarin Sodium (Coumadin) 4 mg DAILY16 PO 06/24/21 16:00 06/27/21 08:24 DC 06/26/21 16:40 Trazodone HCl (Desyrel) 50 mg PRN QHS PRN PO insomnia 06/25/21 01:15 07/07/21 19:48 Risperidone (RisperDAL) 0.5 mg QHS PO 06/25/21 21:00 07/04/21 23:59 DC 07/04/21 20:26 Warfarin Sodium (Coumadin) 5 mg 1600 PO 06/27/21 16:00 06/29/21 13:56 DC 06/28/21 17:10 Warfarin Sodium (Coumadin) 2.5 mg DAILY16 PO 06/29/21 16:00 07/09/21 16:14 Warfarin Sodium (Coumadin) 2 mg DAILY16 PO 06/29/21 16:00 07/09/21 16:14 Risperidone (RisperDAL) 0.25 mg 1300,1700 PO 07/05/21 13:00 07/09/21 16:16 I have reviewed the current psychotropics carefully including drug interactions. Risk benefit ratio favors no change other than as noted in my dictated progress note. Diagnosis: Problems: (1) Impulse control disorder, unspecified (2) Anxiety disorder, unspecified (3) Dementia, vascular, with depression (4) Dementia, vascular, with delusions (5) Dementia in Alzheimer's disease with depression (6) Dementia in Alzheimer's disease with delusions (7) Major neurocognitive disorder (8) Dementia in Alzheimer's disease with early onset with behavioral disturbance MYNOR JAMA MD Jul 09, 2021 20:35
--- NOTE | 2021-07-09 23:02 | NUR ---
Pt located in the hallway tonight interacting with peers. Pleasant and cooperative. Compliant with whole medications. Pt currently sleeping.
[2021-07-10 05:54] VITALS: BP 158/86
[2021-07-10 06:15] LABS: BASO % 1 % (0-3); EOS # 0.2 x10^3/uL (0.0-0.7); EOS % 3 % (0-3); HEMATOCRIT 37.7 % (36.0-47.0); HEMOGLOBIN 12.3 g/dL (12.0-15.5); LYMPH # 1.2 x10^3/uL (1.0-4.8); LYMPH % 24 % (24-48); MEAN CORPUSCULAR HEMOGLOBIN 30 pg (25-35); MEAN CORPUSCULAR HGB CONC 33 g/dL (31-37); MEAN CORPUSCULAR VOLUME 93 fL (79-100); MONO # 0.7 x10^3/uL (0.0-1.1); MONO % 13 % (0-9); NEUT % 59 % (31-73); PLATELET COUNT 152 x10^3/uL (140-400); RED BLOOD COUNT 4.05 x10^6/uL (3.50-5.40); RED CELL DISTRIBUTION WIDTH 13.9 % (11.5-14.5); WHITE BLOOD COUNT 5.1 x10^3/uL (4.0-11.0)
[2021-07-10 06:32] LABS: ALBUMIN 3.2 g/dL (3.4-5.0); ALBUMIN/GLOBULIN RATIO 0.8 (1.0-1.7); CALCIUM 8.7 mg/dL (8.5-10.1); CREATININE 0.8 mg/dL (0.6-1.0); GFR 71.8; POTASSIUM 4.4 mmol/L (3.5-5.1); TOTAL BILIRUBIN 0.3 mg/dL (0.2-1.0)
[2021-07-10] MEDS: VENLAFAXINE 75 MG TABLET. PO SCH ×2 (08:12→16:42)
[2021-07-10] MEDS: POTASSIUM CHLORIDE 10 MEQ TABLET.ER. PO SCH ×3 (08:13→16:41)
[2021-07-10] MEDS: OXYBUTYNIN CHLORIDE 5 MG TABLET PO SCH (08:13)
[2021-07-10] MEDS: FAMOTIDINE 20 MG TABLET PO SCH ×2 (08:13→20:44)
[2021-07-10] MEDS: METOPROLOL SUCC 24HR ER 25 MG TAB.ER.24H. PO SCH ×2 (08:13→20:44)
[2021-07-10] MEDS: FLUTICASONE FUROATE 100mcg/INH ELLIPTA INHALER. INH SCH ×2 (08:14→20:44)
--- NOTE | 2021-07-10 08:17 | PDOC ---
Exam Note: Mode Note: This note is a late entry for 07/08/2021 covers elements not covered in my initial note. Subjective: The patient was seen individually in the evening of 07/08/2021 with Beth DE SANTIAGO, discussed and reviewed the chart. The patient slept 7 previous night. She remains confused, believes she is at work. She has been obsessing about another patient on the unit trying to take care of her, felt the year was 1961 and she was at the [facility]. She is somewhat confused but little more verbal and interactive as I met with her individually. Review of Systems: No CV, , pulmonary, eye, ENT system symptoms on review. Reliability poor. Mental Status Exam: The patient is oriented to herself. Insight and judgment, recent and remote memory, attention and concentration, fund of knowledge is poor consistent with her diagnosis. Laboratory Data: Reviewed. Impression: Major neurocognitive disorder, Alzheimer, vascular with delusion, depression behavioral disturbance. Anxiety disorder unspecified. Impulse control disorder unspecified. Plan: Maintain rest of the psychotropics unchanged. Reviewed drug interactions, risk-benefit ratio. Assessment: Vital Signs/I&O: Vital Signs Date Time Temp Pulse Resp B/P (MAP) Pulse Ox O2 Delivery O2 Flow Rate FiO2 07/10/21 05:54 97.8 83 16 158/86 (110) 98 07/07/21 15:13 93.0 I & O 07/09/21 07/09/21 07/10/21 15:00 23:00 07:00 Intake Total 480 ml 600 ml Balance 480 ml 600 ml Labs: Laboratory Tests Test 07/10/21 05:40 White Blood Count 5.1 x10^3/uL (4.0-11.0) Red Blood Count 4.05 x10^6/uL (3.50-5.40) Hemoglobin 12.3 g/dL (12.0-15.5) Hematocrit 37.7 % (36.0-47.0) Mean Corpuscular Volume 93 fL (79-100) Mean Corpuscular Hemoglobin 30 pg (25-35) Mean Corpuscular Hemoglobin Concent 33 g/dL (31-37) Red Cell Distribution Width 13.9 % (11.5-14.5) Platelet Count 152 x10^3/uL (140-400) Neutrophils (%) (Auto) 59 % (31-73) Lymphocytes (%) (Auto) 24 % (24-48) Monocytes (%) (Auto) 13 % (0-9) H Eosinophils (%) (Auto) 3 % (0-3) Basophils (%) (Auto) 1 % (0-3) Neutrophils # (Auto) 3.0 x10^3uL (1.8-7.7) Lymphocytes # (Auto) 1.2 x10^3/uL (1.0-4.8) Monocytes # (Auto) 0.7 x10^3/uL (0.0-1.1) Eosinophils # (Auto) 0.2 x10^3/uL (0.0-0.7) Basophils # (Auto) 0.0 x10^3/uL (0.0-0.2) Prothrombin Time 22.6 SEC (9.4-11.4) H Prothrombin Time INR 2.2 (0.9-1.1) H Sodium Level 144 mmol/L (136-145) Potassium Level 4.4 mmol/L (3.5-5.1) Chloride Level 106 mmol/L (98-107) Carbon Dioxide Level 31 mmol/L (21-32) Anion Gap 7 (6-14) Blood Urea Nitrogen 17 mg/dL (7-20) Creatinine 0.8 mg/dL (0.6-1.0) Estimated GFR (Cockcroft-Gault) 71.8 BUN/Creatinine Ratio 21 (6-20) H Glucose Level 85 mg/dL (70-99) Calcium Level 8.7 mg/dL (8.5-10.1) Total Bilirubin 0.3 mg/dL (0.2-1.0) Aspartate Amino Transferase (AST) 33 U/L (15-37) Alanine Aminotransferase (ALT) 25 U/L (14-59) Alkaline Phosphatase 115 U/L (46-116) Total Protein 7.0 g/dL (6.4-8.2) Albumin 3.2 g/dL (3.4-5.0) L Albumin/Globulin Ratio 0.8 (1.0-1.7) L Current Medications: Meds: Laboratory Tests Test 07/10/21 05:40 White Blood Count 5.1 x10^3/uL Red Blood Count 4.05 x10^6/uL Hemoglobin 12.3 g/dL Hematocrit 37.7 % Mean Corpuscular Volume 93 fL Mean Corpuscular Hemoglobin 30 pg Mean Corpuscular Hemoglobin Concent 33 g/dL Red Cell Distribution Width 13.9 % Platelet Count 152 x10^3/uL Neutrophils (%) (Auto) 59 % Lymphocytes (%) (Auto) 24 % Monocytes (%) (Auto) 13 % Eosinophils (%) (Auto) 3 % Basophils (%) (Auto) 1 % Neutrophils # (Auto) 3.0 x10^3uL Lymphocytes # (Auto) 1.2 x10^3/uL Monocytes # (Auto) 0.7 x10^3/uL Eosinophils # (Auto) 0.2 x10^3/uL Basophils # (Auto) 0.0 x10^3/uL Prothrombin Time 22.6 SEC Prothromb Time International Ratio 2.2 Sodium Level 144 mmol/L Potassium Level 4.4 mmol/L Chloride Level 106 mmol/L Carbon Dioxide Level 31 mmol/L Anion Gap 7 Blood Urea Nitrogen 17 mg/dL Creatinine 0.8 mg/dL Estimated GFR (Cockcroft-Gault) 71.8 BUN/Creatinine Ratio 21 Glucose Level 85 mg/dL Calcium Level 8.7 mg/dL Total Bilirubin 0.3 mg/dL Aspartate Amino Transf (AST/SGOT) 33 U/L Alanine Aminotransferase (ALT/SGPT) 25 U/L Alkaline Phosphatase 115 U/L Total Protein 7.0 g/dL Albumin 3.2 g/dL Albumin/Globulin Ratio 0.8 Current Medications Medications (Trade) Dose Ordered Sig/Lucinda Route PRN Reason Start Time Stop Time Status Last Admin Dose Admin Acetaminophen (Tylenol) 650 mg PRN Q6HRS PRN PO MILD PAIN / TEMP > 100.3'F 06/21/21 23:30 06/30/21 00:10 Multi-Ingredient Ointment (Analgesic Parker) 1 christiano PRN QID PRN TP MUSCLE PAIN 06/21/21 23:30 Al Hydroxide/Mg Hydroxide (Mylanta Plus Xs) 15 ml PRN AFTMEALHC PRN PO DYSPEPSIA 06/21/21 23:30 07/08/21 14:20 Magnesium Hydroxide (Milk Of Magnesia) 2,400 mg PRN QHS PRN PO 1ST CHOICE CONSTIPATION 06/21/21 23:30 07/09/21 12:21 Influenza Virus Vaccine Quadrival (Flulaval Quad [id number] Syringe) 0.5 ml ONCE ONCE VAX IM 06/22/21 09:00 06/22/21 09:02 DC 06/22/21 09:07 Albuterol Sulfate (Ventolin) 2.5 mg PRN Q4HRS PRN NEB SHORTNESS OF BREATH 06/22/21 01:30 06/22/21 12:19 DC Bisacodyl (Dulcolax Tab) 5 mg PRN DAILY PRN PO 2ND CHOICE CONSTIPATION 06/22/21 01:15 Diazepam (Valium) 5 mg PRN QHS PRN PO ANXIETY 06/22/21 21:00 06/22/21 12:19 DC Famotidine (Pepcid) 20 mg BID PO 06/22/21 09:00 07/09/21 20:07 Lorazepam (Ativan) 1 mg HS PO 06/22/21 21:00 06/22/21 12:19 DC Metoprolol Succinate (Toprol Xl) 25 mg DAILY PO 06/22/21 09:00 06/22/21 12:19 DC 06/22/21 09:00 Nitroglycerin (Nitrostat) 0.4 mg PRN Q5MIN PRN SL CHEST PAIN 06/22/21 01:15 Olanzapine (ZyPREXA) 2.5 mg HS PO 06/22/21 21:00 06/22/21 12:19 DC Potassium Chloride (Klor-Con) 20 meq TIDWMEALS PO 06/22/21 08:00 07/09/21 16:15 Trazodone HCl (Desyrel) 25 mg PRN QHS PRN PO INSOMNIA 06/22/21 01:15 06/22/21 21:28 DC Warfarin Sodium (Coumadin) 5 mg DAILY@1600 PO 06/22/21 16:00 06/24/21 13:18 DC 06/23/21 16:12 Non-Formulary Medication (Acetaminophen Er ) 650 mg PRN Q8HRS PRN PO FEVER/PAIN 06/22/21 01:15 UNV Budesonide (Pulmicort) 0.5 mg RTBID NEB 06/22/21 08:00 06/23/21 12:30 DC 06/23/21 08:42 Fluticasone Propionate (Flonase) 2 spray DAILY NS 06/22/21 09:00 06/22/21 12:19 DC Oxybutynin Chloride (Ditropan) 5 mg DAILY PO 06/22/21 09:00 07/09/21 08:39 Atorvastatin Calcium (Lipitor) 80 mg QHS PO 06/22/21 21:00 07/09/21 20:07 Non-Formulary Medication (Venlafaxine Hcl (Venlafaxine Hcl Er)) 75 mg DAILY PO 06/22/21 09:00 UNV Non-Formulary Medication (Venlafaxine Hcl (Venlafaxine Hcl Er)) 150 mg HS PO 06/22/21 21:00 UNV Warfarin Sodium (Coumadin Per Pharmacy) 1 each PRN DAILY PRN MC SEE COMMENTS 06/22/21 01:45 06/29/21 15:34 Venlafaxine HCl (Effexor) 75 mg TID PO 06/22/21 09:00 06/23/21 19:45 DC 06/23/21 14:18 Nystatin (Nystop) 1 christiano BID TP 06/22/21 21:00 07/09/21 20:07 Magnesium Sulfate 100 ml @ 100 mls/hr 1X ONCE IV 06/22/21 13:00 06/22/21 13:59 DC 06/22/21 13:49 Olanzapine (ZyPREXA ZYDIS) 2.5 mg PRN Q2HR PRN PO ANXIETY / AGITATION 06/22/21 11:45 07/07/21 19:48 Diazepam (Valium) 5 mg QHS PO 06/22/21 21:00 06/22/21 21:22 DC Fluticasone Propionate (Flonase) 2 spray PRN BID PRN NS allergies 06/22/21 11:45 Metoprolol Succinate (Toprol Xl) 25 mg BID PO 06/22/21 21:00 07/09/21 20:07 Albuterol Sulfate (Ventolin Hfa Inhaler) 2 puff PRN Q4HRS PRN INH SHORTNESS OF BREATH 06/22/21 11:45 Diazepam (Valium) 2.5 mg QHS PO 06/22/21 21:15 06/25/21 08:00 DC 06/24/21 20:01 Risperidone (RisperDAL) 0.25 mg QHS PO 06/23/21 21:00 06/22/21 21:25 DC Trazodone HCl (Desyrel) 50 mg PRN QHS PO 06/22/21 21:15 06/25/21 01:10 DC Risperidone (RisperDAL) 0.25 mg QHS PO 06/22/21 21:30 06/25/21 18:31 DC 06/24/21 19:58 Fluticasone Furoate (ARNUITY 100mcg ELLIPTA) 1 puff BID INH 06/23/21 21:00 07/09/21 20:07 Venlafaxine HCl (Effexor) 75 mg BID@0900,1700 PO 06/24/21 09:00 07/09/21 16:15 Warfarin Sodium (Coumadin) 4 mg DAILY16 PO 06/24/21 16:00 06/27/21 08:24 DC 06/26/21 16:40 Trazodone HCl (Desyrel) 50 mg PRN QHS PRN PO insomnia 06/25/21 01:15 07/07/21 19:48 Risperidone (RisperDAL) 0.5 mg QHS PO 06/25/21 21:00 07/04/21 23:59 DC 07/04/21 20:26 Warfarin Sodium (Coumadin) 5 mg 1600 PO 06/27/21 16:00 06/29/21 13:56 DC 06/28/21 17:10 Warfarin Sodium (Coumadin) 2.5 mg DAILY16 PO 06/29/21 16:00 07/09/21 16:14 Warfarin Sodium (Coumadin) 2 mg DAILY16 PO 06/29/21 16:00 07/09/21 16:14 Risperidone (RisperDAL) 0.25 mg 1300,1700 PO 07/05/21 13:00 07/09/21 16:16 I have reviewed the current psychotropics carefully including drug interactions. Risk benefit ratio favors no change other than as noted in my dictated progress note. Diagnosis: Problems: (1) Impulse control disorder, unspecified (2) Anxiety disorder, unspecified (3) Dementia, vascular, with depression (4) Dementia, vascular, with delusions (5) Dementia in Alzheimer's disease with depression (6) Dementia in Alzheimer's disease with delusions (7) Major neurocognitive disorder (8) Dementia in Alzheimer's disease with early onset with behavioral disturbance MYNOR JAMA MD Jul 10, 2021 08:16
[2021-07-10] MEDS: NYSTATIN TOPICAL POWDER 15GM BOTTLE. TP SCH ×2 (08:18→20:44)
--- NOTE | 2021-07-10 08:32 | PDOC ---
Exam Note: Mode Note: This note is a late entry for 07/09/2021 covers elements not covered in my initial note. Subjective: The patient was seen individually in the evening of 07/09/2021 with Beth DE SANTIAGO, discussed and reviewed the chart. The patient slept 6-3/4 previous night. Overall the patient seems a little less confused and was more coherent, asking me questions about what prompted this admission and why was she losing her memory after the Covid. We discussed this at some length and her response has appeared appropriate at least better than what there would have been a few days back. She has been helping one of the other demented patients on the unit to write a letter that this patient wanted written. Review of Systems: No CV, , pulmonary, eye, ENT system symptoms on review. Mental Status Exam: The patient is oriented to herself. She seems a little confused than before and has been coherent enough to assist the other patient in writing a letter. Insight and judgment, recent and remote memory, attention and concentration, fund of knowledge is poor consistent with her diagnosis. Laboratory Data: Reviewed. Impression: Major neurocognitive disorder, Alzheimer, vascular with delusion, depression behavioral disturbance. Anxiety disorder unspecified. Impulse control disorder unspecified. Plan: Maintain rest of the psychotropics unchanged. Reviewed drug interactions, risk-benefit ratio. Assessment: Vital Signs/I&O: Vital Signs Date Time Temp Pulse Resp B/P (MAP) Pulse Ox O2 Delivery O2 Flow Rate FiO2 07/10/21 08:13 83 158/86 07/10/21 05:54 97.8 16 98 07/07/21 15:13 93.0 I & O 07/09/21 07/09/21 07/10/21 15:00 23:00 07:00 Intake Total 480 ml 600 ml Balance 480 ml 600 ml Labs: Laboratory Tests Test 07/10/21 05:40 White Blood Count 5.1 x10^3/uL (4.0-11.0) Red Blood Count 4.05 x10^6/uL (3.50-5.40) Hemoglobin 12.3 g/dL (12.0-15.5) Hematocrit 37.7 % (36.0-47.0) Mean Corpuscular Volume 93 fL (79-100) Mean Corpuscular Hemoglobin 30 pg (25-35) Mean Corpuscular Hemoglobin Concent 33 g/dL (31-37) Red Cell Distribution Width 13.9 % (11.5-14.5) Platelet Count 152 x10^3/uL (140-400) Neutrophils (%) (Auto) 59 % (31-73) Lymphocytes (%) (Auto) 24 % (24-48) Monocytes (%) (Auto) 13 % (0-9) H Eosinophils (%) (Auto) 3 % (0-3) Basophils (%) (Auto) 1 % (0-3) Neutrophils # (Auto) 3.0 x10^3uL (1.8-7.7) Lymphocytes # (Auto) 1.2 x10^3/uL (1.0-4.8) Monocytes # (Auto) 0.7 x10^3/uL (0.0-1.1) Eosinophils # (Auto) 0.2 x10^3/uL (0.0-0.7) Basophils # (Auto) 0.0 x10^3/uL (0.0-0.2) Prothrombin Time 22.6 SEC (9.4-11.4) H Prothrombin Time INR 2.2 (0.9-1.1) H Sodium Level 144 mmol/L (136-145) Potassium Level 4.4 mmol/L (3.5-5.1) Chloride Level 106 mmol/L (98-107) Carbon Dioxide Level 31 mmol/L (21-32) Anion Gap 7 (6-14) Blood Urea Nitrogen 17 mg/dL (7-20) Creatinine 0.8 mg/dL (0.6-1.0) Estimated GFR (Cockcroft-Gault) 71.8 BUN/Creatinine Ratio 21 (6-20) H Glucose Level 85 mg/dL (70-99) Calcium Level 8.7 mg/dL (8.5-10.1) Total Bilirubin 0.3 mg/dL (0.2-1.0) Aspartate Amino Transferase (AST) 33 U/L (15-37) Alanine Aminotransferase (ALT) 25 U/L (14-59) Alkaline Phosphatase 115 U/L (46-116) Total Protein 7.0 g/dL (6.4-8.2) Albumin 3.2 g/dL (3.4-5.0) L Albumin/Globulin Ratio 0.8 (1.0-1.7) L Current Medications: Meds: Laboratory Tests Test 07/10/21 05:40 White Blood Count 5.1 x10^3/uL Red Blood Count 4.05 x10^6/uL Hemoglobin 12.3 g/dL Hematocrit 37.7 % Mean Corpuscular Volume 93 fL Mean Corpuscular Hemoglobin 30 pg Mean Corpuscular Hemoglobin Concent 33 g/dL Red Cell Distribution Width 13.9 % Platelet Count 152 x10^3/uL Neutrophils (%) (Auto) 59 % Lymphocytes (%) (Auto) 24 % Monocytes (%) (Auto) 13 % Eosinophils (%) (Auto) 3 % Basophils (%) (Auto) 1 % Neutrophils # (Auto) 3.0 x10^3uL Lymphocytes # (Auto) 1.2 x10^3/uL Monocytes # (Auto) 0.7 x10^3/uL Eosinophils # (Auto) 0.2 x10^3/uL Basophils # (Auto) 0.0 x10^3/uL Prothrombin Time 22.6 SEC Prothromb Time International Ratio 2.2 Sodium Level 144 mmol/L Potassium Level 4.4 mmol/L Chloride Level 106 mmol/L Carbon Dioxide Level 31 mmol/L Anion Gap 7 Blood Urea Nitrogen 17 mg/dL Creatinine 0.8 mg/dL Estimated GFR (Cockcroft-Gault) 71.8 BUN/Creatinine Ratio 21 Glucose Level 85 mg/dL Calcium Level 8.7 mg/dL Total Bilirubin 0.3 mg/dL Aspartate Amino Transf (AST/SGOT) 33 U/L Alanine Aminotransferase (ALT/SGPT) 25 U/L Alkaline Phosphatase 115 U/L Total Protein 7.0 g/dL Albumin 3.2 g/dL Albumin/Globulin Ratio 0.8 Current Medications Medications (Trade) Dose Ordered Sig/Lucinda Route PRN Reason Start Time Stop Time Status Last Admin Dose Admin Acetaminophen (Tylenol) 650 mg PRN Q6HRS PRN PO MILD PAIN / TEMP > 100.3'F 06/21/21 23:30 06/30/21 00:10 Multi-Ingredient Ointment (Analgesic [place]) 1 christiano PRN QID PRN TP MUSCLE PAIN 06/21/21 23:30 Al Hydroxide/Mg Hydroxide (Mylanta Plus Xs) 15 ml PRN AFTMEALHC PRN PO DYSPEPSIA 06/21/21 23:30 07/08/21 14:20 Magnesium Hydroxide (Milk Of Magnesia) 2,400 mg PRN QHS PRN PO 1ST CHOICE CONSTIPATION 06/21/21 23:30 07/09/21 12:21 Influenza Virus Vaccine Quadrival (Flulaval Quad Syringe) 0.5 ml ONCE ONCE VAX IM 06/22/21 09:00 06/22/21 09:02 DC 06/22/21 09:07 Albuterol Sulfate (Ventolin) 2.5 mg PRN Q4HRS PRN NEB SHORTNESS OF BREATH 06/22/21 01:30 06/22/21 12:19 DC Bisacodyl (Dulcolax Tab) 5 mg PRN DAILY PRN PO 2ND CHOICE CONSTIPATION 06/22/21 01:15 Diazepam (Valium) 5 mg PRN QHS PRN PO ANXIETY 06/22/21 21:00 06/22/21 12:19 DC Famotidine (Pepcid) 20 mg BID PO 06/22/21 09:00 07/10/21 08:13 Lorazepam (Ativan) 1 mg HS PO 06/22/21 21:00 06/22/21 12:19 DC Metoprolol Succinate (Toprol Xl) 25 mg DAILY PO 06/22/21 09:00 06/22/21 12:19 DC 06/22/21 09:00 Nitroglycerin (Nitrostat) 0.4 mg PRN Q5MIN PRN SL CHEST PAIN 06/22/21 01:15 Olanzapine (ZyPREXA) 2.5 mg HS PO 06/22/21 21:00 06/22/21 12:19 DC Potassium Chloride (Klor-Con) 20 meq TIDWMEALS PO 06/22/21 08:00 07/10/21 08:13 Trazodone HCl (Desyrel) 25 mg PRN QHS PRN PO INSOMNIA 06/22/21 01:15 06/22/21 21:28 DC Warfarin Sodium (Coumadin) 5 mg DAILY@1600 PO 06/22/21 16:00 06/24/21 13:18 DC 06/23/21 16:12 Non-Formulary Medication (Acetaminophen Er ) 650 mg PRN Q8HRS PRN PO FEVER/PAIN 06/22/21 01:15 UNV Budesonide (Pulmicort) 0.5 mg RTBID NEB 06/22/21 08:00 06/23/21 12:30 DC 06/23/21 08:42 Fluticasone Propionate (Flonase) 2 spray DAILY NS 06/22/21 09:00 06/22/21 12:19 DC Oxybutynin Chloride (Ditropan) 5 mg DAILY PO 06/22/21 09:00 07/10/21 08:13 Atorvastatin Calcium (Lipitor) 80 mg QHS PO 06/22/21 21:00 07/09/21 20:07 Non-Formulary Medication (Venlafaxine Hcl (Venlafaxine Hcl Er)) 75 mg DAILY PO 06/22/21 09:00 UNV Non-Formulary Medication (Venlafaxine Hcl (Venlafaxine Hcl Er)) 150 mg HS PO 06/22/21 21:00 UNV Warfarin Sodium (Coumadin Per Pharmacy) 1 each PRN DAILY PRN MC SEE COMMENTS 06/22/21 01:45 06/29/21 15:34 Venlafaxine HCl (Effexor) 75 mg TID PO 06/22/21 09:00 06/23/21 19:45 DC 06/23/21 14:18 Nystatin (Nystop) 1 christiano BID TP 06/22/21 21:00 07/10/21 08:18 Magnesium Sulfate 100 ml @ 100 mls/hr 1X ONCE IV 06/22/21 13:00 06/22/21 13:59 DC 06/22/21 13:49 Olanzapine (ZyPREXA ZYDIS) 2.5 mg PRN Q2HR PRN PO ANXIETY / AGITATION 06/22/21 11:45 07/07/21 19:48 Diazepam (Valium) 5 mg QHS PO 06/22/21 21:00 06/22/21 21:22 DC Fluticasone Propionate (Flonase) 2 spray PRN BID PRN NS allergies 06/22/21 11:45 Metoprolol Succinate (Toprol Xl) 25 mg BID PO 06/22/21 21:00 07/10/21 08:13 Albuterol Sulfate (Ventolin Hfa Inhaler) 2 puff PRN Q4HRS PRN INH SHORTNESS OF BREATH 06/22/21 11:45 Diazepam (Valium) 2.5 mg QHS PO 06/22/21 21:15 06/25/21 08:00 DC 06/24/21 20:01 Risperidone (RisperDAL) 0.25 mg QHS PO 06/23/21 21:00 06/22/21 21:25 DC Trazodone HCl (Desyrel) 50 mg PRN QHS PO 06/22/21 21:15 06/25/21 01:10 DC Risperidone (RisperDAL) 0.25 mg QHS PO 06/22/21 21:30 06/25/21 18:31 DC 06/24/21 19:58 Fluticasone Furoate (ARNUITY 100mcg ELLIPTA) 1 puff BID INH 06/23/21 21:00 07/10/21 08:14 Venlafaxine HCl (Effexor) 75 mg BID@0900,1700 PO 06/24/21 09:00 07/10/21 08:12 Warfarin Sodium (Coumadin) 4 mg DAILY16 PO 06/24/21 16:00 06/27/21 08:24 DC 06/26/21 16:40 Trazodone HCl (Desyrel) 50 mg PRN QHS PRN PO insomnia 06/25/21 01:15 07/07/21 19:48 Risperidone (RisperDAL) 0.5 mg QHS PO 06/25/21 21:00 07/04/21 23:59 DC 07/04/21 20:26 Warfarin Sodium (Coumadin) 5 mg 1600 PO 06/27/21 16:00 06/29/21 13:56 DC 06/28/21 17:10 Warfarin Sodium (Coumadin) 2.5 mg DAILY16 PO 06/29/21 16:00 07/09/21 16:14 Warfarin Sodium (Coumadin) 2 mg DAILY16 PO 06/29/21 16:00 07/09/21 16:14 Risperidone (RisperDAL) 0.25 mg 1300,1700 PO 07/05/21 13:00 07/09/21 16:16 I have reviewed the current psychotropics carefully including drug interactions. Risk benefit ratio favors no change other than as noted in my dictated progress note. Diagnosis: Problems: (1) Impulse control disorder, unspecified (2) Anxiety disorder, unspecified (3) Dementia, vascular, with depression (4) Dementia, vascular, with delusions (5) Dementia in Alzheimer's disease with depression (6) Dementia in Alzheimer's disease with delusions (7) Major neurocognitive disorder (8) Dementia in Alzheimer's disease with early onset with behavioral disturbance MYNOR JAMA MD Jul 10, 2021 08:32
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
--- NOTE | 2021-07-10 12:11 | NUR ---
Treatment team update: Pt , Jimy, participated in treatment team via phone. Pt is eating 100% of meals and sleeping on average 6.75 hours per night; last night pt slept 7.5 hours. Pt continues to wander at times and confused about her surroundings. Pt believes that she is working and is often found helping other pts on the unit. Pt has attended nine groups with moderate participation; she is pleasant in her interactions with staff and peers. At this time, pt will discharge home with her and community services. Initially SW noted that pt could have services; however, Jimy prefers to have pt do outpt as when others come to the house she tends to refuse help. SW will follow up with Jimy on finalizing discharge plans. [facility] is Saturday unless Jimy requests a separate day for discharge.
[2021-07-10] MEDS: risperiDONE 0.25 MG TABLET. PO SCH ×2 (12:17→16:43)
--- NOTE | 2021-07-10 12:28 | NUR ---
SW contacted pt , Jimy, to confirm all discharge plans for Saturday. Jimy has requested outpt therapy services and is fine with SW setting up all appointments needed for pt with her PCP. Jimy reports that he will have a friend drive with him to pick pt up and is thinking they will make it to the hospital around 1300. SW will follow up with Jimy in the event that anything changes.
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
--- NOTE | 2021-07-10 13:14 | NUR ---
Nurse Day Shift Note: Pt presents with pleasant mood/affect. Pt is noted to spend time assisting peers and sitting in hallway with peers. Pt continues to be confused if she is at work or a pt here. Pt is medication compliant. Pt continues to have a good appetite. Pt slept 7.5 hours last night. Will continue to monitor.
[2021-07-10 15:40] VITALS: BP 124/84
[2021-07-10] MEDS: WARFARIN 2.5 MG TABLET. PO SCH (16:42)
[2021-07-10] MEDS: WARFARIN 2 MG TABLET. PO SCH (16:42)
--- NOTE | 2021-07-10 20:06 | PDOC ---
Exam Note: Mode Note: Please also refer to the separate dictated note~for this date of service dictated separately.~Patient seen individually. Discussed the patient with Nursing staff reviewed the chart.~Reviewed interim history and current functioning. Reviewed vital signs,~Labs/ Radiology~and current medications noted below. Continue current treatment with the changes noted in the dictated addendum note Assessment: Vital Signs/I&O: Vital Signs Date Time Temp Pulse Resp B/P (MAP) Pulse Ox O2 Delivery O2 Flow Rate FiO2 07/10/21 15:40 97.7 71 20 124/84 (97) 100 Room Air 07/07/21 15:13 93.0 I & O 07/09/21 07/09/21 07/10/21 15:00 23:00 07:00 Intake Total 480 ml 600 ml Balance 480 ml 600 ml Labs: Laboratory Tests Test 07/10/21 05:40 White Blood Count 5.1 x10^3/uL (4.0-11.0) Red Blood Count 4.05 x10^6/uL (3.50-5.40) Hemoglobin 12.3 g/dL (12.0-15.5) Hematocrit 37.7 % (36.0-47.0) Mean Corpuscular Volume 93 fL (79-100) Mean Corpuscular Hemoglobin 30 pg (25-35) Mean Corpuscular Hemoglobin Concent 33 g/dL (31-37) Red Cell Distribution Width 13.9 % (11.5-14.5) Platelet Count 152 x10^3/uL (140-400) Neutrophils (%) (Auto) 59 % (31-73) Lymphocytes (%) (Auto) 24 % (24-48) Monocytes (%) (Auto) 13 % (0-9) H Eosinophils (%) (Auto) 3 % (0-3) Basophils (%) (Auto) 1 % (0-3) Neutrophils # (Auto) 3.0 x10^3uL (1.8-7.7) Lymphocytes # (Auto) 1.2 x10^3/uL (1.0-4.8) Monocytes # (Auto) 0.7 x10^3/uL (0.0-1.1) Eosinophils # (Auto) 0.2 x10^3/uL (0.0-0.7) Basophils # (Auto) 0.0 x10^3/uL (0.0-0.2) Prothrombin Time 22.6 SEC (9.4-11.4) H Prothrombin Time INR 2.2 (0.9-1.1) H Sodium Level 144 mmol/L (136-145) Potassium Level 4.4 mmol/L (3.5-5.1) Chloride Level 106 mmol/L (98-107) Carbon Dioxide Level 31 mmol/L (21-32) Anion Gap 7 (6-14) Blood Urea Nitrogen 17 mg/dL (7-20) Creatinine 0.8 mg/dL (0.6-1.0) Estimated GFR (Cockcroft-Gault) 71.8 BUN/Creatinine Ratio 21 (6-20) H Glucose Level 85 mg/dL (70-99) Calcium Level 8.7 mg/dL (8.5-10.1) Total Bilirubin 0.3 mg/dL (0.2-1.0) Aspartate Amino Transferase (AST) 33 U/L (15-37) Alanine Aminotransferase (ALT) 25 U/L (14-59) Alkaline Phosphatase 115 U/L (46-116) Total Protein 7.0 g/dL (6.4-8.2) Albumin 3.2 g/dL (3.4-5.0) L Albumin/Globulin Ratio 0.8 (1.0-1.7) L Current Medications: Meds: Laboratory Tests Test 07/10/21 05:40 White Blood Count 5.1 x10^3/uL Red Blood Count 4.05 x10^6/uL Hemoglobin 12.3 g/dL Hematocrit 37.7 % Mean Corpuscular Volume 93 fL Mean Corpuscular Hemoglobin 30 pg Mean Corpuscular Hemoglobin Concent 33 g/dL Red Cell Distribution Width 13.9 % Platelet Count 152 x10^3/uL Neutrophils (%) (Auto) 59 % Lymphocytes (%) (Auto) 24 % Monocytes (%) (Auto) 13 % Eosinophils (%) (Auto) 3 % Basophils (%) (Auto) 1 % Neutrophils # (Auto) 3.0 x10^3uL Lymphocytes # (Auto) 1.2 x10^3/uL Monocytes # (Auto) 0.7 x10^3/uL Eosinophils # (Auto) 0.2 x10^3/uL Basophils # (Auto) 0.0 x10^3/uL Prothrombin Time 22.6 SEC Prothromb Time International Ratio 2.2 Sodium Level 144 mmol/L Potassium Level 4.4 mmol/L Chloride Level 106 mmol/L Carbon Dioxide Level 31 mmol/L Anion Gap 7 Blood Urea Nitrogen 17 mg/dL Creatinine 0.8 mg/dL Estimated GFR (Cockcroft-Gault) 71.8 BUN/Creatinine Ratio 21 Glucose Level 85 mg/dL Calcium Level 8.7 mg/dL Total Bilirubin 0.3 mg/dL Aspartate Amino Transf (AST/SGOT) 33 U/L Alanine Aminotransferase (ALT/SGPT) 25 U/L Alkaline Phosphatase 115 U/L Total Protein 7.0 g/dL Albumin 3.2 g/dL Albumin/Globulin Ratio 0.8 Current Medications Medications (Trade) Dose Ordered Sig/Lucinda Route PRN Reason Start Time Stop Time Status Last Admin Dose Admin Acetaminophen (Tylenol) 650 mg PRN Q6HRS PRN PO MILD PAIN / TEMP > 100.3'F 06/21/21 23:30 06/30/21 00:10 Multi-Ingredient Ointment (Analgesic [place]) 1 christiano PRN QID PRN TP MUSCLE PAIN 06/21/21 23:30 Al Hydroxide/Mg Hydroxide (Mylanta Plus Xs) 15 ml PRN AFTMEALHC PRN PO DYSPEPSIA 06/21/21 23:30 07/08/21 14:20 Magnesium Hydroxide (Milk Of Magnesia) 2,400 mg PRN QHS PRN PO 1ST CHOICE CONSTIPATION 06/21/21 23:30 07/09/21 12:21 Influenza Virus Vaccine Quadrival (Flulaval Quad [id number] Syringe) 0.5 ml ONCE ONCE VAX IM 06/22/21 09:00 06/22/21 09:02 DC 06/22/21 09:07 Albuterol Sulfate (Ventolin) 2.5 mg PRN Q4HRS PRN NEB SHORTNESS OF BREATH 06/22/21 01:30 06/22/21 12:19 DC Bisacodyl (Dulcolax Tab) 5 mg PRN DAILY PRN PO 2ND CHOICE CONSTIPATION 06/22/21 01:15 Diazepam (Valium) 5 mg PRN QHS PRN PO ANXIETY 06/22/21 21:00 06/22/21 12:19 DC Famotidine (Pepcid) 20 mg BID PO 06/22/21 09:00 07/10/21 08:13 Lorazepam (Ativan) 1 mg HS PO 06/22/21 21:00 06/22/21 12:19 DC Metoprolol Succinate (Toprol Xl) 25 mg DAILY PO 06/22/21 09:00 06/22/21 12:19 DC 06/22/21 09:00 Nitroglycerin (Nitrostat) 0.4 mg PRN Q5MIN PRN SL CHEST PAIN 06/22/21 01:15 Olanzapine (ZyPREXA) 2.5 mg HS PO 06/22/21 21:00 06/22/21 12:19 DC Potassium Chloride (Klor-Con) 20 meq TIDWMEALS PO 06/22/21 08:00 07/10/21 16:41 Trazodone HCl (Desyrel) 25 mg PRN QHS PRN PO INSOMNIA 06/22/21 01:15 06/22/21 21:28 DC Warfarin Sodium (Coumadin) 5 mg DAILY@1600 PO 06/22/21 16:00 06/24/21 13:18 DC 06/23/21 16:12 Non-Formulary Medication (Acetaminophen Er ) 650 mg PRN Q8HRS PRN PO FEVER/PAIN 06/22/21 01:15 UNV Budesonide (Pulmicort) 0.5 mg RTBID NEB 06/22/21 08:00 06/23/21 12:30 DC 06/23/21 08:42 Fluticasone Propionate (Flonase) 2 spray DAILY NS 06/22/21 09:00 06/22/21 12:19 DC Oxybutynin Chloride (Ditropan) 5 mg DAILY PO 06/22/21 09:00 07/10/21 08:13 Atorvastatin Calcium (Lipitor) 80 mg QHS PO 06/22/21 21:00 07/09/21 20:07 Non-Formulary Medication (Venlafaxine Hcl (Venlafaxine Hcl Er)) 75 mg DAILY PO 06/22/21 09:00 UNV Non-Formulary Medication (Venlafaxine Hcl (Venlafaxine Hcl Er)) 150 mg HS PO 06/22/21 21:00 UNV Warfarin Sodium (Coumadin Per Pharmacy) 1 each PRN DAILY PRN MC SEE COMMENTS 06/22/21 01:45 06/29/21 15:34 Venlafaxine HCl (Effexor) 75 mg TID PO 06/22/21 09:00 06/23/21 19:45 DC 06/23/21 14:18 Nystatin (Nystop) 1 christiano BID TP 06/22/21 21:00 07/10/21 08:18 Magnesium Sulfate 100 ml @ 100 mls/hr 1X ONCE IV 06/22/21 13:00 06/22/21 13:59 DC 06/22/21 13:49 Olanzapine (ZyPREXA ZYDIS) 2.5 mg PRN Q2HR PRN PO ANXIETY / AGITATION 06/22/21 11:45 07/07/21 19:48 Diazepam (Valium) 5 mg QHS PO 06/22/21 21:00 06/22/21 21:22 DC Fluticasone Propionate (Flonase) 2 spray PRN BID PRN NS allergies 06/22/21 11:45 Metoprolol Succinate (Toprol Xl) 25 mg BID PO 06/22/21 21:00 07/10/21 08:13 Albuterol Sulfate (Ventolin Hfa Inhaler) 2 puff PRN Q4HRS PRN INH SHORTNESS OF BREATH 06/22/21 11:45 Diazepam (Valium) 2.5 mg QHS PO 06/22/21 21:15 06/25/21 08:00 DC 06/24/21 20:01 Risperidone (RisperDAL) 0.25 mg QHS PO 06/23/21 21:00 06/22/21 21:25 DC Trazodone HCl (Desyrel) 50 mg PRN QHS PO 06/22/21 21:15 06/25/21 01:10 DC Risperidone (RisperDAL) 0.25 mg QHS PO 06/22/21 21:30 06/25/21 18:31 DC 06/24/21 19:58 Fluticasone Furoate (ARNUITY 100mcg ELLIPTA) 1 puff BID INH 06/23/21 21:00 07/10/21 08:14 Venlafaxine HCl (Effexor) 75 mg BID@0900,1700 PO 06/24/21 09:00 07/10/21 16:42 Warfarin Sodium (Coumadin) 4 mg DAILY16 PO 06/24/21 16:00 06/27/21 08:24 DC 06/26/21 16:40 Trazodone HCl (Desyrel) 50 mg PRN QHS PRN PO insomnia 06/25/21 01:15 07/07/21 19:48 Risperidone (RisperDAL) 0.5 mg QHS PO 06/25/21 21:00 07/04/21 23:59 DC 07/04/21 20:26 Warfarin Sodium (Coumadin) 5 mg 1600 PO 06/27/21 16:00 06/29/21 13:56 DC 06/28/21 17:10 Warfarin Sodium (Coumadin) 2.5 mg DAILY16 PO 06/29/21 16:00 07/10/21 16:42 Warfarin Sodium (Coumadin) 2 mg DAILY16 PO 06/29/21 16:00 07/10/21 16:42 Risperidone (RisperDAL) 0.25 mg 1300,1700 PO 07/05/21 13:00 07/10/21 16:43 I have reviewed the current psychotropics carefully including drug interactions. Risk benefit ratio favors no change other than as noted in my dictated progress note. Diagnosis: Problems: (1) Impulse control disorder, unspecified (2) Anxiety disorder, unspecified (3) Dementia, vascular, with depression (4) Dementia, vascular, with delusions (5) Dementia in Alzheimer's disease with depression (6) Dementia in Alzheimer's disease with delusions (7) Major neurocognitive disorder (8) Dementia in Alzheimer's disease with early onset with behavioral disturbance MYNOR JAMA MD Jul 10, 2021 20:06
[2021-07-10] MEDS: ATORVASTATIN CALCIUM 20 MG TABLET PO SCH (20:44)
--- NOTE | 2021-07-10 22:46 | NUR ---
Pt located in her room this evening. Pleasant and cooperative. Compliant with whole medications. States she is excited to go home this week.
[2021-07-11 05:59] VITALS: BP 112/66
--- NOTE | 2021-07-11 06:42 | PDOC ---
Exam Note: Mode Note: This note is a late entry for 07/10/2021 covers elements not covered in my initial note. Subjective: The patient was reviewed at the treatment team meeting individually in the morning of 07/10/2021 with Karlene Cornejo and Joan Shannon (high school social science teacher), Aiyana, activity therapy, and Jaylan DE SANTIAGO, discussed and reviewed the chart. Patients Jimy attended the treatment team meeting. We discussed the patients diagnoses, progress, current psychotropics, negative CT head. Also discussed outpatient follow-up with the psychiatrist. The patient slept 7-1/2 previous night. She remains confused, believes she is at work but little more coherent in her verbal responses. She has attended 9 groups in the past one week. Apparently the patient has a large family and her adult children are involved in the bahai as a big support according to the . Also discussed with Beth DE SANTIAGO in the evening. No overt behaviors noted. I me t wi th her at some length in her room. Review of Systems: No CV, , pulmonary, eye, ENT system symptoms on review. Mental Status Exam: The patient is oriented to herself. She is repeatedly asking about when she would be discharged and much of this conversation was quite appropriate. She was reflecting on the cold weather outside and repeatedly asked me to drive safely when I leave. Speech is coherent. She stated she wanted to hug me after I told her when she would be discharged. No active suicidal or homicidal ideation. Mood and affect is improved. Loose associations are better as well. Laboratory Data: Reviewed. Impression: Major neurocognitive disorder, Alzheimer, vascular with delusion, depression behavioral disturbance. Anxiety disorder unspecified. Impulse control disorder unspecified. Plan: Continue current psychotropics mentioned in my initial note. We will not increase the Risperdal. Maintain Effexor which was reduced from the time of her admission. Continue Zyprexa p.r.n. Assessment: Vital Signs/I&O: Vital Signs Date Time Temp Pulse Resp B/P (MAP) Pulse Ox O2 Delivery O2 Flow Rate FiO2 07/11/21 05:59 97.6 80 16 112/66 (81) 93 07/10/21 15:40 Room Air 07/07/21 15:13 93.0 I & O 07/10/21 07/10/21 07/11/21 15:00 23:00 07:00 Intake Total 840 ml 360 ml Balance 840 ml 360 ml Current Medications: Meds: Current Medications Medications (Trade) Dose Ordered Sig/Lucinda Route PRN Reason Start Time Stop Time Status Last Admin Dose Admin Acetaminophen (Tylenol) 650 mg PRN Q6HRS PRN PO MILD PAIN / TEMP > 100.3'F 06/21/21 23:30 06/30/21 00:10 Multi-Ingredient Ointment (Analgesic [place]) 1 christiano PRN QID PRN TP MUSCLE PAIN 06/21/21 23:30 Al Hydroxide/Mg Hydroxide (Mylanta Plus Xs) 15 ml PRN AFTMEALHC PRN PO DYSPEPSIA 06/21/21 23:30 07/08/21 14:20 Magnesium Hydroxide (Milk Of Magnesia) 2,400 mg PRN QHS PRN PO 1ST CHOICE CONSTIPATION 06/21/21 23:30 07/09/21 12:21 Influenza Virus Vaccine Quadrival (Flulaval Quad [id number] Syringe) 0.5 ml ONCE ONCE VAX IM 06/22/21 09:00 06/22/21 09:02 DC 06/22/21 09:07 Albuterol Sulfate (Ventolin) 2.5 mg PRN Q4HRS PRN NEB SHORTNESS OF BREATH 06/22/21 01:30 06/22/21 12:19 DC Bisacodyl (Dulcolax Tab) 5 mg PRN DAILY PRN PO 2ND CHOICE CONSTIPATION 06/22/21 01:15 Diazepam (Valium) 5 mg PRN QHS PRN PO ANXIETY 06/22/21 21:00 06/22/21 12:19 DC Famotidine (Pepcid) 20 mg BID PO 06/22/21 09:00 07/10/21 20:44 Lorazepam (Ativan) 1 mg HS PO 06/22/21 21:00 06/22/21 12:19 DC Metoprolol Succinate (Toprol Xl) 25 mg DAILY PO 06/22/21 09:00 06/22/21 12:19 DC 06/22/21 09:00 Nitroglycerin (Nitrostat) 0.4 mg PRN Q5MIN PRN SL CHEST PAIN 06/22/21 01:15 Olanzapine (ZyPREXA) 2.5 mg HS PO 06/22/21 21:00 06/22/21 12:19 DC Potassium Chloride (Klor-Con) 20 meq TIDWMEALS PO 06/22/21 08:00 07/10/21 16:41 Trazodone HCl (Desyrel) 25 mg PRN QHS PRN PO INSOMNIA 06/22/21 01:15 06/22/21 21:28 DC Warfarin Sodium (Coumadin) 5 mg DAILY@1600 PO 06/22/21 16:00 06/24/21 13:18 DC 06/23/21 16:12 Non-Formulary Medication (Acetaminophen Er ) 650 mg PRN Q8HRS PRN PO FEVER/PAIN 06/22/21 01:15 UNV Budesonide (Pulmicort) 0.5 mg RTBID NEB 06/22/21 08:00 06/23/21 12:30 DC 06/23/21 08:42 Fluticasone Propionate (Flonase) 2 spray DAILY NS 06/22/21 09:00 06/22/21 12:19 DC Oxybutynin Chloride (Ditropan) 5 mg DAILY PO 06/22/21 09:00 07/10/21 08:13 Atorvastatin Calcium (Lipitor) 80 mg QHS PO 06/22/21 21:00 07/10/21 20:44 Non-Formulary Medication (Venlafaxine Hcl (Venlafaxine Hcl Er)) 75 mg DAILY PO 06/22/21 09:00 UNV Non-Formulary Medication (Venlafaxine Hcl (Venlafaxine Hcl Er)) 150 mg HS PO 06/22/21 21:00 UNV Warfarin Sodium (Coumadin Per Pharmacy) 1 each PRN DAILY PRN MC SEE COMMENTS 06/22/21 01:45 06/29/21 15:34 Venlafaxine HCl (Effexor) 75 mg TID PO 06/22/21 09:00 06/23/21 19:45 DC 06/23/21 14:18 Nystatin (Nystop) 1 christiano BID TP 06/22/21 21:00 07/10/21 20:44 Magnesium Sulfate 100 ml @ 100 mls/hr 1X ONCE IV 06/22/21 13:00 06/22/21 13:59 DC 06/22/21 13:49 Olanzapine (ZyPREXA ZYDIS) 2.5 mg PRN Q2HR PRN PO ANXIETY / AGITATION 06/22/21 11:45 07/07/21 19:48 Diazepam (Valium) 5 mg QHS PO 06/22/21 21:00 06/22/21 21:22 DC Fluticasone Propionate (Flonase) 2 spray PRN BID PRN NS allergies 06/22/21 11:45 Metoprolol Succinate (Toprol Xl) 25 mg BID PO 06/22/21 21:00 07/10/21 20:44 Albuterol Sulfate (Ventolin Hfa Inhaler) 2 puff PRN Q4HRS PRN INH SHORTNESS OF BREATH 06/22/21 11:45 Diazepam (Valium) 2.5 mg QHS PO 06/22/21 21:15 06/25/21 08:00 DC 06/24/21 20:01 Risperidone (RisperDAL) 0.25 mg QHS PO 06/23/21 21:00 06/22/21 21:25 DC Trazodone HCl (Desyrel) 50 mg PRN QHS PO 06/22/21 21:15 06/25/21 01:10 DC Risperidone (RisperDAL) 0.25 mg QHS PO 06/22/21 21:30 06/25/21 18:31 DC 06/24/21 19:58 Fluticasone Furoate (ARNUITY 100mcg ELLIPTA) 1 puff BID INH 06/23/21 21:00 07/10/21 20:44 Venlafaxine HCl (Effexor) 75 mg BID@0900,1700 PO 06/24/21 09:00 07/10/21 16:42 Warfarin Sodium (Coumadin) 4 mg DAILY16 PO 06/24/21 16:00 06/27/21 08:24 DC 06/26/21 16:40 Trazodone HCl (Desyrel) 50 mg PRN QHS PRN PO insomnia 06/25/21 01:15 07/07/21 19:48 Risperidone (RisperDAL) 0.5 mg QHS PO 06/25/21 21:00 07/04/21 23:59 DC 07/04/21 20:26 Warfarin Sodium (Coumadin) 5 mg 1600 PO 06/27/21 16:00 06/29/21 13:56 DC 06/28/21 17:10 Warfarin Sodium (Coumadin) 2.5 mg DAILY16 PO 06/29/21 16:00 07/10/21 16:42 Warfarin Sodium (Coumadin) 2 mg DAILY16 PO 06/29/21 16:00 07/10/21 16:42 Risperidone (RisperDAL) 0.25 mg 1300,1700 PO 07/05/21 13:00 07/10/21 16:43 I have reviewed the current psychotropics carefully including drug interactions. Risk benefit ratio favors no change other than as noted in my dictated progress note. Diagnosis: Problems: (1) Impulse control disorder, unspecified (2) Anxiety disorder, unspecified (3) Dementia, vascular, with depression (4) Dementia, vascular, with delusions (5) Dementia in Alzheimer's disease with depression (6) Dementia in Alzheimer's disease with delusions (7) Major neurocognitive disorder (8) Dementia in Alzheimer's disease with early onset with behavioral disturbance MYNOR JAMA MD Jul 11, 2021 06:42
[2021-07-11] MEDS: FLUTICASONE FUROATE 100mcg/INH ELLIPTA INHALER. INH SCH ×2 (07:31→20:05)
[2021-07-11] MEDS: METOPROLOL SUCC 24HR ER 25 MG TAB.ER.24H. PO SCH ×2 (07:31→20:04)
[2021-07-11] MEDS: POTASSIUM CHLORIDE 10 MEQ TABLET.ER. PO SCH ×3 (07:31→17:00)
[2021-07-11] MEDS: FAMOTIDINE 20 MG TABLET PO SCH ×2 (07:32→20:03)
[2021-07-11] MEDS: OXYBUTYNIN CHLORIDE 5 MG TABLET PO SCH (07:32)
[2021-07-11] MEDS: VENLAFAXINE 75 MG TABLET. PO SCH ×2 (07:32→17:00)
[2021-07-11] MEDS: NYSTATIN TOPICAL POWDER 15GM BOTTLE. TP SCH ×2 (07:33→20:04)
--- NOTE | 2021-07-11 10:22 | NUR ---
Nursing Note Pt pleasant and cooperative this am. Takes po pills whole no agitation or aggression, a little tearful this am is aware she is having memory deficits and it is troubling to her. She is easily redirected with validation and therapeutic communication techniques.
[2021-07-11] MEDS: risperiDONE 0.25 MG TABLET. PO SCH ×2 (11:29→17:00)
[2021-07-11] MEDS ORDERED: VENL75TA PO (11:40)
[2021-07-11] MEDS ORDERED: RISP0.5T24 PO (11:42)
[2021-07-11] MEDS ORDERED: OLAN5TAB99 PO (11:43)
--- NOTE | 2021-07-11 14:42 | NUR ---
[facility] Social Work Discharge Planning Form Patient Name SHONA MARAVILLA Admit Date: 21 June 2021 DISCHARGE PLAN Discharge Destination: Pt to discharge home with Care Assessment: N/A Level II Assessment: N/A Transportation: Pt to pick pt up around 1300. Special Instructions/Notes: Please fax discharge orders, discharge medications or discharge summary to the fax number(s) listed below. DISCHARGE TO HOME: Address: [address] [place] [address] Responsible Republican: Jimy Maravilla, Pharmacy: [facility] Contact Information: [address] [place] [id number] Psychiatrist/Mental Health Follow Up: Primary Care Follow Up: Dr. Stokes Contact Information: [address] [place] [address] Fax: [phone] Appointment: Outpt therapy: [facility] Contact Information: [address] [place] [id number] Appointment: Tuesday 07/17 @ 10AM
[2021-07-11] MEDS: WARFARIN 2.5 MG TABLET. PO SCH (16:00)
[2021-07-11] MEDS: WARFARIN 2 MG TABLET. PO SCH (16:00)
[2021-07-11 16:02] VITALS: BP 102/64
[2021-07-11] MEDS: ATORVASTATIN CALCIUM 20 MG TABLET PO SCH (20:04)
--- NOTE | 2021-07-11 21:01 | PDOC ---
Exam Note: Mode Note: Please also refer to the separate dictated note~for this date of service dictated separately.~Patient seen individually. Discussed the patient with Nursing staff reviewed the chart.~Reviewed interim history and current functioning. Reviewed vital signs,~Labs/ Radiology~and current medications noted below. Continue current treatment with the changes noted in the dictated addendum note Assessment: Vital Signs/I&O: Vital Signs Date Time Temp Pulse Resp B/P (MAP) Pulse Ox O2 Delivery O2 Flow Rate FiO2 07/11/21 20:04 72 124/71 07/11/21 16:02 98.1 20 97 07/10/21 15:40 Room Air 07/07/21 15:13 93.0 I & O 07/10/21 07/10/21 07/11/21 15:00 23:00 07:00 Intake Total 840 ml 360 ml Balance 840 ml 360 ml Current Medications: Meds: Current Medications Medications (Trade) Dose Ordered Sig/Lucinda Route PRN Reason Start Time Stop Time Status Last Admin Dose Admin Acetaminophen (Tylenol) 650 mg PRN Q6HRS PRN PO MILD PAIN / TEMP > 100.3'F 06/21/21 23:30 06/30/21 00:10 Multi-Ingredient Ointment (Analgesic [place]) 1 christiano PRN QID PRN TP MUSCLE PAIN 06/21/21 23:30 Al Hydroxide/Mg Hydroxide (Mylanta Plus Xs) 15 ml PRN AFTMEALHC PRN PO DYSPEPSIA 06/21/21 23:30 07/08/21 14:20 Magnesium Hydroxide (Milk Of Magnesia) 2,400 mg PRN QHS PRN PO 1ST CHOICE CONSTIPATION 06/21/21 23:30 07/09/21 12:21 Influenza Virus Vaccine Quadrival (Flulaval Quad [id number] Syringe) 0.5 ml ONCE ONCE VAX IM 06/22/21 09:00 06/22/21 09:02 DC 06/22/21 09:07 Albuterol Sulfate (Ventolin) 2.5 mg PRN Q4HRS PRN NEB SHORTNESS OF BREATH 06/22/21 01:30 06/22/21 12:19 DC Bisacodyl (Dulcolax Tab) 5 mg PRN DAILY PRN PO 2ND CHOICE CONSTIPATION 06/22/21 01:15 Diazepam (Valium) 5 mg PRN QHS PRN PO ANXIETY 06/22/21 21:00 06/22/21 12:19 DC Famotidine (Pepcid) 20 mg BID PO 06/22/21 09:00 07/11/21 20:03 Lorazepam (Ativan) 1 mg HS PO 06/22/21 21:00 06/22/21 12:19 DC Metoprolol Succinate (Toprol Xl) 25 mg DAILY PO 06/22/21 09:00 06/22/21 12:19 DC 06/22/21 09:00 Nitroglycerin (Nitrostat) 0.4 mg PRN Q5MIN PRN SL CHEST PAIN 06/22/21 01:15 Olanzapine (ZyPREXA) 2.5 mg HS PO 06/22/21 21:00 06/22/21 12:19 DC Potassium Chloride (Klor-Con) 20 meq TIDWMEALS PO 06/22/21 08:00 07/11/21 17:00 Trazodone HCl (Desyrel) 25 mg PRN QHS PRN PO INSOMNIA 06/22/21 01:15 06/22/21 21:28 DC Warfarin Sodium (Coumadin) 5 mg DAILY@1600 PO 06/22/21 16:00 06/24/21 13:18 DC 06/23/21 16:12 Non-Formulary Medication (Acetaminophen Er ) 650 mg PRN Q8HRS PRN PO FEVER/PAIN 06/22/21 01:15 UNV Budesonide (Pulmicort) 0.5 mg RTBID NEB 06/22/21 08:00 06/23/21 12:30 DC 06/23/21 08:42 Fluticasone Propionate (Flonase) 2 spray DAILY NS 06/22/21 09:00 06/22/21 12:19 DC Oxybutynin Chloride (Ditropan) 5 mg DAILY PO 06/22/21 09:00 07/11/21 07:32 Atorvastatin Calcium (Lipitor) 80 mg QHS PO 06/22/21 21:00 07/11/21 20:04 Non-Formulary Medication (Venlafaxine Hcl (Venlafaxine Hcl Er)) 75 mg DAILY PO 06/22/21 09:00 UNV Non-Formulary Medication (Venlafaxine Hcl (Venlafaxine Hcl Er)) 150 mg HS PO 06/22/21 21:00 UNV Warfarin Sodium (Coumadin Per Pharmacy) 1 each PRN DAILY PRN MC SEE COMMENTS 06/22/21 01:45 06/29/21 15:34 Venlafaxine HCl (Effexor) 75 mg TID PO 06/22/21 09:00 06/23/21 19:45 DC 06/23/21 14:18 Nystatin (Nystop) 1 christiano BID TP 06/22/21 21:00 07/11/21 20:04 Magnesium Sulfate 100 ml @ 100 mls/hr 1X ONCE IV 06/22/21 13:00 06/22/21 13:59 DC 06/22/21 13:49 Olanzapine (ZyPREXA ZYDIS) 2.5 mg PRN Q2HR PRN PO ANXIETY / AGITATION 06/22/21 11:45 07/07/21 19:48 Diazepam (Valium) 5 mg QHS PO 06/22/21 21:00 06/22/21 21:22 DC Fluticasone Propionate (Flonase) 2 spray PRN BID PRN NS allergies 06/22/21 11:45 Metoprolol Succinate (Toprol Xl) 25 mg BID PO 06/22/21 21:00 07/11/21 20:04 Albuterol Sulfate (Ventolin Hfa Inhaler) 2 puff PRN Q4HRS PRN INH SHORTNESS OF BREATH 06/22/21 11:45 Diazepam (Valium) 2.5 mg QHS PO 06/22/21 21:15 06/25/21 08:00 DC 06/24/21 20:01 Risperidone (RisperDAL) 0.25 mg QHS PO 06/23/21 21:00 06/22/21 21:25 DC Trazodone HCl (Desyrel) 50 mg PRN QHS PO 06/22/21 21:15 06/25/21 01:10 DC Risperidone (RisperDAL) 0.25 mg QHS PO 06/22/21 21:30 06/25/21 18:31 DC 06/24/21 19:58 Fluticasone Furoate (ARNUITY 100mcg ELLIPTA) 1 puff BID INH 06/23/21 21:00 07/11/21 20:05 Venlafaxine HCl (Effexor) 75 mg BID@0900,1700 PO 06/24/21 09:00 07/11/21 17:00 Warfarin Sodium (Coumadin) 4 mg DAILY16 PO 06/24/21 16:00 06/27/21 08:24 DC 06/26/21 16:40 Trazodone HCl (Desyrel) 50 mg PRN QHS PRN PO insomnia 06/25/21 01:15 07/07/21 19:48 Risperidone (RisperDAL) 0.5 mg QHS PO 06/25/21 21:00 07/04/21 23:59 DC 07/04/21 20:26 Warfarin Sodium (Coumadin) 5 mg 1600 PO 06/27/21 16:00 06/29/21 13:56 DC 06/28/21 17:10 Warfarin Sodium (Coumadin) 2.5 mg DAILY16 PO 06/29/21 16:00 07/11/21 16:00 Warfarin Sodium (Coumadin) 2 mg DAILY16 PO 06/29/21 16:00 07/11/21 16:00 Risperidone (RisperDAL) 0.25 mg 1300,1700 PO 07/05/21 13:00 07/11/21 17:00 I have reviewed the current psychotropics carefully including drug interactions. Risk benefit ratio favors no change other than as noted in my dictated progress note. Diagnosis: Problems: (1) Impulse control disorder, unspecified (2) Anxiety disorder, unspecified (3) Dementia, vascular, with depression (4) Dementia, vascular, with delusions (5) Dementia in Alzheimer's disease with depression (6) Dementia in Alzheimer's disease with delusions (7) Major neurocognitive disorder (8) Dementia in Alzheimer's disease with early onset with behavioral disturbance MYNOR JAMA MD Jul 11, 2021 21:01
--- NOTE | 2021-07-11 23:07 | NUR ---
Pt located in her room this evening. Pt pleasant, states she is excited to go home tomorrow. Compliant with whole medications.
[2021-07-12 05:54] VITALS: BP 135/72
--- NOTE | 2021-07-12 07:24 | PDOC ---
Exam Note: Mode Note: This note is a late entry for 07/11/2021 covers elements not covered in my initial note. Subjective: The patient was seen individually in the evening of 07/11/2021 with Beth DE SANTIAGO, discussed and reviewed the chart. The patient slept 7-1/4 previous night. She remains somewhat delusional. She has been trying to help one of the other depressed patients on the unit. She does get a little more confused in the evening, little better during the day but more coherent overall then when she was admitted. I met with her in her room. Review of Systems: No CV, , pulmonary, eye, ENT system symptoms on review. Reliability varies. Mental Status Exam: The patient is alert and oriented to herself and situation. Speech is coherent. Abstraction fair. Computation impaired. Language function intact. Attention span somewhat distractible. Mood and affect is improved. Short-term memory is impaired. She said some of her family visited her today and this is not accurate. On the other hand she also stated that when she gets back to her home environment and the environment she has used to she feels her confusion will improve. This entire sentence was quite coherent as she has made other similar sentences to nursing staff. Laboratory Data: Reviewed. Impression: Major neurocognitive disorder, Alzheimer, vascular with delusion, depression behavioral disturbance. Anxiety disorder unspecified. Impulse control disorder unspecified. Plan: Continue current psychotropics mentioned in my initial note. Transition to home with her tomorrow to outpatient psychiatric follow-up. Assessment: Vital Signs/I&O: Vital Signs Date Time Temp Pulse Resp B/P (MAP) Pulse Ox O2 Delivery O2 Flow Rate FiO2 07/12/21 05:54 97.9 77 16 135/72 (93) 94 07/10/21 15:40 Room Air 07/07/21 15:13 93.0 I & O 07/11/21 07/11/21 07/12/21 15:00 23:00 07:00 Intake Total 1020 ml 360 ml Balance 1020 ml 360 ml Current Medications: Meds: Current Medications Medications (Trade) Dose Ordered Sig/Lucinda Route PRN Reason Start Time Stop Time Status Last Admin Dose Admin Acetaminophen (Tylenol) 650 mg PRN Q6HRS PRN PO MILD PAIN / TEMP > 100.3'F 06/21/21 23:30 06/30/21 00:10 Multi-Ingredient Ointment (Analgesic [place]) 1 christiano PRN QID PRN TP MUSCLE PAIN 06/21/21 23:30 Al Hydroxide/Mg Hydroxide (Mylanta Plus Xs) 15 ml PRN AFTMEALHC PRN PO DYSPEPSIA 06/21/21 23:30 07/08/21 14:20 Magnesium Hydroxide (Milk Of Magnesia) 2,400 mg PRN QHS PRN PO 1ST CHOICE CONSTIPATION 06/21/21 23:30 07/09/21 12:21 Influenza Virus Vaccine Quadrival (Flulaval Quad [id number] Syringe) 0.5 ml ONCE ONCE VAX IM 06/22/21 09:00 06/22/21 09:02 DC 06/22/21 09:07 Albuterol Sulfate (Ventolin) 2.5 mg PRN Q4HRS PRN NEB SHORTNESS OF BREATH 06/22/21 01:30 06/22/21 12:19 DC Bisacodyl (Dulcolax Tab) 5 mg PRN DAILY PRN PO 2ND CHOICE CONSTIPATION 06/22/21 01:15 Diazepam (Valium) 5 mg PRN QHS PRN PO ANXIETY 06/22/21 21:00 06/22/21 12:19 DC Famotidine (Pepcid) 20 mg BID PO 06/22/21 09:00 07/11/21 20:03 Lorazepam (Ativan) 1 mg HS PO 06/22/21 21:00 06/22/21 12:19 DC Metoprolol Succinate (Toprol Xl) 25 mg DAILY PO 06/22/21 09:00 06/22/21 12:19 DC 06/22/21 09:00 Nitroglycerin (Nitrostat) 0.4 mg PRN Q5MIN PRN SL CHEST PAIN 06/22/21 01:15 Olanzapine (ZyPREXA) 2.5 mg HS PO 06/22/21 21:00 06/22/21 12:19 DC Potassium Chloride (Klor-Con) 20 meq TIDWMEALS PO 06/22/21 08:00 07/11/21 17:00 Trazodone HCl (Desyrel) 25 mg PRN QHS PRN PO INSOMNIA 06/22/21 01:15 06/22/21 21:28 DC Warfarin Sodium (Coumadin) 5 mg DAILY@1600 PO 06/22/21 16:00 06/24/21 13:18 DC 06/23/21 16:12 Non-Formulary Medication (Acetaminophen Er ) 650 mg PRN Q8HRS PRN PO FEVER/PAIN 06/22/21 01:15 UNV Budesonide (Pulmicort) 0.5 mg RTBID NEB 06/22/21 08:00 06/23/21 12:30 DC 06/23/21 08:42 Fluticasone Propionate (Flonase) 2 spray DAILY NS 06/22/21 09:00 06/22/21 12:19 DC Oxybutynin Chloride (Ditropan) 5 mg DAILY PO 06/22/21 09:00 07/11/21 07:32 Atorvastatin Calcium (Lipitor) 80 mg QHS PO 06/22/21 21:00 07/11/21 20:04 Non-Formulary Medication (Venlafaxine Hcl (Venlafaxine Hcl Er)) 75 mg DAILY PO 06/22/21 09:00 UNV Non-Formulary Medication (Venlafaxine Hcl (Venlafaxine Hcl Er)) 150 mg HS PO 06/22/21 21:00 UNV Warfarin Sodium (Coumadin Per Pharmacy) 1 each PRN DAILY PRN MC SEE COMMENTS 06/22/21 01:45 06/29/21 15:34 Venlafaxine HCl (Effexor) 75 mg TID PO 06/22/21 09:00 06/23/21 19:45 DC 06/23/21 14:18 Nystatin (Nystop) 1 christiano BID TP 06/22/21 21:00 07/11/21 20:04 Magnesium Sulfate 100 ml @ 100 mls/hr 1X ONCE IV 06/22/21 13:00 06/22/21 13:59 DC 06/22/21 13:49 Olanzapine (ZyPREXA ZYDIS) 2.5 mg PRN Q2HR PRN PO ANXIETY / AGITATION 06/22/21 11:45 07/07/21 19:48 Diazepam (Valium) 5 mg QHS PO 06/22/21 21:00 06/22/21 21:22 DC Fluticasone Propionate (Flonase) 2 spray PRN BID PRN NS allergies 06/22/21 11:45 Metoprolol Succinate (Toprol Xl) 25 mg BID PO 06/22/21 21:00 07/11/21 20:04 Albuterol Sulfate (Ventolin Hfa Inhaler) 2 puff PRN Q4HRS PRN INH SHORTNESS OF BREATH 06/22/21 11:45 Diazepam (Valium) 2.5 mg QHS PO 06/22/21 21:15 06/25/21 08:00 DC 06/24/21 20:01 Risperidone (RisperDAL) 0.25 mg QHS PO 06/23/21 21:00 06/22/21 21:25 DC Trazodone HCl (Desyrel) 50 mg PRN QHS PO 06/22/21 21:15 06/25/21 01:10 DC Risperidone (RisperDAL) 0.25 mg QHS PO 06/22/21 21:30 06/25/21 18:31 DC 06/24/21 19:58 Fluticasone Furoate (ARNUITY 100mcg ELLIPTA) 1 puff BID INH 06/23/21 21:00 07/11/21 20:05 Venlafaxine HCl (Effexor) 75 mg BID@0900,1700 PO 06/24/21 09:00 07/11/21 17:00 Warfarin Sodium (Coumadin) 4 mg DAILY16 PO 06/24/21 16:00 06/27/21 08:24 DC 06/26/21 16:40 Trazodone HCl (Desyrel) 50 mg PRN QHS PRN PO insomnia 06/25/21 01:15 07/07/21 19:48 Risperidone (RisperDAL) 0.5 mg QHS PO 06/25/21 21:00 07/04/21 23:59 DC 07/04/21 20:26 Warfarin Sodium (Coumadin) 5 mg 1600 PO 06/27/21 16:00 06/29/21 13:56 DC 06/28/21 17:10 Warfarin Sodium (Coumadin) 2.5 mg DAILY16 PO 06/29/21 16:00 07/11/21 16:00 Warfarin Sodium (Coumadin) 2 mg DAILY16 PO 06/29/21 16:00 07/11/21 16:00 Risperidone (RisperDAL) 0.25 mg 1300,1700 PO 07/05/21 13:00 07/11/21 17:00 I have reviewed the current psychotropics carefully including drug interactions. Risk benefit ratio favors no change other than as noted in my dictated progress note. Diagnosis: Problems: (1) Impulse control disorder, unspecified (2) Anxiety disorder, unspecified (3) Dementia, vascular, with depression (4) Dementia, vascular, with delusions (5) Dementia in Alzheimer's disease with depression (6) Dementia in Alzheimer's disease with delusions (7) Major neurocognitive disorder (8) Dementia in Alzheimer's disease with early onset with behavioral disturbance MYNOR JAMA MD Jul 12, 2021 07:24
[2021-07-12 08:30] VITALS: BP 135/72
[2021-07-12] MEDS: OXYBUTYNIN CHLORIDE 5 MG TABLET PO SCH (08:30)
[2021-07-12] MEDS: VENLAFAXINE 75 MG TABLET. PO SCH (08:30)
[2021-07-12] MEDS: POTASSIUM CHLORIDE 10 MEQ TABLET.ER. PO SCH ×2 (08:30→12:03)
[2021-07-12] MEDS: METOPROLOL SUCC 24HR ER 25 MG TAB.ER.24H. PO SCH (08:30)
[2021-07-12] MEDS: FLUTICASONE FUROATE 100mcg/INH ELLIPTA INHALER. INH SCH (08:30)
[2021-07-12] MEDS: FAMOTIDINE 20 MG TABLET PO SCH (08:30)
[2021-07-12] MEDS: NYSTATIN TOPICAL POWDER 15GM BOTTLE. TP SCH (09:00)
--- NOTE | 2021-07-12 09:30 | NUR ---
[facility] Social Work Discharge Planning Form Patient Name SHONA MARAVILLA Admit Date: 21 June 2021 DISCHARGE PLAN Discharge Destination: Pt to discharge home with Care Assessment: N/A Level II Assessment: N/A Transportation: Pt to pick pt up around 1300. Special Instructions/Notes: Please fax discharge orders, discharge medications or discharge summary to the fax number(s) listed below. DISCHARGE TO HOME: Address: [address] [place] [address] Responsible Republican: Jimyjyotsna Maravilla, Pharmacy: [facility] Contact Information: [address] [place] [address] Psychiatrist/Mental Health Follow Up: [facility] Contact Information: [address] [place] [address] Appointment: Will call family to schedule Primary Care Follow Up: Dr. Stokes Contact Information: [address] [place] [address] Appointment: Wednesday 07/18 @ 1400 Outpt therapy: [facility] Contact Information: [address] [place] [address] Appointment: Tuesday 07/17 @ 10AM
[2021-07-12] MEDS: risperiDONE 0.25 MG TABLET. PO SCH (12:03)
--- NOTE | 2021-07-12 12:58 | NUR ---
Transition Record was faxed to follow-up provider with the following elements: Reason for admission, procedures, tests, principal diagnosis, pending studies, patient instructions, 18/02 contact information for unit, phone number to obtain pending test results, plan for follow-up care, physician follow-up, advanced directive information, and medication list with dose, duration and instructions. This information was included in the following documents: History and physical, lab results, study results, progress notes, social work planning form, DC instruction form, patient visit summary, and medication reconciliation form. Date & time record faxed: 12:13 11 July 2021 Record faxed to: [facility] Record discussed with/ report given to: Discharge instructions discussed with patient and spouse/DPOA to include follow-up appointments, medications, and who to call if they have any questions or concerns.
--- NOTE | 2021-07-12 21:05 | PDOC ---
Exam Note: Mode Note: Please also refer to the separate dictated note~for this date of service dictated separately.~Patient seen individually. Discussed the patient with Nursing staff reviewed the chart.~Reviewed interim history and current functioning. Reviewed vital signs,~Labs/ Radiology~and current medications noted below. Continue current treatment with the changes noted in the dictated addendum note Assessment: Vital Signs/I&O: Vital Signs Date Time Temp Pulse Resp B/P (MAP) Pulse Ox O2 Delivery O2 Flow Rate FiO2 07/12/21 08:30 77 135/72 07/12/21 05:54 97.9 16 94 07/10/21 15:40 Room Air 07/07/21 15:13 93.0 I & O 07/11/21 07/11/21 07/12/21 15:00 23:00 07:00 Intake Total 1020 ml 360 ml Balance 1020 ml 360 ml Current Medications: Meds: Current Medications Medications (Trade) Dose Ordered Sig/Lucinda Route PRN Reason Start Time Stop Time Status Last Admin Dose Admin Acetaminophen (Tylenol) 650 mg PRN Q6HRS PRN PO MILD PAIN / TEMP > 100.3'F 06/21/21 23:30 07/12/21 13:05 DC 06/30/21 00:10 Multi-Ingredient Ointment (Analgesic [place]) 1 christiano PRN QID PRN TP MUSCLE PAIN 06/21/21 23:30 07/12/21 13:05 DC Al Hydroxide/Mg Hydroxide (Mylanta Plus Xs) 15 ml PRN AFTMEALHC PRN PO DYSPEPSIA 06/21/21 23:30 07/12/21 13:05 DC 07/08/21 14:20 Magnesium Hydroxide (Milk Of Magnesia) 2,400 mg PRN QHS PRN PO 1ST CHOICE CONSTIPATION 06/21/21 23:30 07/12/21 13:05 DC 07/09/21 12:21 Influenza Virus Vaccine Quadrival (Flulaval Quad [id number] Syringe) 0.5 ml ONCE ONCE VAX IM 06/22/21 09:00 06/22/21 09:02 DC 06/22/21 09:07 Albuterol Sulfate (Ventolin) 2.5 mg PRN Q4HRS PRN NEB SHORTNESS OF BREATH 06/22/21 01:30 06/22/21 12:19 DC Bisacodyl (Dulcolax Tab) 5 mg PRN DAILY PRN PO 2ND CHOICE CONSTIPATION 06/22/21 01:15 07/12/21 13:05 DC Diazepam (Valium) 5 mg PRN QHS PRN PO ANXIETY 06/22/21 21:00 06/22/21 12:19 DC Famotidine (Pepcid) 20 mg BID PO 06/22/21 09:00 07/12/21 13:05 DC 07/12/21 08:30 Lorazepam (Ativan) 1 mg HS PO 06/22/21 21:00 06/22/21 12:19 DC Metoprolol Succinate (Toprol Xl) 25 mg DAILY PO 06/22/21 09:00 06/22/21 12:19 DC 06/22/21 09:00 Nitroglycerin (Nitrostat) 0.4 mg PRN Q5MIN PRN SL CHEST PAIN 06/22/21 01:15 07/12/21 13:05 DC Olanzapine (ZyPREXA) 2.5 mg HS PO 06/22/21 21:00 06/22/21 12:19 DC Potassium Chloride (Klor-Con) 20 meq TIDWMEALS PO 06/22/21 08:00 07/12/21 13:05 DC 07/12/21 12:03 Trazodone HCl (Desyrel) 25 mg PRN QHS PRN PO INSOMNIA 06/22/21 01:15 06/22/21 21:28 DC Warfarin Sodium (Coumadin) 5 mg DAILY@1600 PO 06/22/21 16:00 06/24/21 13:18 DC 06/23/21 16:12 Non-Formulary Medication (Acetaminophen Er ) 650 mg PRN Q8HRS PRN PO FEVER/PAIN 06/22/21 01:15 UNV Budesonide (Pulmicort) 0.5 mg RTBID NEB 06/22/21 08:00 06/23/21 12:30 DC 06/23/21 08:42 Fluticasone Propionate (Flonase) 2 spray DAILY NS 06/22/21 09:00 06/22/21 12:19 DC Oxybutynin Chloride (Ditropan) 5 mg DAILY PO 06/22/21 09:00 07/12/21 13:05 DC 07/12/21 08:30 Atorvastatin Calcium (Lipitor) 80 mg QHS PO 06/22/21 21:00 07/12/21 13:05 DC 07/11/21 20:04 Non-Formulary Medication (Venlafaxine Hcl (Venlafaxine Hcl Er)) 75 mg DAILY PO 06/22/21 09:00 UNV Non-Formulary Medication (Venlafaxine Hcl (Venlafaxine Hcl Er)) 150 mg HS PO 06/22/21 21:00 UNV Warfarin Sodium (Coumadin Per Pharmacy) 1 each PRN DAILY PRN MC SEE COMMENTS 06/22/21 01:45 07/12/21 13:05 DC 06/29/21 15:34 Venlafaxine HCl (Effexor) 75 mg TID PO 06/22/21 09:00 06/23/21 19:45 DC 06/23/21 14:18 Nystatin (Nystop) 1 christiano BID TP 06/22/21 21:00 07/12/21 13:05 DC 07/11/21 20:04 Magnesium Sulfate 100 ml @ 100 mls/hr 1X ONCE IV 06/22/21 13:00 06/22/21 13:59 DC 06/22/21 13:49 Olanzapine (ZyPREXA ZYDIS) 2.5 mg PRN Q2HR PRN PO ANXIETY / AGITATION 06/22/21 11:45 07/12/21 13:05 DC 07/07/21 19:48 Diazepam (Valium) 5 mg QHS PO 06/22/21 21:00 06/22/21 21:22 DC Fluticasone Propionate (Flonase) 2 spray PRN BID PRN NS allergies 06/22/21 11:45 07/12/21 13:05 DC Metoprolol Succinate (Toprol Xl) 25 mg BID PO 06/22/21 21:00 07/12/21 13:05 DC 07/12/21 08:30 Albuterol Sulfate (Ventolin Hfa Inhaler) 2 puff PRN Q4HRS PRN INH SHORTNESS OF BREATH 06/22/21 11:45 07/12/21 13:05 DC Diazepam (Valium) 2.5 mg QHS PO 06/22/21 21:15 06/25/21 08:00 DC 06/24/21 20:01 Risperidone (RisperDAL) 0.25 mg QHS PO 06/23/21 21:00 06/22/21 21:25 DC Trazodone HCl (Desyrel) 50 mg PRN QHS PO 06/22/21 21:15 06/25/21 01:10 DC Risperidone (RisperDAL) 0.25 mg QHS PO 06/22/21 21:30 06/25/21 18:31 DC 06/24/21 19:58 Fluticasone Furoate (ARNUITY 100mcg ELLIPTA) 1 puff BID INH 06/23/21 21:00 07/12/21 13:05 DC 07/12/21 08:30 Venlafaxine HCl (Effexor) 75 mg BID@0900,1700 PO 06/24/21 09:00 07/12/21 13:05 DC 07/12/21 08:30 Warfarin Sodium (Coumadin) 4 mg DAILY16 PO 06/24/21 16:00 06/27/21 08:24 DC 06/26/21 16:40 Trazodone HCl (Desyrel) 50 mg PRN QHS PRN PO insomnia 06/25/21 01:15 07/12/21 13:05 DC 07/07/21 19:48 Risperidone (RisperDAL) 0.5 mg QHS PO 06/25/21 21:00 07/04/21 23:59 DC 07/04/21 20:26 Warfarin Sodium (Coumadin) 5 mg 1600 PO 06/27/21 16:00 06/29/21 13:56 DC 06/28/21 17:10 Warfarin Sodium (Coumadin) 2.5 mg DAILY16 PO 06/29/21 16:00 07/12/21 13:05 DC 07/11/21 16:00 Warfarin Sodium (Coumadin) 2 mg DAILY16 PO 06/29/21 16:00 07/12/21 13:05 DC 07/11/21 16:00 Risperidone (RisperDAL) 0.25 mg 1300,1700 PO 07/05/21 13:00 07/12/21 13:05 DC 07/12/21 12:03 I have reviewed the current psychotropics carefully including drug interactions. Risk benefit ratio favors no change other than as noted in my dictated progress note. Diagnosis: Problems: (1) Impulse control disorder, unspecified (2) Anxiety disorder, unspecified (3) Dementia, vascular, with depression (4) Dementia, vascular, with delusions (5) Dementia in Alzheimer's disease with depression (6) Dementia in Alzheimer's disease with delusions (7) Major neurocognitive disorder (8) Dementia in Alzheimer's disease with early onset with behavioral disturbance MYNOR JAMA MD Jul 12, 2021 21:05
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
== END 2021-07-12 13:03 | disposition home or self-care (01) | DRG 57 ==
LOC: GEROPSY 23:15
PROVIDERS: ADMIT Psychiatry & Neurology Psychiatry; ATTEND Psychiatry & Neurology Psychiatry
DX: G30.9 Alzheimer's disease, unspecified (principal); F01.51 Vascular dementia, unspecified severity, with behavioral disturbance; I11.0 Hypertensive heart disease with heart failure; F02.81 Dementia in other diseases classified elsewhere, unspecified severity, with behavioral disturbance; F63.9 Impulse disorder, unspecified; F32.A Depression, unspecified; E78.5 Hyperlipidemia, unspecified; E83.42 Hypomagnesemia; E87.6 Hypokalemia; F41.9 Anxiety disorder, unspecified; F80.9 Developmental disorder of speech and language, unspecified; I25.10 Atherosclerotic heart disease of native coronary artery without angina pectoris; I50.9 Heart failure, unspecified; I48.0 Paroxysmal atrial fibrillation; M06.9 Rheumatoid arthritis, unspecified; M79.7 Fibromyalgia; K21.9 Gastro-esophageal reflux disease without esophagitis; Z66 Do not resuscitate; Z96.659 Presence of unspecified artificial knee joint; E66.9 Obesity, unspecified; Z68.29 Body mass index [BMI] 29.0-29.9, adult; I25.2 Old myocardial infarction; Z79.01 Long term (current) use of anticoagulants; Z79.899 Other long term (current) drug therapy; Z90.49 Acquired absence of other specified parts of digestive tract; Z90.710 Acquired absence of both cervix and uterus; Z91.81 History of falling; Z86.16 Personal history of COVID-19
CPT/HCPCS: 36415; 70450; 80048; 80053; 80061; 81001; 82306; 82607; 83036; 83540; 83550; 83735; 84436; 84443; 84480; 85014; 85018; 85025; 85379; 85610; 86592; 87086; 90471; 90686; 93005; J3475; 97535